=== PATIENT | female | born 1965 | race Caucasian/White ===

== ENCOUNTER 2017-04-08 18:55 | Inpatient (IN) ==
[2017-04-08] MEDS ORDERED: *HR* Ticagrelor 90 MG TABLET PO ONE (19:12)
[2017-04-08] MEDS ORDERED: Aspirin 81 MG TAB.CHEW PO ONE (19:12)
[2017-04-08] MEDS ORDERED: *HR* Heparin 5,000 UNIT/ML VIAL IVP ONE (19:12)
[2017-04-08] MEDS ORDERED: *HR* Heparin 5,000 UNIT/ML VIAL IVP PRN ×2 (19:12)
[2017-04-08] MEDS ORDERED: Heparin 25,000 UNIT/500 ML D5W 25,000 UNIT/500 ML MLS IVC SCH (19:15)
[2017-04-08] MEDS: Nitroglycerin 0.4 MG TAB.SUBL SL PRN ×3 (19:22→23:26)
[2017-04-08 19:24] LABS: Basophils % 0.4 %; Eosinophils # 0.1 K/mcL (0.0-0.6); Eosinophils % 1.1 %; Hematocrit 46.1 % (35.3-44.9); Hemoglobin 15.1 g/dL (11.5-15.4); Immature Granulocytes % 0.4 % (0-4); Lymphocytes # 1.9 K/mcL (0.6-4.6); Lymphocytes % 16.6 %; Mean Corpuscular HGB Conc 32.8 g/dL (31.6-35.5); Mean Corpuscular Hemoglobin 28.8 pg (28.0-33.3); Mean Corpuscular Volume 87.8 fL (83.0-100.0); Mean Platelet Volume 9.8 fL (9.4-12.4); Monocytes # 0.8 K/mcL (0.0-1.3); Monocytes % 7.4 %; Neutrophils # 8.3 K/mcL (1.6-8.9); Platelet Count 249 K/mcL (140-400); Red Blood Count 5.25 M/mcL (3.82-4.97); Red Cell Distribution Width 12.6 % (11.5-14.5); Segmented Neutrophils % 74.1 %
--- NOTE | 2017-04-08 19:26 | Emergency Department Note ---
Disposition Clinical Impression: ST elevation myocardial infarction (STEMI) Qualifiers: Involved coronary artery: unspecified coronary artery Qualified Code(s): I21.3 - ST elevation (STEMI) myocardial infarction of unspecified site Disposition: Admitted As Inpatient Condition: Critical Time of Disposition: 19:09 Chest Pain HPI - General Chief Complaint: ED Chest Pain Stated Complaint: chest pain Time Seen by Provider: 04/08/17 18:59 Source: patient Vital Signs Reviewed: Yes Nursing Notes Reviewed: Yes - History of Present Illness HPI Narrative: 51-year-old female with past medical history of type 2 diabetes, hypertension, smoking, history of myocardial infarction in her brother, sister, mother, and father presents to the emergency department after a 2 day history of chest pain. Patient states that she was having crushing chest pain last night, but it started to resolve and she went to sleep. Patient states that just felt achy all day and while at bingo today, she started having the same crushing symptoms of chest pain today. Patient states that she also has pleuritic chest pain as well. Patient denies any history of blood clots, recent travel, hemoptysis, unilateral leg swelling, recent surgery or trauma. Patient states that she has associated symptoms of nausea, was accompanied with her chest pain. Severity scale (1-10): 7 - Related Data Allergies Allergy/AdvReac Type Severity Reaction Status Date / Time No Known Allergies Allergy Verified 04/08/17 19:06 All systems ED: reviewed and negative except as stated. Review of Systems: As Per HPI Constitutional: Denies: fever, chills Cardiovascular: Reports: chest pain. Denies: dyspnea on exertion Respiratory: Reports: dyspnea. Denies: cough Gastrointestinal: Reports: nausea. Denies: abdominal pain, vomiting Genitourinary: Denies: urgency, dysuria Musculoskeletal: Denies: back pain, neck pain Neurological: Denies: headache, weakness, numbness Chest Pain PMH - Past Medical History Medical history: Reports: diabetes, hypertension Psychiatric history: Reports: depression - Social History Smoking Status: Current every day smoker Physical Exam General: 51-year-old female who appears to be in distress, clutching her chest, very uncomfortable. Head: autraumatic, EOMI, no conjuncitval pallor, no scleral icterus, Mouth: oral mucous membranes moist Neck: neck soft, trachea midline Chest:: Equal chest wall rise Lungs: Normal lungs sounds bilaterally, no wheezes, no respiratory distress Heart: normal heart sounds, tachycardic and normal rhythm, Abdomen: soft, non-tender, no rigidity, no guarding, no rebdound tenderness Lower Extremities: no pedal edema, calves non-tender Integumentary: Skin warm, dry, and intact Neuro: Alert Psych: Anxious - General General appearance: alert, in no apparent distress Course Course Narrative: 51-year-old female comes in with 2 day history of chest pain. Patient states that the chest pain started last night she described it as crushing pressure and tightness. Last night she went to bed the pain resolved and woke up this morning and she was only having achiness in her chest. She comes to the emergency department now because her chest pain is gotten worse over the last hour. Her brought her into the emergency department. At 1904, an electrocardiogram was performed which revealed a STEMI with lateral ST elevation. Electrocardiogram also revealed inferior reciprocal electrocardiogram changes. A STEMI alert was called at 19:05. I spoke to Dr. Capellan the freight forwarder at 19:09 and informed him of the STEMI. He agreed with providing the patient with 325 mg of aspirin as well as 180 mg of Brilinta, starting low-dose heparin. Patient was also provided nitroglycerin and nitroglycerin drip. Patient is hemodynamically stable at this time. With a blood pressure of 148/94, pulse 100 rate of 93. Respirations were 20, oxygen saturation was 99% on room air. I discussed this with both the patient and her . They were in agreement with the plan. We are currently awaiting the cath team to be assembled to take this patient to the [facility]. Vital Signs Temperature 98.0 F 04/08/17 18:59 Pulse Rate 93 04/08/17 18:59 Respiratory Rate 20 04/08/17 18:59 Blood Pressure 148/94 04/08/17 18:59 O2 Sat by Pulse Oximetry 99 04/08/17 18:59 Temperature 98.0 F 04/08/17 18:59 Pulse Rate 93 04/08/17 18:59 Respiratory Rate 20 04/08/17 18:59 Blood Pressure 148/94 04/08/17 18:59 O2 Sat by Pulse Oximetry 98 04/08/17 19:12 Oxygen Delivery Oxygen Delivery Room Air - Reevaluation(s) Reevaluation #1: Cath team came and took patient out of the emergency department at 19:45 to take her to the Food Service Cashier. Vital Signs Temperature 98.0 F 04/08/17 18:59 Pulse Rate 93 04/08/17 18:59 Respiratory Rate 20 04/08/17 18:59 Blood Pressure 148/94 04/08/17 18:59 O2 Sat by Pulse Oximetry 99 04/08/17 18:59 Temperature 98.0 F 04/08/17 18:59 Pulse Rate 96 04/08/17 19:37 Respiratory Rate 16 04/08/17 19:37 Blood Pressure 122/76 04/08/17 19:37 O2 Sat by Pulse Oximetry 99 04/08/17 19:37 Oxygen Delivery Oxygen Delivery Nasal Cannula Time: 19:49 Vital Signs Temperature 98.0 F 04/08/17 18:59 Pulse Rate 93 04/08/17 18:59 Respiratory Rate 20 04/08/17 18:59 Blood Pressure 148/94 04/08/17 18:59 O2 Sat by Pulse Oximetry 99 04/08/17 18:59 Temperature 98.2 F 04/08/17 20:50 Pulse Rate 90 04/08/17 20:50 Respiratory Rate 18 04/08/17 20:50 Blood Pressure 123/78 04/08/17 20:50 O2 Sat by Pulse Oximetry 98 04/08/17 20:50 Oxygen Delivery Oxygen Delivery Nasal Cannula Chest Pain - Medical Records Medical records reviewed: Yes I reviewed the patient's medical records. - Lab Data Result diagrams: 04/08/17 19:10 04/08/17 19:10 Lab Results 04/08/17 04/08/17 04/08/17 Range/Units 19:10 19:10 19:10 WBC 11.2 H (4.3-11.1) K/mcL RBC 5.25 H (3.82-4.97) M/mcL Hgb 15.1 (11.5-15.4) g/dL Hct 46.1 H (35.3-44.9) % MCV 87.8 (83.0-100.0) fL MCH 28.8 (28.0-33.3) pg MCHC 32.8 (31.6-35.5) g/dL RDW 12.6 (11.5-14.5) % Plt Count 249 (140-400) K/mcL MPV 9.8 (9.4-12.4) fL Immature Gran % 0.4 (0-4) % Seg Neutrophils % 74.1 % Lymphocytes % 16.6 % Monocytes % 7.4 % Eosinophils % 1.1 % Basophils % 0.4 % Neutrophils # 8.3 (1.6-8.9) K/mcL Lymphocytes # 1.9 (0.6-4.6) K/mcL Monocytes # 0.8 (0.0-1.3) K/mcL Eosinophils # 0.1 (0.0-0.6) K/mcL Basophils # 0.0 (0.0-0.2) K/mcL PT 10.8 (9.4-12.1) Seconds INR 1.0 APTT 28.1 (26.0-36.0) Seconds Sodium 136 (136-145) mEq/L Potassium 3.7 (3.5-4.5) mEq/L Chloride 100 (98-109) mEq/L Carbon Dioxide 26 (19-29) mEq/L BUN 15 (7-20) mg/dL Creatinine 1.16 H (0.57-1.11) mg/dL Est GFR ( Amer) 60 (> 60) Est GFR (Non-Af Amer) 49 L (> 60) BUN/Creatinine Ratio 13 (6-26) Glucose 335 H (70-99) mg/dL POC Glucose (58-89) Calculated Osmolality 296 (280-300) Calcium 9.7 (8.6-10.8) mg/dL Magnesium 1.6 (1.6-2.6) mg/dL Troponin I (0-0.03) ng/mL 04/08/17 04/08/17 Range/Units 19:10 19:38 WBC (4.3-11.1) K/mcL RBC (3.82-4.97) M/mcL Hgb (11.5-15.4) g/dL Hct (35.3-44.9) % MCV (83.0-100.0) fL MCH (28.0-33.3) pg MCHC (31.6-35.5) g/dL RDW (11.5-14.5) % Plt Count (140-400) K/mcL MPV (9.4-12.4) fL Immature Gran % (0-4) % Seg Neutrophils % % Lymphocytes % % Monocytes % % Eosinophils % % Basophils % % Neutrophils # (1.6-8.9) K/mcL Lymphocytes # (0.6-4.6) K/mcL Monocytes # (0.0-1.3) K/mcL Eosinophils # (0.0-0.6) K/mcL Basophils # (0.0-0.2) K/mcL PT (9.4-12.1) Seconds INR APTT (26.0-36.0) Seconds Sodium (136-145) mEq/L Potassium (3.5-4.5) mEq/L Chloride (98-109) mEq/L Carbon Dioxide (19-29) mEq/L BUN (7-20) mg/dL Creatinine (0.57-1.11) mg/dL Est GFR ( Amer) (> 60) Est GFR (Non-Af Amer) (> 60) BUN/Creatinine Ratio (6-26) Glucose (70-99) mg/dL POC Glucose 341 H (58-89) Calculated Osmolality (280-300) Calcium (8.6-10.8) mg/dL Magnesium (1.6-2.6) mg/dL Troponin I 21.33 H* (0-0.03) ng/mL - EKG Data EKG attestation: Yes I reviewed and interpreted this EKG. EKG results narrative: 19:04 Ventricular rate 99 bpm, WV interval 147 ms, QRS duration 82 ms, QT 345 ms, QTC 401 ms, normal axis. Sinus rhythm with a ventricular rate of [address] segment elevations in the lateral leads 1, aVL, V5 and V6. There are reciprocal changes noted in the inferior leads of II, III, and aVF. STEMI alert was called at 19:05. I spoke with Dr. Capellan on the phone at 19:09 to inform him of this electrocardiogram. Electrocardiogram was also sent via text message per request. Attestation Statement - Attestation Attestation: I examined this patient and my medical decision-making was reviewed with the Resident Physician. I agree with the documented findings, disposition and treatment plan as described except to the extent set forth below. This is a 51- year-old female presents with concern for chest pain. Onset was today. She does have evidence of STEMI on EKG. Catheter lab was alerted immediately upon her arrival. Discussed case with attending interventional is. The patient will be given Ventolin, aspirin, heparin and be transported directly to the catheter lab after nitroglycerin administration. The patient was not in the emergency department more than 35 minutes.
[2017-04-08 19:29] LABS: Prothrombin Time 10.8 Seconds (9.4-12.1)
[2017-04-08] MEDS ORDERED: Heparin 1,000 UNITS/500 mL NS 500 ML ONE (19:29)
[2017-04-08] MEDS ORDERED: 0.9 % Sodium Chloride 1,000 ML ONE ×3 (19:29→19:33)
[2017-04-08] MEDS ORDERED: *HR* Heparin 10,000 UNIT/10 ML VIAL ONE (19:29)
[2017-04-08] MEDS ORDERED: Nitroglycerin 1,000 MCG/10 ML VIAL IV ONE (19:29)
[2017-04-08] MEDS: Nitroglycerin 25 MG/250 ML INFUS..BTL IVC SCH ×2 (19:29→23:41)
[2017-04-08 19:32] LABS: Activated Partial Thrombo Time 28.1 Seconds (26.0-36.0)
[2017-04-08] MEDS ORDERED: Verapamil 5 MG/2 ML VIAL ONE (19:35)
[2017-04-08 19:37] LABS: Calcium 9.7 mg/dL (8.6-10.8); Magnesium 1.6 mg/dL (1.6-2.6); Potassium 3.7 mEq/L (3.5-4.5)
[2017-04-08] MEDS ORDERED: Ondansetron 4 MG/2 ML VIAL IVP PRN (19:48)
--- NOTE | 2017-04-08 19:48 | Pre-Sedation Evaluation ---
Pre-sedation evaluation - Pre-sedation checklist Date of procedure: 04/08/17 Procedure: [facility] Recent Vitals: Last Vital Signs Temp 98.0 F 04/08/17 18:59 Pulse 96 04/08/17 19:37 Resp 16 04/08/17 19:37 BP 122/76 04/08/17 19:37 Pulse Ox 99 04/08/17 19:37 H&P (including ROS) documented in medical record: Yes Previous reaction to sedatives/anesthetics: No Dietary Status: unknown Airway Assessment: Patient can open mouth completely, TMJ function normal If Yes;: Morbid obesity ASA Classification *see protocol: CLASS II-Mild systemic disease, E-EMERGENCY- Add to any of the above to indicate emergent Plan of Care: Pt appropriate candidate for procedure/moderate/conscious sedation , Risks/benefits of procedure/sedation discussed w/ patient/family, If not NPO; Risk of intake outweiged by necessity to perform procedure (STEMI)
[2017-04-08] MEDS ORDERED: *HR* FentaNYL (PF) 250 MCG/5 ML VIAL ONE (19:49)
[2017-04-08] MEDS ORDERED: *HR* Midazolam HCl 5 MG/5 ML VIAL IVP ONE (19:49)
[2017-04-08] MEDS ORDERED: Dextrose Gel 15 GM PO PRN ×2 (19:52)
[2017-04-08] MEDS ORDERED: D5% in Water 1,000 ML IVC PRN (19:52)
[2017-04-08] MEDS ORDERED: *HR* Dextrose 50 % in Water (Syg) 50 ML SYRINGE IVP PRN (19:52)
[2017-04-08] MEDS ORDERED: *HR* Atropine Sulfate 1 MG/10 ML SYRINGE ONE (19:57)
[2017-04-08] MEDS ORDERED: Tirofiban 12.5 MG/250ML 12.5 MG/250 ML BAG IVC SCH (20:00)
--- NOTE | 2017-04-08 20:50 | Invasive Diagnostic Lab Proc ---
Name: Pao Bob Date of Study: 04/08/2017 Date: 1965 Ht: 66.9in Medical Record#: [id number] Age: 51 Wt: 205.03lb Gender: Female BSA: 2.04 Order #: [id number] BMI: 32.18 Physicians Procedure Physician: Toney Alcantara MD, [facility] Referring MD: Referring MD: Staff Name Position Time In Fred Easley RN Tooling Inspector 07:45 PM Keren Fischer RN Monitor 07:45 PM Marycarmen Eli RN Tooling Inspector 07:45 PM Bradley Galindo RT (R) Scrub 07:45 PM Indications Indication Acute Coronary Syndrome AMI Procedures Performed Procedure PRQ CARD MELBA STENT W/ANGIO 1 VSL L HRT ARTERY/VENTRICLE ANGIO Pre-Procedure Checklist Informed consent is complete signed and on chart. H&P is on chart. ID band is on and ID verified with patient. Patient NPO for procedure The procedure was described for the patient and questions were answered. Blood Pressure: 149/92 ECG is on chart. Rhythm: NSR Plan of Care Patient will tolerate the procedure without complications. Adequate level of comfort will be maintained. Hemodynamics will remain stable Patient will recover from procedure without complications. Respiratory function will be maintained. Cardiac rhythm will remain stable. Patient temperature will be maintained. Patient and/or family have verbalized understanding of the procedure. Patient Education Chief Complaint/Reason for Test: Cardiac Cath Developmental Category: Adult (18-64 years) Developmentally Appropriate for Age: Yes Learning Barriers: None Education Needs: Procedure Education Method: Verbal Information Taught: Cardiac Cath Educational Evaluation: Able to repeat information Intravenous Access Time IV Size Location DC'd Fluid/Drip Rate Units RN 07:45 PM 18g 1 1/4" Patent On Arrival Rt Antecubital 07:45 PM 18g 1 14" Patent On Arrival Lt Antecubital 0.9NaCl 100 ml/hr Marycarmen Eli RN Allergies No Known Allergies Vital Signs Time BP (mmHg) HR (bpm) O2 Sat. RR (bpm) LOC 07:49 PM 149 / 92 94 100 % 19 07:54 PM 143 / 89 93 100 % 17 07:59 PM 131 / 81 90 100 % 19 08:04 PM 125 / 72 92 99 % 19 08:09 PM 129 / 77 89 99 % 20 08:14 PM 126 / 74 88 100 % 20 08:19 PM 137 / 82 88 99 % 21 08:24 PM 132 / 77 88 100 % 17 08:29 PM 129 / 84 90 100 % 18 Procedural Medications Time Medication Dose Units Method Given By 07:50 PM Oxygen 2 L/min nasal cannula Marycarmen Eli RN 07:54 PM Versed 2 mg Intravenous Marycarmen Eli RN 07:54 PM Fentanyl 50 mcg Intravenous Marycarmen Eli RN 07:55 PM Lidocaine 2% 1 ml Subcutaneous Toney alcantara 07:56 PM Nitroglycerin 200 mcg Toney Alcantara MD 07:56 PM Verapamil 2.5 mg Intraarterial Toney Alcantara MD 08:10 PM Aggrastat Bolus: 46 ml Intravenous Marycarmen Eli RN 08:11 PM Aggrastat 12.5mg/250ml 16.5 ml Intravenous Marycarmen Eli RN ASA Classification: Emergent Procedure: ASA score is assumed Wellington Score Preprocedure Postprocedure Activity 2- Moves 4 extremities sustained head lift Activity 2- Moves 4 extremities sustained head lift Circulation 2- SBP +/= 20 points of pre-anesthetic level Circulation 2- SBP +/= 20 points of pre-anesthetic level Consciousness 2- Awake and alert oriented x 3 Consciousness 2- Awake and alert oriented x 3 O2 Saturation 2- Able to maintain O2 satruation of 92% on room air O2 Saturation 2- Able to maintain O2 satruation of 92% on room air Respiratory 2- Able to deep breathe and cough well Respiratory 2- Able to deep breathe and cough well Total Score 10 Total Score 10 Contrast Agent: Isovue Diagnostic Contrast: 146 ml Total Contrast: 146 ml Fluoro Dose: 644 mGy Activated Clotting Time Time Seconds to Clot 08:26 PM 400 Procedure Log Time Note Enter By 07:45 PM Pt arrived to laboratory analyst 2 at 19:45 ejohnson 07:47 PM Hair removed from procedure site in procedure lab using clippers. Right wrist prepped with Chloraprep by Bradley Galindo (R), safety strap applied then patient was draped. Skin intact. ejohnson 07:49 PM Vitals capture started with the following parameters, Patient=Adult, Interval=5 min, Initial Bjxzifif=619 mmHg, Deflation Rate=5 mmHg, Cuff placed on Left Arm 07:49 PM CathStat 07:49 PM Physician arrived 19:49 ejohnson 07:49 PM HR=94 bpm, EADD=935/92 mmhg, VbK0=365.0 %, Resp=19 B/min, Comment=SR 07:49 PM Meet and greet completed ejohnson 07:49 PM Sign in performed according to hospital policy. ejohnson 07:49 PM Procedure start 19:49 ejohnson 07:49 PM Chemistry still pending ejohnson 07:50 PM Time: 19:50 Oxygen on at 2 L/min per nasal cannula by Marycarmen Eli RN ejohnson 07:50 PM Recorded ECG: HR=97 Condition=Condition 1 07:54 PM Time: 19:54 Versed 2 mg Intravenous Given by Marycarmen Eli RN ejohnson 07:54 PM Time: 19:54 Fentanyl 50 mcg Intravenous Given by Marycarmen Eli RN ejohnson 07:54 PM HR=93 bpm, VXVA=471/89 mmhg, FwS5=197.0 %, Resp=17 B/min, Comment=SR 07:55 PM Time: 19:55 1 ml Lidocaine 2% to right radial Subcutaneous Given by Toney alcantara ejohnson 07:56 PM Access obtained by percutaneous puncture. 6Fr 10cm Terumo Glidesheath sheath placed in right Radial artery. [id number] ejohnson 07:57 PM Time: 19:56 Patient given 200 mcg Nitroglycerin, and 2.5 mg Verapamil Intraarterial by ejohnson 07:57 PM Inflation device was opened. ejohnson 07:57 PM 6Fr EBU 3.0 Medtronic guide catheter was used to cannulate the PCI vessel successfully. reused? No ejohnson 07:58 PM Recorded Pressure: Ao, HR=92, Condition=Condition 1 (Aorta) Ao 116/59/86 07:58 PM LCA angiography performed in multiple views. ejohnson 07:59 PM HR=90 bpm, SNTA=174/81 mmhg, TkM7=507.0 %, Resp=19 B/min, Comment=SR 08:01 PM Catheter removed over the wire. ejohnson 08:02 PM 5Fr TIG catheter inserted over the wire [facility] ejohnson 08:03 PM RCA angiography performed in multiple views. ejohnson 08:03 PM Recorded Pressure: Ao, HR=93, Condition=Condition 1 (Aorta) Ao 100/77/88 08:03 PM Recorded ECG: HR=93 Condition=Condition 1 08:04 PM HR=92 bpm, KTPA=601/72 mmhg, SpO2=99.0 %, Resp=19 B/min, Comment=SR 08:04 PM Catheter removed ejohnson 08:05 PM 5Fr Pigtail catheter inserted over the wire [facility] ejohnson 08:05 PM Catheter selectively placed in left ventricle ejohnson 08:05 PM Pressure channel 3 zeroed. 08:05 PM Recorded Pressure: LV, HR=90, Condition=Condition 1 (Left Ventricle) LV 114/15/26 08:06 PM Bolus angiogram of left Ventricle complete: 12 ml/sec for a total of 30 mls ejohnson 08:06 PM Recorded Pressure: LV, Ao, HR=91, Condition=Condition 1 (Left Ventricle) LV 126/13/27, (Aorta) Ao 122/76/95 08:09 PM HR=89 bpm, MPXH=789/77 mmhg, SpO2=99.0 %, Resp=20 B/min, Comment=SR 08:10 PM Catheter removed ejohnson 08:11 PM Time: 20:10 Aggrastat Bolus: 46 ml Intravenous Given by Marycarmen Eli RN Em pump ejohnson 08:11 PM Time: 20:11 Aggrastat 12.5mg/250ml 16.5 ml Intravenous Given by Marycarmen Eli RN Em pump ejohnson 08:13 PM 6Fr EBU 3.0 Medtronic guide catheter was used to cannulate the PCI vessel successfully. reused? Yes ejohnson 08:14 PM .014 [place] 150cm guide wire across target lesion- successful. reused? No ejohnson 08:14 PM Coronary Dominance: right ejohnson 08:14 PM Recorded Pressure: Ao, HR=90, Condition=Condition 1 (Aorta) Ao 116/76/94 08:14 PM HR=88 bpm, CXVG=115/74 mmhg, JwY7=900.0 %, Resp=20 B/min, Comment=SR 08:14 PM Lesion found in Mid LAD. Pre Stenosis: 80 Pre LI Flow: 3: Complete and Brisk Flow/Perfusion ejohnson 08:15 PM Lesion found in Mid RCA. Pre Stenosis: 70 Pre LI Flow: 3: Complete and Brisk Flow/Perfusion ejohnson 08:15 PM Mid/Distal Left Anterior Descending Coronary Artery and diagonal branches with 80% stenosis. ejohnson 08:15 PM Right Coronary, Right Posterior Descending Arteries with Right Posterolateral and Acute Marginal branches with 70 % stenosis. ejohnson 08:16 PM 2.25mm x 12mm Synergy drug-eluting stent across target lesion- successful Lot #[id number] ejohnson 08:18 PM Recorded Pressure: Ao, HR=86, Condition=Condition 1 (Aorta) Ao 111/84/97 08:18 PM Stent deployed @ 11 natasha for 30 seconds ejohnson 08:19 PM Stent delivery system removed intact. ejohnson 08:19 PM HR=88 bpm, OXQH=751/82 mmhg, SpO2=99.0 %, Resp=21 B/min, Comment=SR 08:22 PM 2.25 mm x 8mm NC Emerge balloon across target lesion- successful. reused? No ejohnson 08:22 PM Balloon inflated @ 20 natasha for 28 seconds ejohnson 08:23 PM Balloon inflated @ 20 natasha for 24 seconds ejohnson 08:24 PM Balloon catheter removed intact. ejohnson 08:24 PM Guide wire removed intact. ejohnson 08:24 PM Guide catheter removed intact. ejohnson 08:24 PM HR=88 bpm, SBRE=457/77 mmhg, RkB6=139.0 %, Resp=17 B/min, Comment=SR 08:25 PM Procedure completed at 20:25 ejohnson 08:26 PM At 20:26 the ACT was 400 seconds. ejohnson 08:26 PM Sign out completed: Radiation Dose 643.93 mGy Fluoro Time: 6.6 Isovue 370 - 200ml contrast 146 ml given by Toney Alcantara MD, [facility]. Complications: NoneCardiac Rehab Consult needed: YesConfirmed administered medications: Yes ejohnson 08:26 PM Isovue 370 - 200ml,1 Bottle(s) used. ejohnson 08:27 PM Arterial sheath pulled, Vasc Band closure device used and was Successful S/N. ejohnson 08:27 PM 15 ml air in Vasc Band. ejohnson 08:27 PM Post ECG NSR with ST elevation ejohnson 08:27 PM Post Blood Pressure 132/77 ejohnson 08:27 PM 20:27 Post Pulses Rt Radial 1+ ejohnson 08:29 PM Information taught Cardiac Cath, PCI, and Vasc Band ejohnson 08:29 PM Education needs Plan of Care and Responsibilities of Patient in Care ejohnson 08:29 PM Learning barriers :None ejohnson 08:29 PM Education Methods Verbal ejohnson 08:29 PM Education evaluation Able to repeat information ejohnson 08:29 PM Site status No bleeding/hematoma - Rt Wrist as reported by Toney Alcantara MD at 20:29 ejohnson 08:29 PM Plavix, Effient or Brilinta given Yes in the ER ejohnson 08:29 PM Family placed in consult room. ejohnson 08:29 PM HR=90 bpm, KTKY=483/84 mmhg, SfE2=227.0 %, Resp=18 B/min, Comment=SR 08:41 PM Report given to Damaso BURT Pt taken to 2N Room #5. 20:41 ejohnson 08:42 PM Patient out of room: 20:42 ejohnson 08:42 PM Delay to floor No ejohnson Complications Complication None Hemodynamics Pressures Site Systolic/A Wave Diastolic/V Wave Mean AO 116 59 86 AO 100 77 88 LV 114 15 26 LV 126 13 27 AO 122 76 95 AO 116 76 94 AO 111 84 97 Post Procedure Information Blood Pressure: 132/77 mmHg Rhythm: NSR Post procedural instructions were given Closure Device Time Device Success/Fail 04/08/2017 8:27:00 PM Mechanical Compression Successful Site Checks Time Location Status Staff Sheath In? Note 08:29 PM Rt Wrist No bleeding/hematoma Toney Alcantara MD Pulses Time Site Pre-Procedure Post-Procedure Note 04/08/2017 7:45:00 PM Rt Radial 2+ 8:27:00 PM Rt Radial 1+ Updated by Keren Fischer RN on 04/08/2017 8:43:53 PM Keren Fischer RN electronically signed on 04/08/2017 8:44:23 PM with status of Final
[2017-04-08] MEDS ORDERED: Acetaminophen 325 MG TABLET PO PRN (20:55)
[2017-04-08] MEDS ORDERED: *HR* HYDROcodone/Acet 5/325 mg TABLET PO PRN (20:55)
--- NOTE | 2017-04-08 21:03 | Cardiology History & Physical ---
Date of Encounter: 04/08/17 Time of Encounter: 09:00 Assessment and Plan (1) Acute SD Current Visit: Yes Status: Acute EKG concerning for lateral STEMI. A/R/B of LHC described to patient. EKG independently interpreted, labs reviewed. Proceed with emergent LHC. EF assessment will be completed. Aspirin, brilinta and heparin given. Total critical care time including discussing with patient and family: 45 minutes. The assessment and plan as outlined above was discussed with the patient and/or family members who expressed understanding and agreement. All questions were answered. Qualifiers: Myocardial infarction ST status: non-ST elevation myocardial infarction Qualified Code(s): I21.4 - Non-ST elevation (NSTEMI) myocardial infarction (2) Diabetes Current Visit: Yes Status: Acute SSI QID FS. The assessment and plan as outlined above was discussed with the patient and/or family members who expressed understanding and agreement. All questions were answered. Qualifiers: Diabetes mellitus type: type 2 Diabetes mellitus complication status: without complication Diabetes mellitus chcf insulin use: without chcf use Qualified Code(s): E11.9 - Type 2 diabetes mellitus without complications (3) Obesity Current Visit: Yes Status: Acute Cardiac healthy diet and cardiac rehab transitioning to routine physical activity to lose weight. The assessment and plan as outlined above was discussed with the patient and/or family members who expressed understanding and agreement. All questions were answered. Qualifiers: Obesity type: due to excess calories Obesity classification: adult class 1 (BMI 30 ? 34.9) Serious obesity comorbidity presence: with serious comorbidity Body mass index: BMI 33.0-33.9 Qualified Code(s): E66.09 - Other obesity due to excess calories; Z68.33 - Body mass index (BMI) 33.0-33.9, adult; Z68.33 - Body mass index (BMI) 33.0-33.9, adult History of Present Illness Chief complaint: chest pain HPI: Ms. Bob is a 51 year old female with diabetes states approximately 11pm last night she had onset of severe right sided chest pressure with radiation into right jaw and arm worse with exertion that self resolved sometime during the night then recurred tonight associated with dyspnea and nausea. She also notes exertional chest discomfort over last few months that was severe at times. Past Med Surg Social Fam HX - Past Medical History Medical history: diabetes, hypertension Psychiatric history: depression - Social History Smoking Status: Current every day smoker Medications and Allergies 3 Allergy/AdvReac Type Severity Reaction Status Date / Time No Known Allergies Allergy Verified 04/08/17 19:06 All Systems Review: A 10-system review of systems was performed and is negative for pertinent findings except as documented above in the HPI. - Constitutional Constitutional: no chills, no fever(s) - EENT Eyes: no blurred vision, no loss of vision Nose, mouth and throat: no bleeding gums, no epistaxis - Cardiovascular Cardiovascular: chest pain at rest, chest pain with exertion - Respiratory Respiratory: dyspnea, no hemoptysis, no wheezing - Gastrointestinal Gastrointestinal: no hematemesis, no hematochezia - Genitourinary Genitourinary: no dysuria, no hematuria - Musculoskeletal Musculoskeletal: no abnormal gait, no myalgias - Integumentary Integumentary: no rash, no unusual bruising - Neurological Neurological: dizziness, no focal weakness, no loss of vision - Psychiatric Psychiatric: no hallucinations, no panic attacks - Hematological/Lymphatic Hematologic/Lymphatic: no easy bleeding, no easy bruising Physical Examination General: Conversant, Other (distressed) HEENT: Atraumatic, Normocephaly Neck: No JVD Cardiac: Reg Rate and Rhythm Neuro: Alert and responsive Abdomen: Soft Skin: No rashes noted on visualized skin Musculoskeletal: No Chest Wall Tenderness Extremities: No Edema Results 04/08/17 19:10 04/08/17 19:10 - EKG Interpretation EKG results cardiology: personally reviewed (sinus rhythm with lateral current of injury also involving V4 with reciprocal changes)
[2017-04-08] MEDS ORDERED: *HR* Metoprolol 5 MG/5 ML VIAL IVP ONE (23:30)
[2017-04-08] MEDS: *HR* Morphine 2 MG/ML SYRINGE IVP PRN (23:52)
[2017-04-09] MEDS ORDERED: Insulin LISPRO 300 UNITS/3 ML VIAL SQ SCH
[2017-04-09] MEDS: Insulin LISPRO 300 UNITS/3 ML VIAL SQ SCH ×5 (01:04→22:21)
[2017-04-09] MEDS: *HR* Morphine 2 MG/ML SYRINGE IVP PRN ×3 (02:22→13:53)
[2017-04-09] MEDS: *HR* OxyCODONE/APAP 5/325 TABLET PO PRN ×3 (02:26→20:20)
[2017-04-09 07:10] LABS: BUN/Creatinine Ratio 20 (6-26); Blood Urea Nitrogen 14 mg/dL (7-20); Calcium 8.5 mg/dL (8.6-10.8); Carbon Dioxide 25 mEq/L (19-29); Chloride 106 mEq/L (98-109); Chol/HDL Ratio 3.4 (0-4.9); Cholesterol 133 mg/dL (< 200); Glucose 173 mg/dL (70-99); HDL Cholesterol 39 mg/dL (40-59); LDL Cholesterol,Calculated 68 mg/dL (0-99); Osmolality,Calculated 289 (280-300); Potassium 3.4 mEq/L (3.5-4.5); Sodium 137 mEq/L (136-145); Triglycerides 129 mg/dL (< 150); eGFR For African Americans > 60 (> 60); eGFR For Non-African Americans > 60 (> 60)
[2017-04-09 07:16] LABS: Basophils % 0.3 %; Eosinophils # 0.1 K/mcL (0.0-0.6); Eosinophils % 0.9 %; Immature Granulocytes % 0.5 % (0-4); Lymphocytes # 1.6 K/mcL (0.6-4.6); Lymphocytes % 14.8 %; Mean Corpuscular HGB Conc 33.3 g/dL (31.6-35.5); Mean Corpuscular Hemoglobin 29.6 pg (28.0-33.3); Mean Corpuscular Volume 89.1 fL (83.0-100.0); Mean Platelet Volume 10.2 fL (9.4-12.4); Monocytes # 0.8 K/mcL (0.0-1.3); Monocytes % 7.5 %; Neutrophils # 8.4 K/mcL (1.6-8.9); Platelet Count 213 K/mcL (140-400); Red Blood Count 4.49 M/mcL (3.82-4.97); Red Cell Distribution Width 12.7 % (11.5-14.5)
[2017-04-09 07:17] LABS: Hemoglobin 13.3 g/dL (11.5-15.4)
[2017-04-09] MEDS: Metoprolol XL (24 HR) Succ 25 MG TAB.ER.24H PO SCH (08:02)
[2017-04-09] MEDS: *HR* Ticagrelor 90 MG TABLET PO SCH ×2 (08:02→20:20)
[2017-04-09] MEDS: Aspirin 81 MG TAB.CHEW PO SCH (08:02)
--- NOTE | 2017-04-09 08:07 | Cardiology Progress Note ---
Date of Encounter: 04/09/17 Time of Encounter: 08:05 Assessment and Plan (1) Acute IA Current Visit: Yes Status: Acute Per Cardiology: Presented with EKG concerning for lateral STEMI. S/p emergent LHC. On asa, statin, BB, Brilinta. Echo pending. Has Cardiac Rehab order. On NTG gtt, continues with CP. Will apply NC O2. Seen with Dr. Capellan at bedside, plan for repeat LHC this am. Will resume Hep gtt. Qualifiers: Myocardial infarction ST status: non-ST elevation myocardial infarction Qualified Code(s): I21.4 - Non-ST elevation (NSTEMI) myocardial infarction Discussion w patient/family: The assessment and plan as outlined above was discussed with the patient and/or family members who expressed understanding and agreement. All questions were answered. Thank you for involving us in the care of your patient. Please call with any questions. Subjective Principal diagnosis: Acute IA Interval history: Patient contionue to experience CP and neck pain. NTG just titrated. Denies any palps or SOB. Denies any R wrist concerns. Objective Vital Signs, Last 4 Hours Pulse Resp BP Pulse Ox 04/09/17 07:23 81 18 114/78 97 04/09/17 05:55 80 118/78 General: Conversant Cardiac: Reg Rate and Rhythm, Normal S1 and S2, No Murmur Lungs: Normal Breath Sounds, No Wheeze, Rales, Rhonchi Neuro: Alert and responsive, No focal deficits noted Skin: Other (R wrist site D&I, Radial pulse 2+ palp) Extremities: No Edema Results 04/09/17 06:04 04/09/17 06:04 Lab Results Laboratory Tests 04/08/17 04/09/17 19:10 06:04 Potassium 3.4 L Troponin I 21.33 H* LDL Cholesterol, Calc 68 Active Medications Acetaminophen (Tylenol) 500 mg PO Q6HR PRN PRN Reason: Mild Pain Stop: 10/08/17 19:49 Acetaminophen (Tylenol) 650 mg PO Q6HR PRN PRN Reason: Mild Pain Stop: 10/08/17 20:56 Hydrocodone Bitart/Acetaminophen ([place] 5-325 Mg) 1 tab PO Q4HR PRN PRN Reason: Moderate Pain Stop: 10/08/17 20:56 Last Admin: 04/08/17 21:11 Dose: 1 tab Aspirin (Aspirin) 81 mg PO DAILY [facility] Stop: 10/09/17 09:01 Dextrose/Water (Dextrose 50% (Syg)) 25 ml IVP AD PRN PRN Reason: Hypoglycemia Stop: 10/08/17 19:53 Diphenhydramine HCl (Benadryl) 25 mg PO HS PRN PRN Reason: Insomnia Stop: 10/08/17 20:59 Glucagon (Glucagen) 1 mg IM ONCE PRN PRN Reason: Hypoglycemia Stop: 10/08/17 19:53 Glucose (Gluctose) 15 gm PO ONCE PRN PRN Reason: Hypoglycemia Stop: 10/08/17 19:53 Glucose (Gluctose) 30 gm PO ONCE PRN PRN Reason: Hypoglycemia Stop: 10/08/17 19:53 Nitroglycerin (Nitroglycerin Premix 25 Mg/250 Ml) 25 mg in 250 mls @ 3 mls/hr IVC .Q24H KAYLA PRN Reason: 5 MCG/MIN Stop: 10/08/17 19:16 Last Infusion: 04/09/17 02:22 Dose: 10 mcg/min, 6 mls/hr Dextrose (Dextrose 5%) 1,000 mls @ 100 mls/hr IVC .Q10H PRN PRN Reason: HYPOGLYCEMIA Stop: 10/08/17 19:53 Insulin Human Lispro (Humalog) 0 units SQ HS KAYLA PRN Reason: Protocol Stop: 10/08/17 21:01 Last Admin: 04/09/17 01:04 Dose: 3 units Insulin Human Lispro (Humalog) 0 units SQ TIDAC KAYLA PRN Reason: Protocol Stop: 10/09/17 07:31 Metoprolol Succinate (Toprol Xl) 25 mg PO DAILY [facility] Stop: 10/09/17 09:01 Morphine Sulfate (Morphine Sulfate) 2 mg IVP Q2H PRN PRN Reason: Pain Stop: 10/08/17 23:34 Last Admin: 04/09/17 02:22 Dose: 2 mg Nitroglycerin (Nitroglycerin) 0.4 mg SL Q5MIN PRN PRN Reason: Chest Pain Stop: 10/08/17 19:13 Last Admin: 04/08/17 23:26 Dose: 0.4 mg Ondansetron HCl (Zofran) 4 mg IVP Q8HR PRN PRN Reason: Nausea And Vomiting Stop: 10/08/17 19:49 Oxycodone/Acetaminophen (Percocet 5/325) 1 each PO Q4HR PRN PRN Reason: Severe Pain Stop: 10/08/17 20:56 Last Admin: 04/09/17 02:26 Dose: 1 each Rosuvastatin Calcium (Crestor) 40 mg PO HS KAYLA Stop: 10/08/17 21:01 Last Admin: 04/08/17 21:11 Dose: 40 mg Ticagrelor (Brilinta) 90 mg PO BID KAYLA Stop: 10/09/17 09:01 - Imaging and Cardiology Echo: pending Cardiac cath: report reviewed - EKG Interpretation EKG results cardiology: other Consult Discharge Plan - Plan Referrals: Coby Elena MD [Primary Care Provider] -
[2017-04-09] MEDS ORDERED: *HR* Heparin 5,000 UNIT/ML VIAL IVP PRN ×2 (08:33)
[2017-04-09] MEDS ORDERED: Verapamil 5 MG/2 ML VIAL ONE (08:33)
[2017-04-09] MEDS ORDERED: 0.9 % Sodium Chloride 1,000 ML ONE (08:33)
[2017-04-09] MEDS ORDERED: *HR* Heparin 5,000 UNIT/ML VIAL IVP ONE (08:33)
[2017-04-09] MEDS ORDERED: *HR* Heparin 10,000 UNIT/10 ML VIAL ONE (08:34)
[2017-04-09] MEDS ORDERED: Nitroglycerin 1,000 MCG/10 ML VIAL IV ONE (08:34)
[2017-04-09] MEDS ORDERED: Heparin 1,000 UNITS/500 mL NS 500 ML ONE (08:34)
--- NOTE | 2017-04-09 08:36 | Pre-Sedation Evaluation ---
Pre-sedation evaluation - Pre-sedation checklist Date of procedure: 04/08/17 Procedure: [facility] [place] Recent Vitals: Last Vital Signs Temp 98 F 04/09/17 03:42 Pulse 78 04/09/17 08:16 Resp 18 04/09/17 07:23 BP 114/78 04/09/17 07:23 Pulse Ox 98 04/09/17 08:16 H&P (including ROS) documented in medical record: Yes Previous reaction to sedatives/anesthetics: No Dietary Status: NPO after Midnight Airway Assessment: Patient can open mouth completely, TMJ function normal ASA Classification *see protocol: CLASS II-Mild systemic disease Plan of Care: Pt appropriate candidate for procedure/moderate/conscious sedation , Risks/benefits of procedure/sedation discussed w/ patient/family
[2017-04-09] MEDS ORDERED: Heparin 25,000 UNIT/500 ML D5W 25,000 UNIT/500 ML MLS IVC SCH (08:45)
[2017-04-09 09:43] LABS: Hematocrit 39.6 % (35.3-44.9); Hemoglobin 13.1 g/dL (11.5-15.4); Mean Corpuscular HGB Conc 33.1 g/dL (31.6-35.5); Mean Corpuscular Hemoglobin 29.6 pg (28.0-33.3); Mean Corpuscular Volume 89.4 fL (83.0-100.0); Platelet Count 202 K/mcL (140-400); Red Blood Count 4.43 M/mcL (3.82-4.97); Red Cell Distribution Width 12.7 % (11.5-14.5)
[2017-04-09 09:49] LABS: INR 1.1; Prothrombin Time 11.3 Seconds (9.4-12.1)
[2017-04-09 09:51] LABS: Activated Partial Thrombo Time 29.5 Seconds (26.0-36.0)
[2017-04-09] MEDS ORDERED: *HR* FentaNYL (PF) 100 MCG/2 ML VIAL ONE (10:22)
[2017-04-09] MEDS ORDERED: *HR* Midazolam HCl 2 MG/2 ML VIAL ONE (10:22)
--- NOTE | 2017-04-09 11:47 | Invasive Diagnostic Lab Proc ---
Name: Pao Bob Date of Study: 04/09/2017 Date: 1965 Ht: 66.9in Medical Record#: [id number] Age: 51 Wt: 213.85lb Gender: Female BSA: 2.08 Order #: [id number] BMI: 33.56 Physicians Procedure Physician: Toney Capellan MD, [facility] Referring MD: Coby Elena MD Referring MD: Staff Name Position Time In Kaushal Fred RN Retail Salesperson 10:23 AM Marycarmen Eli RN Retail Salesperson 10:23 AM Keren Fischer RN Monitor 10:23 AM Julia Good RT (R) Scrub 10:24 AM Indications Indication Non-Stemi Procedures Performed Procedure CORONARY ARTERY ANGIO S&I PRQ CARD MELBA STENT W/ANGIO 1 VSL Pre-Procedure Checklist Informed consent is complete signed and on chart. H&P is on chart. ID band is on and ID verified with patient. Patient NPO for procedure The procedure was described for the patient and questions were answered. Blood Pressure: 115/75 ECG is on chart. Rhythm: NSR Plan of Care Patient will tolerate the procedure without complications. Adequate level of comfort will be maintained. Hemodynamics will remain stable Patient will recover from procedure without complications. Respiratory function will be maintained. Cardiac rhythm will remain stable. Patient temperature will be maintained. Patient and/or family have verbalized understanding of the procedure. Patient Education Chief Complaint/Reason for Test: Cardiac Cath Developmental Category: Adult (18-64 years) Developmentally Appropriate for Age: Yes Learning Barriers: None Education Needs: Procedure Education Method: Verbal Information Taught: Cardiac Cath Educational Evaluation: Able to repeat information Intravenous Access Time IV Size Location DC'd Fluid/Drip Rate Units RN 10:20 AM 20g 1 1/4" Patent On Arrival Lt Antecubital 25 ml/hr 10:20 AM 20g 1 1/4" Patent On Arrival Rt Antecubital 0.9NaCl Allergies No Known Allergies Vital Signs Time BP (mmHg) HR (bpm) O2 Sat. RR (bpm) LOC 10:32 AM / % 5 = Fully awake and oriented or at pre-proc level 10:32 AM / % 5 = Fully awake and oriented or at pre-proc level 10:43 AM / % 5 = Fully awake and oriented or at pre-proc level 10:46 AM / % 5 = Fully awake and oriented or at pre-proc level 10:51 AM / % 5 = Fully awake and oriented or at pre-proc level 10:54 AM / % 5 = Fully awake and oriented or at pre-proc level 11:09 AM / % 5 = Fully awake and oriented or at pre-proc level 10:21 AM 115 / 71 85 96 % 32 10:26 AM 115 / 75 81 100 % 21 10:31 AM 109 / 66 82 99 % 18 10:36 AM 95 / 58 81 96 % 13 10:41 AM 98 / 65 80 98 % 23 10:46 AM 103 / 71 83 98 % 16 10:51 AM 102 / 66 80 98 % 16 10:56 AM 101 / 66 80 98 % 18 11:01 AM 96 / 65 79 97 % 15 11:06 AM 96 / 70 82 97 % 17 11:11 AM / 81 98 % 16 11:16 AM 93 / 67 80 97 % 17 11:21 AM 103 / 59 82 95 % 20 Procedural Medications Time Medication Dose Units Method Given By 10:24 AM Oxygen 2 L/min nasal cannula Marycarmen Eli RN 10:26 AM Versed 2 mg Intravenous Marycarmen Eli RN 10:27 AM Fentanyl 50 mcg Intravenous Marycarmen Eli RN 10:31 AM Lidocaine 2% 0.5 ml Subcutaneous Toney Capellan MD, FAC 10:33 AM Nitroglycerin 200 mcg Intraarterial Toney Capellan MD 10:33 AM Verapamil 2.5 mg Intraarterial Toney Capellan MD, FACC 10:52 AM Nitroglycerin 100 mcg Intracoronary Toney Capellan MD 10:57 AM Nitroglycerin 100 mcg Intracoronary Toney Capellan MD 10:58 AM Fentanyl 25 mcg Intravenous Marycarmen Eli RN 11:17 AM Nitroglycerin 200 mcg Intracoronary Toney Capellan MD ASA Classification: CLASS II- Mild systemic disease (i.e. well-controlled diabetes, hypertension, asthma, cigarette smoking) Wellington Score Preprocedure Postprocedure Activity 2- Moves 4 extremities sustained head lift Activity 2- Moves 4 extremities sustained head lift Circulation 2- SBP +/= 20 points of pre-anesthetic level Circulation 2- SBP +/= 20 points of pre-anesthetic level Consciousness 2- Awake and alert oriented x 3 Consciousness 2- Awake and alert oriented x 3 O2 Saturation 2- Able to maintain O2 satruation of 92% on room air O2 Saturation 2- Able to maintain O2 satruation of 92% on room air Respiratory 2- Able to deep breathe and cough well Respiratory 2- Able to deep breathe and cough well Total Score 10 Total Score 10 Contrast Agent: Isovue Diagnostic Contrast: 115 ml Total Contrast: 115 ml Fluoro Dose: 1118 mGy Activated Clotting Time Time Seconds to Clot 10:47 AM 322 Procedure Log Time Note Enter By 10:20 AM Vitals capture started with the following parameters, Patient=Adult, Interval=5 min, Initial Tbddunjg=700 mmHg, Deflation Rate=5 mmHg, Cuff placed on Left Arm 10:21 AM CathStat 10:21 AM Recorded ECG: HR=87 Condition=Condition 1 10:21 AM HR=85 bpm, ENYT=404/71 mmhg, SpO2=96 %, Resp=32 B/min 10:22 AM Recorded ECG: HR=85 Condition=Condition 1 10:23 AM Pt arrived to labour market economist 2 at 10:23 ejohnson 10:23 AM Fred Easley RN Position: Retail Salesperson Time in: :23 ejohnson 10:23 AM Marycarmen Eli RN Position: Retail Salesperson Time in: :23 ejohnson 10:24 AM Keren Fischer RN Position: Monitor Time in: 10:23 ejohnson 10:24 AM Julia Good RT (R) Position: Scrub Time in: 10:24 ejohnson 10:24 AM Patient charges- Angio tray pack, Navilyst 3mm J, Pulse Oximetry and ACIST tubing and transducer ejohnson 10:24 AM Case Delayed No ejohnson 10:24 AM Hair removed from procedure site in procedure lab using clippers. Right wrist and bilateral groin prepped with Chloraprep by Julia Good RT (R), safety strap applied then patient was draped. Skin intact. ejohnson 10:24 AM Physician arrived 10:24 ejohnson 10:24 AM Radha completed ejohnson 10:24 AM Sign in performed according to hospital policy. ejohnson 10:24 AM Procedure start 10:24 ejohnson 10:24 AM Time: 10:24 Oxygen on at 2 L/min per nasal cannula by Marycarmen Eli RN ejohnson 10:26 AM HR=81 bpm, LWKH=719/75 mmhg, QeD4=680.0 %, Resp=21 B/min, Comment=SR 10: AM Time: : Versed 2 mg Intravenous Given by Marycarmen Eli RN ejohnson 10: AM Time: : Fentanyl 50 mcg Intravenous Given by Marycarmen Eli RN ejohnson 10: AM HR=82 bpm, WZBV=701/66 mmhg, SpO2=99.0 %, Resp=18 B/min, Comment=SR 10: AM Time out performed according to hospital policy ejohnson 10: AM Time: : 0.5 ml Lidocaine 2% to right radial Subcutaneous Given by Toney Capellan MD, [facility] ejohnson 10:32 AM Access obtained by percutaneous puncture. 6Fr 10cm Terumo Glidesheath sheath placed in right Radial artery. [id number] ejohnson 10:32 AM Time: 10:32 Patient comfortable and pain free: Yes ejohnson 10:32 AM Time: 10:32LOC: 5 = Fully awake and oriented or at pre-proc level ejohnson 10:33 AM Time: 10:33 Patient given 200 mcg Nitroglycerin, and 2.5 mg Verapamil Intraarterial by Toney Capellan MD, [facility] ejohnson 10:33 AM Inflation device was opened. ejohnson 10:33 AM 6Fr CLS 3.0 Runway guide catheter was used to cannulate the PCI vessel successfully. reused? No ejohnson 10:34 AM Guide catheter removed intact. ejohnson 10:35 AM Pressure channel 3 zeroed. 10:36 AM 5Fr FR 4 catheter inserted over the wire [facility] ejohnson 10:36 AM HR=81 bpm, NIBP=95/58 mmhg, SpO2=96.0 %, Resp=13 B/min, Comment=SR 10:37 AM Catheter removed ejohnson 10:37 AM 6Fr CLS 3.0 Runway guide catheter was used to cannulate the PCI vessel successfully. reused? Yes ejohnson 10:38 AM Recorded Pressure: Ao, HR=82, Condition=Condition 1 (Aorta) Ao 96/67/79 10:39 AM LCA angiography performed in multiple views. ejohnson 10:39 AM .014 [place] 150cm guide wire across target lesion- successful. reused? No ejohnson 10:40 AM Recorded Pressure: Ao, HR=80, Condition=Condition 1 (Aorta) Ao 94/68/80 10:41 AM 2.0 mm x 8 mm Emerge Monorail balloon across target lesion- successful. reused? No ejohnson 10:41 AM HR=80 bpm, NIBP=98/65 mmhg, SpO2=98.0 %, Resp=23 B/min, Comment=SR 10:43 AM Time: 10:32 Patient comfortable and pain free: Yes ejohnson 10:43 AM Time: 10:32LOC: 5 = Fully awake and oriented or at pre-proc level ejohnson 10:46 AM Balloon inflated @ 8 natasha for 18 seconds ejohnson 10:46 AM HR=83 bpm, YOXB=542/71 mmhg, SpO2=98.0 %, Resp=16 B/min, Comment=SR 10:46 AM Balloon inflated @ 8 natasha for 14 seconds ejohnson 10:46 AM Time: 10:43 Patient comfortable and pain free: Yes ejohnson 10:46 AM Time: 10:43LOC: 5 = Fully awake and oriented or at pre-proc level ejohnson 10:47 AM At 10:47 the ACT was 322 seconds. ejohnson 10:47 AM Balloon catheter removed intact. ejohnson 10:48 AM Recorded Pressure: Ao, HR=82, Condition=Condition 1 (Aorta) Ao 99/68/81 10:49 AM 2.25mm x 16mm Synergy drug-eluting stent across target lesion- successful Lot #[id number] ejohnson 10:50 AM Stent deployed @ 12 natasha for 28 seconds ejohnson 10:51 AM Stent delivery system removed intact. ejohnson 10:51 AM Time: 10:46 Patient comfortable and pain free: Yes ejohnson 10:51 AM Time: 10:46LOC: 5 = Fully awake and oriented or at pre-proc level ejohnson 10:51 AM Recorded ECG: HR=80 Condition=Condition 1 10:51 AM HR=80 bpm, EWDJ=270/66 mmhg, SpO2=98 %, Resp=16 B/min 10:52 AM Time: 10:52 Nitroglycerin 100 mcg Intracoronary Given by Toney Capellan MD ejohnson 10:52 AM 2.25 mm x 12mm NC Emerge balloon across target lesion- successful. reused? No ejohnson 10:53 AM Balloon catheter removed intact. ejohnson 10:53 AM Time: 10:51 Patient comfortable and pain free: Yes ejohnson 10:54 AM Time: 10:51LOC: 5 = Fully awake and oriented or at pre-proc level ejohnson 10:54 AM 2.25 mm x 8mm NC Trek Rx balloon across target lesion- successful. reused? No ejohnson 10:56 AM Balloon inflated @ 16 natasha for 17 seconds ejohnson 10:56 AM HR=80 bpm, JWLU=379/66 mmhg, SpO2=98.0 %, Resp=18 B/min, Comment=SR 10:56 AM Balloon inflated @ 16 natasha for 20 seconds ejohnson 10:57 AM Balloon catheter removed intact. ejohnson 10:57 AM Time: 10:57 Nitroglycerin 100 mcg Intracoronary Given by Toney Capellan MD ejohnson 10:58 AM Time: 10:58 Fentanyl 25 mcg Intravenous Given by Marycarmen Eli RN ejohnson 11:01 AM HR=79 bpm, NIBP=96/65 mmhg, SpO2=97.0 %, Resp=15 B/min, Comment=SR 11:02 AM Mid/Distal Left Anterior Descending Coronary Artery and diagonal branches with 100% stenosis. ejohnson 11:03 AM guidewire repostioned ejohnson 11:06 AM HR=82 bpm, NIBP=96/70 mmhg, SpO2=97.0 %, Resp=17 B/min, Comment=SR 11:09 AM Time: 10:54LOC: 5 = Fully awake and oriented or at pre-proc level ejohnson 11:09 AM Time: 10:53 Patient comfortable and pain free: Yes ejohnson 11:09 AM 2.25 mm x 8mm NC Trek Rx balloon across target lesion- successful. reused? Yes ejohnson 11:11 AM HR=81 bpm, ZKXB=260/67 mmhg, SpO2=98.0 %, Resp=16 B/min, Comment=SR 11:11 AM Balloon catheter removed intact. ejohnson 11:12 AM Guide wire removed intact to reshape ejohnson 11:13 AM Recorded Pressure: Ao, HR=80, Condition=Condition 1 (Aorta) Ao 91/61/74 11:16 AM HR=80 bpm, NIBP=93/67 mmhg, SpO2=97.0 %, Resp=17 B/min, Comment=SR 11:17 AM Time: 11:17 Nitroglycerin 200 mcg Intracoronary Given by Toney Capellan MD ejohnson 11:19 AM Guide wire removed intact. ejohnson 11:19 AM Guide catheter removed intact. ejohnson 11:19 AM 5Fr FR 4 catheter inserted over the wire DNC ejohnson 11:21 AM HR=82 bpm, IJOF=958/59 mmhg, SpO2=95.0 %, Resp=20 B/min, Comment=SR 11:21 AM Catheter removed ejohnson 11:21 AM 6Fr FR 4 catheter inserted over the wire DN ejohnson 11:23 AM RCA angiography performed in multiple views. ejohnson 11:23 AM Recorded Pressure: Ao, HR=83, Condition=Condition 1 (Aorta) Ao 95/71/82 11:23 AM Recorded ECG: HR=83 Condition=Condition 1 11:24 AM Catheter removed ejohnson 11:24 AM Time: 11:09 Patient comfortable and pain free: Yes ejohnson 11:24 AM Time: 11:09LOC: 5 = Fully awake and oriented or at pre-proc level ejohnson 11:24 AM Time: 11:24 Patient comfortable and pain free: Yes ejohnson 11:25 AM Arterial sheath pulled, Vasc Band closure device used and was Successful ejohnson 11:25 AM Procedure completed at 11:25 ejohnson 11:25 AM Sign out completed: Radiation Dose 1117.56 mGy Fluoro Time: 14.9 Isovue 370 - 200ml contrast 115 ml given by Toney Capellan MD, FACC. Complications: NoneCardiac Rehab Consult needed: YesConfirmed administered medications: Yes ejohnson 11:26 AM Vitals capture stopped. 11:27 AM Isovue 370 - 200ml,1 Bottle(s) used. ejohnson 11:28 AM 10 ml air in Vasc Band. ejohnson 11:28 AM Post ECG NSR ejohnson 11:28 AM Post Blood Pressure 103/59 ejohnson 11:28 AM Information taught PCI and Vasc Band ejohnson 11:31 AM Education needs Plan of Care, Disease Process, and Responsibilities of Patient in Care ejohnson 11:31 AM Learning barriers :None ejohnson 11:31 AM Education Methods Verbal ejohnson 11:31 AM Education evaluation Able to repeat information ejohnson 11:31 AM Report given to Fanny BURT Pt taken to 2N Room #5. 11:31 ejohnson 11:32 AM Plavix, Effient or Brilinta given Yes already on one from yesterday ejohnson 11:32 AM Delay to floor No ejohnson 11:32 AM Patient out of room: 11:32 ejohnson 11:32 AM Family placed in consult room. ejohnson 11:32 AM Coronary Dominance: right ejohnson 11:32 AM Lesion found in 1st Diagonal. Pre Stenosis: 100 Pre LI Flow: 0: No Flow/No perfusion ejohnson 11:33 AM Lesion found in Mid RCA. Pre Stenosis: 70 Pre LI Flow: 3: Complete and Brisk Flow/Perfusion ejohnson Complications Complication None Hemodynamics Pressures Site Systolic/A Wave Diastolic/V Wave Mean AO 96 67 79 AO 94 68 80 AO 99 68 81 AO 91 61 74 AO 95 71 82 Post Procedure Information Blood Pressure: 103/59 mmHg Rhythm: NSR Post procedural instructions were given Closure Device Time Device Success/Fail 04/09/2017 11:25:00 AM Mechanical Compression Successful Site Checks Time Location Status Staff Sheath In? Note 11:25 AM Rt Wrist No bleeding/ No Hematoma Julia Good RT (R) Pulses Time Site Pre-Procedure Post-Procedure Note Bilateral DP & PT 2+ Bilateral radial 2+ 04/09/2017 11:25:00 AM Rt Radial 1+ Updated by Keren Fischer RN on 04/09/2017 11:40:58 AM Keren Fischer RN electronically signed on 04/09/2017 11:41:24 AM with status of Final
--- NOTE | 2017-04-09 12:44 | Event Note ---
Date of Encounter: 04/09/17 Time of Encounter: 12:15 - Cardiology Event Note Patient s/p repeat LHC with stent to diag lesion per Dr. Capellan. CP symptoms improved and NTG now off. Echo pending.
[2017-04-09] MEDS ORDERED: Insulin DETEMIR 100 UNIT/ML X5UNITS SQ SCH (13:00)
[2017-04-09] MEDS ORDERED: *HR* Promethazine 25 MG/ML VIAL IVP ONE (13:38)
[2017-04-09] MEDS: FLUoxetine 20 MG CAPSULE PO SCH (13:53)
[2017-04-09] MEDS: BuPROPion XL (24 HR) 150 MG TABLET PO SCH (13:53)
[2017-04-09] MEDS ORDERED: 0.9 % Sodium Chloride 1,000 ML IVC SCH (20:15)
[2017-04-10] MEDS: *HR* OxyCODONE/APAP 5/325 TABLET PO PRN ×3 (01:03→20:50)
[2017-04-10] MEDS ORDERED: Perflutren Lipid Microsphere 1.3 ML in 0.9 % Sodium Chloride 8.7 ML IVP ONE (07:42)
--- NOTE | 2017-04-10 07:49 | Cardiology Progress Note ---
Date of Encounter: 04/10/17 Time of Encounter: 07:30 Assessment and Plan (1) Acute DC Current Visit: Yes Status: Acute Per Cardiology: Atypical presentation of right sided chest discomfort radiating into right arm/ jaw with EKG concerning for anterolateral STEMI. Initial troponin ~20. S/p emergent C w PCI mid LAD with resolution of presenting symptoms but developed left sided chest pain after PCI and residual ST elevation and was taken back to the lab and PCI diagonal successful. She feels better today and slept well. On asa, statin, BB, Brilinta, starting ARB. Echo pending. Qualifiers: Myocardial infarction ST status: ST elevation myocardial infarction Involved coronary artery: LAD coronary artery Qualified Code(s): I21.02 - ST elevation (STEMI) myocardial infarction involving left anterior descending coronary artery (2) Diabetes Current Visit: Yes Status: Acute SSI QID FS. The assessment and plan as outlined above was discussed with the patient and/or family members who expressed understanding and agreement. All questions were answered. 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 The assessment and plan as outlined above was discussed with the patient and/or family members who expressed understanding and agreement. All questions were answered. Qualifiers: Obesity type: due to excess calories Obesity classification: adult class 1 (BMI 30 ? 34.9) Serious obesity comorbidity presence: with serious comorbidity Body mass index: BMI 33.0-33.9 Qualified Code(s): E66.09 - Other obesity due to excess calories; Z68.33 - Body mass index (BMI) 33.0-33.9, adult; Z68.33 - Body mass index (BMI) 33.0-33.9, adult (4) Systolic CHF Current Visit: Yes Status: Acute toprol xl, ARB. euvolemic Qualifiers: Congestive heart failure chronicity: acute Qualified Code(s): I50.21 - Acute systolic (congestive) heart failure Discussion w patient/family: The assessment and plan as outlined above was discussed with the patient and/or family members who expressed understanding and agreement. All questions were answered. Thank you for involving us in the care of your patient. Please call with any questions. Subjective Principal diagnosis: Late presenting acute DC - atypical presentation Interval history: 51yoF with late presenting DC (initial troponin >20) with atypical presentation - right sided chest pain into right arm/jaw had no acute issues overnight. Her chest discomfort has improved and no dyspnea or swelling. She slept well. No s /sxs of bleeding. Objective Vital Signs, Last 4 Hours Pulse 04/10/17 04:53 86 General: Conversant, No Apparent Distress HEENT: Atraumatic Neck: No JVD Cardiac: Reg Rate and Rhythm Lungs: Normal Breath Sounds Neuro: Alert and responsive Abdomen: Soft Skin: No rashes noted on visualized skin Musculoskeletal: No Chest Wall Tenderness Extremities: No Edema Results 04/09/17 09:17 04/09/17 06:04 Lab Results 04/09/17 04/09/17 09:17 09:17 WBC 12.2 H Hgb 13.1 Hct 39.6 Plt Count 202 INR 1.1 APTT 29.5 Consult Discharge Plan - Plan Referrals: Coby Elena MD [Primary Care Provider] -
[2017-04-10] MEDS: *HR* Ticagrelor 90 MG TABLET PO SCH ×2 (08:25→20:50)
[2017-04-10] MEDS: FLUoxetine 20 MG CAPSULE PO SCH (08:25)
[2017-04-10] MEDS: Insulin LISPRO 300 UNITS/3 ML VIAL SQ SCH ×4 (08:25→20:50)
[2017-04-10] MEDS: Aspirin 81 MG TAB.CHEW PO SCH (08:25)
[2017-04-10] MEDS: Valsartan 80 MG TABLET PO SCH (08:25)
[2017-04-10] MEDS: Metoprolol XL (24 HR) Succ 25 MG TAB.ER.24H PO SCH (08:26)
[2017-04-10] MEDS: BuPROPion XL (24 HR) 150 MG TABLET PO SCH (08:26)
[2017-04-10] MEDS: Insulin DETEMIR 100 UNIT/ML X5UNITS SQ SCH (09:21)
--- NOTE | 2017-04-10 13:15 | Event Note ---
Date of Encounter: 04/10/17 Time of Encounter: 13:00 - Cardiology Event Note ECHO: Impressions: LVEF 35%. Normal LV chamber size. Mild concentric left ventricular hypertrophy. Segmental left ventricular systolic dysfunction. Mild left ventricular diastolic dysfunction. There is no LV thrombus. Normal right ventricular structure and function. No evidence of pulmonary hypertension. No significant valvular dysfunction. Left Ventricular Wall Motion: Rest Echo Findings The apex, apical inferior, apical anterior, mid anterior, apical septal, apical lateral and mid anterior septal real were hypokinetic. All other wall segments showed normal motion.
[2017-04-10 13:40] LABS: Basophils % 0.3 %; Eosinophils % 0.4 %; Hematocrit 41.6 % (35.3-44.9); Hemoglobin 13.5 g/dL (11.5-15.4); Immature Granulocytes % 0.6 % (0-4); Lymphocytes # 1.6 K/mcL (0.6-4.6); Lymphocytes % 17.6 %; Mean Corpuscular HGB Conc 32.5 g/dL (31.6-35.5); Mean Corpuscular Hemoglobin 29.5 pg (28.0-33.3); Mean Platelet Volume 10.3 fL (9.4-12.4); Monocytes # 0.6 K/mcL (0.0-1.3); Monocytes % 6.1 %; Neutrophils # 6.8 K/mcL (1.6-8.9); Platelet Count 187 K/mcL (140-400); Red Blood Count 4.57 M/mcL (3.82-4.97); Red Cell Distribution Width 12.9 % (11.5-14.5)
[2017-04-10 13:48] LABS: BUN/Creatinine Ratio 18 (6-26); Blood Urea Nitrogen 15 mg/dL (7-20); Calcium 8.9 mg/dL (8.6-10.8); Carbon Dioxide 22 mEq/L (19-29); Chloride 105 mEq/L (98-109); Glucose 431 mg/dL (70-99); Osmolality,Calculated 299 (280-300); Potassium 3.8 mEq/L (3.5-4.5); Sodium 135 mEq/L (136-145); eGFR For African Americans > 60 (> 60); eGFR For Non-African Americans > 60 (> 60)
[2017-04-10] MEDS: Magnesium Oxide 400 MG TABLET PO SCH (17:23)
--- NOTE | 2017-04-10 20:02 | Electrocardiograph Report ---
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
--- NOTE | 2017-04-10 20:02 | Electrocardiograph Report ---
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
--- NOTE | 2017-04-10 20:03 | Electrocardiograph Report ---
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
--- NOTE | 2017-04-10 20:06 | Electrocardiograph Report ---
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
[2017-04-11 07:21] VITALS: BP 111/71
[2017-04-11] MEDS: Insulin LISPRO 300 UNITS/3 ML VIAL SQ SCH (07:27)
[2017-04-11] MEDS: Nitroglycerin 25 MG/250 ML INFUS..BTL IVC SCH (07:27)
[2017-04-11] MEDS: Aspirin 81 MG TAB.CHEW PO SCH (07:31)
[2017-04-11] MEDS: *HR* Ticagrelor 90 MG TABLET PO SCH (07:31)
[2017-04-11] MEDS: BuPROPion XL (24 HR) 150 MG TABLET PO SCH (07:31)
[2017-04-11] MEDS: Metoprolol XL (24 HR) Succ 25 MG TAB.ER.24H PO SCH (07:31)
[2017-04-11] MEDS: Valsartan 80 MG TABLET PO SCH (07:31)
[2017-04-11] MEDS: Magnesium Oxide 400 MG TABLET PO SCH (07:31)
[2017-04-11] MEDS: FLUoxetine 20 MG CAPSULE PO SCH (07:31)
--- NOTE | 2017-04-11 08:17 | Discharge Summary ---
Date of Encounter: 04/11/17 Time of Encounter: 08:20 - Discharge Diagnosis (1) Acute MT Priority: Primary Status: Acute Comments: EKG concerning for anterolateral STEMI; S/p emergent LHC w PCI mid LAD with resolution of presenting symptoms but developed left sided chest pain after PCI and residual ST elevation and was taken back to the lab and PCI diagonal successful. Qualifiers: Myocardial infarction ST status: ST elevation myocardial infarction Involved coronary artery: LAD coronary artery Qualified Code(s): I21.02 - ST elevation (STEMI) myocardial infarction involving left anterior descending coronary artery (2) Nicotine abuse Priority: Secondary Status: Chronic Comments: I spent at least 5 minutes providing smoking cessation counseling to patient and . - Discharge Medications Prescriptions: Nitroglycerin 0.4 mg SL Q5MIN PRN #30 tab.subl PRN Reason: Chest Pain Metoprolol XL (24 HR) Succ [Toprol Xl] 25 mg PO DAILY #30 tab.er.24h Rosuvastatin [Crestor] 40 mg PO HS #30 tablet Ticagrelor [Brilinta] 90 mg PO BID #60 tablet Valsartan [Diovan] 80 mg PO DAILY #30 tablet Home Medications: FLUoxetine HCl [Prozac] 40 mg PO DAILY 04/09/17 [History] Insulin DETEMIR 50 units SQ QAM 04/09/17 [History] Wellbutrin Xl 150 mg PO DAILY 04/09/17 [History] metFORMIN 500 mg PO BID 04/09/17 [History] Aspirin 81 mg PO DAILY tab.chew 04/11/17 [Rx] Metoprolol XL (24 HR) Succ [Toprol Xl] 25 mg PO DAILY #30 tab.er.24h 04/11/17 [ Rx] Nitroglycerin 0.4 mg SL Q5MIN PRN #30 tab.subl 04/11/17 [Rx] Rosuvastatin [Crestor] 40 mg PO HS #30 tablet 04/11/17 [Rx] Ticagrelor [Brilinta] 90 mg PO BID #60 tablet 04/11/17 [Rx] Valsartan [Diovan] 80 mg PO DAILY #30 tablet 04/11/17 [Rx] Allergies/Adverse Reactions: 3 Allergy/AdvReac Type Severity Reaction Status Date / Time No Known Allergies Allergy Verified 04/08/17 19:06 Procedures/tests Complete & Pending: Procedures Performed prior 72 hours Category Date Time Status CL Cardiac Catheterization [CL] Routine Asp Net Mvc Developer 04/09/17 08:29 Completed Date of admission: 04/08/17 21:00 Primary care physician: Coby Elena, Consults: Cardiac rehab Discharging clinician: Stone Ruvalcaba Anticipated date of discharge: 04/11/17 - Patient Status Disposition: Home, Self-Care Condition: Fair Overall status at discharge: patient is progressing back to baseline - Discharge Instructions Follow Up With: Toney Capellan MD [Partnered Physician] - (CARDIOLOGY OFFICE WILL CALL YOU WITH AN APPOINTMENT ) Coby Elena MD [Primary Care Provider] - 04/17/17 1:00 pm Additional Instructions: RISK FACTORS: STOP SMOKING: If you smoke, STOP. Smoking or tobacco use significantly increases your risk of heart disease because nicotine causes the arteries to narrow or constrict. It also causes fats to stick to the artery. Your chances of having a heart attack are greatly increased if you continue to smoke. For more information, call the education line for smoking cessation 9-817-WEMBTQC EAT A LOW FAT/CHOLESTEROL/SODIUM DIET: This diet may help reduce your chances of having a heart attack. LIFTING: With affected extremity: Avoid bending, pushing off and lifting more than 2 pounds for 24 hours The following 48 hours, avoid lifting anything more than 5 pounds Avoid strenuous activity or repetitive motions ACTIVITY: You may walk or climb stairs as tolerated You can resume sexual activity as tolerated In general, you are encouraged to engage in a minimum of 30 minutes or more of moderate intensity physical activity, such as brisk walking, daily or at least 3 -4 times weekly BATHING Do not submerge the site into water (bath tub, hot tub, swimming pool, dishes) for 1 week. This can be a source for infection into the blood stream. You may shower after 24 hours SITE CARE: After 24 hours, you may remove the dressing and leave the site open to air. Keep the site clean and dry. Clean gently and pat dry. You can expect bruising and tenderness that gradually resolve within a week or two. Return to work as instructed per your physician Resume driving as instructed per physician Keep all scheduled follow up appointments Resume medications as instructed IMPORTANT: If prescribed a Platelet Aggregation Inhibitor such as, Plavix, Brilinta or Effient: Duration of therapy is minimum one year These medications are often used in combination with Aspirin in prevention of future heart attacks Never discontinue unless consult with your Electrical Equipment Technician STROKE (CVA) Risk factors for a stroke are: Age, cigarette smoking, diabetes, excessive alcohol consumption, family history, high blood pressure, overweight, physical inactivity, prior stroke, heart attack, diagnosis of carotid artery stenosis or other artery disease. Warning signs: Sudden numbness or weakness of the face, arm or leg; especially on one side of the body, sudden confusion, trouble speaking or understanding, sudden trouble seeing in one or both eyes, sudden trouble walking, dizziness, loss of balance or coordination, sudden severe headache with no cause. Call 911 or go to the Emergency Room. CONGESTIVE HEART FAILURE: If you have been diagnosed with Congestive Heart Failure (CHF) and your symptoms return, make an appointment with your physician Weigh yourself daily. Notify your physician if you have a weight gain of two or more pounds in one day or five or more pounds in one week. If you experience any difficulty breathing, please call 911 BLEEDING: Although the risk of bleeding is minimal, it can happen. If you have any bleeding from the site, apply firm pressure above the puncture site for 10-15 minutes. If the bleeding does not stop, continue manual pressure and call 911 Contact [facility] ( ) if: You develop a fever greater than 101 degrees Fahrenheit Your site becomes reddened or has any drainage You have an increase in pain or burning at the site or if a large knot forms at the site. If you experience chest pain, shortness of breath, dizziness, or extreme tiredness, stop the activity and rest. Please notify [facility] office if you experience any of these symptoms and they are not relieved by rest please call 911! - Diet and Activity Diet: diabetic diet, low fat, low cholesterol, low salt diet, other (low sodium diet and 2 L fluid restriction education provided) - Hospital Course Hospital course: Ms. Bob is a 51 year old female presented with typical presentation of right sided chest discomfort radiating into right arm/jaw with EKG concerning for anterolateral STEMI. Initial troponin ~20. S/p emergent [facility] w PCI mid LAD with resolution of presenting symptoms but developed left sided chest pain after PCI and residual ST elevation and was taken back to the lab and PCI diagonal successful. Echo showed EF 35%, euvolemic on exam. Tele with avg HR 83 past 12 hrs, no events, rare PVCs. Prepping for DC to home in stable condition. Education provided post MT and cath care. CP free. Educated to not stop Asa/ Brilinta for at least 1 year-- assistance card provided. Time spent discussing smoking cessation with patient: 3 to 10 minutes - Time Spent with Patient Total time spent providing and/or coordinating discharge services: Less than 30 minutes Physical Examination Vital Signs, Last 4 Hours Temp Pulse Resp BP Pulse Ox 04/11/17 07:19 98.7 F 86 18 111/71 98 04/11/17 05:35 81 04/11/17 04:23 98.5 F 83 20 104/75 97 General: Conversant, No Apparent Distress HEENT: Atraumatic, Normocephaly, Mucus Membranes Moist Neck: No JVD, Normal carotid pulses Cardiac: Reg Rate and Rhythm, Normal S1 and S2, No Murmur Lungs: Normal Breath Sounds, No Wheeze, Rales, Rhonchi Neuro: Alert and responsive, No focal deficits noted Abdomen: Soft, Non-Tender Skin: No rashes noted on visualized skin, Other (R wrist site D&I, R radial pulse 2+ palp) Musculoskeletal: No Chest Wall Tenderness Extremities: No Clubbing, No Cyanosis, No Edema, Normal Pulses
[2017-04-11] MEDS: Insulin DETEMIR 100 UNIT/ML X5UNITS SQ SCH (08:28)
== END 2017-04-11 10:40 | disposition home or self-care (01) | DRG 246 ==
LOC: 2NNU 18:55 → EMEROO 18:55 → 2NNU 19:53
PROVIDERS: ADMIT Emergency Medicine; ATTEND Emergency Medicine

== ENCOUNTER 2017-04-20 09:32 | Inpatient (IN) ==
[2017-04-20] MEDS ORDERED: Aspirin 81 MG TAB.CHEW ONE (09:51)
[2017-04-20] MEDS ORDERED: *HR* Heparin 5,000 UNIT/ML VIAL ONE (09:51)
[2017-04-20] MEDS ORDERED: *HR* Ticagrelor 90 MG TABLET ONE (09:51)
[2017-04-20] MEDS ORDERED: 0.9 % Sodium Chloride 1,000 ML ONE ×3 (09:51→11:04)
[2017-04-20] MEDS ORDERED: Aspirin 81 MG TAB.CHEW PO STA (09:56)
--- NOTE | 2017-04-20 09:59 | Emergency Department Note ---
START Narrative - START START: I examined this patient and my medical decision-making was reviewed with the Resident Physician. I agree with the documented findings, disposition and treatment plan as described except to the extent set forth below. The patient 2 weeks status post STEMI with stent placement. Presents with shortness of breath, no chest pain. Was sent from Dr. Capellan's office to an EKG concerning for STEMI. On my review, she has sinus rhythm with ST elevation across the precordium as well as in the lateral leads that are more pronounced than on prior EKG. Blood pressure is borderline in the 100 systolic. Bedside ultrasound was done by Dr. Zamora and myself, showing no pericardial effusion and LV function appears normal. STEMI alert was called. The patient has no symptoms of GI bleeding or other abnormal bleeding other than streaks of blood when she blows her nose in the morning. Anticoagulants or antiplatelet medications are warranted, assuming CXR does not show widened mediastinum. Will go to laborer laboratory with Dr. Ponce.
[2017-04-20 10:00] LABS: Basophils # 0.1 K/mcL (0.0-0.2); Basophils % 0.5 %; Eosinophils # 0.2 K/mcL (0.0-0.6); Eosinophils % 1.5 %; Hematocrit 47.5 % (35.3-44.9); Hemoglobin 16.3 g/dL (11.5-15.4); Immature Granulocytes % 0.8 % (0-4); Immature Platelets 1.9 % (1.1-6.1); Lymphocytes # 2.7 K/mcL (0.6-4.6); Lymphocytes % 17.8 %; Mean Corpuscular HGB Conc 34.3 g/dL (31.6-35.5); Mean Corpuscular Hemoglobin 29.3 pg (28.0-33.3); Mean Corpuscular Volume 85.3 fL (83.0-100.0); Monocytes % 6.6 %; Neutrophils # 11.2 K/mcL (1.6-8.9); Platelet Count 495 K/mcL (140-400); Red Blood Count 5.57 M/mcL (3.82-4.97); Red Cell Distribution Width 12.7 % (11.5-14.5); Segmented Neutrophils % 72.8 %
[2017-04-20] MEDS ORDERED: *HR* Heparin 5,000 UNIT/ML VIAL IVP ONE (10:07)
[2017-04-20 10:08] LABS: INR 1.1; Prothrombin Time 12.2 Seconds (9.4-12.1)
[2017-04-20] MEDS ORDERED: *HR* Ticagrelor 90 MG TABLET PO ONE (10:08)
--- NOTE | 2017-04-20 10:08 | Emergency Department Note ---
Disposition Clinical Impression: STEMI (ST elevation myocardial infarction) Qualifiers: Involved coronary artery: unspecified coronary artery Qualified Code(s): I21.3 - ST elevation (STEMI) myocardial infarction of unspecified site Dyspnea Qualifiers: Dyspnea type: unspecified Qualified Code(s): R06.00 - Dyspnea, unspecified Disposition: Admitted As Inpatient Condition: Fair Time of Disposition: 10:27 SOB HPI - General Chief Complaint: ED Weakness Stated Complaint: Low B/P Time Seen by Provider: 04/20/17 09:43 Source: patient Mode of arrival: ambulatory Limitations: no limitations Nursing Notes Reviewed: Yes Vital Signs Reviewed: Yes - History of Present Illness Patient is a 51-year-old female with past medical history of CAD, CHF. She presents today due to shortness of breath. She states that she had 2 heart catheter performed, one on 04/08/17 and 1 on 04/09/17. She had stent placement 2. At that time, she had chest pain and shortness of breath. She was eventually sent home. However, today, she presents with shortness of breath, low blood pressure reading. She was seeing her dial equipment engineer, Dr. Capellan, and she states that while there, her blood pressure was systolic 80s. Denies any chest pain currently but does admit to shortness of breath is worse on exertion. Denies any fevers, nausea, vomiting, abdominal pain. She does admit to swelling as well. She currently takes aspirin daily along with Brilinta, has not missed any of these doses. - Related Data Home Medications Medication Instructions Recorded Confirmed BuPROPion XL (24 HR) [Wellbutrin 150 mg PO DAILY 04/20/17 04/20/17 XL] FLUoxetine HCl [Fluoxetine HCl] 40 mg PO DAILY 04/20/17 04/20/17 Insulin DETEMIR [Levemir] 40 unit SQ DAILY 04/20/17 04/20/17 Metformin HCl [Metformin HCl ER] 500 mg PO BID 04/20/17 04/20/17 Metoprolol Succinate 25 mg PO DAILY 04/20/17 04/20/17 Nitroglycerin [Nitrostat] 0.4 mg SL Q5M PRN 04/20/17 04/20/17 Rosuvastatin [Crestor] 40 mg PO HS 04/20/17 04/20/17 Ticagrelor [Brilinta] 90 mg PO BID 04/20/17 04/20/17 Valsartan [Diovan] 80 mg PO DAILY 04/20/17 04/20/17 Allergies Allergy/AdvReac Type Severity Reaction Status Date / Time No Known Allergies Allergy Verified 04/20/17 09:34 All systems ED: reviewed and negative except as stated. Constitutional: Denies: fever Cardiovascular: Denies: chest pain Respiratory: Reports: cough, dyspnea Gastrointestinal: Denies: abdominal pain, nausea, vomiting, diarrhea, constipation Past Medical History - Past Medical History Attestation: Yes The following information was validated with the patient. Source: patient Medical history: Reports: coronary artery disease, diabetes Surgical history: Reports: , other Psychiatric history: Reports: anxiety, depression - Social History Smoking Status: Current every day smoker Smokeless Tobacco Status: No Alcohol use: Reports: none Drug use: Reports: none Physical Exam - General Limitations: no limitations General appearance: alert, anxious - Head Head exam: atraumatic, normocephalic, normal inspection - Eye Eye exam: Present: normal appearance, PERRL, EOMI - ENT ENT exam: normal exam, normal oropharynx, mucous membranes moist - Neck Neck exam: Present: normal inspection, full ROM, trachea midline - Chest Chest inspection: Present: normal inspection, symmetric chest wall rise - Respiratory Respiratory exam: Present: other (Very mild wheeze in bilateral lower lobes. Using accessory muscles, mild respiratory distress.) - Cardiovascular Cardiovascular exam: Present: regular rate, normal rhythm, normal heart sounds - Abdominal Exam Abdominal exam: Present: soft, Non-Tender. Absent: tenderness, distention, guarding, rebound, rigidity - Extremities Exam Extremities exam: Present: normal inspection, full ROM. Absent: tenderness - Neurological Exam Neurological exam: Present: alert, oriented X3 - Psychiatric Psychiatric exam: Present: normal affect, anxious - Skin Skin exam: Present: warm, dry, intact, normal color Course Course Narrative: On presentation, patient's blood pressure was systolic 80s. However, on repeat systolic blood pressure was 108. 1 L bolus has been started. Otherwise, the rest of the rest of the vitals were within normal limits on my exam. Patient is nauseous, appears short of breath with mild increase in upper. She denies any chest pain at this time. EKG shows ST elevation in lead V2 through the 6 that is worsened from previous EKG on 04/09/2017. She also has ST elevation in 1 , 2, aVL. STEMI alert was called at 09:49. Chest x-ray was obtained and showed no acute cardiopulmonary process. Patient was given heparin 4000 units, aspirin 325, blood 180. I spoke with a nurse who was relaying information to Dr. Ponce and the concrete building assembler. He is currently in PCI in the [facility]. He stated that they would send Dr. Azar and INDUSTRIAL COOK Feliciano Diane to bedside for further eval 10:08 Patient was seen and evaluated by Nissa and Feliciano. Dr. Azar stated that he agreed ST elevations or worse and with shortness of breath present, they are keeping STEMI alert. They will take the patient to mechanical shop laborer as soon as Dr. Ponce is finished with PCI. He is aware and they are making arrangements for patient to be transported over [place]. Patient remains stable. Chest X-Ray 04/20/17 09:54 IMPRESSION: No acute cardiopulmonary abnormality. D/ / Bradley Zamarripa MD / Bradley Zamarripa MD Interpreting Provider: Bradley Zamarripa MD Vital Signs Temperature 97.7 F 04/20/17 09:34 Pulse Rate 90 04/20/17 09:34 Respiratory Rate 15 04/20/17 09:34 Blood Pressure 87/63 04/20/17 09:34 O2 Sat by Pulse Oximetry 99 04/20/17 09:34 Temperature 97.7 F 04/20/17 12:00 Pulse Rate 85 04/20/17 14:40 Respiratory Rate 18 04/20/17 14:00 Blood Pressure 110/74 04/20/17 14:00 O2 Sat by Pulse Oximetry 100 04/20/17 14:00 Oxygen Delivery Oxygen Delivery Room Air Shortness of Breath/Dyspnea - MDM Narrative Medical decision making narrative: On presentation, patient's blood pressure was systolic 80s. However, on repeat systolic blood pressure was 108. 1 L bolus has been started. Otherwise, the rest of the rest of the vitals were within normal limits on my exam. Patient is nauseous, appears short of breath with mild increase in upper. She denies any chest pain at this time. EKG shows ST elevation in lead V2 through the 6 that is worsened from previous EKG on 04/09/2017. She also has ST elevation in 1 , 2, aVL. STEMI alert was called at 09:49. Chest x-ray was obtained and showed no acute cardiopulmonary process. Patient was given heparin 4000 units, aspirin 325, blood 180. I spoke with a nurse who was relaying information to Dr. Ponce and the concrete building assembler. He is currently in PCI in the [facility]. He stated that they would send Dr. Azar and INDUSTRIAL COOK Feliciano Diane to bedside for further eval 10:08 Patient was seen and evaluated by Nissa and Feliciano. Dr. Azar stated that he agreed ST elevations or worse and with shortness of breath present, they are keeping STEMI alert. They will take the patient to mechanical shop laborer as soon as Dr. Ponce is finished with PCI. He is aware and they are making arrangements for patient to be transported over [place]. Patient remains stable. - Medical Records Medical records reviewed: Yes I reviewed the patient's medical records. - Lab Data Lab results reviewed: Yes I reviewed the patient's lab results. Result diagrams: 04/20/17 09:50 04/20/17 09:50 Lab Results 04/20/17 04/20/17 04/20/17 Range/Units 09:50 09:50 09:50 WBC 15.4 H (4.3-11.1) K/mcL RBC 5.57 H (3.82-4.97) M/mcL Hgb 16.3 H (11.5-15.4) g/dL Hct 47.5 H (35.3-44.9) % MCV 85.3 (83.0-100.0) fL MCH 29.3 (28.0-33.3) pg MCHC 34.3 (31.6-35.5) g/dL RDW 12.7 (11.5-14.5) % Plt Count 495 H (140-400) K/mcL MPV 9.0 L (9.4-12.4) fL Immature Gran % 0.8 (0-4) % Seg Neutrophils % 72.8 % Lymphocytes % 17.8 % Monocytes % 6.6 % Eosinophils % 1.5 % Basophils % 0.5 % Neutrophils # 11.2 H (1.6-8.9) K/mcL Lymphocytes # 2.7 (0.6-4.6) K/mcL Monocytes # 1.0 (0.0-1.3) K/mcL Eosinophils # 0.2 (0.0-0.6) K/mcL Basophils # 0.1 (0.0-0.2) K/mcL Immature Plt Fraction 1.9 (1.1-6.1) % PT 12.2 H (9.4-12.1) Seconds INR 1.1 APTT 40.7 H (26.0-36.0) Seconds Sodium 137 (136-145) mEq/L Potassium 4.3 (3.5-4.5) mEq/L Chloride 104 (98-109) mEq/L Carbon Dioxide 22 (19-29) mEq/L BUN 17 (7-20) mg/dL Creatinine 1.30 H (0.57-1.11) mg/dL Est GFR ( Amer) 52 L (> 60) Est GFR (Non-Af Amer) 43 L (> 60) BUN/Creatinine Ratio 13 (6-26) Glucose 235 H (70-99) mg/dL Calculated Osmolality 293 (280-300) Calcium 10.1 (8.6-10.8) mg/dL Magnesium 1.6 (1.6-2.6) mg/dL Troponin I (0-0.03) ng/mL 04/20/17 Range/Units 09:50 WBC (4.3-11.1) K/mcL RBC (3.82-4.97) M/mcL Hgb (11.5-15.4) g/dL Hct (35.3-44.9) % MCV (83.0-100.0) fL MCH (28.0-33.3) pg MCHC (31.6-35.5) g/dL RDW (11.5-14.5) % Plt Count (140-400) K/mcL MPV (9.4-12.4) fL Immature Gran % (0-4) % Seg Neutrophils % % Lymphocytes % % Monocytes % % Eosinophils % % Basophils % % Neutrophils # (1.6-8.9) K/mcL Lymphocytes # (0.6-4.6) K/mcL Monocytes # (0.0-1.3) K/mcL Eosinophils # (0.0-0.6) K/mcL Basophils # (0.0-0.2) K/mcL Immature Plt Fraction (1.1-6.1) % PT (9.4-12.1) Seconds INR APTT (26.0-36.0) Seconds Sodium (136-145) mEq/L Potassium (3.5-4.5) mEq/L Chloride (98-109) mEq/L Carbon Dioxide (19-29) mEq/L BUN (7-20) mg/dL Creatinine (0.57-1.11) mg/dL Est GFR ( Amer) (> 60) Est GFR (Non-Af Amer) (> 60) BUN/Creatinine Ratio (6-26) Glucose (70-99) mg/dL Calculated Osmolality (280-300) Calcium (8.6-10.8) mg/dL Magnesium (1.6-2.6) mg/dL Troponin I 0.70 H* (0-0.03) ng/mL - Radiology Data Radiology results reviewed: Yes I reviewed the patient's radiology results. Chest X-Ray 04/20/17 09:54 IMPRESSION: No acute cardiopulmonary abnormality. D/ / Bradley Zamarripa MD / Bradley Zamarripa MD Interpreting Provider: Bradley Zamarripa MD - EKG Data EKG attestation: Yes I reviewed and interpreted this EKG. EKG results narrative: EKG shows ST elevation in lead V2 through the 6 that is worsened from previous EKG on 04/09/2017. She also has ST elevation in 1, 2, aVL. STEMI alert was called at 09:49. Rate 89. [place] 129. QRS 83. QTc 420. Normal axis. S.B.A.R. - S.B.A.R. Situation: Demographics, MOA Background: Presenting Complaint, Relevant PMH, Meds, & Allergies Assessment: Vital Signs, Course and respsone to treatment, Exam Concerns, Patient/Family Expectation, Pertinant Lab Results Recommendation: Barrier(s) to disposition, Recommendation based on pending studies, treatments, or consults S.B.A.R. Repor Time: 10:28
[2017-04-20 10:11] LABS: Activated Partial Thrombo Time 40.7 Seconds (26.0-36.0); Calcium 10.1 mg/dL (8.6-10.8); Magnesium 1.6 mg/dL (1.6-2.6); Potassium 4.3 mEq/L (3.5-4.5)
[2017-04-20] MEDS ORDERED: *HR* Heparin 10,000 UNIT/10 ML VIAL ONE (10:22)
[2017-04-20] MEDS ORDERED: Heparin 1,000 UNITS/500 mL NS 500 ML ONE ×2 (10:22→10:32)
[2017-04-20] MEDS ORDERED: Nitroglycerin 1,000 MCG/10 ML VIAL IV ONE (10:28)
[2017-04-20] MEDS ORDERED: *HR* Midazolam HCl 5 MG/5 ML VIAL IVP ONE (10:35)
[2017-04-20] MEDS ORDERED: Ondansetron 4 MG/2 ML VIAL ONE (11:18)
[2017-04-20] MEDS ORDERED: Ondansetron 4 MG/2 ML VIAL IVP PRN (11:28)
[2017-04-20] MEDS ORDERED: Nitroglycerin 0.4 MG TAB.SUBL SL PRN (11:31)
--- NOTE | 2017-04-20 11:45 | Invasive Diagnostic Lab Proc ---
Name: Pao Bob Date of Study: 04/20/2017 Date: 1965 Ht: 66.1in Medical Record#: [id number] Age: 51 Wt: 198.42lb Gender: Female BSA: 2. Order #: [id number] BMI: 31.89 Physicians Procedure Physician: Avelino Ponce DO Referring MD: Referring MD: Indications Indication STEMI Procedures Performed Procedure PRQ CARD REVASC MN 1 VSL Pre-Procedure Checklist Informed consent is complete signed and on chart. H&P is on chart. ID band is on and ID verified with patient. Patient NPO for procedure The procedure was described for the patient and questions were answered. Blood Pressure: 120/83 ECG is on chart. Plan of Care Patient will tolerate the procedure without complications. Adequate level of comfort will be maintained. Hemodynamics will remain stable Patient will recover from procedure without complications. Respiratory function will be maintained. Cardiac rhythm will remain stable. Patient temperature will be maintained. Patient and/or family have verbalized understanding of the procedure. Patient Education Intravenous Access Time IV Size Location DC'd Fluid/Drip Rate Units RN 10:38 AM 18g 1 1/4" Patent On Arrival Lt Arm 0.9NaCl 50 ml/hr Fred Easley RN 10:38 AM 20g 1 1/4" Patent On Arrival Rt Antecubital Allergies No Known Allergies Vital Signs Time BP (mmHg) HR (bpm) O2 Sat. RR (bpm) LOC 10:43 AM / % 5 = Fully awake and oriented or at pre-proc level 10:43 AM / % 4 = Oriented but drowsy 10:58 AM / % 5 = Fully awake and oriented or at pre-proc level 10:34 AM 120 / 83 82 100 % 14 10:39 AM 119 / 81 81 100 % 13 10:44 AM 116 / 77 82 100 % 18 10:49 AM 108 / 69 81 100 % 19 10:55 AM 126 / 78 83 100 % 22 10:59 AM 128 / 65 84 100 % 11:04 AM 136 / 70 86 100 % 19 11:09 AM 107 / 67 86 100 % 17 11:14 AM 88 / 57 87 72 % 15 Procedural Medications Time Medication Dose Units Method Given By 10:35 AM Oxygen 2 L/min nasal cannula Fred Easley RN 10:42 AM Versed 2 mg Intravenous Fred Easley RN 10:43 AM Lidocaine 2% 10 ml Subcutaneous Avelino Ponce DO 10:49 AM Dopamine 5 mcg Intravenous Fred Easley RN 10:55 AM Nitroglycerin 100 mcg Intracoronary Avelino Ponce DO 11:20 AM Zofran 4 mg Intravenous Shannon Amor RN ASA Classification: CLASS II- Mild systemic disease (i.e. well-controlled diabetes, hypertension, asthma, cigarette smoking) Wellington Score Preprocedure Postprocedure Activity 2- Moves 4 extremities sustained head lift Activity 2- Moves 4 extremities sustained head lift Circulation 2- SBP +/= 20 points of pre-anesthetic level Circulation 2- SBP +/= 20 points of pre-anesthetic level Consciousness 2- Awake and alert oriented x 3 Consciousness 2- Awake and alert oriented x 3 O2 Saturation 2- Able to maintain O2 satruation of 92% on room air O2 Saturation 2- Able to maintain O2 satruation of 92% on room air Respiratory 2- Able to deep breathe and cough well Respiratory 2- Able to deep breathe and cough well Total Score 10 Total Score 10 Contrast Agent: Isovue Diagnostic Contrast: 150 ml Total Contrast: 150 ml Fluoro Dose: 642 mGy Activated Clotting Time Time Seconds to Clot 11:24 AM 187 Procedure Log Time Note Enter By 10:32 AM Pt arrived to dairy laboratory technician 2 at 10:32 [email or web address] 10:32 AM Patient charges- Angio tray pack, Navilyst 3mm J, Pulse Oximetry and ACIST tubing and transducer [email or web address] 10:32 AM Case Delayed No [email or web address] 10:32 AM Hair removed from procedure site in procedure lab using clippers. Bilateral groin prepped with Chloraprep by Susy Truong RT, safety strap applied then patient was draped. Skin intact. [email or web address] 10:32 AM pt received 180mg PO Brilinta, 324mg ASA and 4000 unit heparin bolus [email or web address] 10:33 AM Case Start 10:33 AM CathStat 10:34 AM Vitals capture started with the following parameters, Patient=Adult, Interval=5 min, Initial Npnvzwig=532 mmHg, Deflation Rate=5 mmHg, Cuff placed on Right Arm 10:34 AM HR=82 bpm, IHAN=570/83 mmhg, SaX8=762.0 %, Resp=14 B/min, Comment=SR with ST elevation 10:35 AM excoriation noted to lower abdomen [email or web address] 10:35 AM Time: 10:35 Oxygen on at 2 L/min per nasal cannula by Fred Easley RN [email or web address] 10:39 AM HR=81 bpm, PAHD=927/81 mmhg, RaB6=103 %, Resp=13 B/min 10:39 AM Pressure channel 3 zeroed. 10:42 AM Physician arrived 10:42 [email or web address] 10:42 AM ASA Class CLASS II- Mild systemic disease (i.e. well-controlled diabetes, hypertension, asthma, cigarette smoking) [email or web address] 10:42 AM Meet and greet completed [email or web address] 10:42 AM Sign in performed according to hospital policy. [email or web address] 10:42 AM Procedure start 10:42 [email or web address] 10:42 AM Time: 10:42 Versed 2 mg Intravenous Given by Fred Easley RN [email or web address] 10:42 AM Time: 10:42 Patient comfortable and pain free: Yes [email or web address] 10:43 AM Time: 10:43LOC: 5 = Fully awake and oriented or at pre-proc level [email or web address] 10:43 AM Clinical Presentation: STEMI or equivalent [email or web address] 10:43 AM Time out performed according to hospital policy [email or web address] 10:43 AM Pressure channel 3 zeroed. 10:44 AM Pressure channel 2 zeroed. 10:44 AM HR=82 bpm, GZQB=867/77 mmhg, NuB0=257.0 %, Resp=18 B/min, Comment=SR with ST elevation 10:45 AM Time: 10:43 10 ml Lidocaine 2% to right groin Subcutaneous Given by Avelino Ponce DO [email or web address] 10:45 AM Micro-Introducer Kit utilized for sheath placement [email or web address] 10:46 AM Access obtained by percutaneous puncture. 6Fr 10cm Cordis Corazon sheath placed in right Femoral artery. [id number] [email or web address] 10:46 AM 6Fr FR 4 catheter inserted over the wire DNC [email or web address] 10:46 AM 0.035 145cm Navilyst 3mmJ wire [id number] [email or web address] 10:47 AM fluid open for 500 cc bolus [email or web address] 10:47 AM Recorded Pressure: LV, HR=80, Condition=Condition 1 (Left Ventricle) LV 85/-3/-2 10:48 AM RCA angiography performed in multiple views. [email or web address] 10:48 AM Recorded Pressure: Ao, HR=82, Condition=Condition 1 (Aorta) Ao 82/49/63 10:49 AM HR=81 bpm, ZLUG=461/69 mmhg, MeY9=969.0 %, Resp=19 B/min, Comment=SR with ST elevation 10:49 AM Time: 10:49 Dopamine 5 mcg Intravenous Given by Fred Easley RN Em pump [email or web address] 10:50 AM 6Fr JL 4 Runway guide catheter was used to cannulate the PCI vessel successfully. reused? No [email or web address] 10:50 AM .014 Choice Extra Support 300cm guide wire across target lesion- successful. reused? No [email or web address] 10:50 AM Inflation device was opened. [email or web address] 10:51 AM LCA angiography performed in multiple views. [email or web address] 10:51 AM Recorded Pressure: Ao, HR=80, Condition=Condition 1 (Aorta) Ao 86/45/61 10:53 AM Guide catheter removed intact. [email or web address] 10:53 AM 6Fr JR 4 Runway guide catheter was used to cannulate the PCI vessel successfully. reused? No [email or web address] 10:54 AM Coronary Dominance: right [email or web address] 10:54 AM act out of range high [email or web address] 10:55 AM HR=83 bpm, SAGN=679/78 mmhg, AoQ0=830.0 %, Resp=22 B/min, Comment=SR with ST elevation 10:55 AM Time: 10:55 Nitroglycerin 100 mcg Intracoronary Given by Avelino Ponce DO [email or web address] 10:57 AM Recorded Pressure: Ao, HR=85, Condition=Condition 1 (Aorta) Ao 100/56/74 10:58 AM Time: 10:43LOC: 4 = Oriented but drowsy [email or web address] 10:58 AM [ Start FFR sample ] 10:58 AM Pressure channel 1 zeroed. 10:59 AM HR=84 bpm, MMTZ=612/65 mmhg, NvI2=229 % 11:00 AM [place] Prime Wire Prestige advanced to target lesion. [email or web address] 11:00 AM Pressure channel 1 equalization failed. 11:00 AM Pressure channel 1 equalization failed. 11:01 AM Pressure channel 1 equalization failed. 11:01 AM Pressure channel 1 equalization failed. 11:01 AM Pressure channel 1 equalization failed. 11:02 AM Pressure channel 1 equalization failed. 11:02 AM Pressure channel 2 equalization failed. 11:03 AM Pressure channel 2 equalization failed. 11:03 AM Pressure channel 2 equalization failed. 11:04 AM Pressure channel 2 equalization failed. 11:04 AM HR=86 bpm, RZLJ=296/70 mmhg, ZiP0=191 %, Resp=19 B/min 11:05 AM Pressure channel 2 equalization failed. 11:05 AM Pressure channel 2 zeroed. 11:05 AM Pressure channel 2 equalization failed. 11:06 AM Flow Wire removed intact [email or web address] 11:07 AM Choice PT reinserted [email or web address] 11:09 AM HR=86 bpm, LWWU=787/67 mmhg, CeF0=051 %, Resp=17 B/min 11:10 AM 2.5mm x 20mm Synergy drug-eluting stent across target lesion- successful Lot #[id number] [email or web address] 11:10 AM Stent deployed @ 16 natasha for 20 seconds [email or web address] 11:10 AM Stent delivery system removed intact. [email or web address] 11:12 AM 3.0mm x 16mm Synergy drug-eluting stent across target lesion- successful Lot #[id number] [email or web address] 11:12 AM Stent deployed @ 16 natasha for 18 seconds [email or web address] 11:13 AM Time: 10:58 Patient comfortable and pain free: Yes [email or web address] 11:13 AM Time: 10:58LOC: 5 = Fully awake and oriented or at pre-proc level [email or web address] 11:13 AM Stent balloon reinflated @ 18 natasha for 10 seconds [email or web address] 11:14 AM HR=87 bpm, NIBP=88/57 mmhg, SpO2=72.0 %, Resp=15 B/min 11:15 AM Stent delivery system removed intact. [email or web address] 11:15 AM Bolus angiogram of left Femoral complete: 4 ml/sec for a total of 7 mls [email or web address] 11:19 AM pt vomited x 1 [email or web address] 11:20 AM Time: 11:20 Zofran 4 mg Intravenous Given by Shannon Amor RN [email or web address] 11:20 AM Dopamine gtt increased to 10mcg [email or web address] 11:22 AM Lesion found in Mid RCA. Pre Stenosis: 70 Pre LI Flow: 3: Complete and Brisk Flow/Perfusion [email or web address] 11:23 AM Procedure completed at 11:23 [email or web address] 11:23 AM Sign out completed: Radiation Dose 642.29 mGy Fluoro Time: 5.4 Isovue 370 - 200ml contrast 150 ml given by Avelino Ponce DO. Complications: NoneCardiac Rehab Consult needed: YesConfirmed administered medications: Yes [email or web address] 11:23 AM Isovue 370 - 200ml,1 Bottle(s) used. [email or web address] 11:23 AM Sheath left in place to be pulled on floor/holding areaV+Pad [email or web address] 11:23 AM Post Blood Pressure 96/76 [email or web address] 11:23 AM Information taught Cardiac Cath and PCI [email or web address] 11:23 AM Education needs Procedure, Plan of Care, and Responsibilities of Patient in Care [email or web address] 11:23 AM Learning barriers :None [email or web address] 11:23 AM Education Methods Verbal [email or web address] 11:23 AM Education evaluation Able to repeat information [email or web address] 11:23 AM Site status No bleeding/hematoma - Rt Groin as reported by Ruth Landrum RT (R) at 11:23 [email or web address] 11:24 AM Opsite applied [email or web address] 11:24 AM At 11:24 the ACT was 187 seconds. [email or web address] 11:24 AM Patient out of room: 11:24 [email or web address] 11:24 AM Family placed in consult room. [email or web address] 11:34 AM Report given to Kristin BURT Pt taken to ICU Room #8. 11:34 [email or web address] Complications Complication None Hemodynamics Pressures Site Systolic/A Wave Diastolic/V Wave Mean LV 85 -3 -2 AO 82 49 63 AO 86 45 61 AO 100 56 74 Post Procedure Information Blood Pressure: 96/76 mmHg Post procedural instructions were given Site Checks Time Location Status Staff Sheath In? Note 11:23 AM Rt Groin No bleeding/hematoma Ruth Landrum RT (R) Pulses Updated by Shannon Amor RN on 04/20/2017 11:37:46 AM electronically signed on 04/20/2017 11:39:19 AM with status of Final
[2017-04-20] MEDS: 0.9 % Sodium Chloride 1,000 ML IVC SCH ×2 (12:31→21:16)
--- NOTE | 2017-04-20 12:43 | Cardiology History & Physical ---
Date of Encounter: 04/20/17 Time of Encounter: 10:06 Assessment and Plan (1) ST elevation myocardial infarction (STEMI) Current Visit: Yes Status: Acute Compared to last EKG on 04/09/[address] elevation in the anterolateral leads. Patient with increasing dyspnea and hypotension. Symptoms concerning for recurrent acute [place]. R/B/A LHC reviewed and she agrees to proceed. Heparin, asa, and brilinta given in ER. process laboratory specialist notified of STEMI and are going to take patient now. WIll check TTE. As of note patient noted to have mild JACINTO prior to LHC. Qualifiers: Involved coronary artery: unspecified coronary artery Qualified Code(s): I21.3 - ST elevation (STEMI) myocardial infarction of unspecified site (2) CAD (coronary artery disease) Current Visit: Yes Status: Acute S/p acute [place] 04/08/17 with PCI to her LAD. She had recurrent chest pain and underwent LHC the next day for evaluation. She was found to have new 99% stenosis in the 1st diagonal artery and received PTCA/ MELBA. There was 60% mid RCA stenosis remaining. Denies missed medication. Continue asa, brilinta, statin, and bb. Aggressive risk factor modification. Phase I cardiac rehab started at previous visit. Will discuss starting phase II at cardiology f/u. Qualifiers: Coronary Disease-Associated Artery/Lesion type: [place] artery [place] vs. transplanted heart: [place] heart Associated angina: without angina Qualified Code(s): I25.10 - Atherosclerotic heart disease of [place] coronary artery without angina pectoris (3) Diabetes Current Visit: No Status: Acute H/o diabetes and diabetic neuropathy. Will continue home meds. Qualifiers: Diabetes mellitus type: type 2 Diabetes mellitus complication status: without complication Diabetes mellitus terminal makeup operator insulin use: without terminal makeup operator use Qualified Code(s): E11.9 - Type 2 diabetes mellitus without complications (4) Systolic CHF Current Visit: No Status: Acute TTE completed last visit showed EF 35% with moderate systolic dysfunction, no LV thrombus, no significant valvular disease. Continue beta-mariam as tolerated. No eusebia-inhibitor due to hypotension. Consider adding prior to discharge. CXR shows no acute abnormality Low sodium diets and daily weights. Qualifiers: Congestive heart failure chronicity: chronic Qualified Code(s): I50.22 - Chronic systolic (congestive) heart failure (5) Nicotine abuse Current Visit: No Status: Chronic Patient reported quiting after last KY. History of Present Illness Chief complaint: Dyspnea HPI: Ms. Bob is a 51 year old female who presents with increasing difficulty in breathing. She has a history of acute KY on 04/08/17 and received PCI to her LAD with MELBA. One day later she had new left sided chest pain and SOB and was taken back to the collaborating supervising physician and found to have 99% stenosis with thrombus in the 1st diagonal and received MELBA. EF found to be 35% with moderate diastolic dysfunction at that time. She reports feeling better initially. Two days later she became SOB. She also c/o dizziness and nausea. Reports poor oral intake due to nausea. She was seen and evaluated by her sheep sorter today with the c/o SOB. B/P found to be low at 80/40. She was recommended to go to the ER for worsening SOB. In the ER her intial EKG showed increasing ST elevation in the yvonne-lateral leads. STEMI alert was activated. B/p improved to 108/60. She denies chest pain or jaw pain. She also has a history of diabetes and diabetic neuropathy, HTN, and HLD. Past Med Surg Social Fam HX - Past Medical History Medical history: arthritis, coronary artery disease, diabetes, hyperlipidemia, hypertension, myocardial infarction Psychiatric history: anxiety, depression - Past Surgical History Surgical History: , cholecystectomy, other - Social History Smoking Status: Current every day smoker Smokeless Tobacco Status: No Alcohol use: none Drug use: none - Family History Mother Living Status: Age at : 67 Cause of : heart disease Hx Family Cardiac Disorders: Yes Father Age: 70 Living Status: Still Living Medications and Allergies BuPROPion XL (24 HR) [Wellbutrin XL] 150 mg PO DAILY 04/20/17 [History] FLUoxetine HCl [Fluoxetine HCl] 40 mg PO DAILY 04/20/17 [History] Insulin DETEMIR [Levemir] 40 unit SQ DAILY 04/20/17 [History] Metformin HCl [Metformin HCl ER] 500 mg PO BID 04/20/17 [History] Metoprolol Succinate 25 mg PO DAILY 04/20/17 [History] Nitroglycerin [Nitrostat] 0.4 mg SL Q5M PRN 04/20/17 [History] Rosuvastatin [Crestor] 40 mg PO HS 04/20/17 [History] Ticagrelor [Brilinta] 90 mg PO BID 04/20/17 [History] Valsartan [Diovan] 80 mg PO DAILY 04/20/17 [History] 3 Allergy/AdvReac Type Severity Reaction Status Date / Time No Known Allergies Allergy Verified 04/20/17 09:34 All Systems Review: A 10-system review of systems was performed and is negative for pertinent findings except as documented above in the HPI. Physical Examination Vital Signs, Last 4 Hours Temp Pulse Pulse Resp BP Pulse Ox 04/20/17 12:18 100 04/20/17 12:15 90 04/20/17 12:08 102 04/20/17 12:00 97.7 F 102 102 18 137/69 100 04/20/17 10:19 83 16 103/74 100 General: Conversant, Other (appears anxious. ) HEENT: Atraumatic, Normocephaly, Mucus Membranes Moist Neck: No JVD, Normal carotid pulses Cardiac: Reg Rate and Rhythm, Normal S1 and S2, No Murmur Lungs: Normal Breath Sounds, No Wheeze, Rales, Rhonchi Neuro: Alert and responsive, No focal deficits noted Abdomen: Soft, Non-Tender Skin: No rashes noted on visualized skin Musculoskeletal: No Chest Wall Tenderness Extremities: No Clubbing, No Cyanosis, No Edema, Normal Pulses Results 04/20/17 09:50 04/20/17 09:50 - Imaging and Cardiology Echo: report reviewed Cardiac cath: report reviewed - EKG Interpretation EKG results cardiology: personally reviewed
--- NOTE | 2017-04-20 13:28 | Pulmonology Consult Note ---
<Lucas John - Last Filed: 04/20/17 15:29> Date of Encounter: 04/20/17 Time of Encounter: 13:20 Assessment and Plan (1) ST elevation myocardial infarction (STEMI) Current Visit: Yes Status: Acute RCA drug eluting stent placed Repeat echo ordered, last was 35% with moderate diastolic dysfunction EKG since catheterization shows improvement in the lateral leads Will continue to monitor Qualifiers: Involved coronary artery: unspecified coronary artery Qualified Code(s): I21.3 - ST elevation (STEMI) myocardial infarction of unspecified site (2) Hypotension Current Visit: Yes Status: Acute Occasionally dips into the 80s/50s Mostly in the 100s-110s/70s Will continue to monitor Awaiting echo Qualifiers: Hypotension type: unspecified hypotension type Qualified Code(s): I95.9 - Hypotension, unspecified (3) Systolic CHF Current Visit: No Status: Acute Last echo showed EF of 35% with moderate diastolic dysfunction Continue beta mariam and valsartan Qualifiers: Congestive heart failure chronicity: chronic Qualified Code(s): I50.22 - Chronic systolic (congestive) heart failure (4) Diabetes Current Visit: No Status: Chronic Uncontrolled HgbA1C 12.1 at last check, per patient Continue basal insulin Added low dose sliding scale insulin Will monitor blood sugar Qualifiers: Diabetes mellitus type: type 2 Diabetes mellitus complication status: with neurologic complications Diabetes mellitus complication detail: with polyneuropathy Diabetes mellitus terminal gauger insulin use: with terminal gauger use Qualified Code(s): E11.42 - Type 2 diabetes mellitus with diabetic polyneuropathy; Z79.4 - terminal gauger (current) use of insulin; Z79.4 - correction ( current) use of insulin; Z79.4 - terminal gauger (current) use of insulin; Z79.4 - terminal gauger (current) use of insulin (5) CAD (coronary artery disease) Current Visit: Yes Status: Chronic s/p acute [place] 04/09/17 and 04/09/17 Continue asa, brilinta, statin, and beta mariam Continued risk factor modification Qualifiers: Coronary Disease-Associated Artery/Lesion type: [place] artery [place] vs. transplanted heart: [place] heart Associated angina: without angina Qualified Code(s): I25.10 - Atherosclerotic heart disease of [place] coronary artery without angina pectoris (6) HLD (hyperlipidemia) Current Visit: Yes Status: Chronic Continue rosuvastatin Qualifiers: Hyperlipidemia type: unspecified Qualified Code(s): E78.5 - Hyperlipidemia , unspecified (7) Nicotine abuse Current Visit: No Status: Chronic Patient reports cessation since first MT Support continued cessation History of Present Illness Consult date: 04/20/17 Reason for consult: other (hypotension) Chief complaint: STEMI History of present illness: Pao Bob is a 51 yo female who presented from Dr. Capellan's office with complaints of mainly shortness of breath but also hypotension, dizziness, and nausea. She recently underwent two percutaneous coronary interventions with drug eluting stent placements for STEMI. The first was placed on 04/08/17 in the LAD, and the second was placed on following day in the 1st diagonal. EF at that time was 35% with moderate diastolic dysfunction. The shortness of breath began to develop 2 days later. In the reduction furnace operator helper's office, her pressure was 80 /40. When sent to the ER, her EKG showed yvonne-lateral ST elevation. MELBA was placed in the RCA. She denies chest or jaw pain, fever, chills, flu-like symptoms, and dysuria. PMH is most significant for hypertension, hyperlipidemia, and uncontrolled diabetes with Hgb A1C at 12.1 at last check. Past Med Surg Social Fam HX - Past Medical History Medical history: arthritis, coronary artery disease, diabetes, hyperlipidemia, hypertension, myocardial infarction Psychiatric history: anxiety, depression - Past Surgical History Surgical History: , cholecystectomy, other - Social History Smoking Status: Current every day smoker Smokeless Tobacco Status: No Alcohol use: none Drug use: none - Family History Mother Living Status: Age at : 67 Cause of : heart disease Hx Family Cardiac Disorders: Yes Father Age: 70 Living Status: Still Living Medications and Allergies BuPROPion XL (24 HR) [Wellbutrin XL] 150 mg PO DAILY 04/20/17 [History] FLUoxetine HCl [Fluoxetine HCl] 40 mg PO DAILY 04/20/17 [History] Insulin DETEMIR [Levemir] 40 unit SQ DAILY 04/20/17 [History] Metformin HCl [Metformin HCl ER] 500 mg PO BID 04/20/17 [History] Metoprolol Succinate 25 mg PO DAILY 04/20/17 [History] Nitroglycerin [Nitrostat] 0.4 mg SL Q5M PRN 04/20/17 [History] Rosuvastatin [Crestor] 40 mg PO HS 04/20/17 [History] Ticagrelor [Brilinta] 90 mg PO BID 04/20/17 [History] Valsartan [Diovan] 80 mg PO DAILY 04/20/17 [History] 3 Allergy/AdvReac Type Severity Reaction Status Date / Time No Known Allergies Allergy Verified 04/20/17 09:34 All Systems: A 10-system review of systems was performed and is negative for pertinent findings except as documented above in the HPI. - Constitutional Constitutional: fatigue, no chills - Cardiovascular Cardiovascular: dyspnea, lightheadedness, no chest pain, no edema - Respiratory Respiratory: dyspnea, no cough (was present at last admission, but now absent) - Gastrointestinal Gastrointestinal: nausea, vomiting - Genitourinary Genitourinary: no dysuria Physical Examination Vital Signs: Vital Signs, Last 4 Hours Temp Pulse Pulse Resp BP Pulse Ox 04/20/17 13:00 90 04/20/17 12:45 89 04/20/17 12:30 89 04/20/17 12:18 100 04/20/17 12:15 90 04/20/17 12:08 102 04/20/17 12:00 97.7 F 102 102 18 137/69 100 04/20/17 10:19 83 16 103/74 100 General appearance: no acute distress, alert Eyes: nonicteric Effort: normal Auscultation: bilateral: clear Cardiovascular: regular rate and rhythm Gastrointestinal: soft, non-tender, non-distended Extremities: no cyanosis, no edema normal mental status mood appropriate, affect normal Results - Laboratory Findings CBC and BMP: 04/20/17 09:50 04/20/17 09:50 PT/INR, D-dimer PT 12.2 Seconds (9.4-12.1) H 04/20/17 09:50 Abnormal lab findings: Abnormal lab results WBC 15.4 K/mcL (4.3-11.1) H 04/20/17 09:50 RBC 5.57 M/mcL (3.82-4.97) H 04/20/17 09:50 Hgb 16.3 g/dL (11.5-15.4) H 04/20/17 09:50 Hct 47.5 % (35.3-44.9) H 04/20/17 09:50 Plt Count 495 K/mcL (140-400) H 04/20/17 09:50 MPV 9.0 fL (9.4-12.4) L 04/20/17 09:50 Neutrophils # 11.2 K/mcL (1.6-8.9) H 04/20/17 09:50 PT 12.2 Seconds (9.4-12.1) H 04/20/17 09:50 APTT 40.7 Seconds (26.0-36.0) H 04/20/17 09:50 Creatinine 1.30 mg/dL (0.57-1.11) H 04/20/17 09:50 Est GFR ( Amer) 52 (> 60) L 04/20/17 09:50 Est GFR (Non-Af Amer) 43 (> 60) L 04/20/17 09:50 Glucose 235 mg/dL (70-99) H 04/20/17 09:50 POC Glucose 318 (58-89) H 04/20/17 12:41 Troponin I 0.70 ng/mL (0-0.03) H* 04/20/17 09:50 - Diagnostic Findings Chest x-ray: report reviewed, image reviewed - Clinical Findings Intake & Output: Intake & Output 04/19/17 04/20/17 04/20/17 23:59 07:59 15:59 Intake Total 0 / 0 Balance 0 / 0 Consult Discharge Plan - Plan Referrals: Coby Elena MD [Primary Care Provider] - <Javier Singer - Last Filed: 04/20/17 19:52> Date of Encounter: 04/20/17 All Systems: A 10-system review of systems was performed and is negative for pertinent findings except as documented above in the HPI. Physical Examination Vital Signs: Vital Signs, Last 4 Hours Temp Pulse Pulse Resp BP Pulse Ox 04/20/17 16:00 98.3 F 87 12 120/80 100 04/20/17 15:15 86 04/20/17 15:03 84 04/20/17 15:00 84 84 18 99/73 100 04/20/17 14:40 85 04/20/17 14:00 87 87 18 110/74 100 04/20/17 13:45 89 04/20/17 13:30 92 04/20/17 13:15 93 04/20/17 13:00 90 04/20/17 12:45 89 04/20/17 12:30 89 Results - Laboratory Findings CBC and BMP: 04/20/17 09:50 04/20/17 09:50 PT/INR, D-dimer PT 12.2 Seconds (9.4-12.1) H 04/20/17 09:50 Abnormal lab findings: Abnormal lab results WBC 15.4 K/mcL (4.3-11.1) H 04/20/17 09:50 RBC 5.57 M/mcL (3.82-4.97) H 04/20/17 09:50 Hgb 16.3 g/dL (11.5-15.4) H 04/20/17 09:50 Hct 47.5 % (35.3-44.9) H 04/20/17 09:50 Plt Count 495 K/mcL (140-400) H 04/20/17 09:50 MPV 9.0 fL (9.4-12.4) L 04/20/17 09:50 Neutrophils # 11.2 K/mcL (1.6-8.9) H 04/20/17 09:50 PT 12.2 Seconds (9.4-12.1) H 04/20/17 09:50 APTT 40.7 Seconds (26.0-36.0) H 04/20/17 09:50 Creatinine 1.30 mg/dL (0.57-1.11) H 04/20/17 09:50 Est GFR ( Amer) 52 (> 60) L 04/20/17 09:50 Est GFR (Non-Af Amer) 43 (> 60) L 04/20/17 09:50 Glucose 235 mg/dL (70-99) H 04/20/17 09:50 POC Glucose 325 (58-89) H 04/20/17 15:58 Troponin I 0.70 ng/mL (0-0.03) H* 04/20/17 09:50 - Clinical Findings Intake & Output: Intake & Output 04/20/17 04/20/17 04/20/17 07:59 15:59 23:59 Intake Total 0 / 0 Balance 0 / 0 - Attending Attestation I saw the patient with the resident agree with History and Physical exam findings. 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 Renal : will follow labs after the contrast load Heme onc : No acute issues Endo: Diabetes on insulin will need to increase the dose of sliding scale Musculo skeletal / skin issues : No acute issues Disposition : When stable will transfer to the floor Code status: Full code Family/POA: .
[2017-04-20] MEDS ORDERED: *HR* Dextrose 50 % in Water (Syg) 50 ML SYRINGE IVP PRN (13:33)
[2017-04-20] MEDS ORDERED: Dextrose Gel 15 GM PO PRN ×2 (13:33)
[2017-04-20] MEDS ORDERED: D5% in Water 1,000 ML IVC PRN (13:33)
[2017-04-20] MEDS ORDERED: *HR* Atropine Sulfate 1 MG/10 ML SYRINGE ONE (13:59)
[2017-04-20] MEDS ORDERED: Perflutren Lipid Microsphere 1.3 ML in 0.9 % Sodium Chloride 8.7 ML IVP ONE (15:36)
[2017-04-20] MEDS ORDERED: Perflutren Lipid Microsphere 2 ML VIAL ONE (15:39)
--- NOTE | 2017-04-20 15:46 | Electrocardiograph Report ---
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
[2017-04-20] MEDS: Insulin LISPRO 300 UNITS/3 ML VIAL SQ SCH ×2 (16:11→23:45)
[2017-04-20] MEDS: *HR* Ticagrelor 90 MG TABLET PO SCH (19:38)
[2017-04-21 03:03] LABS: Basophils # 0.1 K/mcL (0.0-0.2); Basophils % 0.5 %; Eosinophils # 0.1 K/mcL (0.0-0.6); Eosinophils % 1.2 %; Hemoglobin 12.8 g/dL (11.5-15.4); Immature Granulocytes % 0.4 % (0-4); Lymphocytes # 2.4 K/mcL (0.6-4.6); Lymphocytes % 25.7 %; Mean Corpuscular HGB Conc 33.7 g/dL (31.6-35.5); Mean Corpuscular Hemoglobin 29.2 pg (28.0-33.3); Mean Corpuscular Volume 86.6 fL (83.0-100.0); Monocytes # 0.8 K/mcL (0.0-1.3); Monocytes % 8.2 %; Neutrophils # 6.1 K/mcL (1.6-8.9); Platelet Count 274 K/mcL (140-400); Red Blood Count 4.39 M/mcL (3.82-4.97); Red Cell Distribution Width 12.8 % (11.5-14.5)
[2017-04-21 03:17] LABS: BUN/Creatinine Ratio 14 (6-26); Blood Urea Nitrogen 15 mg/dL (7-20); Calcium 8.9 mg/dL (8.6-10.8); Carbon Dioxide 23 mEq/L (19-29); Chloride 109 mEq/L (98-109); Glucose 178 mg/dL (70-99); Osmolality,Calculated 291 (280-300); Potassium 3.7 mEq/L (3.5-4.5); Sodium 138 mEq/L (136-145); eGFR For African Americans > 60 (> 60); eGFR For Non-African Americans 52 (> 60)
[2017-04-21] MEDS: Insulin LISPRO 300 UNITS/3 ML VIAL SQ SCH ×3 (04:37→18:20)
[2017-04-21] MEDS: 0.9 % Sodium Chloride 1,000 ML IVC SCH ×3 (07:41→18:13)
[2017-04-21] MEDS: *HR* Ticagrelor 90 MG TABLET PO SCH ×2 (07:43→20:42)
--- NOTE | 2017-04-21 07:45 | Pulmonology Progress Note ---
<Lucas John - Last Filed: 04/21/17 11:09> Date of Encounter: 04/21/17 Time of Encounter: 07:36 Assessment and Plan (1) ST elevation myocardial infarction (STEMI) Current Visit: Yes Status: Acute RCA drug eluting stent placed 04/21/17 EKG since catheterization shows improvement in the lateral leads Plan to step down from ICU today (2) Hypotension Current Visit: Yes Status: Acute Occasionally dips into the 80s/50s, once into the 60s/40s Mostly in the 100s-110s/70s Will continue to monitor (3) Systolic CHF Current Visit: No Status: Acute Last echo showed EF of 35% with moderate diastolic dysfunction Repeat echo yesterday showed slightly improved function, EF 40% with segmental dysfunction Continue beta mariam and valsartan as blood pressure tolerates (4) Diabetes Current Visit: No Status: Chronic Glucose 178 this morning Continue basal insulin and low dose sliding scale Will monitor blood sugar (5) CAD (coronary artery disease) Current Visit: Yes Status: Chronic s/p acute [place] 04/08/17 and 04/09/17, 04/20/17 Continue asa, brilinta, statin, and beta mariam Continued risk factor modification (6) HLD (hyperlipidemia) Current Visit: Yes Status: Chronic Continue rosuvastatin (7) Nicotine abuse Current Visit: No Status: Chronic Support continued cessation Subjective Principal diagnosis: STEMI Interval history: Patient had no acute overnight events. Pressures have been stable. She denies CP, SOB, and any other new complaints. Objective PUL Vital signs: Last Vital Signs Temp 98.4 F 04/21/17 04:30 Pulse 80 04/21/17 06:00 Resp 12 04/21/17 06:00 BP 127/86 04/21/17 06:00 Pulse Ox 97 04/21/17 06:00 General appearance: no acute distress Eyes: nonicteric Effort: normal Auscultation: bilateral: clear Cardiovascular: regular rate and rhythm Gastrointestinal: normoactive bowel sounds, soft, non-tender, non-distended Extremities: no cyanosis, no edema normal mental status mood appropriate, affect normal Results - Laboratory Findings CBC and BMP: 04/21/17 02:57 04/21/17 02:57 PT/INR, D-dimer PT 12.2 Seconds (9.4-12.1) H 04/20/17 09:50 Abnormal lab findings: Abnormal lab results MPV 9.0 fL (9.4-12.4) L 04/21/17 02:57 PT 12.2 Seconds (9.4-12.1) H 04/20/17 09:50 APTT 40.7 Seconds (26.0-36.0) H 04/20/17 09:50 Est GFR (Non-Af Amer) 52 (> 60) L 04/21/17 02:57 Glucose 178 mg/dL (70-99) H 04/21/17 02:57 POC Glucose 325 (58-89) H 04/20/17 15:58 Troponin I 0.70 ng/mL (0-0.03) H* 04/20/17 22:56 - Clinical Findings Intake & Output: Intake & Output 04/20/17 04/20/17 04/21/17 15:59 23:59 07:59 Intake Total 0 / 0 1240 / 1240 730 / 730 Output Total 450 / 450 Balance 0 / 0 790 / 790 730 / 730 Consult Discharge Plan - Plan Referrals: Toney Capellan MD [Partnered Physician] - 05/08/17 11:00 am Coby Elena MD [Primary Care Provider] - 04/28/17 9:20 am <Javier Singer S - Last Filed: 04/21/17 15:26> Date of Encounter: 04/21/17 Objective PUL Vital signs: Last Vital Signs Temp 97.6 F 04/21/17 12:06 Pulse 80 04/21/17 14:00 Resp 18 04/21/17 14:00 BP 94/58 04/21/17 14:00 Pulse Ox 100 04/21/17 14:00 Results - Laboratory Findings CBC and BMP: 04/21/17 02:57 04/21/17 02:57 PT/INR, D-dimer PT 12.2 Seconds (9.4-12.1) H 04/20/17 09:50 Abnormal lab findings: Abnormal lab results MPV 9.0 fL (9.4-12.4) L 04/21/17 02:57 PT 12.2 Seconds (9.4-12.1) H 04/20/17 09:50 APTT 40.7 Seconds (26.0-36.0) H 04/20/17 09:50 Est GFR (Non-Af Amer) 52 (> 60) L 04/21/17 02:57 Glucose 178 mg/dL (70-99) H 04/21/17 02:57 POC Glucose 325 (58-89) H 04/20/17 15:58 Troponin I 0.70 ng/mL (0-0.03) H* 04/20/17 22:56 - Clinical Findings Intake & Output: Intake & Output 04/20/17 04/21/17 04/21/17 23:59 07:59 15:59 Intake Total 1240 / 1240 1000 / 1000 360 / 360 Output Total 450 / 450 Balance 790 / 790 1000 / 1000 360 / 360 - Attending Attestation I saw the patient with the resident agree with History and Physical exam findings. 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 Anti platelets , Beta blockers and LORA inhibitors according to Cardiology Nutrition/GI: Patient is on Cardiac Diabetic diet . Renal : Labs reviewed Heme onc : No acute issues Endo: Diabetes Patient is on Insulin Levemir 40 units she is on insulin sliding scale , will send home on Insulin long acting and her home metformin counseled the importance of following endocrinology as an outpatient as her HBA1C was 12, during the hospital will use insulin sliding scale while she in inpatient Musculo skeletal / skin issues : No acute issues Disposition : To be transferred to the floor today. Code status: Full code Family/POA: .
[2017-04-21] MEDS ORDERED: FLUoxetine 20 MG CAPSULE PO SCH (09:00)
[2017-04-21] MEDS ORDERED: Insulin DETEMIR 100 UNIT/ML X5UNITS SQ SCH (09:00)
[2017-04-21] MEDS ORDERED: Metoprolol XL (24 HR) Succ 25 MG TAB.ER.24H PO SCH ×3 (09:00→12:00)
[2017-04-21] MEDS ORDERED: Aspirin 81 MG TAB.CHEW PO SCH (09:00)
[2017-04-21] MEDS ORDERED: Valsartan 80 MG TABLET PO SCH (09:00)
[2017-04-21] MEDS ORDERED: BuPROPion XL (24 HR) 150 MG TABLET PO SCH (09:00)
[2017-04-21] MEDS ORDERED: Isosorbide MONOnitrate (24 HR) 30 MG TAB.ER.24H PO SCH (10:45)
--- NOTE | 2017-04-21 10:47 | Cardiology Progress Note ---
Date of Encounter: 04/21/17 Time of Encounter: 08:30 Assessment and Plan (1) CAD (coronary artery disease) Current Visit: Yes Status: Chronic S/p acute RI 04/08/17 with PCI to her LAD. She had recurrent chest pain and underwent LHC the next day for evaluation. She was found to have new 99% stenosis in the 1st diagonal artery and received PTCA/ MELBA. There was 60% mid RCA stenosis remaining. Denies missed medication. Continue asa, brilinta, statin, and bb. Aggressive risk factor modification. Phase I cardiac rehab started at previous visit. Will discuss starting phase II at cardiology f/u. Qualifiers: Coronary Disease-Associated Artery/Lesion type: [place] artery [place] vs. transplanted heart: [place] heart Associated angina: without angina Qualified Code(s): I25.10 - Atherosclerotic heart disease of [place] coronary artery without angina pectoris (2) Diabetes Current Visit: No Status: Chronic H/o diabetes and diabetic neuropathy. Will continue home meds. Qualifiers: Diabetes mellitus type: type 2 Diabetes mellitus complication status: with neurologic complications Diabetes mellitus complication detail: with polyneuropathy Diabetes mellitus long-term insulin use: with long term care social worker use Qualified Code(s): E11.42 - Type 2 diabetes mellitus with diabetic polyneuropathy; Z79.4 - oil heaterman (current) use of insulin; Z79.4 - oil heaterman ( current) use of insulin; Z79.4 - oil heaterman (current) use of insulin; Z79.4 - skilled nursing (current) use of insulin (3) Systolic CHF Current Visit: No Status: Acute TTE completed last visit showed EF 35% with moderate systolic dysfunction, no LV thrombus, no significant valvular disease. Repeat TTE shows EF 40%. There is moderate systolic dysfunction. Small pericardial effusion seen. Hold beta-mariam and eusebia inhibitor secondary to hypotension. CXR shows no acute abnormality Low sodium diets and daily weights. She actually appeared dehydrated on presentation. We will continue IV fluid with close monitoring. Qualifiers: Congestive heart failure chronicity: chronic Qualified Code(s): I50.22 - Chronic systolic (congestive) heart failure (4) Nicotine abuse Current Visit: No Status: Chronic Patient reported quitting after last RI. Continued smoking cessation encouragement given. (5) NSTEMI (non-ST elevated myocardial infarction) Current Visit: Yes Status: Acute EKG on presentation showed continued ST elevation that was more prominent than previous EKG. She was taken emergently to the [facility]. LHC showed patent LAD and 1st diagonal stents. There was a 70% stenosis in the mRCA and she received MELBA with good results. Reports symptoms immediately resolved once stent placed. Importance of DAPT with asa and brilinta for minimum of one year uninterrupted reviewed with patient. She voiced understanding. Healthy heart diet and exercise reviewed. Cardiac rehab discussed. Continue statin. Will hold beta- mariam for now due to hypotension. Will repeat EKG this morning. Step down to floor. Will continue to monitor patient for persistent hypotension. Required dopamine gtt last night. Now off dopamine and blood pressure is better. (6) Hypotension Current Visit: Yes Status: Acute Noted to be hypotensive in the cardiology office with B/p 80/40. She required dopamine gtt last night for hypotension. B/p improved overnight. Will try to restart beta-mariam once tolerated. Continue IV fluid. Reported poor oral intake and nausea for one week. Creatinine elevated at 1.3 yesterday and now normal after IV fluid. Likely dehydrated. Continue IV fluid. Qualifiers: Hypotension type: unspecified hypotension type Qualified Code(s): I95.9 - Hypotension, unspecified (7) Pericardial effusion Current Visit: Yes Status: Acute Small pericardial effusion noted on TTE. There is no evidence of tamponade. Re- check echocardiogram in one week to re-evaluate. Discussion w patient/family: The assessment and plan as outlined above was discussed with the patient and/or family members who expressed understanding and agreement. All questions were answered. Thank you for involving us in the care of your patient. Please call with any questions. Subjective Principal diagnosis: NSTEMI, hypotension, dehydration Interval history: Ms. Bob denies recurrent chest pain. Reports SOB resolved. She was able to eat breakfast with no nausea. Objective Vital Signs, Last 4 Hours Temp Pulse Resp BP Pulse Ox 04/21/17 09:43 28 89 04/21/17 09:00 80 04/21/17 08:11 97.8 F 04/21/17 08:00 84 12 90/65 100 04/21/17 07:00 90 12 86/62 99 General: Conversant, No Apparent Distress HEENT: Atraumatic, Normocephaly, Mucus Membranes Moist Neck: No JVD, Normal carotid pulses Cardiac: Reg Rate and Rhythm, Normal S1 and S2, No Murmur Lungs: Normal Breath Sounds, No Wheeze, Rales, Rhonchi Neuro: Alert and responsive, No focal deficits noted Abdomen: Soft, Non-Tender Skin: No rashes noted on visualized skin Musculoskeletal: No Chest Wall Tenderness Extremities: No Clubbing, No Cyanosis, No Edema, Normal Pulses, Other (right groin dressing removed. Small abrasion noted near insertion site. No other redness or swelling. No hematoma. No pain with palpation.) Results 04/21/17 02:57 04/21/17 02:57 Lab Results 04/20/17 04/20/17 04/21/17 17:13 22:56 02:57 WBC 9.5 Hgb 12.8 D Hct 38.0 Plt Count 274 Sodium Potassium Chloride Carbon Dioxide BUN Creatinine Glucose Calcium Troponin I 0.57 H* 0.70 H* 04/21/17 02:57 WBC Hgb Hct Plt Count Sodium 138 Potassium 3.7 Chloride 109 Carbon Dioxide 23 BUN 15 Creatinine 1.10 Glucose 178 H Calcium 8.9 Troponin I Chest X-Ray 04/20/17 09:54 IMPRESSION: No acute cardiopulmonary abnormality. D/ / Bradley Zamarripa MD / Bradley Zamarripa MD Interpreting Provider: Bradley Zamarripa MD Echocardiogram Limited Views 04/20/17 13:10 Impressions: LVEF 40%. Moderate segmental left ventricular systolic dysfunction. There is a small inferolateral pericardial effusion present. There is no echocardiographic evidence of tamponade. LVEF appears mildly improved comapred to prior report. Left Ventricular Wall Motion: Rest Echo Findings The apex, apical inferior, apical anterior, apical septal, mid inferior septal, apical lateral and mid anterior septal real were hypokinetic. All other wall segments showed normal motion. Findings: Study Quality * Technically adequate exam. ECG Findings * Normal sinus rhythm. Left Ventricle * LVEF 40%. * Moderate segmental left ventricular systolic dysfunction. Right Ventricle * Normal right ventricular structure and function. Left Atrium * Normal left atrial size. Right Atrium * Normal right atrial size. IVC * Normal IVC dimensions and inspiratory collapse. Pericardium * There is a small inferolateral pericardial effusion present. * There is no echocardiographic evidence of tamponade. Aorta * Normally sized aortic root. - Imaging and Cardiology Echo: report reviewed - EKG Interpretation EKG results cardiology: personally reviewed Consult Discharge Plan - Plan Referrals: Coby Elena MD [Primary Care Provider] - 04/28/17 9:20 am
[2017-04-21] MEDS ORDERED: D5% in Water 1,000 ML IVC PRN (12:36)
[2017-04-21] MEDS ORDERED: Nitroglycerin 0.4 MG TAB.SUBL SL PRN (12:36)
[2017-04-21] MEDS ORDERED: *HR* Dextrose 50 % in Water (Syg) 50 ML SYRINGE IVP PRN (12:36)
[2017-04-21] MEDS ORDERED: Ondansetron 4 MG/2 ML VIAL IVP PRN (12:36)
[2017-04-21] MEDS ORDERED: Dextrose Gel 15 GM PO PRN ×2 (12:36)
--- NOTE | 2017-04-21 18:24 | Electrocardiograph Report ---
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
--- NOTE | 2017-04-21 18:41 | Electrocardiograph Report ---
[address] [place] [address] Test Date: 2017-04-21 Pat Name: Pao Bob Department: 109 Room: [facility] Gender: F [place]er: CCCDF : 1965 Requested By: Miguel Azar Order Number: [id number] Reading MD: Jake Talavera DO Measurements Intervals [place] Rate: 78 P: 8 OK: 150 QRS: -2 QRSD: 87 T: -24 QT: 433 QTc: 466 Interpretive Statements SINUS RHYTHM MODERATE T-WAVE ABNORMALITY, CONSIDER ANTEROLATERAL ISCHEMIA Electronically Signed On 04-21-2017 18:39:28 EDT by Jake Talavera DO
[2017-04-22] MEDS: Insulin LISPRO 300 UNITS/3 ML VIAL SQ SCH ×2 (00:39→08:15)
[2017-04-22] MEDS: 0.9 % Sodium Chloride 1,000 ML IVC SCH (03:41)
[2017-04-22] MEDS: *HR* Ticagrelor 90 MG TABLET PO SCH (08:11)
[2017-04-22 08:54] VITALS: BP 110/79
[2017-04-22] MEDS ORDERED: Metoprolol XL (24 HR) Succ 25 MG TAB.ER.24H PO SCH (09:00)
[2017-04-22] MEDS ORDERED: Insulin DETEMIR 100 UNIT/ML X5UNITS SQ SCH (09:00)
[2017-04-22] MEDS ORDERED: Aspirin 81 MG TAB.CHEW PO SCH (09:00)
[2017-04-22] MEDS ORDERED: Isosorbide MONOnitrate (24 HR) 30 MG TAB.ER.24H PO SCH (09:00)
[2017-04-22] MEDS ORDERED: BuPROPion XL (24 HR) 150 MG TABLET PO SCH (09:00)
[2017-04-22] MEDS ORDERED: FLUoxetine 20 MG CAPSULE PO SCH (09:00)
--- NOTE | 2017-04-22 09:57 | Discharge Summary ---
Date of Encounter: 04/22/17 Time of Encounter: 09:57 - Discharge Diagnosis (1) NSTEMI (non-ST elevated myocardial infarction) Priority: Primary Status: Acute (2) Pericardial effusion Priority: Secondary Status: Acute (3) CAD (coronary artery disease) Priority: Primary Status: Chronic Qualifiers: Coronary Disease-Associated Artery/Lesion type: [place] artery [place] vs. transplanted heart: [place] heart Associated angina: without angina Qualified Code(s): I25.10 - Atherosclerotic heart disease of [place] coronary artery without angina pectoris (4) Systolic CHF Priority: Secondary Status: Acute Qualifiers: Congestive heart failure chronicity: chronic Qualified Code(s): I50.22 - Chronic systolic (congestive) heart failure - Discharge Medications Prescriptions: Isosorbide MONOnitrate (24 HR) [Imdur] 30 mg PO DAILY #30 tab.er.24h Home Medications: BuPROPion XL (24 HR) [Wellbutrin Xl] 150 mg PO DAILY 04/20/17 [History] FLUoxetine HCl [Fluoxetine HCl] 40 mg PO DAILY 04/20/17 [History] Insulin DETEMIR [Levemir] 40 unit SQ DAILY 04/20/17 [History] Metformin HCl [Metformin HCl ER] 500 mg PO BID 04/20/17 [History] Metoprolol Succinate 25 mg PO DAILY 04/20/17 [History] Nitroglycerin [Nitrostat] 0.4 mg SL Q5M PRN 04/20/17 [History] Rosuvastatin [Crestor] 40 mg PO HS 04/20/17 [History] Ticagrelor [Brilinta] 90 mg PO BID 04/20/17 [History] Aspirin 81 mg PO DAILY tab.chew 04/22/17 [Rx] Isosorbide MONOnitrate (24 HR) [Imdur] 30 mg PO DAILY #30 tab.er.24h 04/22/17 [ Rx] Allergies/Adverse Reactions: 3 Allergy/AdvReac Type Severity Reaction Status Date / Time No Known Allergies Allergy Verified 04/20/17 09:34 Procedures/tests Complete & Pending: Procedures Performed prior 72 hours Category Date Time Status ECG 12 lead ECG [ECG] Routine Y 04/20/17 13:07 Completed ECG 12 lead ECG [ECG] Routine Y 04/21/17 09:07 Completed EKG [ECG 12 lead ECG] [ECG] AM 0600 Y 04/22/17 06:00 Ordered EV limited echo w enhance Routine Y 04/20/17 13:10 Completed Date of admission: 04/20/17 10:06 Primary care physician: Coby Elena, Consults: 04/20/17 12:59 Consult to Pulmonology [CONS] Routine Consulting Provider: [facility] Reason for Consult: critical care management Time Notified: 13:00 Call Completed: Yes Discharging clinician: Jorje Herrera Anticipated date of discharge: 04/22/17 - Patient Status Disposition: Home, Self-Care Condition: Fair Functional capacity at discharge: independent ambulation Overall status at discharge: patient is progressing back to baseline - Discharge Instructions Follow Up With: Toney Capellan MD [Partnered Physician] - 05/08/17 11:00 am Coby Elena MD [Primary Care Provider] - 04/28/17 9:20 am Forms: ED Satisfaction Letter Additional Instructions: RISK FACTORS: STOP SMOKING: If you smoke, STOP. Smoking or tobacco use significantly increases your risk of heart disease because nicotine causes the arteries to narrow or constrict. It also causes fats to stick to the artery. Your chances of having a heart attack are greatly increased if you continue to smoke. For more information, call the education line for smoking cessation 0-270-DAEYOCD EAT A LOW FAT/CHOLESTEROL/SODIUM DIET: This diet may help reduce your chances of having a heart attack. LIFTING: Avoid lifting anything more than 10 pounds for 5-7 days Prior to straining, laughing, sneezing and/or coughing, apply manual pressure directly over insertion site. ACTIVITY: You may walk or climb stairs as tolerated You can resume sexual activity as tolerated In general, you are encouraged to engage in a minimum of 30 minutes or more of moderate intensity physical activity, such as brisk walking, daily or at least 3 -4 times weekly BATHING Do not submerge the site into water (bath tub, hot tub, swimming pool) for 1 week. This can be a source for infection into the blood stream. You may shower after 24 hours SITE CARE: After 24 hours, you may remove the dressing and leave the site open to air. Keep the site clean and dry. Clean gently and pat dry. You can expect bruising and tenderness that gradually resolve within a week or two. Return to work as instructed per your physician Resume driving as instructed per physician Keep all scheduled follow up appointments Resume medications as instructed IMPORTANT: If prescribed a Platelet Aggregation Inhibitor such as, Plavix, Brilinta or Effient: Duration of therapy is minimum one year These medications are often used in combination with Aspirin in prevention of future heart attacks Never discontinue unless consult with your General Surgeon STROKE (CVA) Risk factors for a stroke are: Age, cigarette smoking, diabetes, excessive alcohol consumption, family history, high blood pressure, overweight, physical inactivity, prior stroke, heart attack, diagnosis of carotid artery stenosis or other artery disease. Warning signs: Sudden numbness or weakness of the face, arm or leg; especially on one side of the body, sudden confusion, trouble speaking or understanding, sudden trouble seeing in one or both eyes, sudden trouble walking, dizziness, loss of balance or coordination, sudden severe headache with no cause. Call 911 or go to the Emergency Room. CONGESTIVE HEART FAILURE: If you have been diagnosed with Congestive Heart Failure (CHF) and your symptoms return, make an appointment with your physician Weigh yourself daily. Notify your physician if you have a weight gain of two or more pounds in one day or five or more pounds in one week. If you experience any difficulty breathing, please call 911 BLEEDING: Although the risk of bleeding is minimal, it can happen. If you have any bleeding from the site, apply firm pressure above the puncture site for 10-15 minutes. If the bleeding does not stop, continue manual pressure and call 911 Contact your physician if: You develop a fever greater than 101 degrees Fahrenheit Your site becomes reddened or has any drainage You have an increase in pain or burning at the site or if a large knot forms at the site. If you experience chest pain, shortness of breath, dizziness, or extreme tiredness, stop the activity and rest. Please notify your physicians office if you experience any of these symptoms and they are not relieved by rest please call 911! - Diet and Activity Activity: increase activity as tolerated Diet: low fat, low cholesterol, low salt diet - Hospital Course Hospital course: Ms. Bob is a 51 year old female recent acute [place] 04/08/17 with PCI to her LAD. EKG on presentation showed continued ST elevation that was more prominent than previous EKG. She was taken emergently to the laboratory associate. LHC showed patent LAD and 1st diagonal stents. There was a 70% stenosis in the mRCA and she received MELBA with good results. Reports symptoms immediately resolved once stent placed. Importance of DAPT with asa and brilinta for minimum of one year uninterrupted reviewed with patient. She voiced understanding. Healthy heart diet and exercise reviewed. Cardiac rehab discussed. Continue statin and BB. ARB discontinued due to hypotension. Can restart as outpt if BP will tolerate, as she does have ICMP. TTE completed last visit showed EF 35% with moderate systolic dysfunction, no LV thrombus, no significant valvular disease. Repeat TTE shows EF 40%. There is moderate systolic dysfunction. Small pericardial effusion seen. Recommend rechecking echo in 1 week to re-evaluate. Pt had episode of chest pain yesterday, resolved after receiving Imdur without recurrence. Rx for Imdur given. Vitals and labs stable. Pt denies cardiac complaints. D/C home in stable condition with outpt follow-up--will coordinate. Hold Metformin 48 hours after LHC. - Time Spent with Patient Total time spent providing and/or coordinating discharge services: Less than 30 minutes Physical Examination Vital Signs, Last 4 Hours Temp Pulse Resp BP Pulse Ox 04/22/17 08:27 97.8 F 80 16 110/79 99 04/22/17 06:00 75 12 127/79 98 Vital Signs Temp Pulse Resp BP Pulse Ox 04/22/17 08:27 97.8 F 80 16 110/79 99 04/22/17 06:00 75 12 127/79 98 04/22/17 03:21 78 16 127/79 97 04/22/17 00:22 97.7 F 04/22/17 00:00 79 16 105/56 97 04/21/17 22:00 77 16 112/64 99 04/21/17 20:47 97.5 F L 76 14 115/68 98 04/21/17 16:00 97.7 F 74 16 109/69 95 04/21/17 14:00 80 18 94/58 100 04/21/17 12:06 97.6 F 82 26 121/84 100 04/21/17 12:00 97.6 F 79 20 121/84 100 04/21/17 11:00 79 20 118/93 100 Intake and Output 04/21/17 04/22/17 04/22/17 23:59 07:59 15:59 Intake Total 120 / 120 1000 / 1000 Balance 120 / 120 1000 / 1000 Intake: IV Fluids 1000 / 1000 0.9 % Sodium Chloride 1,000 ML 1000 / 1000 @ 100 mls/hr IVC .Q10H KAYLA Rx#: [id number] Oral 120 / 120 Other: Meal Dinner Breakfast Percent of Meal Consumed 100% 95% # Voids 1 1 Weight 93.5 kg Blood Glucose* 343 272 179 Patient Weight 04/22/17 23:59 Weight 93.5 kg General: Conversant, No Apparent Distress HEENT: Atraumatic, Normocephaly, Mucus Membranes Moist Neck: No JVD, Normal carotid pulses Cardiac: Reg Rate and Rhythm, Normal S1 and S2, No Murmur Lungs: Normal Breath Sounds, No Wheeze, Rales, Rhonchi Neuro: Alert and responsive, No focal deficits noted Abdomen: Soft, Non-Tender Skin: No rashes noted on visualized skin Musculoskeletal: No Chest Wall Tenderness Extremities: No Clubbing, No Cyanosis, No Edema, Normal Pulses
[2017-04-22] MEDS ORDERED: FLUARIX QUAD 2017-18 36MOS UP/PF 0.5 ML SYRINGE IM ONE (10:36)
== END 2017-04-22 11:05 | disposition home or self-care (01) | DRG 247 ==
LOC: EMEROO 09:32 → ICNU 10:06
PROVIDERS: ADMIT Internal Medicine Cardiovascular Disease; ATTEND Internal Medicine Cardiovascular Disease

== ENCOUNTER 2017-04-27 14:53 | Observation (INO) ==
[2017-04-27] MEDS ORDERED: *HR* Ticagrelor 90 MG TABLET ONE (14:57)
[2017-04-27] MEDS ORDERED: *HR* Heparin 5,000 UNIT/ML VIAL ONE (14:57)
[2017-04-27] MEDS ORDERED: Aspirin 81 MG TAB.CHEW ONE (14:57)
[2017-04-27] MEDS ORDERED: *HR* Heparin 10,000 UNIT/10 ML VIAL ONE (14:58)
[2017-04-27] MEDS ORDERED: 0.9 % Sodium Chloride 1,000 ML ONE ×3 (14:58→15:05)
[2017-04-27] MEDS ORDERED: Heparin 1,000 UNITS/500 mL NS 500 ML ONE (14:58)
[2017-04-27] MEDS ORDERED: Nitroglycerin 1,000 MCG/10 ML VIAL IV ONE (14:58)
[2017-04-27] MEDS ORDERED: *HR* Heparin 5,000 UNIT/ML VIAL IVP PRN ×2 (14:59)
[2017-04-27] MEDS ORDERED: Aspirin 81 MG TAB.CHEW PO ONE (14:59)
[2017-04-27] MEDS ORDERED: *HR* Ticagrelor 90 MG TABLET PO ONE (14:59)
[2017-04-27] MEDS ORDERED: Heparin 25,000 UNIT/500 ML D5W 25,000 UNIT/500 ML MLS IVC SCH (15:00)
[2017-04-27] MEDS ORDERED: *HR* Bivalirudin 250 MG VIAL IVC ONE (15:05)
--- NOTE | 2017-04-27 15:08 | Emergency Department Note ---
Disposition Clinical Impression: ST elevation myocardial infarction (STEMI) Qualifiers: Involved coronary artery: LAD coronary artery Qualified Code(s): I21.02 - ST elevation (STEMI) myocardial infarction involving left anterior descending coronary artery Disposition: Admitted As Inpatient Condition: Critical Referrals: Coby Elena MD [Primary Care Provider] - Time of Disposition: 15:10 Chest Pain HPI - General Chief Complaint: ED Chest Pain Stated Complaint: CP / STEMI Time Seen by Provider: 04/27/17 14:58 Source: patient, EMS Limitations: no limitations Vital Signs Reviewed: Yes Nursing Notes Reviewed: Yes - History of Present Illness HPI Narrative: I did see the patient immediately upon arrival and this patient does have history significant cardiac disease with recent stent placement one week ago and has had 3 cardiac catheterizations the last 3 weeks and presents today with shortness of breath again at home yesterday and it is exertional and she also has intermittent diaphoresis which is severe. No medication specifically used for these symptoms. No chest pain or tightness or discomfort or pressure. No pain in the chest, neck, arm, jaw or back. She does not have any pleuritic chest pain. No pain or swelling of the lower extremities, intermittent alert vision. No fevers or blood in the urine or stool. I did review the previous record. Social history: Stopped smoking on April 08, no alcohol. Family history: Positive for heart disease Severity scale (1-10): 0 - Related Data Home Medications Medication Instructions Recorded Confirmed BuPROPion XL (24 HR) [Wellbutrin 150 mg PO DAILY 04/20/17 04/27/17 Xl] FLUoxetine HCl [Fluoxetine HCl] 40 mg PO DAILY 04/20/17 04/27/17 Insulin DETEMIR [Levemir] 40 unit SQ DAILY 04/20/17 04/27/17 Metformin HCl [Metformin HCl ER] 500 mg PO BID 04/20/17 04/27/17 Metoprolol Succinate 25 mg PO DAILY 04/20/17 04/27/17 Nitroglycerin [Nitrostat] 0.4 mg SL Q5M PRN 04/20/17 04/27/17 Rosuvastatin [Crestor] 40 mg PO HS 04/20/17 04/27/17 Ticagrelor [Brilinta] 90 mg PO BID 04/20/17 04/27/17 Previous Rx's Medication Instructions Recorded Aspirin 81 mg PO DAILY tab.chew 10/21/17 Isosorbide MONOnitrate (24 HR) 30 mg PO DAILY #30 tab.er.24h 04/22/17 [Imdur] Allergies Allergy/AdvReac Type Severity Reaction Status Date / Time No Known Allergies Allergy Verified 04/20/17 09:34 Review of Systems: Constitutional: No fever Vision: + blurred vision ENT: No rhinorrhea Respiratory: No cough Allergic: No allergies : No blood in urine GI: No blood in stool Hematologic: No bruising Dermatologic: No skin rash Musculoskeletal: No pain in the extremities Neuro: No numbness of the extremities Chest Pain PMH - Past Medical History Medical history: Reports: arthritis, coronary artery disease, diabetes, hyperlipidemia, hypertension, myocardial infarction Surgical history: Reports: , cholecystectomy, other Psychiatric history: Reports: anxiety, depression RN CARDIOVASCULAR history: Reports: no RN CARDIOVASCULAR history - Social History Smoking Status: Former smoker Alcohol use: Reports: none Drug use: Reports: none Physical Exam CONSTITUTIONAL: Well-appearing; well-nourished; A&O X 3, in no apparent distress HEAD: Normocephalic; atraumatic EYES: PERRL, no scleral icterus NOSE: The nose is normal in appearance without rhinorrhea NECK: No JVD or distended neck veins RESP: Normal chest excursion with respiration; breath sounds clear and equal bilaterally; no wheezes, rhonchi, or rales CARD: Regular rhythm, without murmurs, rub or gallop ABD: Non-distended; non-tender, soft, without rigidity, rebound or guarding,no pulsatile mass CHEST: No pain with palpation SKIN: Normal for age and race; warm and dry without diaphoresis ; no apparent lesions EXTREMITIES: Pulses are 2 plus and equal times 4 extremities, no peripheral edema or calf muscle pain - General Limitations: no limitations General appearance: alert Course Vital Signs Temperature 97.7 F 04/27/17 14:54 Pulse Rate 89 04/27/17 14:54 Respiratory Rate 18 04/27/17 14:54 Blood Pressure 107/87 04/27/17 14:54 O2 Sat by Pulse Oximetry 100 04/27/17 14:54 Temperature 97.7 F 04/27/17 14:54 Pulse Rate 89 04/27/17 14:54 Respiratory Rate 18 10/26/17 14:54 Blood Pressure 107/87 10/26/17 14:54 O2 Sat by Pulse Oximetry 100 04/27/17 14:54 Oxygen Delivery Oxygen Delivery Room Air Chest Pain - MDM Narrative Medical decision making narrative: I did review the pre-arrival EKG showing inferior STEMI and that I did not review the 2 EKGs we did hear the first one showing a anterior lateral STEMI with a rate of 89 which is a normal sinus rhythm done at 3:00 and the second one done shortly thereafter with a normal sinus rhythm with a rate of 90 with some improvement of the ST segments. Cardiac catheter lab has been notified. I did see the patient immediately upon arrival and also spoke with the paramedics. The patient is on her way to the catheterization lab at this time. Critical condition. [id number] - Medical Records Medical records reviewed: Yes I reviewed the patient's medical records.
[2017-04-27 15:12] LABS: Basophils # 0.1 K/mcL (0.0-0.2); Basophils % 0.8 %; Eosinophils # 0.1 K/mcL (0.0-0.6); Eosinophils % 1.2 %; Hematocrit 43.1 % (35.3-44.9); Immature Granulocytes % 0.7 % (0-4); Lymphocytes # 2.8 K/mcL (0.6-4.6); Mean Corpuscular HGB Conc 34.3 g/dL (31.6-35.5); Mean Corpuscular Hemoglobin 29.2 pg (28.0-33.3); Mean Platelet Volume 9.6 fL (9.4-12.4); Monocytes # 0.9 K/mcL (0.0-1.3); Monocytes % 7.8 %; Platelet Count 344 K/mcL (140-400); Red Blood Count 5.07 M/mcL (3.82-4.97); Red Cell Distribution Width 13.6 % (11.5-14.5); Segmented Neutrophils % 66.5 %
[2017-04-27 15:16] LABS: Hemoglobin 14.8 g/dL (11.5-15.4)
[2017-04-27] MEDS ORDERED: *HR* Midazolam HCl 2 MG/2 ML VIAL ONE ×2 (15:23→15:30)
[2017-04-27 15:25] LABS: Calcium 9.6 mg/dL (8.6-10.8); Magnesium 1.8 mg/dL (1.6-2.6); Potassium 4.1 mEq/L (3.5-4.5)
[2017-04-27] MEDS ORDERED: Nitroglycerin 0.4 MG TAB.SUBL SL PRN (15:52)
[2017-04-27] MEDS ORDERED: Naloxone 0.4 MG/ML INJ IVP PRN (15:55)
--- NOTE | 2017-04-27 16:16 | Cardiology History & Physical ---
<Ac Hernández - Last Filed: 04/27/17 16:13> Date of Encounter: 04/27/17 Time of Encounter: 15:45 Assessment and Plan (1) Acute LA Current Visit: No Status: Acute EKG taken for nausea and diaphoresis. Symptoms similar to recent LA. EKG shows new ST elevation in lead II, III, and AVF, Emergent LHC recommended. S/p recent STEMI 04/08/16 with PCI to the LAD and PCI to the diagonal artery.Reported chest pain at that time. Recurrent NSTEMI last week and received PCI with MELBA to her RCA. No chest pain only nausea at that time. Now with recurrent nausea. Denies missed doses of medication. Continue asa, brilinta, statin, and bb. Given brilinta load in ER. Qualifiers: Myocardial infarction ST status: ST elevation myocardial infarction Involved coronary artery: LAD coronary artery Qualified Code(s): I21.02 - ST elevation (STEMI) myocardial infarction involving left anterior descending coronary artery (2) Nausea Current Visit: Yes Status: Acute Anginal equivalent? Pending LHC. (3) Diabetes Current Visit: No Status: Chronic Blood sugar 333. Family voiced concern of patient not taking medications for diabetes. Check HgbA1c. 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 Bob is a 51 year old female who presents from the cardiology office for abnormal EKG. She was being seen for LA follow-up. She c/o recurrent severe nausea and sweating for the last 24 hours. Symptoms similar to her recent LA. She denied missing medications. She denies chest pain. EKG completed in the office showed new ST elevation the inferior leads. She was sent to the ER by EMS. STEMI alert was activated. She was recommended to undergo emergent LHC. Previous cardiac testing: LHC 04/20/17: Impressions: There is severe one vessel coronary artery disease. Patient had successful PTCA/Drug-Eluting Stent placement in the mid RCA. Limited Echo 04/20/17: Impressions: LVEF 40%. Moderate segmental left ventricular systolic dysfunction. There is a small inferolateral pericardial effusion present. There is no echocardiographic evidence of tamponade. LVEF appears mildly improved comapred to prior report. LHC 04/09/17: Impressions: Moderate residual atherosclerotic coronary artery disease. Patient had successful PTCA/Drug-Eluting Stent placement in the 1st Diagonal. . Past Med Surg Social Fam HX - Past Medical History Attestation: Yes The following information was validated with the patient. Medical history: arthritis, coronary artery disease, diabetes, hyperlipidemia, hypertension, myocardial infarction Psychiatric history: anxiety, depression - Past Surgical History Surgical History: , cholecystectomy, other - Social History Smoking Status: Former smoker Smokeless Tobacco Status: No Alcohol use: none Drug use: none - Family History Mother Living Status: Hx Family Cardiac Disorders: Yes Father Living Status: Still Living Medications and Allergies BuPROPion XL (24 HR) [Wellbutrin Xl] 150 mg PO DAILY 04/20/17 [History] FLUoxetine HCl [Fluoxetine HCl] 40 mg PO DAILY 04/20/17 [History] Insulin DETEMIR [Levemir] 40 unit SQ DAILY 04/20/17 [History] Metformin HCl [Metformin HCl ER] 500 mg PO BID 04/20/17 [History] Metoprolol Succinate 25 mg PO DAILY 04/20/17 [History] Nitroglycerin [Nitrostat] 0.4 mg SL Q5M PRN 04/20/17 [History] Rosuvastatin [Crestor] 40 mg PO HS 04/20/17 [History] Ticagrelor [Brilinta] 90 mg PO BID 04/20/17 [History] Aspirin 81 mg PO DAILY tab.chew 04/22/17 [Rx] Isosorbide MONOnitrate (24 HR) [Imdur] 30 mg PO DAILY #30 tab.er.24h 04/22/17 [ Rx] 3 Allergy/AdvReac Type Severity Reaction Status Date / Time No Known Allergies Allergy Verified 04/20/17 09:34 All Systems Review: A 10-system review of systems was performed and is negative for pertinent findings except as documented above in the HPI. Physical Examination Vital Signs Temp Pulse Resp BP Pulse Ox 04/27/17 15:05 100 04/27/17 14:54 97.7 F 89 18 107/87 100 Intake and Output 04/27/17 04/27/17 04/27/17 07:59 15:59 23:59 Other: Weight 90.718 kg Patient Weight 04/27/17 23:59 Weight 90.718 kg General: Conversant, No Apparent Distress HEENT: Atraumatic, Normocephaly, Mucus Membranes Moist Neck: No JVD, Normal carotid pulses Cardiac: Reg Rate and Rhythm, Normal S1 and S2, No Murmur Lungs: Normal Breath Sounds, No Wheeze, Rales, Rhonchi Neuro: Alert and responsive, No focal deficits noted Abdomen: Soft, Non-Tender Skin: No rashes noted on visualized skin Musculoskeletal: No Chest Wall Tenderness Extremities: No Clubbing, No Cyanosis, No Edema, Normal Pulses Results 04/27/17 15:06 04/27/17 15:06 - Imaging and Cardiology Echo: report reviewed Cardiac cath: report reviewed - EKG Interpretation EKG results cardiology: personally reviewed (SR with new ST elevation in the inferior leads.) <Avelino Ponce - Last Filed: 04/27/17 16:51> Date of Encounter: 04/27/17 - Attending Attestation 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 Chest pain, consistent with previous anginal symptoms, now resolved, discussed options, recommendations, agrees to proceed. 2. Severe double vessel CAD with previoius stents in LAD, D1 and RCA 3. Diabetes, not well controlled. Assessment and Plan (1) Acute LA Current Visit: Yes Status: Acute EKG taken for nausea and diaphoresis. Symptoms similar to recent LA. EKG shows new ST elevation in lead II, III, and AVF, Emergent LHC recommended. S/p recent STEMI 04/08/16 with PCI to the LAD and PCI to the diagonal artery.Reported chest pain at that time. Recurrent NSTEMI last week and received PCI with MELBA to her RCA. No chest pain only nausea at that time. Now with recurrent nausea. Denies missed doses of medication. Continue asa, brilinta, statin, and bb. Given brilinta load in ER. Qualifiers: Myocardial infarction ST status: ST elevation myocardial infarction Involved coronary artery: LAD coronary artery Qualified Code(s): I21.02 - ST elevation (STEMI) myocardial infarction involving left anterior descending coronary artery History of Present Illness HPI: Ms. Bob is a 51 year old female All Systems Review: A 10-system review of systems was performed and is negative for pertinent findings except as documented above in the HPI. Results 04/27/17 15:06 04/27/17 15:06
--- NOTE | 2017-04-27 16:31 | Event Note ---
Date of Encounter: 04/27/17 Time of Encounter: 16:27 - Cardiology Event Note LHC showed patent LAD, 1st diagonal, and RCA. EF 45%. Improved from previous. EKG changes and symptoms concerning for vasospasms. Discussed with Dr. Ponce. Will try to add CCB as blood pressure allows. Add ranexa. Will monitor overnight for recurrent symptoms. Family noted patient is very anxious at home about diagnoses. Recommend f/u with PCP to discuss anxiety.
--- NOTE | 2017-04-27 17:58 | Invasive Diagnostic Lab Proc ---
Name: Pao Bob Date of Study: 04/27/2017 Date: 1965 Ht: 66.9in Medical Record#: [id number] Age: 51 Wt: 199.96lb Gender: Female BSA: 2.02 Order #: [id number] BMI: 31.38 Physicians Procedure Physician: Avelino Ponce DO Referring MD: Referring MD: Staff Name Position Time In Mellissa Wakefield RN Monitor 03:19 PM Dameon Teran RN Resident Buyer 03:20 PM Marycarmen Eli RN Resident Buyer 03:20 PM Keren Fischer RN Resident Buyer 03:20 PM Kate Galindo RT (R) Scrub 03:20 PM Indications Indication STEMI Procedures Performed Procedure L HRT ARTERY/VENTRICLE ANGIO Pre-Procedure Checklist Informed consent is complete signed and on chart. H&P is on chart. ID band is on and ID verified with patient. Patient NPO for procedure The procedure was described for the patient and questions were answered. Blood Pressure: 141/74 ECG is on chart. Rhythm: Sinus rhythm Plan of Care Patient will tolerate the procedure without complications. Adequate level of comfort will be maintained. Hemodynamics will remain stable Patient will recover from procedure without complications. Respiratory function will be maintained. Cardiac rhythm will remain stable. Patient temperature will be maintained. Patient and/or family have verbalized understanding of the procedure. Patient Education Chief Complaint/Reason for Test: Cardiac Cath Developmental Category: Adult (18-64 years) Developmentally Appropriate for Age: Yes Learning Barriers: None Education Needs: Procedure Education Method: Verbal Information Taught: Cardiac Cath Educational Evaluation: Able to repeat information Intravenous Access Time IV Size Location DC'd Fluid/Drip Rate Units RN 03:15 PM 18g 1 1/4" Patent On Arrival Rt Hand 0.9NaCl 25 ml/hr Dameon Teran RN 03:15 PM 20g 1 1/4" Patent On Arrival Rt Arm Allergies No Known Allergies Vital Signs Time BP (mmHg) HR (bpm) O2 Sat. RR (bpm) LOC 03:28 PM / % 5 = Fully awake and oriented or at pre-proc level 03:17 PM 141 / 74 88 100 % 03:23 PM 124 / 75 88 100 % 11 03:27 PM 128 / 80 85 100 % 12 03:33 PM 114 / 67 84 100 % 26 03:33 PM 109 / 67 84 100 % 18 03:37 PM 112 / 69 81 100 % 22 03:28 PM / 83 98 % 13 4 = Oriented but drowsy 04:00 PM 94 / 60 83 98 % 13 5 = Fully awake and oriented or at pre-proc level 04:21 PM 89 / 65 80 98 % 13 5 = Fully awake and oriented or at pre-proc level 04:00 PM 99 / 64 81 97 % 16 5 = Fully awake and oriented or at pre-proc level 05:06 PM 97 / 64 87 96 % 17 5 = Fully awake and oriented or at pre-proc level 05:15 PM 89 / 62 74 97 % 17 5 = Fully awake and oriented or at pre-proc level 05:20 PM 97 / 64 74 96 % 16 5 = Fully awake and oriented or at pre-proc level 05:25 PM 83 / 59 73 95 % 16 5 = Fully awake and oriented or at pre-proc level 05:49 PM 95 / 65 74 96 % 16 05:50 PM 102 / 60 75 97 % 16 Procedural Medications Time Medication Dose Units Method Given By 03:21 PM Oxygen 2 L/min nasal cannula Marycarmen Eli RN 03:28 PM Lidocaine 2% 10 ml Subcutaneous Avelino Ponce DO 03:30 PM Versed 1 mg Intravenous Marycarmen Eli RN 03:24 PM Versed 2 mg Intravenous Marycarmen Eli RN ASA Classification: CLASS III- Severe systemic disease (i.e. prior AMI, diabetes with vascular complications, morbid obesity) Emergent Procedure: ASA score is assumed Wellington Score Preprocedure Postprocedure Activity 2- Moves 4 extremities sustained head lift Activity 2- Moves 4 extremities sustained head lift Circulation 2- SBP +/= 20 points of pre-anesthetic level Circulation 2- SBP +/= 20 points of pre-anesthetic level Consciousness 2- Awake and alert oriented x 3 Consciousness 2- Awake and alert oriented x 3 O2 Saturation 2- Able to maintain O2 satruation of 92% on room air O2 Saturation 2- Able to maintain O2 satruation of 92% on room air Respiratory 2- Able to deep breathe and cough well Respiratory 2- Able to deep breathe and cough well Total Score 10 Total Score 10 Contrast Agent: Isovue Diagnostic Contrast: 50 ml Total Contrast: 50 ml Fluoro Dose: 266 mGy Activated Clotting Time Time Seconds to Clot 03:42 PM 222 Procedure Log Time Note Enter By 03:10 PM Pt arrived to label maker 2 at 15:10 [email or web address] 03:17 PM Vitals capture started with the following parameters, Patient=Adult, Interval=5 min, Initial Cdojipux=091 mmHg, Deflation Rate=5 mmHg, Cuff placed on Right Arm 03:17 PM HR=88 bpm, HTWI=365/74 mmhg, OfO5=796.0 % 03:20 PM Mellissa Wakefield RN Position: Monitor Time in: 15:19 [email or web address] 03:20 PM Dameon Teran RN Position: Resident Buyer Time in: 15:20 [email or web address] 03:20 PM Marycarmen Eli RN Position: Resident Buyer Time in: 15:20 [email or web address] 03:20 PM Keren Fischer RN Position: Resident Buyer Time in: 15:20 [email or web address] 03:20 PM Kate Galindo RT (R) Position: Scrub Time in: 15:20 [email or web address] 03:21 PM Case Delayed No [email or web address] 03:21 PM Patient charges- Angio tray pack, Navilyst 3mm J, Pulse Oximetry and ACIST tubing and transducer kk 03: PM Hair removed from procedure site in procedure lab using clippers. Bilateral groin prepped with Chloraprep by Mellissa Wakefield RN, safety strap applied then patient was draped. Skin intact. : PM Time: 15:21 Oxygen on at 2 L/min per nasal cannula by Marycarmen Eli RN 03:23 PM HR=88 bpm, EIFB=858/75 mmhg, UhS0=880 %, Resp=11 B/min 03:23 PM Pressure channel 2 zeroed. 03:23 PM Pressure channel 2 zeroed. 03:24 PM Time: 15:24 Versed 2 mg Intravenous Given by Marycarmen Eli RN 03: PM Physician arrived 15:27 03: PM Procedure start 15:: PM Time out performed according to hospital policy : PM Clinical Presentation: STEMI or equivalent all 03: PM HR=85 bpm, RDIU=391/80 mmhg, GgR9=716 %, Resp=12 B/min 03: PM Time: 15:28 Patient comfortable and pain free: Yes PM Time: 15:28LOC: 5 = Fully awake and oriented or at pre-proc level [email or web address] 03:28 PM Time: 15:28 10 ml Lidocaine 2% to left groin Subcutaneous Given by Avelino Ponce DO [email or web address] 03:29 PM Micro-Introducer Kit utilized for sheath placement [email or web address] 03:29 PM Access obtained by percutaneous puncture. 6Fr 10cm Terumo [place] sheath placed in left Femoral artery. [id number] [email or web address] 03:30 PM Time: 15:30 Versed 1 mg Intravenous Given by Marycarmen Eli RN kkall 03:30 PM Pressure channel 2 zeroed. 03:32 PM 5Fr FL 4 catheter inserted over the wire DNC [email or web address] 03:33 PM HR=84 bpm, VYWB=846/67 mmhg, JkJ4=188 %, Resp=26 B/min 03:33 PM NIBP STAT measurement started. 03:33 PM Recorded Pressure: Ao, HR=83, Condition=Condition 1 (Aorta) Ao 76/51/62 03:33 PM HR=84 bpm, UHHQ=731/67 mmhg, VaF6=926.0 %, Resp=18 B/min 03:34 PM Recorded Pressure: Ao, HR=84, Condition=Condition 1 (Aorta) Ao 76/50/60 03:34 PM LCA angiography performed in multiple views. [email or web address] 03:34 PM Catheter removed [email or web address] 03:35 PM 6Fr JR 4 [place] Bright-Tip guide catheter was used to cannulate the PCI vessel successfully. reused? No [email or web address] 03:36 PM Recorded Pressure: LV, HR=82, Condition=Condition 1 (Left Ventricle) LV 78/-3/8 03:36 PM Recorded Pressure: LV, Ao, HR=82, Condition=Condition 1 (Left Ventricle) LV 77/-7/-2, (Aorta) Ao 79/46/60 03:36 PM Catheter selectively placed in left ventricle kkallner 03:36 PM Bolus angiogram of left Ventricle complete: 10 ml/sec for a total of 10 mls [email or web address] 03:36 PM RCA angiography performed in multiple views. [email or web address] 03:37 PM Coronary Dominance: right [email or web address] 03:37 PM HR=81 bpm, IKNA=650/69 mmhg, GqY9=716.0 %, Resp=22 B/min 03:38 PM Guide catheter removed intact. [email or web address] 03:41 PM Procedure completed at 15:41 [email or web address] 03:42 PM Sign out completed: Radiation Dose 265.9 mGy Fluoro Time: 1.8 Isovue 370 - 200ml contrast 50 ml given by Avelino Ponce DO. Complications: NoneCardiac Rehab Consult needed: YesConfirmed administered medications: No [email or web address] 03:42 PM Sheath left in place to be pulled on floor/holding areaV+Pad [email or web address] 03:42 PM Post ECG Sinus rhythm [email or web address] 03:42 PM Post Blood Pressure 112/69 [email or web address] 03:42 PM At 15:42 the ACT was 222 seconds. [email or web address] 03:43 PM 15:43 Post Pulses Bilateral DP 1+ [email or web address] 03:43 PM Time: 15:28 Patient comfortable and pain free: Yes [email or web address] 03:43 PM Time: 15:28LOC: 4 = Oriented but drowsy kkallner 03:46 PM Information taught Cardiac Cath kkallner 03:46 PM Education needs Procedure, Plan of Care, and Responsibilities of Patient in Care [email or web address] 03:47 PM Learning barriers :None kkallner 03:47 PM Education Methods Verbal [email or web address] 03:47 PM Education evaluation Able to repeat information [email or web address] 03:48 PM Site status No bleeding/hematoma - Lt Groin as reported by Kate Galindo RT (R) at 15:48 [email or web address] 03:48 PM Opsite applied kkallner 03:48 PM Plavix, Effient or Brilinta given No, medication given in ER [email or web address] 03:49 PM Family placed in consult room. [email or web address] 03:49 PM Fluoro Time: 1.8 [email or web address] 03:49 PM Isovue 370 - 200ml contrast 50 ml given by Avelino Ponce DO. [email or web address] 03:51 PM Report given to Yuliana BURT Pt taken to 3B Room #36. 15:51 [email or web address] 03:52 PM Report given to Bradley BURT Pt taken to Holding room Room #1. 15:51 [email or web address] 03:52 PM Patient out of room: 15:52 [email or web address] 05:17 PM shealth pulled using a Vpad and then will replace with a sterile 4x4 and opsite ejohnson 05:37 PM pressure completed, site without hematoma ejohnson 05:40 PM PT complains of nausea, put O2 via nasal cannula, opened fluids, [email or web address] 05:41 PM Pt responding appropriately vasu 05:50 PM Patient out of room: 17:50 ejohnson Complications Complication None Hemodynamics Pressures Site Systolic/A Wave Diastolic/V Wave Mean AO 76 51 62 AO 76 50 60 LV 78 -3 8 LV 77 -7 -2 AO 79 46 60 Post Procedure Information Blood Pressure: 112/69 mmHg Rhythm: Sinus rhythm Post procedural instructions were given Site Checks Time Location Status Staff Sheath In? Note 03:48 PM Lt Groin No bleeding/hematoma Kate Galindo RT (R) 04:00 PM Lt Groin No bleeding/ No Hematoma Bradley Galindo RT (R) sheath intact 04:20 PM Lt Groin No bleeding/ No Hematoma Bradley Galindo RT (R) sheath intact 04:30 PM Lt Groin No bleeding/ No Hematoma Keren Fischer RN Yes 04:45 PM Lt Groin No bleeding/ No Hematoma Keren Fischer RN Yes 05:47 PM Lt Groin No bleeding/ No Hematoma Keren Fischer RN Pulses Time Site Pre-Procedure Post-Procedure Note 3:43:00 PM Bilateral DP 1+ 04/27/2017 3:16:00 PM Bilateral DP 1+ 04/27/2017 4:00:00 PM Bilateral DP & PT 1+ 04/27/2017 4:21:00 PM Bilateral DP & PT 1+ 04/27/2017 4:30:00 PM Bilateral DP & PT 1+ Updated by Keren Fischer RN on 04/27/2017 5:50:53 PM Keren Fischer RN electronically signed on 04/27/2017 5:51:51 PM with status of Final
[2017-04-27] MEDS: amLODIPine 5 MG TABLET PO SCH (20:14)
[2017-04-27] MEDS: *HR* Ticagrelor 90 MG TABLET PO SCH (20:38)
[2017-04-27] MEDS: *HR* Metformin 500 MG TABLET PO SCH (20:38)
[2017-04-27] MEDS: Ranolazine 500 MG TAB.ER.12H PO SCH (20:38)
[2017-04-27 20:53] LABS: Activated Partial Thrombo Time 38.3 Seconds (26.0-36.0)
[2017-04-27 21:00] LABS: INR 1.2; Prothrombin Time 12.5 Seconds (9.4-12.1)
[2017-04-27 21:02] LABS: Hemoglobin A1C 10.5 %
[2017-04-28] MEDS: amLODIPine 5 MG TABLET PO SCH (08:50)
[2017-04-28] MEDS: *HR* Metformin 500 MG TABLET PO SCH (08:50)
[2017-04-28] MEDS: *HR* Ticagrelor 90 MG TABLET PO SCH (08:50)
[2017-04-28] MEDS: Ranolazine 500 MG TAB.ER.12H PO SCH (08:50)
[2017-04-28] MEDS ORDERED: Aspirin 81 MG TAB.CHEW PO SCH (09:00)
[2017-04-28] MEDS ORDERED: Insulin DETEMIR 100 UNIT/ML X5UNITS SQ SCH (09:00)
[2017-04-28] MEDS ORDERED: BuPROPion XL (24 HR) 150 MG TABLET PO SCH (09:00)
[2017-04-28] MEDS ORDERED: Isosorbide MONOnitrate (24 HR) 30 MG TAB.ER.24H PO SCH (09:00)
[2017-04-28] MEDS ORDERED: NON-FORMULARY MEDICATION 1 EACH EACH (Insulin Detemir 40 UNIT) SQ SCH (09:00)
[2017-04-28] MEDS ORDERED: FLUoxetine 20 MG CAPSULE PO SCH (09:00)
[2017-04-28] MEDS ORDERED: Ondansetron 4 MG/2 ML VIAL IVP PRN (09:06)
--- NOTE | 2017-04-28 09:06 | Electrocardiograph Report ---
[place] [id number] Test Date: 2017-04-27 Pat Name: Pao Bob Department: 102 Room: 3B Gender: F [place]: Tmmoses : 1965 Requested By: Miguel Babcock Order Number: [id number] Reading MD: Rajwinder Carcamo Measurements Intervals [place] Rate: 89 P: 28 [place]: 151 QRS: 1 QRSD: 83 T: 153 QT: 401 QTc: 448 Interpretive Statements SINUS RHYTHM SEPTAL MYOCARDIAL INFARCTION [40+ ms Q WAVE IN V1/V2], PROBABLY RECENT ACUTE ID Electronically Signed On 04-28-2017 9:04:46 EDT by Rajwinder Carcamo
[2017-04-28] MEDS ORDERED: Ondansetron 4 MG/2 ML VIAL ONE (09:09)
[2017-04-28] MEDS ORDERED: Ranolazine 500 MG TAB.ER.12H PO SCH (09:57)
[2017-04-28 10:29] LABS: Basophils # 0.1 K/mcL (0.0-0.2); Basophils % 0.6 %; Eosinophils # 0.1 K/mcL (0.0-0.6); Hematocrit 40.6 % (35.3-44.9); Hemoglobin 13.6 g/dL (11.5-15.4); Immature Granulocytes % 0.6 % (0-4); Lymphocytes # 2.4 K/mcL (0.6-4.6); Mean Corpuscular HGB Conc 33.5 g/dL (31.6-35.5); Mean Corpuscular Hemoglobin 28.9 pg (28.0-33.3); Mean Corpuscular Volume 86.2 fL (83.0-100.0); Mean Platelet Volume 9.5 fL (9.4-12.4); Monocytes # 0.8 K/mcL (0.0-1.3); Monocytes % 7.3 %; Neutrophils # 7.4 K/mcL (1.6-8.9); Platelet Count 285 K/mcL (140-400); Red Blood Count 4.71 M/mcL (3.82-4.97); Red Cell Distribution Width 13.7 % (11.5-14.5); Segmented Neutrophils % 68.5 %
[2017-04-28 10:36] LABS: BUN/Creatinine Ratio 12 (6-26); Blood Urea Nitrogen 13 mg/dL (7-20); Calcium 9.4 mg/dL (8.6-10.8); Carbon Dioxide 24 mEq/L (19-29); Chloride 103 mEq/L (98-109); Glucose 232 mg/dL (70-99); Osmolality,Calculated 290 (280-300); Potassium 4.2 mEq/L (3.5-4.5); Sodium 136 mEq/L (136-145); eGFR For African Americans > 60 (> 60); eGFR For Non-African Americans 53 (> 60)
[2017-04-28 10:38] LABS: Amylase 23 Units/L (25-125); Lipase 25 Units/L (8-78)
[2017-04-28 10:57] VITALS: BP 115/79
--- NOTE | 2017-04-28 11:30 | Discharge Summary ---
Date of Encounter: 04/28/17 Time of Encounter: 11:27 - Discharge Diagnosis (1) Coronary artery vasospasm Priority: Primary Status: Acute (2) Nausea Priority: Primary Status: Acute Comments: Instructed to follow with PCP. May be related to DM gastroparesis. 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 - Discharge Medications Prescriptions: amLODIPine [Norvasc] 5 mg PO DAILY #30 tablet Ranolazine [Ranexa] 1,000 mg PO BID 30 Days #60 tab.er.12h Home Medications: BuPROPion XL (24 HR) [Wellbutrin Xl] 150 mg PO DAILY 04/20/17 [History] FLUoxetine HCl [Fluoxetine HCl] 40 mg PO DAILY 04/20/17 [History] Insulin DETEMIR [Levemir] 40 unit SQ DAILY 04/20/17 [History] Metformin HCl [Metformin HCl ER] 500 mg PO BID 04/20/17 [History] Nitroglycerin [Nitrostat] 0.4 mg SL Q5M PRN 04/20/17 [History] Rosuvastatin [Crestor] 40 mg PO HS 04/20/17 [History] Ticagrelor [Brilinta] 90 mg PO BID 04/20/17 [History] Aspirin 81 mg PO DAILY tab.chew 04/22/17 [Rx] Ranolazine [Ranexa] 1,000 mg PO BID 30 Days #60 tab.er.12h 04/28/17 [Rx] amLODIPine [Norvasc] 5 mg PO DAILY #30 tablet 04/28/17 [Rx] Allergies/Adverse Reactions: 3 Allergy/AdvReac Type Severity Reaction Status Date / Time No Known Allergies Allergy Verified 04/20/17 09:34 Procedures/tests Complete & Pending: Procedures Performed prior 72 hours Category Date Time Status EKG [ECG 12 lead ECG] [ECG] AM 0600 Y 04/28/17 06:00 Ordered Date of admission: 04/27/17 15:14 Primary care physician: Coby Elena, - Patient Status Disposition: Home, Self-Care Condition: Fair Overall status at discharge: patient is progressing back to baseline - Discharge Instructions Instructions: Amlodipine (By mouth), Ranolazine (By mouth) Follow Up With: Toney Capellan MD [Partnered Physician] - 05/08/17 11:00 am () Coby Elena MD [Primary Care Provider] - 05/01/17 10:40 am Additional Instructions: RISK FACTORS: STOP SMOKING: If you smoke, STOP. Smoking or tobacco use significantly increases your risk of heart disease because nicotine causes the arteries to narrow or constrict. It also causes fats to stick to the artery. Your chances of having a heart attack are greatly increased if you continue to smoke. For more information, call the education line for smoking cessation 2-317-QBDDYUH EAT A LOW FAT/CHOLESTEROL/SODIUM DIET: This diet may help reduce your chances of having a heart attack. LIFTING: Avoid lifting anything more than 10 pounds for 5-7 days Prior to straining, laughing, sneezing and/or coughing, apply manual pressure directly over insertion site. ACTIVITY: You may walk or climb stairs as tolerated You can resume sexual activity as tolerated In general, you are encouraged to engage in a minimum of 30 minutes or more of moderate intensity physical activity, such as brisk walking, daily or at least 3 -4 times weekly BATHING Do not submerge the site into water (bath tub, hot tub, swimming pool) for 1 week. This can be a source for infection into the blood stream. You may shower after 24 hours SITE CARE: After 24 hours, you may remove the dressing and leave the site open to air. Keep the site clean and dry. Clean gently and pat dry. You can expect bruising and tenderness that gradually resolve within a week or two. Return to work as instructed per your physician Resume driving as instructed per physician Keep all scheduled follow up appointments Resume medications as instructed IMPORTANT: If prescribed a Platelet Aggregation Inhibitor such as, Plavix, Brilinta or Effient: Duration of therapy is minimum one year These medications are often used in combination with Aspirin in prevention of future heart attacks Never discontinue unless consult with your Director Design STROKE (CVA) Risk factors for a stroke are: Age, cigarette smoking, diabetes, excessive alcohol consumption, family history, high blood pressure, overweight, physical inactivity, prior stroke, heart attack, diagnosis of carotid artery stenosis or other artery disease. Warning signs: Sudden numbness or weakness of the face, arm or leg; especially on one side of the body, sudden confusion, trouble speaking or understanding, sudden trouble seeing in one or both eyes, sudden trouble walking, dizziness, loss of balance or coordination, sudden severe headache with no cause. Call 911 or go to the Emergency Room. CONGESTIVE HEART FAILURE: If you have been diagnosed with Congestive Heart Failure (CHF) and your symptoms return, make an appointment with your physician Weigh yourself daily. Notify your physician if you have a weight gain of two or more pounds in one day or five or more pounds in one week. If you experience any difficulty breathing, please call 911 BLEEDING: Although the risk of bleeding is minimal, it can happen. If you have any bleeding from the site, apply firm pressure above the puncture site for 10-15 minutes. If the bleeding does not stop, continue manual pressure and call 911 Contact your physician if: You develop a fever greater than 101 degrees Fahrenheit Your site becomes reddened or has any drainage You have an increase in pain or burning at the site or if a large knot forms at the site. If you experience chest pain, shortness of breath, dizziness, or extreme tiredness, stop the activity and rest. Please notify your physicians office if you experience any of these symptoms and they are not relieved by rest please call 911! - Diet and Activity Diet: low fat, low cholesterol - Hospital Course Hospital course: Ms. Bob is a 51 year old female with a history of CAD s/p STEMI 04/10/17 with PCI to the LAD and 1st diagonal artery with PTCA and MELBA and NSTEMI 04/20 with PCI to her RCA with MELBA. She was sent to the ED from the cardiology office for abnormal EKG concerning for new ST elevation in the inferior leads. She was being seen for VT follow-up. She c/o recurrent severe nausea and sweating for 24 hours. Symptoms similar to her recent VT. She underwent emergent LHC with Dr. Ponce that showed patent stent in the LAD, diagonal, and RCA. She is thought to have coronary vasospasms due to recurrent symptoms with EKG changes. Troponin elevated at 0.07, 0.05. Likely trending down after recent VT. There was no complication from her procedure. Left groin access site is soft without hematoma. Medication changes made for coronary vasospasms. Metoprolol changed to norvasc. Ranexa added. Patient had some nausea and SOB this morning that is now resolved. Ranexa was increased. EKG changes did resolve. Amylase and lipase checked due to nausea and found to be normal. Mild JACINTO on admission may be related to patient not drinking fluids at home due to nausea. Kidney function now back to baseline. Encouraged to increase water intake. TSH found to be mildly elevated at 5/. T3 and T4 pending. Instructed to follow with PCP for better control of DM and to monitor thyroid function. Patient reports compliance with medications. Reviewed importance of DAPT with asa and brilinta for minimum of one year. She is already enrolled in phase one cardiac rehab. Patient agrees to out-pt cardiac rehab. Previous cardiac testing: [facility] 04/20/17: Impressions: There is severe one vessel coronary artery disease. Patient had successful PTCA/Drug-Eluting Stent placement in the mid RCA. Limited Echo 04/20/17: Impressions: LVEF 40%. Moderate segmental left ventricular systolic dysfunction. There is a small inferolateral pericardial effusion present. There is no echocardiographic evidence of tamponade. LVEF appears mildly improved comapred to prior report. [facility] 04/09/17: Impressions: Moderate residual atherosclerotic coronary artery disease. Patient had successful PTCA/Drug-Eluting Stent placement in the 1st Diagonal. . Time spent discussing smoking cessation with patient: 3 to 10 minutes - Time Spent with Patient Total time spent providing and/or coordinating discharge services: Greater than 30 minutes (med rec, labs, d/c summary, education) Physical Examination Vital Signs, Last 4 Hours Temp Pulse Resp BP Pulse Ox 04/28/17 10:56 97.6 F 81 14 115/79 99 04/28/17 07:52 97.8 F 77 20 99 General: Conversant, No Apparent Distress HEENT: Atraumatic, Normocephaly, Mucus Membranes Moist Neck: No JVD, Normal carotid pulses Cardiac: Reg Rate and Rhythm, Normal S1 and S2, No Murmur Lungs: Normal Breath Sounds, No Wheeze, Rales, Rhonchi Neuro: Alert and responsive, No focal deficits noted Abdomen: Soft, Non-Tender Skin: No rashes noted on visualized skin Musculoskeletal: No Chest Wall Tenderness, Other (left groin dressing removed. Incision K 12 PRINCIPAL. ) Extremities: No Clubbing, No Cyanosis, No Edema, Normal Pulses
[2017-04-28 13:14] LABS: Thyroid Stimulating Hormone 5.737 mcIU/mL (0.350-4.840)
[2017-04-28 14:12] LABS: Triiodothyronine (T3) Free 2.06 pg/mL (1.71-3.71)
--- NOTE | 2017-05-01 17:16 | Electrocardiograph Report ---
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
== END 2017-04-28 13:00 | disposition home or self-care (01) ==
LOC: EMEROO 14:53 → INTOOBSV 15:14 → ICNU 15:14 → 3BNU 15:44
PROVIDERS: ADMIT Internal Medicine Cardiovascular Disease; ATTEND Internal Medicine Cardiovascular Disease

== ENCOUNTER 2017-07-09 21:17 | Observation (INO) ==
--- NOTE | 2017-07-09 21:42 | Emergency Department Note ---
Disposition Clinical Impression: Chest pain Qualifiers: Chest pain type: unspecified Qualified Code(s): R07.9 - Chest pain, unspecified CAD (coronary artery disease) Qualifiers: Coronary Disease-Associated Artery/Lesion type: unspecified vessel or lesion type [place] vs. transplanted heart: [place] heart Associated angina: with unspecified angina Qualified Code(s): I25.119 - Atherosclerotic heart disease of [place] coronary artery with unspecified angina pectoris Uncontrolled diabetes mellitus with hyperglycemia Qualifiers: Diabetes mellitus type: other specified (including TWYLA) Diabetes mellitus long-term insulin use: unspecified long-term insulin use status Qualified Code(s ): E13.65 - Other specified diabetes mellitus with hyperglycemia Disposition: Admitted As Inpatient Condition: Good Time of Disposition: 23:07 Chest Pain HPI - General Chief Complaint: ED Chest Pain Stated Complaint: Chest Pain Time Seen by Provider: 07/09/17 21:26 Source: patient, family Limitations: no limitations Vital Signs Reviewed: Yes Nursing Notes Reviewed: Yes - History of Present Illness HPI Narrative: 51-year-old female history of CAD S/P 4 stents presents to the ED for chest pain. 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 Reports some associated shortness of breath and nausea denies any diaphoresis. It feels quite similar to her prior myocardial infarction 4 months ago that the heaviness is not the same. At that time she took a total of 2 nitro with minimal relief went from a 01/01/2006. She did not take a 3rd. When she got home from work she continue to have constant pain. She took 2 81 mg aspirins. She also takes Plavix, Brilinta for her stents. Denies any other complaints such as recent illness, congestion, cough, trauma, abdominal pain. Dr. Capellan's her cardiologists. She reports in April when she had her heart attack she "had a total 3 in the span of 20 days required 4 stents and multiple heart catheterizations." Pt complaint: chest pain Severity scale (1-10): 6 - Related Data Home Medications Medication Instructions Recorded Confirmed BuPROPion XL (24 HR) [Wellbutrin 150 mg PO DAILY 04/20/17 04/27/17 Xl] FLUoxetine HCl [Fluoxetine HCl] 40 mg PO DAILY 04/20/17 04/27/17 Insulin DETEMIR [Levemir] 40 unit SQ DAILY 04/20/17 04/27/17 Metformin HCl [Metformin HCl ER] 500 mg PO BID 04/20/17 04/27/17 Nitroglycerin [Nitrostat] 0.4 mg SL Q5M PRN 04/20/17 04/27/17 Rosuvastatin [Crestor] 40 mg PO HS 04/20/17 04/27/17 Ticagrelor [Brilinta] 90 mg PO BID 04/20/17 04/27/17 Previous Rx's Medication Instructions Recorded Aspirin 81 mg PO DAILY tab.chew 04/22/17 Ranolazine [Ranexa] 1,000 mg PO BID 30 Days #60 04/28/17 tab.er.12h amLODIPine [Norvasc] 5 mg PO DAILY #30 tablet 04/28/17 Allergies Allergy/AdvReac Type Severity Reaction Status Date / Time No Known Allergies Allergy Verified 04/20/17 09:34 All systems ED: reviewed and negative except as stated. Review of Systems: As Per HPI Constitutional: Denies: fever, chills ENT ED: Denies: throat pain, congestion Cardiovascular: Reports: chest pain. Denies: dyspnea on exertion Respiratory: Reports: dyspnea. 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 Absent : tenderness, rash - Respiratory Respiratory exam: Present: normal lung sounds bilaterally. Absent: respiratory distress, wheezes, stridor - Cardiovascular Cardiovascular exam: Present: regular rate, normal rhythm, normal heart sounds - Abdominal Exam Abdominal exam: Present: soft, Non-Tender, normal bowel sounds. Absent: tenderness, distention, guarding, rebound, rigidity - Extremities Exam Extremities exam: Present: normal inspection, full ROM, normal capillary refill. Absent: tenderness, pedal edema, calf tenderness - Back Exam Back exam: Present: normal inspection, full ROM. Absent: tenderness, CVA tenderness (R), CVA tenderness (L) - Neurological Exam Neurological exam: Present: alert, oriented X3, normal gait - Psychiatric Psychiatric exam: Present: normal affect, normal mood - Skin Skin exam: Present: warm, dry, intact, normal color. Absent: rash, cyanosis, diaphoresis Course - Reevaluation(s) Reevaluation #1: EKG does not reveal acute ischemic changes such as STEMI. Troponin is less than 0.03. Given her significant cardiac history she will likely require admission. After one nitro and morphine her pain has come down from 6 to a 3. Patient has been started on nitro paste. She require cardiac monitoring and further evaluation. Patient is in agreement with this plan. Impression is chest pain and unstable angina and uncontrolled DM hyperglycemia. - Consultations Consultation #1: Spoke with on-call hospitalist eveline Aly to admit for chest pain, unstable angina, uncontrolled DM. No further orders at this time Time: 23:11 Vital Signs Temperature 97.9 F 07/09/17 21:20 Pulse Rate 90 07/09/17 21:20 Respiratory Rate 16 07/09/17 21:20 Blood Pressure 163/89 07/09/17 21:20 O2 Sat by Pulse Oximetry 100 07/09/17 21:20 Temperature 97.9 F 07/09/17 21:20 Pulse Rate 81 07/09/17 23:15 Respiratory Rate 18 07/09/17 23:15 Blood Pressure 122/73 07/09/17 23:15 O2 Sat by Pulse Oximetry 97 07/09/17 23:15 Oxygen Delivery Oxygen Delivery Room Air Chest Pain - MDM Narrative Medical decision making narrative: Patient was discussed with my attending physician who agrees with ED management and final disposition. They independently evaluated the patient. Please refer to their attestation to this encounter for additional information. This note was generated by [employer] voice recognition software and as a result grammatical or spelling errors may occur using this program. - Medical Records Medical records reviewed: Yes I reviewed the patient's medical records. Patient's had a total of 4 heart catheterization 04/08 mid-LAD stent placed 80 to 90% stenosis 04/09 1st diagonal stent placed 99% stenosis 04/20 2 stents placed to the RCA 04/27 patent stents - Lab Data Lab results reviewed: Yes I reviewed the patient's lab results. Result diagrams: 07/09/17 21:35 07/09/17 21:35 Lab Results 07/09/17 07/09/17 07/09/17 Range/Units 21:35 21:35 21:35 WBC 9.3 (4.3-11.1) K/mcL RBC 4.53 (3.82-4.97) M/mcL Hgb 13.6 (11.5-15.4) g/dL Hct 40.4 (35.3-44.9) % MCV 89.2 (83.0-100.0) fL MCH 30.0 (28.0-33.3) pg MCHC 33.7 (31.6-35.5) g/dL RDW 13.4 (11.5-14.5) % Plt Count 272 (140-400) K/mcL MPV 10.0 (9.4-12.4) fL Immature Gran % 0.4 (0-4) % Seg Neutrophils % 68.3 % Lymphocytes % 24.4 % Monocytes % 4.9 % Eosinophils % 1.7 % Basophils % 0.3 % Neutrophils # 6.4 (1.6-8.9) K/mcL Lymphocytes # 2.3 (0.6-4.6) K/mcL Monocytes # 0.5 (0.0-1.3) K/mcL Eosinophils # 0.2 (0.0-0.6) K/mcL Basophils # 0.0 (0.0-0.2) K/mcL PT 11.3 (9.4-12.1) Seconds INR 1.1 APTT 33.7 (26.0-36.0) Seconds Sodium 130 L (136-145) mEq/L Potassium 3.8 (3.5-5.1) mEq/L Chloride 98 (98-107) mEq/L Carbon Dioxide 27 (23-29) mEq/L BUN 19 (6-20) mg/dL Creatinine 0.89 (0.60-1.20) mg/dL Est GFR ( Amer) > 60 (> 60) Est GFR (Non-Af Amer) > 60 (> 60) BUN/Creatinine Ratio 21 (6-26) Glucose 332 H (70-105) mg/dL Calculated Osmolality 285 (280-300) Calcium 9.8 (8.6-10.3) mg/dL Troponin I (< 0.04) ng/mL 07/09/17 Range/Units 21:35 WBC (4.3-11.1) K/mcL RBC (3.82-4.97) M/mcL Hgb (11.5-15.4) g/dL Hct (35.3-44.9) % MCV (83.0-100.0) fL MCH (28.0-33.3) pg MCHC (31.6-35.5) g/dL RDW (11.5-14.5) % Plt Count (140-400) K/mcL MPV (9.4-12.4) fL Immature Gran % (0-4) % Seg Neutrophils % % Lymphocytes % % Monocytes % % Eosinophils % % Basophils % % Neutrophils # (1.6-8.9) K/mcL Lymphocytes # (0.6-4.6) K/mcL Monocytes # (0.0-1.3) K/mcL Eosinophils # (0.0-0.6) K/mcL Basophils # (0.0-0.2) K/mcL PT (9.4-12.1) Seconds INR APTT (26.0-36.0) Seconds Sodium (136-145) mEq/L Potassium (3.5-5.1) mEq/L Chloride (98-107) mEq/L Carbon Dioxide (23-29) mEq/L BUN (6-20) mg/dL Creatinine (0.60-1.20) mg/dL Est GFR ( Amer) (> 60) Est GFR (Non-Af Amer) (> 60) BUN/Creatinine Ratio (6-26) Glucose (70-105) mg/dL Calculated Osmolality (280-300) Calcium (8.6-10.3) mg/dL Troponin I < 0.03 (< 0.04) ng/mL - Radiology Data Radiology results reviewed: Yes I reviewed the patient's radiology results. Chest X-Ray 07/09/17 21:33 IMPRESSION: No acute cardiopulmonary disease. D/ / Poncho Goddard MD / Poncho Goddard MD Interpreting Provider: Poncho Goddard MD - EKG Data EKG attestation: Yes I reviewed and interpreted this EKG. EKG results narrative: EKG performed 2121 normal sinus rhythm 91 bpm, Q waves in the lateral leads I and aVL, no ST elevations or depression, T wave inversion in a VL, intervals within normal limits. Compared to prior EKG performed 04/28/2017 which showed diffuse T wave inversion in the septal in lateral leads in the Q waves appears old given her history of myocardial infarction. Heart Score - Score History: Moderately Suspicious EKG: Non Specific repolarisation Disturbance Age: 45-65 Risk Factors: Equal/Greater than 3 risk factor or history of atherosclerotic disease Troponin: Less than normal limit HEART Score Total: 5 Attestation Statement - Attestation Attestation: I, Law Andrade MD, personally evaluated this patient and discussed their management with the resident physician. I reviewed the resident's note and agree with the documented findings, medical decision making, and plan of care. 51-year-old female with known coronary artery disease and coronary artery stents presents to the emergency department with complaint of chest pain in the right upper lateral chest and axilla region. Pain started about 3 PM and has been present since onset. She describes the pain as a pressure but also with some sharp pains. The pain radiates to the right scapula and the right side of the neck. Some mild shortness of breath pain. No diaphoresis. No nausea or vomiting. Patient reports that with her first heart attack the pain was in the right side of the chest and was similar. On examination patient is a well-developed well-nourished female in no acute distress. She is alert and oriented 3. There is no cyanosis or diaphoresis. Chest is nontender to palpation. Breath sounds are clear and equal bilaterally. Heart regular rate and rhythm. Abdomen soft and nontender with normal bowel sounds. No pedal edema. Labs reviewed. Troponin negative. Chest x-ray negative. No acute ischemic changes on EKG. The hospitalist, Dr. Hudson, was consulted and accepted the admission of the patient.
[2017-07-09 21:43] LABS: Basophils % 0.3 %; Eosinophils # 0.2 K/mcL (0.0-0.6); Eosinophils % 1.7 %; Hematocrit 40.4 % (35.3-44.9); Hemoglobin 13.6 g/dL (11.5-15.4); Immature Granulocytes % 0.4 % (0-4); Lymphocytes # 2.3 K/mcL (0.6-4.6); Lymphocytes % 24.4 %; Mean Corpuscular HGB Conc 33.7 g/dL (31.6-35.5); Mean Corpuscular Volume 89.2 fL (83.0-100.0); Monocytes # 0.5 K/mcL (0.0-1.3); Monocytes % 4.9 %; Neutrophils # 6.4 K/mcL (1.6-8.9); Platelet Count 272 K/mcL (140-400); Red Blood Count 4.53 M/mcL (3.82-4.97); Red Cell Distribution Width 13.4 % (11.5-14.5); Segmented Neutrophils % 68.3 %
[2017-07-09] MEDS ORDERED: 0.9 % Sodium Chloride 500 ML IVC SCH (21:45)
[2017-07-09 21:49] LABS: INR 1.1; Prothrombin Time 11.3 Seconds (9.4-12.1)
[2017-07-09 21:51] LABS: Activated Partial Thrombo Time 33.7 Seconds (26.0-36.0)
[2017-07-09] MEDS ORDERED: Nitroglycerin 0.4 MG TAB.SUBL SL PRN (21:51)
[2017-07-09] MEDS ORDERED: *HR* Morphine 2 MG/ML SYRINGE IVP ONE ×2 (21:51→22:39)
[2017-07-09 22:00] LABS: BUN/Creatinine Ratio 21 (6-26); Blood Urea Nitrogen 19 mg/dL (6-20); Calcium 9.8 mg/dL (8.6-10.3); Carbon Dioxide 27 mEq/L (23-29); Chloride 98 mEq/L (98-107); Glucose 332 mg/dL (70-105); Osmolality,Calculated 285 (280-300); Potassium 3.8 mEq/L (3.5-5.1); Sodium 130 mEq/L (136-145); eGFR For African Americans > 60 (> 60); eGFR For Non-African Americans > 60 (> 60)
[2017-07-09] MEDS ORDERED: Ondansetron 4 MG/2 ML VIAL IVP ONE (22:08)
[2017-07-09] MEDS ORDERED: Ondansetron 4 MG/2 ML VIAL ONE (22:09)
[2017-07-09] MEDS ORDERED: Nitroglycerin 1 INCH/GM PACKET TP ONE (22:38)
[2017-07-10] MEDS ORDERED: Acetaminophen 325 MG TABLET PO PRN (00:02)
[2017-07-10] MEDS ORDERED: Naloxone 0.4 MG/ML INJ IVP PRN (00:02)
[2017-07-10] MEDS ORDERED: Ondansetron ODT 4 MG TAB.RAPDIS SL PRN (00:02)
[2017-07-10] MEDS ORDERED: *HR* Dextrose 50 % in Water (Syg) 50 ML SYRINGE IVP PRN (00:07)
[2017-07-10] MEDS ORDERED: Dextrose Gel 15 GM/37.5 ML TUBE PO PRN ×2 (00:07)
[2017-07-10] MEDS ORDERED: D5% in Water 1,000 ML IVC PRN (00:07)
[2017-07-10] MEDS ORDERED: Nitroglycerin 0.4 MG TAB.SUBL SL PRN (00:08)
[2017-07-10] MEDS ORDERED: Famotidine 20 MG TABLET PO PRN (00:08)
[2017-07-10] MEDS ORDERED: Insulin DETEMIR 100 UNIT/ML X5UNITS SQ SCH ×2 (00:15→09:00)
[2017-07-10] MEDS ORDERED: INSULIN DETEMIR 90 UNIT SQ SCH (00:15)
[2017-07-10 00:43] LABS: Basophils # 0.1 K/mcL (0.0-0.2); Basophils % 0.5 %; Eosinophils # 0.2 K/mcL (0.0-0.6); Hematocrit 38.4 % (35.3-44.9); Hemoglobin 12.8 g/dL (11.5-15.4); Immature Granulocytes % 0.4 % (0-4); Lymphocytes # 2.8 K/mcL (0.6-4.6); Lymphocytes % 28.4 %; Mean Corpuscular HGB Conc 33.3 g/dL (31.6-35.5); Mean Corpuscular Hemoglobin 29.6 pg (28.0-33.3); Mean Corpuscular Volume 88.7 fL (83.0-100.0); Mean Platelet Volume 10.2 fL (9.4-12.4); Monocytes # 0.6 K/mcL (0.0-1.3); Monocytes % 5.8 %; Neutrophils # 6.1 K/mcL (1.6-8.9); Platelet Count 273 K/mcL (140-400); Red Blood Count 4.33 M/mcL (3.82-4.97); Red Cell Distribution Width 13.3 % (11.5-14.5); Segmented Neutrophils % 62.9 %
[2017-07-10 01:00] LABS: BUN/Creatinine Ratio 25 (6-26); Blood Urea Nitrogen 19 mg/dL (6-20); Calcium 9.3 mg/dL (8.6-10.3); Carbon Dioxide 27 mEq/L (23-29); Chloride 102 mEq/L (98-107); Chol/HDL Ratio 1.7 (0-4.9); Cholesterol 104 mg/dL (< 200); Glucose 246 mg/dL (70-105); HDL Cholesterol 62 mg/dL (40-59); LDL Cholesterol,Calculated 30 mg/dL (0-99); Magnesium 1.6 mg/dL (1.6-2.6); Osmolality,Calculated 286 (280-300); Potassium 4.1 mEq/L (3.5-5.1); Sodium 133 mEq/L (136-145); Triglycerides 58 mg/dL (< 150); eGFR For African Americans > 60 (> 60); eGFR For Non-African Americans > 60 (> 60)
--- NOTE | 2017-07-10 01:21 | Internal Med History&Physical ---
<Toño Wheatley - Last Filed: 07/10/17 01:13> Date of Encounter: 07/10/17 Time of Encounter: 01:13 Assessment and Plan (1) Chest pain Current visit: Yes Status: Acute The patient appears comfortable and in no acute distress. Patient is afebrile and is not complaining of any chest pain at this time. EKG does not reveal acute ischemic changes such as STEMI. Troponin is less than 0.03. Chest xray showed no acute cardiac processes. Given her significant cardiac history she will be admitted to rule out ACS. 1. Will continue to monitor the patient on tele to rule out ACS 2. Will give nitroglycerin as needed. 3. Will continue patient's statin of 40 mg and asprin. 4. Will not give Metroprolol at this time because patient's blood pressure is intolerant to it. 5. Will trend series of troponins. 6. Order labs in the AM. 7. Consult cardio in the AM. 8. DVT prophylaxis Qualifiers: Chest pain type: unspecified Qualified Code(s): R07.9 - Chest pain, unspecified (2) HLD (hyperlipidemia) Current visit: No Status: Chronic Will continue home medications. Qualifiers: Hyperlipidemia type: unspecified Qualified Code(s): E78.5 - Hyperlipidemia , unspecified (3) Uncontrolled diabetes mellitus with hyperglycemia Current visit: Yes Status: Acute Will place patient on insulin sliding scale. Will continue to closely monitor the patient. Qualifiers: Diabetes mellitus type: other specified (including TWYLA) Diabetes mellitus jail insulin use: unspecified jail insulin use status Qualified Code (s): E13.65 - Other specified diabetes mellitus with hyperglycemia Internal Medicine - H&P: HPI Chief complaint: chest pain Admitted From: Emergency Dept History of present illness: Ms. Bob is a 51 year old female with a past medical history of CAD s/p 4 stents in April 2017, noncompliant insulin dependent Diabetes type 2, hypertension, and hyperlipidemia who presented to the ED complaining of right sided chest pain. The patient stated that the right sided chest pain started around 3pm on 07/09/16 while at work. She describes the pain as a constant, sharp and stabbing pain that radiates to her right should and up her right neck. She admits it feels like her previous LA in April but not as "heavy feeling" today. She has taken 2 nitroglycerin and 2 81mg asprin prior to ED without any relief. She admits nausea and associated shortness of breath when the chest pain comes on. She denies any recent illness, fevers, headaches, vision changes, diaphoresis, abdominal pain, diarrhea, constipation, blood in her stool, dysuria, hematuria, numbness or tingling, or any weaknesses. Past Med Surg Social Fam HX - Past Medical History Medical history: arthritis, coronary artery disease, diabetes, hyperlipidemia, hypertension, myocardial infarction Psychiatric history: anxiety, depression - Past Surgical History Surgical History: , cholecystectomy, other - Social History Smoking Status: Former smoker Smokeless Tobacco Status: No Alcohol use: rarely Drug use: none - Family History Mother Living Status: Hx Family Cardiac Disorders: Yes (bypass, CAD, LA) Hx Family Respiratory Disorders: Yes (COPD) Hx Family Cancer: Yes (Breast) Hx Family GI Disorders: No Hx Family Genitourinary Disorders: No Hx Family Endocrine Disorder: No Hx Family Musculoskeletal Disorders: No Hx Family Neuromuscular Disorders: No Hx Family Neurologic Disorders: No Hx Family HEENT Disorders: No Hx Family Autoimmune Disorders: No Hx Family Reproductive Disorders: No Hx Family Psychosocial Disorders: No Hx Family Medical Disorders: No Father Living Status: Still Living Internal Medicine - H&P: Meds BuPROPion XL (24 HR) [Wellbutrin Xl] 150 mg PO DAILY 04/20/17 [History] Insulin DETEMIR [Levemir] 90 unit SQ DAILY 04/20/17 [History] Metformin HCl [Metformin HCl ER] 500 mg PO BID 04/20/17 [History] Nitroglycerin [Nitrostat] 0.4 mg SL Q5M PRN 04/20/17 [History] Rosuvastatin [Crestor] 40 mg PO HS 04/20/17 [History] Aspirin 81 mg PO DAILY tab.chew 04/22/17 [Rx] Ranolazine [Ranexa] 1,000 mg PO BID 30 Days #60 tab.er.12h 04/28/17 [Rx] Clopidogrel [Plavix] 75 mg PO DAILY 07/09/17 [History] Fludrocortisone Acetate [Florinef] 0.1 mg PO DAILY 07/09/17 [History] Ondansetron HCl [Zofran] 4 mg PO PRN 07/10/17 [History] Ranitidine HCl [Zantac 75] 75 mg PO DAILY PRN 07/10/17 [History] 3 Allergy/AdvReac Type Severity Reaction Status Date / Time No Known Allergies Allergy Verified 04/20/17 09:34 All Systems PM: A 10-system review of systems was performed and is negative for pertinent findings except as documented above in the HPI. - Constitutional Vitals: Temp Pulse Resp BP Pulse Ox 97.7 F 83 16 102/66 96 07/10/17 00:11 07/10/17 00:11 07/10/17 00:11 07/10/17 00:11 07/10/17 00:11 General appearance: Present: A&O X 3, pleasant - Head Head exam: Present: atraumatic, normocephalic - Eye Eye exam: Present: PERRL, conjuntiva pink, sclera anicteric Pupils: Present: PERRL - Neck Neck exam general surgery: Present: supple, trachea midline. Absent: lymphadenopathy - Respiratory Respiratory exam: Present: CTAB. Absent: accessory muscle use, rales, rhonchi, wheezes - Cardiovascular Cardiovascular exam: Present: RRR, +S1, +S2. Absent: diastolic murmur, gallop, rubs, systolic murmur - GI/Abdominal GI/Abdominal exam: Present: normal bowel sounds, soft, no peritoneal signs. Absent: distended, tenderness - Extremities Exam Extremities exam: Present: warm, radial pulses palpable and symmetrical. Absent : calf tenderness, cyanotic, pedal edema - Neurological Exam Neurological exam: Present: CN II-XII intact, oriented X3, no focal deficits. Absent: pronater drift, facial droop, speech deficit - Skin Skin exam: Present: dry, intact Internal Med - H&P Results - Labs CBC & Chem 7: 07/10/17 00:22 07/10/17 00:22 Labs: Short CBC 07/10/17 Range/Units 00:22 WBC 9.7 (4.3-11.1) K/mcL Hgb 12.8 (11.5-15.4) g/dL Hct 38.4 (35.3-44.9) % Plt Count 273 (140-400) K/mcL Neutrophils # 6.1 (1.6-8.9) K/mcL BMP 07/10/17 00:22 Sodium 133 L Potassium 4.1 Chloride 102 Carbon Dioxide 27 BUN 19 Creatinine 0.77 Glucose 246 H Calcium 9.3 Cardiac Enzymes 07/10/17 Range/Units 00:22 Troponin I < 0.03 (< 0.04) ng/mL <MiguelangelNanikody - Last Filed: 07/10/17 03:36> Date of Encounter: 07/10/17 Internal Medicine - H&P: HPI History of present illness: Ms. Bob is a 51 year old female All Systems PM: A 10-system review of systems was performed and is negative for pertinent findings except as documented above in the HPI. - Constitutional Vitals: Temp Pulse Resp BP Pulse Ox 97.7 F 83 16 102/66 96 07/10/17 00:11 07/10/17 00:11 07/10/17 00:11 07/10/17 00:11 07/10/17 00:11 Internal Med - H&P Results - Labs CBC & Chem 7: 07/10/17 00:22 07/10/17 00:22 Labs: Short CBC 07/10/17 Range/Units 00:22 WBC 9.7 (4.3-11.1) K/mcL Hgb 12.8 (11.5-15.4) g/dL Hct 38.4 (35.3-44.9) % Plt Count 273 (140-400) K/mcL Neutrophils # 6.1 (1.6-8.9) K/mcL BMP 07/10/17 00:22 Sodium 133 L Potassium 4.1 Chloride 102 Carbon Dioxide 27 BUN 19 Creatinine 0.77 Glucose 246 H Calcium 9.3 Cardiac Enzymes 07/10/17 Range/Units 00:22 Troponin I < 0.03 (< 0.04) ng/mL - Attending Attestation I have seen and examined pt independently. I have discussed with resident physician Dr Wheatley regarding the management plan, agree with the documentation. Pt has chest pain, recent stent in Apr 2017. EKG shows new Q wave on I and AVL. Will cont home med for DAPT and consult Cardio.
[2017-07-10] MEDS ORDERED: *HR* Heparin 5,000 UNIT/ML VIAL SQ SCH (06:00)
[2017-07-10] MEDS ORDERED: 0.9 % Sodium Chloride 1,000 ML IVC SCH (07:45)
[2017-07-10 08:09] LABS: Hemoglobin A1C 10.5 %
[2017-07-10] MEDS: Insulin LISPRO 300 UNITS/3 ML VIAL SQ SCH ×2 (08:51→13:29)
[2017-07-10] MEDS ORDERED: BuPROPion XL (24 HR) 150 MG TABLET PO SCH (09:00)
[2017-07-10] MEDS ORDERED: Aspirin 81 MG TAB.CHEW PO SCH (09:00)
[2017-07-10] MEDS ORDERED: Ranolazine 500 MG TAB.ER.12H PO SCH (09:00)
--- NOTE | 2017-07-10 10:29 | Electrocardiograph Report ---
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
--- NOTE | 2017-07-10 10:29 | Cardiology Consult Note ---
<Ac Hernández - Last Filed: 07/10/17 10:30> Date of Encounter: 07/10/17 Time of Encounter: 10:20 Assessment and Plan (1) Chest pain Status: Acute Atypical chest pain. C/o right axillary pain that was not relived with NTG. Reports pain similar to previous WA. Troponin negative x3. EKG shows no acute ST changes. S/p four [facility] in April 2017 as described in HPI. S/p PCI to the LAD , 1st diagonal, and RCA. Last C 04/27/2017 showed patent stents. Recommend continuing medical therapy. Continue asa, plavix, statin, and Ranexa. Not on beta-mariam due to hypotension. B/p okay, reorts that she stopped taking florinef. D/c florinef and monitor b/p. Healthy heart diet and exercise. Qualifiers: Chest pain type: unspecified Qualified Code(s): R07.9 - Chest pain, unspecified (2) CAD (coronary artery disease) Status: Chronic H/o WA and PCI. Continue medical therapy. Qualifiers: Coronary Disease-Associated Artery/Lesion type: unspecified vessel or lesion type [place] vs. transplanted heart: [place] heart Associated angina: with unspecified angina Qualified Code(s): I25.119 - Atherosclerotic heart disease of [place] coronary artery with unspecified angina pectoris (3) Systolic CHF Status: Chronic Chronic systolic CHF. TTE 04/20/17 showed EF 40%. Currently euvolemic. Continue low sodium diet. No BB or aceI due to hypotension. Qualifiers: Congestive heart failure chronicity: chronic Qualified Code(s): I50.22 - Chronic systolic (congestive) heart failure Discussion w patient/family: The assessment and plan as outlined above was discussed with the patient and/or family members who expressed understanding and agreement. All questions were answered. Thank you for involving us in the care of your patient. Please call with any questions. History of Present Illness Consult date: 07/10/17 Requesting physician: Neisha Means Consult reason: Chest pain Chief complaint: right sided chest pain History of present illness: Ms. Bob is a 51 year old female with a history of CAD, S/p STEMI 04/08/17 s/p multiple PCI, coronary vasospasms, ischemic cardiomyoapthy, HTN and DM type II who presents with right axillary pain. The pain was non-radiating. She took two NTG with no relief. 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 She reports going home and taking two bay asa with some relief. Her pain was similar to her previous WA so she presented to the hospital. Cardiac work-up includes troponin that was negative times 3. EKG showed SR with no acute ST changes. She is now pain free. SHe was started on florinef for low blood pressure one month ago. She weaned her self off of florinef four days ago. She is not on beta-mariam due to low blood pressure. She underwent multiple LHC in April last year. LHC 04/27/17: Impression: Coronary arteries are angiographically normal. There is two vessel coronary artery disease. Stent placed from a prior procedure in the LAD, Diag 1 and RCA is is patent. LHC 04/20/17: Impressions: There is severe one vessel coronary artery disease. Patient had successful PTCA/Drug-Eluting Stent placement in the mid RCA. Limited Echo 04/20/17: Impressions: LVEF 40%. Moderate segmental left ventricular systolic dysfunction. There is a small inferolateral pericardial effusion present. There is no echocardiographic evidence of tamponade. LVEF appears mildly improved comapared to prior report. TTE 04/10/17: LVEF 35%. Normal LV chamber size. Mild concentric left ventricular hypertrophy. Segmental left ventricular systolic dysfunction. Mild left ventricular diastolic dysfunction. There is no LV thrombus. Normal right ventricular structure and function. No evidence of pulmonary hypertension. No significant valvular dysfunction. LHC 04/09/17: Impressions: Moderate residual atherosclerotic coronary artery disease. Patient had successful PTCA/Drug-Eluting Stent placement in the 1st Diagonal. There was patent stent in the mLAD. 60% stenosis mRCA. LHC 04/07/17:Impression: Severe atherosclerotic coronary artery disease sp patient had successful PTCA/Drug-Eluting Stent placement in the mid LAD The left ventricle EF 40% Past Med Surg Social Fam HX - Past Medical History Medical history: arthritis, coronary artery disease, diabetes, hyperlipidemia, hypertension, myocardial infarction Psychiatric history: anxiety, depression - Past Surgical History Surgical History: , cholecystectomy, other - Social History Smoking Status: Former smoker Smokeless Tobacco Status: No Alcohol use: none Drug use: none - Family History Mother Living Status: Hx Family Cardiac Disorders: Yes (bypass, CAD, WA) Hx Family Respiratory Disorders: Yes (COPD) Hx Family Cancer: Yes (Breast) Hx Family GI Disorders: No Hx Family Genitourinary Disorders: No Hx Family Endocrine Disorder: No Hx Family Musculoskeletal Disorders: No Hx Family Neuromuscular Disorders: No Hx Family Neurologic Disorders: No Hx Family HEENT Disorders: No Hx Family Autoimmune Disorders: No Hx Family Reproductive Disorders: No Hx Family Psychosocial Disorders: No Hx Family Medical Disorders: No Father Living Status: Still Living Medications and Allergies BuPROPion XL (24 HR) [Wellbutrin Xl] 150 mg PO DAILY 04/20/17 [History] Insulin DETEMIR [Levemir] 90 unit SQ DAILY 04/20/17 [History] Metformin HCl [Metformin HCl ER] 500 mg PO BID 04/20/17 [History] Nitroglycerin [Nitrostat] 0.4 mg SL Q5M PRN 04/20/17 [History] Rosuvastatin [Crestor] 40 mg PO HS 04/20/17 [History] Aspirin 81 mg PO DAILY tab.chew 04/22/17 [Rx] Ranolazine [Ranexa] 1,000 mg PO BID 30 Days #60 tab.er.12h 04/28/17 [Rx] Clopidogrel [Plavix] 75 mg PO DAILY 07/09/17 [History] Fludrocortisone Acetate [Florinef] 0.1 mg PO DAILY 07/09/17 [History] Ondansetron HCl [Zofran] 4 mg PO BID PRN 07/10/17 [History] Ranitidine HCl [Zantac 75] 75 mg PO DAILY PRN 07/10/17 [History] 3 Allergy/AdvReac Type Severity Reaction Status Date / Time No Known Allergies Allergy Verified 04/20/17 09:34 All Systems Review: A 10-system review of systems was performed and is negative for pertinent findings except as documented above in the HPI. Physical Examination Vital Signs, Last 4 Hours Temp Pulse Resp BP Pulse Ox 07/10/17 07:25 97.5 F L 78 17 119/70 96 General: Conversant, No Apparent Distress HEENT: Atraumatic, Normocephaly, Mucus Membranes Moist Neck: No JVD, Normal carotid pulses Cardiac: Reg Rate and Rhythm, Normal S1 and S2, No Murmur Lungs: Normal Breath Sounds, No Wheeze, Rales, Rhonchi Neuro: Alert and responsive, No focal deficits noted Abdomen: Soft, Non-Tender Skin: No rashes noted on visualized skin Musculoskeletal: No Chest Wall Tenderness Extremities: No Clubbing, No Cyanosis, No Edema, Normal Pulses Results 07/10/17 00:22 07/10/17 00:22 Lab Results 07/10/17 07/10/17 07/10/17 00:22 00:22 00:22 WBC 9.7 Hgb 12.8 Hct 38.4 Plt Count 273 Sodium 133 L Potassium 4.1 Chloride 102 Carbon Dioxide 27 BUN 19 Creatinine 0.77 Glucose 246 H Calcium 9.3 Magnesium 1.6 Troponin I < 0.03 07/10/17 05:55 WBC Hgb Hct Plt Count Sodium Potassium Chloride Carbon Dioxide BUN Creatinine Glucose Calcium Magnesium Troponin I < 0.03 - Imaging and Cardiology Echo: report reviewed Cardiac cath: report reviewed (x4) - EKG Interpretation EKG results cardiology: personally reviewed Consult Discharge Plan - Plan Instructions: Chest Pain (DC) Additional Instructions: Please take your medications as directed. Follow-up with primary care in the next 7-10 days to discuss or visit. Return to the emergency department as needed for any other problems or concerns , or if your symptoms return or worsen. Follow up with diabetes education, gain control of your A1c and maintain a healthy heart diet. Exercise for at least 30 minutes a day 5 times per week. Return to your normal activities as tolerated Referrals: Coby Elena MD [Primary Care Provider] - <Dinh Kelley - Last Filed: 07/10/17 18:06> Date of Encounter: 07/10/17 - Attending Attestation I have personally performed a face to face evaluation on this patient. I have reviewed and agree with the care plan. History and Exam by me shows: 51 YOF with h/o extensive CAD s/p PCI Apr 20 with second LHC Apr 28 revealed patent stents in the RCA and LAD/Diag presetns with atypical chest pain. Negative troponins x2 , LVEF 40%. No further cardiac procedures planned for this admission. Continue above meds (recently strated BB) and follow with cardiology as an OP. Assessment and Plan Discussion w patient/family: The assessment and plan as outlined above was discussed with the patient and/or family members who expressed understanding and agreement. All questions were answered. Thank you for involving us in the care of your patient. Please call with any questions. History of Present Illness History of present illness: Ms. Bob is a 51 year old female All Systems Review: A 10-system review of systems was performed and is negative for pertinent findings except as documented above in the HPI. Results 07/10/17 00:22 07/10/17 00:22 Lab Results 07/10/17 07/10/17 07/10/17 00:22 00:22 00:22 WBC 9.7 Hgb 12.8 Hct 38.4 Plt Count 273 Sodium 133 L Potassium 4.1 Chloride 102 Carbon Dioxide 27 BUN 19 Creatinine 0.77 Glucose 246 H Calcium 9.3 Magnesium 1.6 Troponin I < 0.03 07/10/17 07/10/17 05:55 12:12 WBC Hgb Hct Plt Count Sodium Potassium Chloride Carbon Dioxide BUN Creatinine Glucose Calcium Magnesium Troponin I < 0.03 < 0.03
[2017-07-10 11:38] VITALS: BP 110/67
--- NOTE | 2017-07-10 14:19 | Discharge Summary ---
Date of Encounter: 07/10/17 Time of Encounter: 10:10 - Discharge Diagnosis (1) Chest pain Priority: Primary Status: Acute Comments: The patient reports having chest pain while at work. Onset at 3 PM lasting until about 11 PM when she arrived on nursing unit. It was sharp and stabbing in the right mid axillary area radiating to right scapula. 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 She has a recent history of [place] stents 4 placed here in April. She is currently taking Plavix and aspirin at home. Patient has multiple risk factors including obesity, hyperlipidemia, and uncontrolled diabetes. Current EKG is negative for any acute ST changes. Chest x-ray is negative for any acute disease. Troponins were negative 3. The patient is status post PCI to the LAD, first diagonal, RCA. She had a second LHC in April, that showed patent stents. Patient with limited echo in April, showed an LVEF of 40% with moderate LV systolic dysfunction. Patient denies chest pain since 11 PM last night. The pain is not reproducible. Etiology has evaluated the patient's, I appreciate the recommendations of consultation. They recommended continuing medical therapy including aspirin, Plavix, statin, and Ranexa. Patient is not able to tolerate beta blockers due to hypotension. Patient also has independently stopped taking her Florinef. Continue to monitor blood pressure at home. Encourage healthy heart diet and exercise. Qualifiers: Chest pain type: unspecified Qualified Code(s): R07.9 - Chest pain, unspecified (2) Diabetes Priority: Secondary Status: Chronic Comments: A1c remains 10.5. Patient reports that she has an appointment with diabetes education soon. Continue home medications, continue Accu-Cheks as per home schedule. Diabetic diet with low-sodium, low-fat, low-cholesterol. Incorporate exercise into her regimen. Qualifiers: Diabetes mellitus type: type 2 Diabetes mellitus complication status: with neurologic complications Diabetes mellitus complication detail: with polyneuropathy Diabetes mellitus intermediate insulin use: with intermediate use Qualified Code(s): E11.42 - Type 2 diabetes mellitus with diabetic polyneuropathy; Z79.4 - exterminator helper (current) use of insulin; Z79.4 - exterminator helper ( current) use of insulin; Z79.4 - exterminator helper (current) use of insulin; Z79.4 - [facility] (current) use of insulin (3) Obesity Priority: Secondary Status: Chronic Comments: Chronic. [place] lifestyle changes. Qualifiers: Obesity type: due to excess calories Obesity classification: adult class 1 (BMI 30 ? 34.9) Serious obesity comorbidity presence: with serious comorbidity Body mass index: BMI 33.0-33.9 Qualified Code(s): E66.09 - Other obesity due to excess calories; Z68.33 - Body mass index (BMI) 33.0-33.9, adult; Z68.33 - Body mass index (BMI) 33.0-33.9, adult (4) HLD (hyperlipidemia) Priority: Secondary Status: Chronic Qualifiers: Hyperlipidemia type: unspecified Qualified Code(s): E78.5 - Hyperlipidemia , unspecified (5) Uncontrolled diabetes mellitus with hyperglycemia Priority: Secondary Status: Chronic Comments: Plan as above. Qualifiers: Diabetes mellitus type: other specified (including TWYLA) Diabetes mellitus termite helper insulin use: unspecified intermediate insulin use status Qualified Code (s): E13.65 - Other specified diabetes mellitus with hyperglycemia (6) DVT prophylaxis Priority: Secondary Status: Acute Comments: Heparin subcutaneous. - Discharge Medications Home Medications: BuPROPion XL (24 HR) [Wellbutrin Xl] 150 mg PO DAILY 04/20/17 [History] Insulin DETEMIR [Levemir] 90 unit SQ DAILY 04/20/17 [History] Metformin HCl [Metformin HCl ER] 500 mg PO BID 04/20/17 [History] Nitroglycerin [Nitrostat] 0.4 mg SL Q5M PRN 04/20/17 [History] Rosuvastatin [Crestor] 40 mg PO HS 04/20/17 [History] Aspirin 81 mg PO DAILY tab.chew 04/22/17 [Rx] Ranolazine [Ranexa] 1,000 mg PO BID 30 Days #60 tab.er.12h 04/28/17 [Rx] Clopidogrel [Plavix] 75 mg PO DAILY 07/09/17 [History] Fludrocortisone Acetate [Florinef] 0.1 mg PO DAILY 07/09/17 [History] Ondansetron HCl [Zofran] 4 mg PO PRN 07/10/17 [History] Ranitidine HCl [Zantac 75] 75 mg PO DAILY PRN 07/10/17 [History] Allergies/Adverse Reactions: 3 Allergy/AdvReac Type Severity Reaction Status Date / Time No Known Allergies Allergy Verified 04/20/17 09:34 Date of admission: 07/09/17 23:16 Primary care physician: Coby Elena, Consults: 07/10/17 00:12 Consult to Cardiology [CONS] Routine Comment: Consulting Provider: Cardiology Sujata Reason for Consult: chest pain Call Completed: No Discharging clinician: Nishi Craven Anticipated date of discharge: 07/10/17 - Patient Status Disposition: Home, Self-Care Condition: Good Functional capacity at discharge: independent ambulation Overall status at discharge: patient is back to baseline - Discharge Instructions Follow Up With: Coby Elena MD [Primary Care Provider] - Additional Instructions: Please take your medications as directed. Follow-up with primary care in the next 7-10 days to discuss or visit. Return to the emergency department as needed for any other problems or concerns , or if your symptoms return or worsen. Follow up with diabetes education, gain control of your A1c and maintain a healthy heart diet. Exercise for at least 30 minutes a day 5 times per week. Return to your normal activities as tolerated - Diet and Activity Activity: increase activity as tolerated Diet: diabetic diet, low fat, low cholesterol, low salt diet Hospital course: Ms. Bob is a 51 year old female past medical history of coronary artery disease, CHF, chest pain, hyperlipidemia, hypertension, diabetes. Patient presented for right-sided chest pain located in the mid axillary area with radiation to the right scapula. It lasted approximately 8 hours. She reports resolution of the pain with nitroglycerin patch and morphine. Patient is pain- free at this time. She has been evaluated by cardiology who recommended continued medical therapy including getting her blood sugar under control, watching her blood pressure taking her medications, including exercise and healthy heart diet. Patient remains pain-free, labs and vitals are stable. Patient is appropriate for discharge. - Time Spent with Patient Total time spent providing and/or coordinating discharge services: Less than 30 minutes - Constitutional Vitals: Temp Pulse Resp BP Pulse Ox 97.7 F 81 16 110/67 97 07/10/17 11:37 07/10/17 11:37 07/10/17 11:37 07/10/17 11:37 07/10/17 11:37 General appearance: Present: A&O X 3, pleasant, no acute distress, answers questions appropriately - Head Head exam: Present: atraumatic, normal inspection, normocephalic - Eye Eye exam: Present: conjuntiva pink, sclera anicteric - Neck Neck exam general surgery: Present: supple, trachea midline. Absent: lymphadenopathy - Respiratory Respiratory exam: Present: CTAB. Absent: accessory muscle use, rales, rhonchi, wheezes - Cardiovascular Cardiovascular exam: Present: RRR, +S1, +S2. Absent: diastolic murmur, gallop, rubs, systolic murmur - GI/Abdominal GI/Abdominal exam: Present: normal bowel sounds, soft, no peritoneal signs. Absent: distended, hepatomegaly, tenderness - Extremities Exam Extremities exam: Present: warm, radial pulses palpable and symmetrical. Absent : calf tenderness, cyanotic, pedal edema - Neurological Exam Neurological exam: Present: alert, oriented X3, no focal deficits. Absent: facial droop, speech deficit - Skin Skin exam: Present: dry, intact, normal color, warm. Absent: rash
[2017-07-10] MEDS ORDERED: Insulin LISPRO 300 UNITS/3 ML VIAL SQ SCH (21:00)
== END 2017-07-10 15:58 | disposition home or self-care (01) ==
LOC: EMEROO 21:17 → 3BNU 21:17
PROVIDERS: ADMIT Internal Medicine; ATTEND Registered Nurse

== ENCOUNTER 2017-08-11 12:30 | Observation (INO) ==
[2017-08-11] MEDS ORDERED: Aspirin 81 MG TAB.CHEW PO ONE (12:41)
--- NOTE | 2017-08-11 13:11 | Emergency Department Note ---
Disposition Clinical Impression: Orthostatic hypotension Chest pain Qualifiers: Chest pain type: unspecified Qualified Code(s): R07.9 - Chest pain, unspecified Disposition: Admitted As Inpatient Condition: Good Referrals: Coby Elena MD [Primary Care Provider] - Forms: ED Satisfaction Letter Time of Disposition: 14:41 Chest Pain HPI - General Chief Complaint: ED Chest Pain Stated Complaint: chest pressure Time Seen by Provider: 08/11/17 12:41 Source: patient Mode of arrival: ambulatory Limitations: no limitations Vital Signs Reviewed: Yes Nursing Notes Reviewed: Yes - History of Present Illness HPI Narrative: 51-year-old with a history of myocardial infarction in April with stent placement in April who also has a history of orthostatic hypotension was on Florinef. Attempted to wean however was restarted on the Florinef a week ago because of orthostatic changes. Had chest discomfort over the last couple of days when she stands up she gets dizzy feels like she is on pass out. Pt complaint: chest pain Onset (ago): Just PLY BANDER Duration: constant Onset: during rest Pain Location: substernal, left chest Severity: moderate Severity scale (1-10): 6 Quality: tightness, aching, heaviness Pain Radiation: none Improves with: nothing Worsens with: nothing Context: recent illness Associated symptoms: Reports: nausea, vomiting Treatments prior to arrival chest pain: none - Related Data Home Medications Medication Instructions Recorded Confirmed BuPROPion XL (24 HR) [Wellbutrin 150 mg PO QAM 04/20/17 08/11/17 Xl] Metformin HCl [Metformin HCl ER] 500 mg PO BID 04/20/17 08/11/17 Nitroglycerin [Nitrostat] 0.4 mg SL Q5M PRN 04/20/17 08/11/17 Rosuvastatin [Crestor] 40 mg PO HS 04/20/17 08/11/17 Clopidogrel [Plavix] 75 mg PO DAILY 07/09/17 08/11/17 Fludrocortisone Acetate [Florinef] 0.1 mg PO DAILY 07/09/17 08/11/17 Ondansetron HCl [Zofran] 4 mg PO BID PRN 07/10/17 08/11/17 Ranitidine HCl [Zantac 75] 75 mg PO DAILY PRN 07/10/17 08/11/17 Cholecalciferol (D-3) [Vitamin D] 2,000 unit PO DAILY 08/11/17 08/11/17 Insulin Glargine [Lantus] 40 unit SQ BID 08/11/17 08/11/17 Liraglutide [Victoza 2-Casa] 1.8 mg SQ DAILY 08/11/17 08/11/17 Previous Rx's Medication Instructions Recorded Aspirin 81 mg PO DAILY tab.chew 04/22/17 Ranolazine [Ranexa] 1,000 mg PO BID 30 Days #60 04/28/17 tab.er.12h Allergies Allergy/AdvReac Type Severity Reaction Status Date / Time No Known Allergies Allergy Verified 04/20/17 09:34 All systems ED: reviewed and negative except as stated. Constitutional: Denies: fever, chills, weakness, weight change Eyes: Denies: eye pain, eye discharge, vision change ENT ED: Denies: ear pain, throat pain, dental pain, hearing loss, epistaxis, congestion, dysphagia Cardiovascular: Reports: chest pain. Denies: palpitations, dyspnea on exertion , edema, syncope Respiratory: Denies: cough, dyspnea, wheezes, hemoptysis, stridor Gastrointestinal: Reports: nausea, vomiting. Denies: abdominal pain, diarrhea, constipation, hematemesis, melena, hematochezia Genitourinary: Denies: dysuria, frequency, hematuria, discharge Musculoskeletal: Denies: back pain, neck pain, arthralgia, myalgia Integumentary: Denies: rash, abrasion, lesions Neurological: Denies: headache, weakness, numbness, paresthesias, confusion, abnormal gait, vertigo Psychiatric: Denies: anxiety, depression, suicidal thoughts, homicidal thoughts , auditory hallucinations, visual hallucinations Endocrine: Denies: fatigue Hematological/Lymphatic: Denies: easy bleeding, easy bruising Allergic/Immunologic: Denies: facial swelling, urticaria Chest Pain PMH - Past Medical History Medical history: Reports: arthritis, coronary artery disease, diabetes, hyperlipidemia, hypertension, myocardial infarction Surgical history: Reports: , cholecystectomy, other Psychiatric history: Reports: anxiety, depression COPPER MINER history: Reports: no COPPER MINER history - Social History Smoking Status: Former smoker Alcohol use: Reports: none Drug use: Reports: none Physical Exam - General Limitations: no limitations General appearance: alert - Head Head exam: atraumatic, normocephalic, normal inspection - Eye Eye exam: Present: normal appearance, PERRL, EOMI - ENT ENT exam: normal exam, normal oropharynx, mucous membranes moist - Neck Neck exam: Present: normal inspection, full ROM, trachea midline - Chest Chest inspection: Present: normal inspection - Respiratory Respiratory exam: Present: normal lung sounds bilaterally - Cardiovascular Cardiovascular exam: Present: regular rate, normal rhythm, normal heart sounds - Abdominal Exam Abdominal exam: Present: soft, Non-Tender. Absent: tenderness, distention, guarding, rebound, rigidity - Extremities Exam Extremities exam: Present: normal inspection, full ROM. Absent: tenderness, pedal edema - Expanded Lower Extremity Exam Neurovascular/Tendon exam: Absent: motor deficit, sensory deficit, tendon deficit Gait: observed and normal - Back Exam Back exam: Present: normal inspection, full ROM. Absent: tenderness - Neurological Exam Neurological exam: Present: alert, oriented X3 - Psychiatric Psychiatric exam: Present: normal affect, normal mood - Skin Skin exam: Present: warm, dry, intact, normal color Course - Reevaluation(s) Reevaluation #1: 51-year-old with a history of heart disease comes in complaining of chest pain and orthostatic changes. Patient's initial workup is negative consultation obtained with cardiology who requested we admit to the hospitalist and apply compression stockings. Time: 14:40 - Consultations Consultation #1: Discussed with , the to the hospitalist he will see in consult. Request the patient has compression stockings. Time: 14:39 Consultation #2: Discussed with , admit. Time: 15:37 Vital Signs Temperature 98.0 F 08/11/17 12:49 Pulse Rate 98 08/11/17 12:49 Respiratory Rate 16 08/11/17 12:49 Blood Pressure 122/80 08/11/17 12:49 O2 Sat by Pulse Oximetry 99 08/11/17 12:49 Temperature 98.0 F 08/11/17 12:49 Pulse Rate 94 08/11/17 13:53 Respiratory Rate 16 08/11/17 13:53 Blood Pressure 115/81 08/11/17 13:53 O2 Sat by Pulse Oximetry 98 08/11/17 13:53 Oxygen Delivery Oxygen Delivery Room Air Chest Pain - Lab Data Result diagrams: 08/11/17 13:39 08/11/17 13:39 Lab Results 08/11/17 08/11/17 08/11/17 Range/Units 13:39 13:39 13:39 WBC 8.8 (4.3-11.1) K/mcL RBC 5.07 H (3.82-4.97) M/mcL Hgb 14.4 (11.5-15.4) g/dL Hct 44.4 (35.3-44.9) % MCV 87.6 (83.0-100.0) fL MCH 28.4 (28.0-33.3) pg MCHC 32.4 (31.6-35.5) g/dL RDW 12.5 (11.5-14.5) % Plt Count 250 (140-400) K/mcL MPV 9.7 (9.4-12.4) fL Immature Gran % 0.3 (0-4) % Seg Neutrophils % 67.4 % Lymphocytes % 24.1 % Monocytes % 6.7 % Eosinophils % 1.0 % Basophils % 0.5 % Neutrophils # 6.0 (1.6-8.9) K/mcL Lymphocytes # 2.1 (0.6-4.6) K/mcL Monocytes # 0.6 (0.0-1.3) K/mcL Eosinophils # 0.1 (0.0-0.6) K/mcL Basophils # 0.0 (0.0-0.2) K/mcL PT 12.5 H (9.4-12.1) Seconds INR 1.2 APTT 37.1 H (26.0-36.0) Seconds Sodium (136-145) mEq/L Potassium (3.5-5.1) mEq/L Chloride (98-107) mEq/L Carbon Dioxide (23-29) mEq/L BUN (6-20) mg/dL Creatinine (0.60-1.20) mg/dL Est GFR ( Amer) (> 60) Est GFR (Non-Af Amer) (> 60) BUN/Creatinine Ratio (6-26) Glucose (70-105) mg/dL Calculated Osmolality (280-300) Calcium (8.6-10.3) mg/dL Troponin I (< 0.04) ng/mL B-Natriuretic Peptide 51 (Less than 100) pg/mL 08/11/17 08/11/17 Range/Units 13:39 13:39 WBC (4.3-11.1) K/mcL RBC (3.82-4.97) M/mcL Hgb (11.5-15.4) g/dL Hct (35.3-44.9) % MCV (83.0-100.0) fL MCH (28.0-33.3) pg MCHC (31.6-35.5) g/dL RDW (11.5-14.5) % Plt Count (140-400) K/mcL MPV (9.4-12.4) fL Immature Gran % (0-4) % Seg Neutrophils % % Lymphocytes % % Monocytes % % Eosinophils % % Basophils % % Neutrophils # (1.6-8.9) K/mcL Lymphocytes # (0.6-4.6) K/mcL Monocytes # (0.0-1.3) K/mcL Eosinophils # (0.0-0.6) K/mcL Basophils # (0.0-0.2) K/mcL PT (9.4-12.1) Seconds INR APTT (26.0-36.0) Seconds Sodium 138 (136-145) mEq/L Potassium 4.0 (3.5-5.1) mEq/L Chloride 102 (98-107) mEq/L Carbon Dioxide 26 (23-29) mEq/L BUN 18 (6-20) mg/dL Creatinine 1.02 (0.60-1.20) mg/dL Est GFR ( Amer) > 60 (> 60) Est GFR (Non-Af Amer) 57 L (> 60) BUN/Creatinine Ratio 18 (6-26) Glucose 103 (70-105) mg/dL Calculated Osmolality 288 (280-300) Calcium 9.4 (8.6-10.3) mg/dL Troponin I < 0.03 (< 0.04) ng/mL B-Natriuretic Peptide (Less than 100) pg/mL Heart Score - Score History: Moderately Suspicious EKG: Non Specific repolarisation Disturbance Age: 45-65 Risk Factors: Equal/Greater than 3 risk factor or history of atherosclerotic disease Troponin: Less than normal limit HEART Score Total: 5
[2017-08-11 13:48] LABS: Basophils % 0.5 %; Eosinophils # 0.1 K/mcL (0.0-0.6); Hematocrit 44.4 % (35.3-44.9); Hemoglobin 14.4 g/dL (11.5-15.4); Immature Granulocytes % 0.3 % (0-4); Lymphocytes # 2.1 K/mcL (0.6-4.6); Lymphocytes % 24.1 %; Mean Corpuscular HGB Conc 32.4 g/dL (31.6-35.5); Mean Corpuscular Hemoglobin 28.4 pg (28.0-33.3); Mean Corpuscular Volume 87.6 fL (83.0-100.0); Mean Platelet Volume 9.7 fL (9.4-12.4); Monocytes # 0.6 K/mcL (0.0-1.3); Monocytes % 6.7 %; Platelet Count 250 K/mcL (140-400); Red Blood Count 5.07 M/mcL (3.82-4.97); Red Cell Distribution Width 12.5 % (11.5-14.5); Segmented Neutrophils % 67.4 %
[2017-08-11 13:58] LABS: INR 1.2; Prothrombin Time 12.5 Seconds (9.4-12.1)
[2017-08-11 14:01] LABS: Activated Partial Thrombo Time 37.1 Seconds (26.0-36.0)
[2017-08-11 14:05] LABS: BUN/Creatinine Ratio 18 (6-26); Blood Urea Nitrogen 18 mg/dL (6-20); Calcium 9.4 mg/dL (8.6-10.3); Carbon Dioxide 26 mEq/L (23-29); Chloride 102 mEq/L (98-107); Glucose 103 mg/dL (70-105); Osmolality,Calculated 288 (280-300); Sodium 138 mEq/L (136-145); eGFR For African Americans > 60 (> 60); eGFR For Non-African Americans 57 (> 60)
[2017-08-11] MEDS ORDERED: 0.9 % Sodium Chloride 1,000 ML IVC ONE (14:42)
--- NOTE | 2017-08-11 15:36 | Internal Med History&Physical ---
Date of Encounter: 08/11/17 Time of Encounter: 15:28 Assessment and Plan (1) Chest pain Current visit: Yes Status: Acute Chest pain patient has cardiac CAD April 27 shows stents were patent chest pain may be noncardiac with drink troponin and reconsult cardiology Qualifiers: Chest pain type: unspecified Qualified Code(s): R07.9 - Chest pain, unspecified (2) Orthostatic hypotension Current visit: Yes Status: Acute Orthostatic hypotension despite Florinef and compression stocking up to 90 high or add ProAmatine 5 mg 3 times a day increase as needed (3) Diabetes Current visit: No Status: Chronic Chronic resume home medication Qualifiers: Diabetes mellitus type: type 2 Diabetes mellitus complication status: with neurologic complications Diabetes mellitus complication detail: with polyneuropathy Diabetes mellitus ad terminal makeup operator insulin use: with penitentiary use Qualified Code(s): E11.42 - Type 2 diabetes mellitus with diabetic polyneuropathy; Z79.4 - retirement (current) use of insulin; Z79.4 - intermodal truck driver ( current) use of insulin; Z79.4 - intermodal truck driver (current) use of insulin; Z79.4 - intermodal truck driver (current) use of insulin (4) HLD (hyperlipidemia) Current visit: No Status: Chronic Chronic Qualifiers: Hyperlipidemia type: pure hypercholesterolemia Qualified Code(s): E78.00 - Pure hypercholesterolemia, unspecified; E78.0 - Pure hypercholesterolemia (5) Nicotine abuse Current visit: No Status: Chronic (6) Obesity Current visit: No Status: Chronic Chronic Qualifiers: Obesity type: due to excess calories Obesity classification: adult class 1 (BMI 30 - 34.9) Serious obesity comorbidity presence: with serious comorbidity Body mass index: BMI 33.0-33.9 Qualified Code(s): E66.09 - Other obesity due to excess calories; Z68.33 - Body mass index (BMI) 33.0-33.9, adult; Z68.33 - Body mass index (BMI) 33.0-33.9, adult Internal Medicine - H&P: HPI Chief complaint: orthostatic hypotension, chest apin Admitted From: Emergency Dept Plans for Post Hospital Care: Home History of present illness: Ms. Bob is a 51 year old female Patient with history of CAD had stemi April had a angioplasty to diagonal 1 and RCA. 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 Patient says she has compression stockings at home which is knee-high but still has symptoms. We will admit patient for observation and consult cardiology I will try ProAmatine as well and see what happens Past Med Surg Social Fam HX - Past Medical History Medical history: arthritis, coronary artery disease, diabetes, hyperlipidemia, hypertension, myocardial infarction Psychiatric history: anxiety, depression - Past Surgical History Surgical History: , cholecystectomy, other - Social History Smoking Status: Former smoker Smokeless Tobacco Status: No Alcohol use: none Drug use: none - Family History Mother Living Status: Hx Family Cardiac Disorders: Yes (bypass, CAD, CA) Hx Family Respiratory Disorders: Yes (COPD) Hx Family Cancer: Yes (Breast) Hx Family GI Disorders: No Hx Family Endocrine Disorder: No Hx Family Neuromuscular Disorders: No Hx Family Neurologic Disorders: No Hx Family HEENT Disorders: No Hx Family Autoimmune Disorders: No Father Living Status: Still Living Internal Medicine - H&P: Meds BuPROPion XL (24 HR) [Wellbutrin Xl] 150 mg PO QAM 04/20/17 [History] Metformin HCl [Metformin HCl ER] 500 mg PO BID 04/20/17 [History] Nitroglycerin [Nitrostat] 0.4 mg SL Q5M PRN 04/20/17 [History] Rosuvastatin [Crestor] 40 mg PO HS 04/20/17 [History] Aspirin 81 mg PO DAILY tab.chew 04/22/17 [Rx] Ranolazine [Ranexa] 1,000 mg PO BID 30 Days #60 tab.er.12h 04/28/17 [Rx] Clopidogrel [Plavix] 75 mg PO DAILY 07/09/17 [History] Fludrocortisone Acetate [Florinef] 0.1 mg PO DAILY 07/09/17 [History] Ondansetron HCl [Zofran] 4 mg PO BID PRN 07/10/17 [History] Ranitidine HCl [Zantac 75] 75 mg PO DAILY PRN 07/10/17 [History] Cholecalciferol (D-3) [Vitamin D] 2,000 unit PO DAILY 08/11/17 [History] Insulin Glargine [Lantus] 40 unit SQ BID 08/11/17 [History] Liraglutide [Victoza 2-Casa] 1.8 mg SQ DAILY 08/11/17 [History] 3 Allergy/AdvReac Type Severity Reaction Status Date / Time No Known Allergies Allergy Verified 04/20/17 09:34 All Systems PM: A 10-system review of systems was performed and is negative for pertinent findings except as documented above in the HPI. - Constitutional Constitutional: fatigue - EENT Eyes: no change in vision, no discharge, no pain, no photophobia Ears: no ear discharge, no ear pain, no tinnitus Nose, mouth and throat: no dysphagia, no nasal discharge, no neck pain, no sore throat - Cardiovascular Cardiovascular ROS IM: chest pain, lightheadedness - Respiratory Respiratory: no cough, no dyspnea, no wheezing, no excessive phlegm production - Gastrointestinal Gastrointestinal: no abdominal pain, no diarrhea, no hematemesis, no hematochezia, no melena, no nausea, no vomiting - Genitourinary Genitourinary: no change in urinary stream, no dysuria, no flank pain, no hematuria - Musculoskeletal Musculoskeletal ROS IM: no numbness, no tingling - Constitutional Vitals: Temp Pulse Resp BP Pulse Ox 98.0 F 94 16 115/81 98 08/11/17 12:49 08/11/17 13:53 08/11/17 13:53 08/11/17 13:53 08/11/17 13:53 Internal Med - H&P Results - Labs CBC & Chem 7: 08/11/17 13:39 08/11/17 13:39 Labs: Short CBC 08/11/17 Range/Units 13:39 WBC 8.8 (4.3-11.1) K/mcL Hgb 14.4 (11.5-15.4) g/dL Hct 44.4 (35.3-44.9) % Plt Count 250 (140-400) K/mcL Neutrophils # 6.0 (1.6-8.9) K/mcL BMP 08/11/17 13:39 Sodium 138 Potassium 4.0 Chloride 102 Carbon Dioxide 26 BUN 18 Creatinine 1.02 Glucose 103 Calcium 9.4 Cardiac Enzymes 08/11/17 Range/Units 13:39 Troponin I < 0.03 (< 0.04) ng/mL - Impressions ITS Impressions Chest X-Ray 08/11/17 12:41 IMPRESSION: No acute cardiopulmonary findings. Stable exam. D/ / Roxana Rain MD / Roxana Rain MD Interpreting Provider: Roxana Rain MD
[2017-08-11] MEDS ORDERED: Ondansetron 4 MG/2 ML VIAL IVP PRN (15:42)
[2017-08-11] MEDS ORDERED: Naloxone 0.4 MG/ML INJ IVP PRN (15:42)
[2017-08-11] MEDS ORDERED: Famotidine 20 MG TABLET PO PRN (15:47)
[2017-08-11] MEDS ORDERED: Nitroglycerin 0.4 MG TAB.SUBL SL PRN (15:47)
[2017-08-11] MEDS ORDERED: *HR* Dextrose 50 % in Water (Syg) 50 ML SYRINGE IVP PRN (15:49)
[2017-08-11] MEDS ORDERED: Dextrose Gel 15 GM/37.5 ML TUBE PO PRN ×2 (15:49)
[2017-08-11] MEDS ORDERED: D5% in Water 1,000 ML IVC PRN (15:49)
--- NOTE | 2017-08-11 16:13 | Cardiology Consult Note ---
Date of Encounter: 08/11/17 Time of Encounter: 16:10 Assessment and Plan (1) CAD (coronary artery disease) Current Visit: No Status: Chronic Continue DAPT and statin. Qualifiers: Coronary Disease-Associated Artery/Lesion type: unspecified vessel or lesion type [place] vs. transplanted heart: [place] heart Associated angina: with unspecified angina Qualified Code(s): I25.119 - Atherosclerotic heart disease of [place] coronary artery with unspecified angina pectoris (2) HLD (hyperlipidemia) Current Visit: No Status: Chronic statin Qualifiers: Hyperlipidemia type: pure hypercholesterolemia Qualified Code(s): E78.00 - Pure hypercholesterolemia, unspecified; E78.0 - Pure hypercholesterolemia (3) Chest pain Current Visit: Yes Status: Acute Atypical, ruleout MD. Likely related to orthostatic hypotension Qualifiers: Chest pain type: unspecified Qualified Code(s): R07.9 - Chest pain, unspecified (4) Orthostatic hypotension Current Visit: Yes Status: Acute Change florinef to midodrine, encourage IV hydration Discussion w patient/family: The assessment and plan as outlined above was discussed with the patient and/or family members who expressed understanding and agreement. All questions were answered. Thank you for involving us in the care of your patient. Please call with any questions. History of Present Illness Consult date: 08/11/17 Chief complaint: Chest pain History of present illness: Ms. Bob is a 51 year old female with history of CAD sp STEMI PCI LAD/ diagonal followed later by PCI RCA MELBA. Past Med Surg Social Fam HX - Past Medical History Medical history: arthritis, coronary artery disease, diabetes, hyperlipidemia, hypertension, myocardial infarction Psychiatric history: anxiety, depression - Past Surgical History Surgical History: , cholecystectomy, other - Social History Smoking Status: Former smoker Smokeless Tobacco Status: No Alcohol use: none Drug use: none - Family History Mother Living Status: Hx Family Cardiac Disorders: Yes (bypass, CAD, MD) Hx Family Respiratory Disorders: Yes (COPD) Hx Family Cancer: Yes (Breast) Hx Family GI Disorders: No Hx Family Endocrine Disorder: No Hx Family Neuromuscular Disorders: No Hx Family Neurologic Disorders: No Hx Family HEENT Disorders: No Hx Family Autoimmune Disorders: No Father Living Status: Still Living Medications and Allergies BuPROPion XL (24 HR) [Wellbutrin Xl] 150 mg PO QAM 04/20/17 [History] Metformin HCl [Metformin HCl ER] 500 mg PO BID 04/20/17 [History] Nitroglycerin [Nitrostat] 0.4 mg SL Q5M PRN 04/20/17 [History] Rosuvastatin [Crestor] 40 mg PO HS 04/20/17 [History] Aspirin 81 mg PO DAILY tab.chew 04/22/17 [Rx] Ranolazine [Ranexa] 1,000 mg PO BID 30 Days #60 tab.er.12h 04/28/17 [Rx] Clopidogrel [Plavix] 75 mg PO DAILY 07/09/17 [History] Fludrocortisone Acetate [Florinef] 0.1 mg PO DAILY 07/09/17 [History] Ondansetron HCl [Zofran] 4 mg PO BID PRN 07/10/17 [History] Ranitidine HCl [Zantac 75] 75 mg PO DAILY PRN 07/10/17 [History] Cholecalciferol (D-3) [Vitamin D] 2,000 unit PO DAILY 08/11/17 [History] Insulin Glargine [Lantus] 40 unit SQ BID 08/11/17 [History] Liraglutide [Victoza 2-Casa] 1.8 mg SQ DAILY 08/11/17 [History] 3 Allergy/AdvReac Type Severity Reaction Status Date / Time No Known Allergies Allergy Verified 04/20/17 09:34 All Systems Review: A 10-system review of systems was performed and is negative for pertinent findings except as documented above in the HPI. - Constitutional Constitutional: no chills, no fever(s) - EENT Eyes: no blurred vision, no loss of vision Nose, mouth and throat: no bleeding gums, no epistaxis - Cardiovascular Cardiovascular: chest pain at rest, chest pain with exertion, no claudication, no syncope - Respiratory Respiratory: no hemoptysis, no wheezing - Gastrointestinal Gastrointestinal: no hematemesis, no hematochezia - Genitourinary Genitourinary: no hematuria, no nocturia - Musculoskeletal Musculoskeletal: no abnormal gait, no myalgias - Integumentary Integumentary: no erythema, no unusual bruising - Neurological Neurological: no syncope, no tingling - Psychiatric Psychiatric: no anxiety, no depression - Hematological/Lymphatic Hematologic/Lymphatic: no easy bleeding, no easy bruising Physical Examination Vital Signs, Last 4 Hours Temp Pulse Resp BP Pulse Ox 08/11/17 13:53 94 16 115/81 98 08/11/17 12:49 98.0 F 98 16 122/80 99 General: Conversant HEENT: Atraumatic Neck: No JVD Cardiac: Reg Rate and Rhythm Lungs: Normal Breath Sounds Neuro: Alert and responsive Abdomen: Soft Skin: No rashes noted on visualized skin Musculoskeletal: No Chest Wall Tenderness Extremities: No Edema Results 08/11/17 13:39 08/11/17 13:39 Lab Results 08/11/17 08/11/17 08/11/17 13:39 13:39 13:39 WBC 8.8 Hgb 14.4 Hct 44.4 Plt Count 250 INR 1.2 APTT 37.1 H Sodium Potassium Chloride Carbon Dioxide BUN Creatinine Glucose Calcium Troponin I B-Natriuretic Peptide 51 08/11/17 08/11/17 13:39 13:39 WBC Hgb Hct Plt Count INR APTT Sodium 138 Potassium 4.0 Chloride 102 Carbon Dioxide 26 BUN 18 Creatinine 1.02 Glucose 103 Calcium 9.4 Troponin I < 0.03 B-Natriuretic Peptide Consult Discharge Plan - Plan
[2017-08-11] MEDS ORDERED: *HR* Promethazine 25 MG/ML VIAL IVP ONE (16:15)
[2017-08-11] MEDS ORDERED: *HR* Promethazine 25 MG/ML VIAL ONE (16:18)
[2017-08-11] MEDS ORDERED: 0.9 % Sodium Chloride 1,000 ML IVC SCH (17:15)
[2017-08-11] MEDS: Insulin LISPRO 300 UNITS/3 ML VIAL SQ SCH ×2 (18:07→22:01)
[2017-08-11] MEDS: *HR* Metformin 500 MG TABLET PO SCH (18:35)
[2017-08-11] MEDS ORDERED: NON-FORMULARY MEDICATION 1 EACH EACH (Insulin Glargine [Lantus] 40 UNIT) SQ SCH (21:00)
[2017-08-11] MEDS: Ranolazine 500 MG TAB.ER.12H PO SCH (22:01)
[2017-08-11] MEDS: Insulin DETEMIR 100 UNIT/ML X5UNITS SQ SCH (22:01)
[2017-08-11] MEDS ORDERED: *HR* LORazepam 0.5 MG TABLET PO ONE (22:11)
[2017-08-12 02:29] LABS: BUN/Creatinine Ratio 21 (6-26); Blood Urea Nitrogen 18 mg/dL (6-20); Calcium 8.4 mg/dL (8.6-10.3); Carbon Dioxide 24 mEq/L (23-29); Chloride 111 mEq/L (98-107); Glucose 164 mg/dL (70-105); Magnesium 1.5 mg/dL (1.6-2.6); Osmolality,Calculated 298 (280-300); Potassium 3.4 mEq/L (3.5-5.1); Sodium 141 mEq/L (136-145); eGFR For African Americans > 60 (> 60); eGFR For Non-African Americans > 60 (> 60)
[2017-08-12] MEDS: Insulin LISPRO 300 UNITS/3 ML VIAL SQ SCH ×4 (08:09→20:31)
[2017-08-12] MEDS: Aspirin 81 MG TAB.CHEW PO SCH (08:13)
[2017-08-12] MEDS: Cholecalciferol (D-3) 1,000 UNIT TABLET PO SCH (08:14)
[2017-08-12] MEDS: BuPROPion XL (24 HR) 150 MG TABLET PO SCH (08:14)
[2017-08-12] MEDS: Ranolazine 500 MG TAB.ER.12H PO SCH ×2 (08:14→20:31)
[2017-08-12] MEDS: *HR* Metformin 500 MG TABLET PO SCH (08:15)
[2017-08-12] MEDS: Insulin DETEMIR 100 UNIT/ML X5UNITS SQ SCH ×2 (10:36→20:32)
--- NOTE | 2017-08-12 12:06 | Cardiology Progress Note ---
Date of Encounter: 08/12/17 Time of Encounter: 12:05 Assessment and Plan (1) Orthostatic hypotension Current Visit: Yes Status: Acute Continue midodrine. Recommend compression stocking. K/Mag being repleted. If symptoms improved later this afternoon, ok to discharge from cardio perspective. If still hypotensive, start 0.05mg of florinef daily. FU as outpatient. Will sign off, please call with any questions. (2) CAD (coronary artery disease) Current Visit: No Status: Chronic Continue DAPT and statin. Qualifiers: Coronary Disease-Associated Artery/Lesion type: unspecified vessel or lesion type [place] vs. transplanted heart: [place] heart Associated angina: with unspecified angina Qualified Code(s): I25.119 - Atherosclerotic heart disease of [place] coronary artery with unspecified angina pectoris (3) HLD (hyperlipidemia) Current Visit: No Status: Chronic statin Qualifiers: Hyperlipidemia type: pure hypercholesterolemia Qualified Code(s): E78.00 - Pure hypercholesterolemia, unspecified; E78.0 - Pure hypercholesterolemia (4) Chest pain Current Visit: Yes Status: Acute Atypical, ruled out [place]. Likely related to orthostatic hypotension Qualifiers: Chest pain type: unspecified Qualified Code(s): R07.9 - Chest pain, unspecified Discussion w patient/family: The assessment and plan as outlined above was discussed with the patient and/or family members who expressed understanding and agreement. All questions were answered. Thank you for involving us in the care of your patient. Please call with any questions. Subjective Interval history: Dizziness has improved, no further chest pain. Her PO intake has increased as well. Objective Vital Signs, Last 4 Hours Temp Pulse Resp BP Pulse Ox 08/12/17 11:44 98.7 F 84 16 119/78 99 08/12/17 08:06 100/68 General: Conversant HEENT: Atraumatic Neck: No JVD Cardiac: Reg Rate and Rhythm Lungs: Normal Breath Sounds Neuro: Alert and responsive Abdomen: Soft Skin: No rashes noted on visualized skin Musculoskeletal: No Chest Wall Tenderness Extremities: No Edema Results 08/11/17 13:39 08/12/17 01:34 Lab Results 08/11/17 08/12/17 08/12/17 19:49 01:34 01:34 Sodium 141 Potassium 3.4 L Chloride 111 H Carbon Dioxide 24 BUN 18 Creatinine 0.85 Glucose 164 H Calcium 8.4 L Magnesium 1.5 L Troponin I < 0.03 < 0.03 B-Natriuretic Peptide 08/12/17 08/12/17 01:34 03:42 Sodium Potassium Chloride Carbon Dioxide BUN Creatinine Glucose Calcium Magnesium Troponin I < 0.03 B-Natriuretic Peptide 38 Consult Discharge Plan - Plan Referrals: Coby Elena MD [Primary Care Provider] -
[2017-08-12] MEDS ORDERED: 0.9 % Sodium Chloride 1,000 ML ONE (12:35)
[2017-08-12] MEDS: 0.9 % Sodium Chloride 1,000 ML IVC SCH (12:42)
--- NOTE | 2017-08-12 14:35 | Internal Med Progress Note ---
Date of Encounter: 08/12/17 Time of Encounter: 14:33 - Assessment and plan (1) CAD (coronary artery disease) Current Visit: No Status: Chronic Assessment and plan: Cardiology consult and saw the patient Continue aspirin and Plavix Continue her statin Follow-up as previously directed Chest x-ray is negative, troponins are negative No further chest pain Qualifiers: Coronary Disease-Associated Artery/Lesion type: unspecified vessel or lesion type [place] vs. transplanted heart: [place] heart Associated angina: with unspecified angina Qualified Code(s): I25.119 - Atherosclerotic heart disease of [place] coronary artery with unspecified angina pectoris (2) Chest pain Current Visit: Yes Status: Acute Assessment and plan: Atypical, ruled out [place]. Likely related to orthostatic hypotension per cardiology note Qualifiers: Chest pain type: unspecified Qualified Code(s): R07.9 - Chest pain, unspecified (3) Diabetes Current Visit: No Status: Chronic Assessment and plan: Hold metformin and continue Accu-Cheks with sliding scale coverage Qualifiers: Diabetes mellitus type: type 2 Diabetes mellitus complication status: with neurologic complications Diabetes mellitus complication detail: with polyneuropathy Diabetes mellitus rat exterminator insulin use: with rat exterminator use Qualified Code(s): E11.42 - Type 2 diabetes mellitus with diabetic polyneuropathy; Z79.4 - buttermaker continuous churn (current) use of insulin; Z79.4 - buttermaker continuous churn ( current) use of insulin; Z79.4 - buttermaker continuous churn (current) use of insulin; Z79.4 - nursing home (current) use of insulin (4) HLD (hyperlipidemia) Current Visit: No Status: Chronic Assessment and plan: Continue statin as per cardiology Qualifiers: Hyperlipidemia type: pure hypercholesterolemia Qualified Code(s): E78.00 - Pure hypercholesterolemia, unspecified; E78.0 - Pure hypercholesterolemia (5) Nausea Current Visit: No Status: Chronic Assessment and plan: Patient states Zofran ineffective and this has been a chronic problem for some time. She is to follow up with gastroenterology as an outpatient for evaluation for gastroparesis as per her PCP (6) Orthostatic hypotension Current Visit: Yes Status: Acute Assessment and plan: Continue IV fluids Continue compression stockings Continue Florinef Continue ProAmatine 5 mg 3 times a day she may be increased as needed (7) Tobacco abuse Current Visit: Yes Status: Acute Assessment and plan: Cessation advised and NicoDerm patch (8) DVT prophylaxis Current Visit: No Status: Acute Assessment and plan: scds (9) Hypomagnesemia Current Visit: Yes Status: Acute Assessment and plan: Replace and recheck (10) Hypokalemia Current Visit: Yes Status: Acute Assessment and plan: Replace and recheck - Subjective Interval history: Patient is resting in bed. She has no further chest pain . She states dizziness has improved but she is still a little dizzy. She states she is not able to eat much at home secondary to chronic nausea. She states that her physician told her she may have gastroparesis and she is to see a operational review sergeant as an outpatient to have that evaluated. She states the dizziness is so bad at times that she just lays in bed. Denies fever, chills, abdominal pain, cough, shortness of breath. - Constitutional Vitals: Temp Pulse Resp BP Pulse Ox 98.7 F 84 16 125/83 99 08/12/17 11:44 08/12/17 11:44 08/12/17 11:44 08/12/17 12:25 08/12/17 11:44 General appearance: Present: cooperative, A&O X 3, pleasant, no acute distress - Head Head exam: Present: atraumatic, normocephalic - Eye Eye exam: Present: PERRL, conjuntiva pink, sclera anicteric Pupils: Present: PERRL - Neck Neck exam general surgery: Present: supple, trachea midline. Absent: lymphadenopathy - Respiratory Respiratory exam: Present: CTAB. Absent: accessory muscle use, rales, rhonchi, wheezes - Cardiovascular Cardiovascular exam: Present: RRR, +S1, +S2. Absent: diastolic murmur, gallop, rubs, systolic murmur - GI/Abdominal GI/Abdominal exam: Present: normal bowel sounds, soft, no peritoneal signs. Absent: distended, tenderness - Extremities Exam Extremities exam: Present: warm, radial pulses palpable and symmetrical. Absent : calf tenderness, cyanotic, pedal edema - Neurological Exam Neurological exam: Present: CN II-XII intact, oriented X3, no focal deficits. Absent: pronater drift, facial droop, speech deficit - Skin Skin exam: Present: dry, intact, warm Internal Medicine: Result - Labs CBC & Chem 7: 08/11/17 13:39 08/12/17 01:34 Labs: BMP 02/10/18 01:34 Sodium 141 Potassium 3.4 L Chloride 111 H Carbon Dioxide 24 BUN 18 Creatinine 0.85 Glucose 164 H Calcium 8.4 L Cardiac Enzymes 08/11/17 08/12/17 08/12/17 Range/Units 19:49 01:34 03:42 Troponin I < 0.03 < 0.03 < 0.03 (< 0.04) ng/mL - ABG Interpretation ABG results: PT/INR, D-dimer PT 12.5 Seconds (9.4-12.1) H 08/11/17 13:39 Consult Discharge Plan - Plan Referrals: Coby Elena MD [Primary Care Provider] -
[2017-08-13] MEDS ORDERED: *HR* LORazepam 0.5 MG TABLET PO ONE (01:10)
[2017-08-13] MEDS: 0.9 % Sodium Chloride 1,000 ML IVC SCH (01:29)
[2017-08-13 07:00] LABS: BUN/Creatinine Ratio 13 (6-26); Blood Urea Nitrogen 9 mg/dL (6-20); Calcium 8.3 mg/dL (8.6-10.3); Carbon Dioxide 25 mEq/L (23-29); Chloride 114 mEq/L (98-107); Glucose 88 mg/dL (70-105); Magnesium 1.5 mg/dL (1.6-2.6); Osmolality,Calculated 292 (280-300); Sodium 142 mEq/L (136-145); eGFR For African Americans > 60 (> 60); eGFR For Non-African Americans > 60 (> 60)
[2017-08-13 07:52] VITALS: BP 115/79
[2017-08-13] MEDS: Insulin LISPRO 300 UNITS/3 ML VIAL SQ SCH ×2 (07:56→11:22)
[2017-08-13] MEDS: BuPROPion XL (24 HR) 150 MG TABLET PO SCH (08:17)
[2017-08-13] MEDS: Ranolazine 500 MG TAB.ER.12H PO SCH (08:17)
[2017-08-13] MEDS: Cholecalciferol (D-3) 1,000 UNIT TABLET PO SCH (08:17)
[2017-08-13] MEDS: Aspirin 81 MG TAB.CHEW PO SCH (08:18)
[2017-08-13] MEDS: Insulin DETEMIR 100 UNIT/ML X5UNITS SQ SCH (09:38)
--- NOTE | 2017-08-13 09:51 | Discharge Summary ---
Date of Encounter: 08/13/17 Time of Encounter: 09:49 - Discharge Diagnosis (1) CAD (coronary artery disease) Priority: Primary Status: Chronic Comments: Cardiology was consulted and saw the patient. He would like to continue aspirin and Plavix and her statin. Follow-up with cardiology as previously directed Chest x-ray was negative troponins were negative there is been no further chest pain she does have significant orthostatic hypotension and medications have been adjusted Qualifiers: Coronary Disease-Associated Artery/Lesion type: unspecified vessel or lesion type [place] vs. transplanted heart: [place] heart Associated angina: with unspecified angina Qualified Code(s): I25.119 - Atherosclerotic heart disease of [place] coronary artery with unspecified angina pectoris (2) Chest pain Priority: Primary Status: Acute Comments: Atypical chest pain and [place] has been ruled out. Cardiology saw and notes likely related to orthostatic hypotension Qualifiers: Chest pain type: unspecified Qualified Code(s): R07.9 - Chest pain, unspecified (3) Diabetes Priority: Secondary Status: Chronic Comments: Resume her home meds on discharge and diabetic diet Qualifiers: Diabetes mellitus type: type 2 Diabetes mellitus complication status: with neurologic complications Diabetes mellitus complication detail: with polyneuropathy Diabetes mellitus assistant terminal manager insulin use: with assistant terminal manager use Qualified Code(s): E11.42 - Type 2 diabetes mellitus with diabetic polyneuropathy; Z79.4 - termination clerk (current) use of insulin; Z79.4 - termination clerk ( current) use of insulin; Z79.4 - custodial (current) use of insulin; Z79.4 - custodial (current) use of insulin (4) HLD (hyperlipidemia) Priority: Secondary Status: Chronic Comments: Continue statin Qualifiers: Hyperlipidemia type: pure hypercholesterolemia Qualified Code(s): E78.00 - Pure hypercholesterolemia, unspecified; E78.0 - Pure hypercholesterolemia (5) Nausea Priority: Secondary Status: Chronic Comments: Patient relates persistent nausea at home. She states Zofran is not effective and this has been a chronic problem for some time. The patient states that she is scheduled to follow-up with gastroenterology as an outpatient for evaluation for gastric paresis as per her PCP (6) Orthostatic hypotension Priority: Primary Status: Acute Comments: Orthostatic blood pressures are now stabilized She is tolerating her diet Continue Florinef Continue ProAmatine 5 mg 3 times a day. Per cardiology this may be increased as needed control her symptoms Encouraged increased fluid intake on discharge and to avoid caffeine products as they are natural diuretic (7) Tobacco abuse Priority: Primary Status: Acute Comments: Cessation education and will provide a prescription for NicoDerm patch (8) DVT prophylaxis Priority: Secondary Status: Acute Comments: SCDs were used (9) Hypomagnesemia Priority: Primary Status: Acute Comments: Review of her chart she runs a low magnesium consistently. Replaced again this morning before discharge. We will discharge on some oral magnesium (10) Hypokalemia Priority: Primary Status: Acute Comments: Replaced and now normal limits - Discharge Medications Prescriptions: Magnesium Oxide [Mag-Ox] 400 mg PO DAILY #30 tablet Midodrine [ProAmatine] 5 mg PO 0800,1200,1700 30 Days #90 tablet Home Medications: BuPROPion XL (24 HR) [Wellbutrin Xl] 150 mg PO QAM 04/20/17 [History] Metformin HCl [Metformin HCl ER] 500 mg PO BID 04/20/17 [History] Nitroglycerin [Nitrostat] 0.4 mg SL Q5M PRN 04/20/17 [History] Rosuvastatin [Crestor] 40 mg PO HS 04/20/17 [History] Aspirin 81 mg PO DAILY tab.chew 04/22/17 [Rx] Ranolazine [Ranexa] 1,000 mg PO BID 30 Days #60 tab.er.12h 04/28/17 [Rx] Clopidogrel [Plavix] 75 mg PO DAILY 07/09/17 [History] Fludrocortisone Acetate [Florinef] 0.1 mg PO DAILY 07/09/17 [History] Ondansetron HCl [Zofran] 4 mg PO BID PRN 07/10/17 [History] Ranitidine HCl [Zantac 75] 75 mg PO DAILY PRN 07/10/17 [History] Cholecalciferol (D-3) [Vitamin D] 2,000 unit PO DAILY 08/11/17 [History] Insulin Glargine [Lantus] 40 unit SQ BID 08/11/17 [History] Liraglutide [Victoza 2-Casa] 1.8 mg SQ DAILY 08/11/17 [History] Magnesium Oxide [Mag-Ox] 400 mg PO DAILY #30 tablet 08/13/17 [Rx] Midodrine [ProAmatine] 5 mg PO 0800,1200,1700 30 Days #90 tablet 08/13/17 [Rx] Allergies/Adverse Reactions: 3 Allergy/AdvReac Type Severity Reaction Status Date / Time No Known Allergies Allergy Verified 04/20/17 09:34 Date of admission: 08/11/17 16:11 Primary care physician: Coby Elena, Discharging clinician: Monalisa Pierre Anticipated date of discharge: 08/13/17 - Patient Status Disposition: Home, Self-Care Condition: Good Functional capacity at discharge: independent ambulation Overall status at discharge: patient is back to baseline - Discharge Instructions Follow Up With: Coby Elena MD [Primary Care Provider] - Additional Instructions: Pacer to fill prescriptions and take them as directed. Do not stop without a doctor's order. Follow up with her primary care physician and gastroenterology as previously discussed with her PCP. Follow-up with cardiology as scheduled. - Diet and Activity Activity: resume usual activities as tolerated Diet: advance to your usual diet Interval History: Patient states this is about she has felt in many weeks. She is not dizzy when she stood up she felt good. She looks much more alert and appropriate this morning he is sitting up at the side of bed eating her breakfast. She denies any nausea, chest pain shortness of breath, dizziness, headache or feelings of syncope. Discussed her new medication regime and she is anxious for discharge Hospital course: Ms. Bob is a 51 year old female who presented to the emergency room with a complaint of chest pain. She has a history of CAD with a STEMI. In April she had angioplasty to diagonal 1 and RCA. She returned April 27 of chest pain and had a cardiac catheter which showed that the stents were patent and she was treated medically. Patient also has a history of high cholesterol, diabetes, EF of 40%, orthostatic hypotension with dizziness. She was placed on Florinef for orthostatic type potential which she took herself off. Last admission it was restarted again. On day of admission she felt like she was going to pass out. Dr. Capellan saw the patient and adjusted her Florinef and added milodrine 3 times a day. She is currently feeling very well without dizziness. I indurated need to take her medicines as directed. Her magnesium was low was replaced and was still low. I reviewed her chart and she runs chronically low magnesium levels so I did give her a prescription for some magnesium oxide. Will follow-up as directed as an outpatient with her PCP, pigs feet finisher and civil engineer. I explained the need to keep tank top with fluids and avoid caffeine products. Also to change positions slowly so as not to risk for falling. She verbalized understanding and is discharged in stable condition to home Time spent discussing smoking cessation with patient: 3 to 10 minutes - Time Spent with Patient Total time spent providing and/or coordinating discharge services: Less than 30 minutes - Constitutional Vitals: Temp Pulse Resp BP Pulse Ox 97.3 F L 86 16 115/79 98 08/13/17 07:49 08/13/17 07:49 08/13/17 07:49 08/13/17 07:52 08/13/17 07:49 General appearance: Present: cooperative, A&O X 3, pleasant, no acute distress, answers questions appropriately - Head Head exam: Present: atraumatic, normocephalic - Eye Eye exam: Present: PERRL, conjuntiva pink, sclera anicteric Pupils: Present: PERRL - Neck Neck exam general surgery: Present: supple, trachea midline. Absent: lymphadenopathy - Respiratory Respiratory exam: Present: CTAB. Absent: accessory muscle use, rales, rhonchi, wheezes - Cardiovascular Cardiovascular exam: Present: RRR, +S1, +S2. Absent: diastolic murmur, gallop, rubs, systolic murmur - GI/Abdominal GI/Abdominal exam: Present: normal bowel sounds, soft, no peritoneal signs. Absent: distended, tenderness - Extremities Exam Extremities exam: Present: warm, radial pulses palpable and symmetrical. Absent : calf tenderness, cyanotic, pedal edema - Neurological Exam Neurological exam: Present: CN II-XII intact, oriented X3, no focal deficits. Absent: pronater drift, facial droop, speech deficit - Skin Skin exam: Present: dry, intact, warm - VTE Documentation of Mechanical Device: Intermittent pneumatic compression device
--- NOTE | 2017-08-14 16:08 | Electrocardiograph Report ---
[address] [place] [address] Test Date: 2017-08-11 Pat Name: Pao Bob Department: 103 Room: 3B Gender: F Strap Sewer: MARIANELA : 1965 Requested By: Greg Heller Order Number: [id number] Reading MD: Jake Talavera DO Measurements Intervals Arabi Rate: 98 P: 25 DE: 159 QRS: 17 QRSD: 88 T: 87 QT: 311 QTc: 366 Interpretive Statements SINUS RHYTHM POSSIBLE ANTEROLATERAL MYOCARDIAL INFARCTION, OF INDETERMINATE AGE Electronically Signed On 08-14-2017 16:06:31 EST by Jake Talavera DO
== END 2017-08-13 11:27 | disposition home or self-care (01) ==
LOC: 3BNU 12:30 → EMEROO 12:30 → 3BNU 16:24
PROVIDERS: ADMIT Internal Medicine Cardiovascular Disease; ATTEND Registered Nurse

== ENCOUNTER 2018-02-21 20:23 | Observation (INO) ==
--- NOTE | 2018-02-21 21:11 | Emergency Department Note ---
Disposition Clinical Impression: Orthostatic hypotension Disposition: Admitted As Inpatient Condition: Good Referrals: Toney Capellan MD [Partnered Physician] - Forms: ED Satisfaction Letter Time of Disposition: 23:59 General Adult HPI - General Chief complaint: ED Dizziness Stated complaint: "I'm having positive orthostatic BP" Time Seen by Provider: 02/21/18 20:27 Source: patient, family Limitations: no limitations Nursing Notes Reviewed: Yes Vital Signs Reviewed: Yes - History of Present Illness HPI Narrative: 52 year old obese white female presents for "positive orthostatic blood pressure ". Started 3 days at work. Patient states that when she stands, she gets dizzy, veers to right with walking, chest pain, neck pain, shortness of breath, blurred vision, and hiccups. Reports feeling better with sitting. Got EKG and checked blood pressure that day. Patient states there was no heart attack and blood pressure was 68. Chest pain is achy and across the chest. States this does not feel like a heart attack. Patient has history of heart attack. Neck pain is posterior and achy. Also reports legs are "sore to touch" and that left leg is bigger than right. states she has not eaten or drank for 3 days. Patient is on rocephin for UTI and states it makes her vomit. Patient states she can't live like this. Patient called Dr. Capellan's office and was told to keep taking midodrine and go to ED if symptoms don't improve. Denies any symptoms at this time other than sweating. Medical history includes diabetes, diabetic neuropathy, [place], melanoma, and psoriatic arthritis. Psych history includes anxiety and depression. Denies abdominal pain, swelling, numbness, tingling, auditory changes. Pain Scale: 3 - Related Data Home Medications Medication Instructions Recorded Confirmed BuPROPion XL (24 HR) [Wellbutrin 150 mg PO QAM 04/20/17 08/11/17 Xl] Metformin HCl [Metformin HCl ER] 500 mg PO BID 04/20/17 08/11/17 Nitroglycerin [Nitrostat] 0.4 mg SL Q5M PRN 04/20/17 08/11/17 Rosuvastatin [Crestor] 40 mg PO HS 04/20/17 08/11/17 Clopidogrel [Plavix] 75 mg PO DAILY 07/09/17 08/11/17 Fludrocortisone Acetate [Florinef] 0.1 mg PO DAILY 07/09/17 08/11/17 Ondansetron HCl [Zofran] 4 mg PO BID PRN 07/10/17 08/11/17 Ranitidine HCl [Zantac 75] 75 mg PO DAILY PRN 07/10/17 08/11/17 Cholecalciferol (D-3) [Vitamin D] 2,000 unit PO DAILY 08/11/17 08/11/17 Insulin Glargine [Lantus] 40 unit SQ BID 08/11/17 08/11/17 Liraglutide [Victoza 2-Casa] 1.8 mg SQ DAILY 08/11/17 08/11/17 Previous Rx's Medication Instructions Recorded Aspirin 81 mg PO DAILY tab.chew 04/22/17 Ranolazine [Ranexa] 1,000 mg PO BID 30 Days #60 04/28/17 tab.er.12h Magnesium Oxide [Mag-Ox] 400 mg PO DAILY #30 tablet 08/13/17 Midodrine [ProAmatine] 5 mg PO 0800,1200,1700 30 Days #90 08/13/17 tablet Allergies Allergy/AdvReac Type Severity Reaction Status Date / Time No Known Allergies Allergy Verified 04/20/17 09:34 All systems ED: reviewed and negative except as stated. 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 - Social History Smoking Status: Former smoker Smokeless Tobacco Status: No Alcohol use: Reports: none Drug use: Reports: none Physical Exam - General Limitations: no limitations General appearance: alert, in no apparent distress - Head Head exam: atraumatic, normocephalic, normal inspection - Eye Eye exam: Present: normal appearance, PERRL, EOMI - ENT ENT exam: normal exam, normal oropharynx, mucous membranes moist - Neck Neck exam: Present: normal inspection, full ROM, trachea midline - Chest Chest inspection: Present: normal inspection, symmetric chest wall rise - Respiratory Respiratory exam: Present: normal lung sounds bilaterally - Cardiovascular Cardiovascular exam: Present: regular rate, normal rhythm, normal heart sounds - Abdominal Exam Abdominal exam: Present: soft, Non-Tender, normal bowel sounds. Absent: tenderness, distention, guarding, rebound, rigidity, bruit - Extremities Exam Extremities exam: Present: normal inspection, full ROM, tenderness (Tender to palpation). Absent: pedal edema - Neurological Exam Neurological exam: Present: alert, oriented X3 - Skin Skin exam: Present: warm, dry, intact, normal color Course Course Narrative: 52 year old female with history of orthostatic hypotension presents for dizziness with standing for 3 days. Also reports veering to right with walking, chest pain, neck pain, shortness of breath, and hiccups. Symptoms improve with sitting. Tried 4 tablets of midodrine today without relief. Patient states she can't live like this. Taking rocephin for UTI at this time. Patient is alert and oriented, hemodynamically stable, and of non-toxic appearance. On exam, heart and lungs are unremarkable. Oral mucosa moist, normal skin turgor. Lower extremities tender to palpation, no swelling. Will check orthostatic vitals and UA. - Reevaluation(s) Reevaluation #1: Orthostatics positive. Supine blood pressure 108/72, heart rate 88. Sitting blood pressure 77/56, heart rate 104. Will order IVF, troponin, CBC, BMP. Time: 21:29 Reevaluation #2: UA reveals high protein, high glucose, and high WBC. No evidence of infection. Troponin negative. CBC unremarkable. BMP reveals low sodium 133, low chloride 96 , and high glucose 493. Anion gap is calculated at 14. Will order VBG and beta- hydroxybutyrate, and provide another 1 liter IVF. Patient states blood sugar is usually 300. Did not check blood sugar today. Yesterday was 374. Patient takes metformin and insulin. States "I'm noncompliant." Patient states she does not believe high blood sugar is related to her reported symptoms of orthostatic hypotension. Time: 22:47 Reevaluation #3: VBG pH 7.43. Beta-hydroxybutyrate <0.10. DKA ruled out. Discussed results with patient. Patient voiced understanding and is agreeable to admission. Spoke with hospitalist who agrees to admit. Recommends to place on maintenance fluids, recheck glucose, and cardiology consult. Time: 23:57 Vital Signs Temperature 98.1 F 02/21/18 20:28 Pulse Rate 97 02/21/18 20:28 Respiratory Rate 16 02/21/18 20:28 Blood Pressure 108/72 02/21/18 20:28 O2 Sat by Pulse Oximetry 99 02/21/18 20:28 Temperature 98.1 F 02/21/18 20:28 Pulse Rate 104 02/21/18 21:13 Respiratory Rate 22 02/21/18 21:13 Blood Pressure 77/56 02/21/18 21:13 O2 Sat by Pulse Oximetry 100 02/21/18 21:13 Oxygen Delivery Oxygen Delivery Room Air Medical Decision Making - Medical Records Medical records reviewed: Yes I reviewed the patient's medical records. - Lab Data Lab results reviewed: Yes I reviewed the patient's lab results. Result diagrams: 02/21/18 21:49 Lab Results 02/21/18 02/21/18 Range/Units 21:37 21:49 WBC 5.4 (4.3-11.1) K/mcL RBC 5.03 H (3.82-4.97) M/mcL Hgb 14.7 (11.5-15.4) g/dL Hct 43.3 (35.3-44.9) % MCV 86.1 (83.0-100.0) fL MCH 29.2 (28.0-33.3) pg MCHC 33.9 (31.6-35.5) g/dL RDW 13.0 (11.5-14.5) % Plt Count 241 (140-400) K/mcL MPV 9.6 (9.4-12.4) fL Immature Gran % 0.6 (0-4) % Seg Neutrophils % 55.2 % Lymphocytes % 31.5 % Monocytes % 11.4 % Eosinophils % 0.7 % Basophils % 0.6 % Neutrophils # 3.0 (1.6-8.9) K/mcL Lymphocytes # 1.7 (0.6-4.6) K/mcL Monocytes # 0.6 (0.0-1.3) K/mcL Eosinophils # 0.0 (0.0-0.6) K/mcL Basophils # 0.0 (0.0-0.2) K/mcL Urine Color Yellow (Yellow) Urine Clarity Clear (Clear) Urine pH 6.5 (5.0-8.0) pH Units Ur Specific [place] > 1.030 H (1.010-1.025) Urine Protein 30 H (Neg-Trace) mg/dL Urine Glucose (UA) >=1000 H (Normal) mg/dL Urine Ketones Negative (Negative) mg/dL Urine Blood Negative (Negative) Urine Nitrite Negative (Negative) Urine Bilirubin Negative (Negative) Urine Urobilinogen 4.0 H (Normal) mg/dL Ur Leukocyte Esterase Negative (Negative) Urine Microscopic RBC 0-3 (0-3) per hpf Urine Microscopic WBC 15-30 H (0-3) per hpf Ur Squamous Epith Cells Many H (None-Few) per lpf Urine Bacteria None Seen (None-Few) per hpf Hyaline Casts None Seen (None-Few) per lpf Ur Culture Indicated? NO (NO) - EKG Data EKG #1 EKG attestation: Yes I reviewed and interpreted this EKG. EKG results narrative: EKG 02/21/2018 21:35. Sinus rhythm. Heart rate 85. No ST segment elevation or depression. QTc prolonged 482. No comparison EKG.
[2018-02-21] MEDS ORDERED: 0.9 % Sodium Chloride 1,000 ML IVC ONE ×2 (21:26→22:33)
[2018-02-21 21:55] LABS: Bilirubin,Urine Negative (Negative); Blood,Urine Negative (Negative); Clarity,Urine Clear (Clear); Color,Urine Yellow (Yellow); Glucose,Urine (UA) >=1000 mg/dL (Normal); Ketones,Urine Negative (Negative); Leukocyte Esterase,Urine Negative (Negative); Nitrite,Urine Negative (Negative); PH,Urine 6.5 pH Units (5.0-8.0); Protein,Urine 30 mg/dL (Neg-Trace); Specific Gravity,Urine > 1.030 (1.010-1.025)
[2018-02-21 21:57] LABS: Bacteria,Urine None Seen per hpf (None-Few); Hyaline Casts,Urine None Seen per lpf (None-Few); RBC,Urine 0-3 per hpf (0-3); Squamous Epithelial Cell,Urine Many per lpf (None-Few); WBC,Urine 15-30 per hpf (0-3)
[2018-02-21 22:04] LABS: Basophils % 0.6 %; Eosinophils % 0.7 %; Hematocrit 43.3 % (35.3-44.9); Hemoglobin 14.7 g/dL (11.5-15.4); Immature Granulocytes % 0.6 % (0-4); Lymphocytes # 1.7 K/mcL (0.6-4.6); Lymphocytes % 31.5 %; Mean Corpuscular HGB Conc 33.9 g/dL (31.6-35.5); Mean Corpuscular Hemoglobin 29.2 pg (28.0-33.3); Mean Corpuscular Volume 86.1 fL (83.0-100.0); Mean Platelet Volume 9.6 fL (9.4-12.4); Monocytes # 0.6 K/mcL (0.0-1.3); Monocytes % 11.4 %; Platelet Count 241 K/mcL (140-400); Red Blood Count 5.03 M/mcL (3.82-4.97); Segmented Neutrophils % 55.2 %
[2018-02-21 22:22] LABS: BUN/Creatinine Ratio 21 (6-26); Blood Urea Nitrogen 20 mg/dL (6-20); Calcium 9.4 mg/dL (8.6-10.3); Carbon Dioxide 23 mEq/L (23-29); Chloride 96 mEq/L (98-107); Glucose 493 mg/dL (70-105); Osmolality,Calculated 301 (280-300); Sodium 133 mEq/L (136-145); Troponin I < 0.03 ng/mL (< 0.04); eGFR For Non-African Americans > 60 (> 60)
[2018-02-21] MEDS ORDERED: 0.9 % Sodium Chloride 1,000 ML IVC SCH (22:45)
--- NOTE | 2018-02-21 22:53 | Emergency Department Note ---
Disposition Clinical Impression: Orthostatic hypotension Disposition: Admitted As Inpatient Condition: Good General Adult HPI - General Chief complaint: ED Dizziness Stated complaint: DIZZINESS Time Seen by Provider: 02/21/18 20:27 Source: patient, family Limitations: no limitations - History of Present Illness Pain Scale: 3 - Related Data Home Medications Medication Instructions Recorded Confirmed BuPROPion XL (24 HR) [Wellbutrin 150 mg PO QAM 04/20/17 08/11/17 Xl] Metformin HCl [Metformin HCl ER] 500 mg PO BID 04/20/17 08/11/17 Nitroglycerin [Nitrostat] 0.4 mg SL Q5M PRN 04/20/17 08/11/17 Rosuvastatin [Crestor] 40 mg PO HS 04/20/17 08/11/17 Clopidogrel [Plavix] 75 mg PO DAILY 07/09/17 08/11/17 Fludrocortisone Acetate [Florinef] 0.1 mg PO DAILY 07/09/17 08/11/17 Ondansetron HCl [Zofran] 4 mg PO BID PRN 07/10/17 08/11/17 Ranitidine HCl [Zantac 75] 75 mg PO DAILY PRN 07/10/17 08/11/17 Cholecalciferol (D-3) [Vitamin D] 2,000 unit PO DAILY 08/11/17 08/11/17 Insulin Glargine [Lantus] 40 unit SQ BID 08/11/17 08/11/17 Liraglutide [Victoza 2-Casa] 1.8 mg SQ DAILY 08/11/17 08/11/17 Previous Rx's Medication Instructions Recorded Aspirin 81 mg PO DAILY tab.chew 04/22/17 Ranolazine [Ranexa] 1,000 mg PO BID 30 Days #60 04/28/17 tab.er.12h Magnesium Oxide [Mag-Ox] 400 mg PO DAILY #30 tablet 08/13/17 Midodrine [ProAmatine] 5 mg PO 0800,1200,1700 30 Days #90 08/13/17 tablet Allergies Allergy/AdvReac Type Severity Reaction Status Date / Time No Known Allergies Allergy Verified 04/20/17 09:34 Past Medical History - Past Medical History Medical history: Reports: arthritis, cancer, coronary artery disease, diabetes, hyperlipidemia, hypertension, myocardial infarction, other Surgical history: Reports: , cholecystectomy, other Psychiatric history: Reports: anxiety, depression 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 - Social History Smoking Status: Former smoker Smokeless Tobacco Status: No Alcohol use: Reports: none Drug use: Reports: none Physical Exam - General Limitations: no limitations General appearance: alert, in no apparent distress Course Vital Signs Temperature 98.1 F 02/21/18 20:28 Pulse Rate 97 02/21/18 20:28 Respiratory Rate 16 02/21/18 20:28 Blood Pressure 108/72 02/21/18 20:28 O2 Sat by Pulse Oximetry 99 02/21/18 20:28 Temperature 98.1 F 02/21/18 20:28 Pulse Rate 79 02/21/18 23:18 Respiratory Rate 20 02/21/18 23:18 Blood Pressure 112/71 02/21/18 23:18 O2 Sat by Pulse Oximetry 100 02/21/18 23:18 Oxygen Delivery Oxygen Delivery Room Air Medical Decision Making - Lab Data Result diagrams: 02/21/18 21:49 02/21/18 21:49 Lab Results 02/21/18 02/21/18 02/21/18 Range/Units 21:37 21:49 21:49 WBC 5.4 (4.3-11.1) K/mcL RBC 5.03 H (3.82-4.97) M/mcL Hgb 14.7 (11.5-15.4) g/dL Hct 43.3 (35.3-44.9) % MCV 86.1 (83.0-100.0) fL MCH 29.2 (28.0-33.3) pg MCHC 33.9 (31.6-35.5) g/dL RDW 13.0 (11.5-14.5) % Plt Count 241 (140-400) K/mcL MPV 9.6 (9.4-12.4) fL Immature Gran % 0.6 (0-4) % Seg Neutrophils % 55.2 % Lymphocytes % 31.5 % Monocytes % 11.4 % Eosinophils % 0.7 % Basophils % 0.6 % Neutrophils # 3.0 (1.6-8.9) K/mcL Lymphocytes # 1.7 (0.6-4.6) K/mcL Monocytes # 0.6 (0.0-1.3) K/mcL Eosinophils # 0.0 (0.0-0.6) K/mcL Basophils # 0.0 (0.0-0.2) K/mcL VBG pH (7.32-7.42) pH Units VBG pCO2 (41-51) mmHg VBG pO2 (25-50) mmHg VBG HCO3 (21-27) mEq/L Sodium 133 L (136-145) mEq/L Potassium 4.0 (3.5-5.1) mEq/L Chloride 96 L (98-107) mEq/L Carbon Dioxide 23 (23-29) mEq/L BUN 20 (6-20) mg/dL Creatinine 0.97 (0.60-1.20) mg/dL Est GFR ( Amer) > 60 (> 60) Est GFR (Non-Af Amer) > 60 (> 60) BUN/Creatinine Ratio 21 (6-26) Glucose 493 H (70-105) mg/dL Calculated Osmolality 301 H (280-300) Calcium 9.4 (8.6-10.3) mg/dL Troponin I < 0.03 (< 0.04) ng/mL Beta-Hydroxybutyric Acd (0.02-0.27) mmol/L Urine Color Yellow (Yellow) Urine Clarity Clear (Clear) Urine pH 6.5 (5.0-8.0) pH Units Ur Specific [place] > 1.030 H (1.010-1.025) Urine Protein 30 H (Neg-Trace) mg/dL Urine Glucose (UA) >=1000 H (Normal) mg/dL Urine Ketones Negative (Negative) mg/dL Urine Blood Negative (Negative) Urine Nitrite Negative (Negative) Urine Bilirubin Negative (Negative) Urine Urobilinogen 4.0 H (Normal) mg/dL Ur Leukocyte Esterase Negative (Negative) Urine Microscopic RBC 0-3 (0-3) per hpf Urine Microscopic WBC 15-30 H (0-3) per hpf Ur Squamous Epith Cells Many H (None-Few) per lpf Urine Bacteria None Seen (None-Few) per hpf Hyaline Casts None Seen (None-Few) per lpf Ur Culture Indicated? NO (NO) 02/21/18 02/21/18 Range/Units 22:52 23:09 WBC (4.3-11.1) K/mcL RBC (3.82-4.97) M/mcL Hgb (11.5-15.4) g/dL Hct (35.3-44.9) % MCV (83.0-100.0) fL MCH (28.0-33.3) pg MCHC (31.6-35.5) g/dL RDW (11.5-14.5) % Plt Count (140-400) K/mcL MPV (9.4-12.4) fL Immature Gran % (0-4) % Seg Neutrophils % % Lymphocytes % % Monocytes % % Eosinophils % % Basophils % % Neutrophils # (1.6-8.9) K/mcL Lymphocytes # (0.6-4.6) K/mcL Monocytes # (0.0-1.3) K/mcL Eosinophils # (0.0-0.6) K/mcL Basophils # (0.0-0.2) K/mcL VBG pH 7.43 H (7.32-7.42) pH Units VBG pCO2 38 L (41-51) mmHg VBG pO2 61 H (25-50) mmHg VBG HCO3 25 (21-27) mEq/L Sodium (136-145) mEq/L Potassium (3.5-5.1) mEq/L Chloride (98-107) mEq/L Carbon Dioxide (23-29) mEq/L BUN (6-20) mg/dL Creatinine (0.60-1.20) mg/dL Est GFR ( Amer) (> 60) Est GFR (Non-Af Amer) (> 60) BUN/Creatinine Ratio (6-26) Glucose (70-105) mg/dL Calculated Osmolality (280-300) Calcium (8.6-10.3) mg/dL Troponin I (< 0.04) ng/mL Beta-Hydroxybutyric Acd < 0.10 (0.02-0.27) mmol/L Urine Color (Yellow) Urine Clarity (Clear) Urine pH (5.0-8.0) pH Units Ur Specific [place] (1.010-1.025) Urine Protein (Neg-Trace) mg/dL Urine Glucose (UA) (Normal) mg/dL Urine Ketones (Negative) mg/dL Urine Blood (Negative) Urine Nitrite (Negative) Urine Bilirubin (Negative) Urine Urobilinogen (Normal) mg/dL Ur Leukocyte Esterase (Negative) Urine Microscopic RBC (0-3) per hpf Urine Microscopic WBC (0-3) per hpf Ur Squamous Epith Cells (None-Few) per lpf Urine Bacteria (None-Few) per hpf Hyaline Casts (None-Few) per lpf Ur Culture Indicated? (NO) Attestation Statement - Attestation Attestation: I examined this patient and my medical decision-making was reviewed with the Resident Physician. I agree with the documented findings, disposition and treatment plan as described except to the extent set forth below. Findings consistent with dizziness, orthostatic hypotension, on Midrin. Concurrent symptomatic hyperglycemia. Start IV fluids, rule out DKA, admitted for management of orthostasis in the setting of known disease and current maximize treatment.
[2018-02-21 23:12] LABS: VBG HCO3 25 mEq/L (21-27); VBG PCO2 38 mmHg (41-51); VBG PH 7.43 pH Units (7.32-7.42); VBG PO2 61 mmHg (25-50)
[2018-02-21] MEDS ORDERED: Insulin Human Regular 10 UNIT in 0.9 % Sodium Chloride 10 ML IV ONE (23:15)
[2018-02-22] MEDS ORDERED: *HR* Enoxaparin 100 MG/ML SYRINGE SQ STA (01:21)
[2018-02-22] MEDS ORDERED: D5% in Water 1,000 ML IVC PRN (01:21)
[2018-02-22] MEDS ORDERED: Dextrose Gel 15 GM/37.5 ML TUBE PO PRN ×2 (01:21)
[2018-02-22] MEDS ORDERED: Naloxone 0.4 MG/ML INJ IVP PRN (01:21)
[2018-02-22] MEDS ORDERED: *HR* Dextrose 50 % in Water (Syg) 50 ML SYRINGE IVP PRN (01:21)
--- NOTE | 2018-02-22 01:41 | Internal Med History&Physical ---
Date of Encounter: 02/22/18 Time of Encounter: 00:40 Internal Medicine - H&P: HPI Chief complaint: low BP; near syncope Admitted From: Emergency Dept Plans for Post Hospital Care: Home History of present illness: Ms. Bob is a 52 year old female [facility] with complaints of feeling lightheaded, dizzy, and near syncopal episodes associated with standing from a seated position. Patient has a history of orthostatic hypotension and has been taking Florinef and midodrine in the past to help combat symptoms. Today, she had similar symptoms, and she contacted her port steward, Dr. Capellan, who advised her to take midodrine as directed and to come to ER if symptoms persisted. Symptoms persisted and so she came to ER where she was found to have evidence of orthostatic hypotension, hyperglycemia, and dehydration. She was given some IV fluids and some subcutaneous insulin. Despite this, her blood pressure remained low upon standing. She was therefore admitted to hospitalist service for further workup and care. Upon my assessment of the patient in ER, patient confirms above history. She states she had a heart attack last April and, since then, has had recurrent bouts of orthostatic hypotension and has been unable to tolerate symptoms at times, even with Midodrine or Florinef. She denies any frequent nausea, vomiting, or diarrhea. She has been nauseated somewhat today, however. She denies any chest pain or shortness breath. She did have some chest tightness earlier this weekend, however. She denies any history or knowledge of any adrenal insufficiency. She has never been tested for that to her knowledge either. She denies any fevers, congestion, sore throat, abdominal pain, or dysuria. She is presently lying in bed and comfortable without symptoms. However, if she sits up, she comes lightheaded and dizzy. She did have evidence of orthostatic hypotension as documented in the ER vital records. Patient also complains of calf tenderness, L > R. Past Med Surg Social Fam HX - Past Medical History Attestation: Yes The following information was validated with the patient. Source: patient, old records reviewed Medical history: arthritis, cancer (melanoma), coronary artery disease, diabetes , hyperlipidemia, hypertension, myocardial infarction, other Additional medical history: orthostatic hypotension, melanoma Psychiatric history: anxiety, depression - Past Surgical History Surgical History: , cholecystectomy, other Additional surgical history: heart cath on 04-08-2017 with 1-stent to LAD - Social History Smoking Status: Former smoker Smokeless Tobacco Status: No Alcohol use: none Drug use: none Current living situation: Home, With Family Activity Level: Independent ambulation Recent Out of Country Travel Within the Last 8 Weeks: No - Family History Mother Living Status: Hx Family Cardiac Disorders: Yes (bypass, CAD, [place]) Hx Family Respiratory Disorders: Yes (COPD) Hx Family Cancer: Yes (Breast) Hx Family GI Disorders: No Hx Family Endocrine Disorder: No Hx Family Neuromuscular Disorders: No Hx Family Neurologic Disorders: No Hx Family HEENT Disorders: No Hx Family Autoimmune Disorders: No Father Living Status: Still Living Internal Medicine - H&P: Meds BuPROPion XL (24 HR) [Wellbutrin Xl] 150 mg PO QAM 04/20/17 [History] Metformin HCl [Metformin HCl ER] 500 mg PO BID 04/20/17 [History] Nitroglycerin [Nitrostat] 0.4 mg SL Q5M PRN 04/20/17 [History] Rosuvastatin [Crestor] 40 mg PO HS 04/20/17 [History] Aspirin 81 mg PO DAILY tab.chew 04/22/17 [Rx] Ranolazine [Ranexa] 1,000 mg PO BID 30 Days #60 tab.er.12h 04/28/17 [Rx] Clopidogrel [Plavix] 75 mg PO DAILY 07/09/17 [History] Fludrocortisone Acetate [Florinef] 0.1 mg PO DAILY 07/09/17 [History] Ondansetron HCl [Zofran] 4 mg PO BID PRN 07/10/17 [History] Ranitidine HCl [Zantac 75] 75 mg PO DAILY PRN 07/10/17 [History] Cholecalciferol (D-3) [Vitamin D] 2,000 unit PO DAILY 08/11/17 [History] Insulin Glargine [Lantus] 40 unit SQ BID 08/11/17 [History] Liraglutide [Victoza 2-Casa] 1.8 mg SQ DAILY 08/11/17 [History] Magnesium Oxide [Mag-Ox] 400 mg PO DAILY #30 tablet 08/13/17 [Rx] Midodrine [ProAmatine] 5 mg PO 0800,1200,1700 30 Days #90 tablet 08/13/17 [Rx] 3 Allergy/AdvReac Type Severity Reaction Status Date / Time No Known Allergies Allergy Verified 04/20/17 09:34 - Constitutional Constitutional: no chills, no fever(s) - EENT Eyes: no blurry vision, no change in vision Ears: no ear pain, no tinnitus Nose, mouth and throat: no nasal congestion, no sore throat - Cardiovascular Cardiovascular ROS IM: lightheadedness, no chest pain, no dyspnea, no dyspnea on exertion, no edema, no irregular heart rhythm, no syncope - Respiratory Respiratory: no cough, no hemoptysis, no chest congestion, no excessive phlegm production - Gastrointestinal Gastrointestinal: nausea, no abdominal pain, no diarrhea, no hematemesis, no hematochezia, no melena, no vomiting - Genitourinary Genitourinary: no dysuria, no flank pain, no hematuria - Musculoskeletal Musculoskeletal ROS IM: muscle cramps (both R & L calf -- L>R) - Integumentary Integumentary IM: no rash, no jaundice - Neurological Neurological ROS: dizziness, weakness, no focal weakness, no frequent falls, no headache(s) - Psychiatric Psychiatric: no anxiety, no depression - Endocrine Endocrine IM: flushing, polydipsia, polyuria, no polyphagia - Allergic/Immunologic Allergic/Immunologic: no GI upset with certain foods - Constitutional Vitals: Temp Pulse Resp BP Pulse Ox 98.1 F 82 16 97/58 100 02/21/18 20:28 02/22/18 00:30 02/22/18 00:30 02/22/18 00:30 02/22/18 00:30 General appearance: Present: cooperative, A&O X 3, pleasant, answers questions appropriately Exam: looks dry - Head Head exam: Present: atraumatic, normal inspection - Eye Eye exam: Present: EOMI, PERRL. Absent: scleral icterus Pupils: Present: normal accommodation - ENT ENT exam: Present: mucous membranes dry, normal exam, normal oropharynx - Neck Neck exam general surgery: Present: full ROM, supple. Absent: tenderness, nuchal rigidity, thyromegaly - Respiratory Respiratory exam: Present: CTAB. Absent: chest wall tenderness, rales, rhonchi , wheezes - Cardiovascular Cardiovascular exam: Present: RRR, +S1, +S2. Absent: diastolic murmur, systolic murmur - GI/Abdominal GI/Abdominal exam: Present: normal bowel sounds, soft. Absent: guarding, hepatomegaly, mass, rebound, splenomegaly, tenderness - Extremities Exam Extremities exam: Present: calf tenderness (L > R), full ROM, warm, radial pulses palpable and symmetrical. Absent: joint swelling, normal capillary refill (roughly 3 seconds), pedal edema, tenderness - Back Exam Back exam: Absent: CVA tenderness (L), CVA tenderness (R) - Neurological Exam Neurological exam: Present: alert, CN II-XII intact, oriented X3, no focal deficits - Psychiatric Psychiatric exam: Present: normal affect, normal mood - Skin Skin exam: Present: dry, intact, warm Internal Med - H&P Results - Labs CBC & Chem 7: 02/21/18 21:49 02/21/18 21:49 - EKG Data -: EKG Interpreted by Myself - EKG Data Prior EKG available for review: no EKG comments: 02/22/18 01:46 NSR; no acute ST changes; QTc slightly prolonged -- 482 - Assessment and plan (1) Orthostatic hypotension Current Visit: Yes Status: Acute Assessment and plan: 1. Will hydrate with IVF overnight and monitor vitals closely. 2. Will order ACTH stimulation test to be done in the morning to rule out adrenal insufficiency. 3. Continue home meds as appropriate once meds verified. 4. Will trend troponins, EKG's, and order ECHO. 5. Consult cardiology per patient request given her complicated cardiac history , cardiomyopathy, and orthostatic hypotension. (2) Bilateral calf pain Current Visit: Yes Status: Acute Assessment and plan: 1. Lovenox 1 mg/kg given one time tonight until BLE Dopplers could be performed. 2. BLE Dopplers ordered to rule out DVT. 3. Further anticoagulation to be ordered after BLE Dopplers if indicated. (3) CAD (coronary artery disease) Current Visit: Yes Status: Chronic Assessment and plan: 1. Continue ASA, Plavix. 2. Resume other home meds once verified. 3. Cycle troponins and EKG as noted above. Qualifiers: Coronary Disease-Associated Artery/Lesion type: [place] artery [place] vs. transplanted heart: [place] heart Associated angina: without angina Qualified Code(s): I25.10 - Atherosclerotic heart disease of [place] coronary artery without angina pectoris (4) Diabetes Current Visit: Yes Status: Chronic Assessment and plan: 1. Hold oral diabetic meds. 2. Will use SSI and monitor glucose. 3. Add home basal insulin once meds verified. Qualifiers: Diabetes mellitus type: type 2 Diabetes mellitus termite renewal inspector insulin use: with termite renewal inspector use Diabetes mellitus complication status: with neurologic complications Diabetes mellitus complication detail: with polyneuropathy Qualified Code(s): E11.42 - Type 2 diabetes mellitus with diabetic polyneuropathy; Z79.4 - termite treater helper (current) use of insulin; Z79.4 - termite treater helper ( current) use of insulin; Z79.4 - termite treater helper (current) use of insulin; Z79.4 - [facility] (current) use of insulin (5) DVT prophylaxis Current Visit: Yes Status: Acute Assessment and plan: 1. One time Lovenox dose as above. 2. Further anti-coagulation to be determined after Dopplers of BLE performed and resulted.
[2018-02-22] MEDS: 0.9 % Sodium Chloride 1,000 ML IVC SCH ×2 (02:01→08:45)
[2018-02-22] MEDS ORDERED: Cosyntropin 250 MCG/2 ML VIAL IVP ONE (07:01)
[2018-02-22] MEDS: Ranolazine 500 MG TAB.ER.12H PO SCH ×2 (08:07→22:29)
[2018-02-22] MEDS: Insulin LISPRO 300 UNITS/3 ML VIAL SQ SCH ×3 (08:07→17:01)
[2018-02-22] MEDS: Aspirin 81 MG TAB.CHEW PO SCH (08:07)
[2018-02-22 08:59] LABS: Basophils % 0.5 %; Eosinophils # 0.1 K/mcL (0.0-0.6); Eosinophils % 1.2 %; Hematocrit 40.6 % (35.3-44.9); Hemoglobin 13.8 g/dL (11.5-15.4); Immature Granulocytes % 0.5 % (0-4); Lymphocytes % 32.1 %; Mean Corpuscular Hemoglobin 29.6 pg (28.0-33.3); Mean Corpuscular Volume 87.1 fL (83.0-100.0); Mean Platelet Volume 9.6 fL (9.4-12.4); Monocytes # 0.5 K/mcL (0.0-1.3); Monocytes % 8.6 %; Neutrophils # 3.5 K/mcL (1.6-8.9); Platelet Count 204 K/mcL (140-400); Red Blood Count 4.66 M/mcL (3.82-4.97); Red Cell Distribution Width 12.9 % (11.5-14.5); Segmented Neutrophils % 57.1 %
[2018-02-22 09:05] LABS: INR 1.2; Prothrombin Time 13.8 Seconds (9.4-12.1)
[2018-02-22 09:08] LABS: Activated Partial Thrombo Time 43.8 Seconds (26.0-36.0)
[2018-02-22 09:22] LABS: Alanine Aminotransferase 8 Units/L (7-52); Albumin 3.4 g/dL (3.5-5.7); Albumin/Globulin Ratio 1.2 (1.1-2.2); Alkaline Phosphatase 97 Units/L (34-104); Aspartate Amino Transferase 10 Units/L (13-39); BUN/Creatinine Ratio 22 (6-26); Bilirubin,Total 0.7 mg/dL (0.3-1.0); Blood Urea Nitrogen 16 mg/dL (6-20); Calcium 8.7 mg/dL (8.6-10.3); Carbon Dioxide 24 mEq/L (23-29); Chloride 107 mEq/L (98-107); Chol/HDL Ratio 2.5 (0-4.9); Cholesterol 77 mg/dL (< 200); Globulin 2.9 g/dL (2.4-3.5); Glucose 307 mg/dL (70-105); HDL Cholesterol 31 mg/dL (40-59); LDL Cholesterol,Calculated 16 mg/dL (0-99); Magnesium 1.4 mg/dL (1.6-2.6); Osmolality,Calculated 285 (280-300); Potassium 3.8 mEq/L (3.5-5.1); Sodium 131 mEq/L (136-145); Total Protein 6.3 g/dL (6.4-8.9); Triglycerides 152 mg/dL (< 150); Troponin I < 0.03 ng/mL (< 0.04); eGFR For Non-African Americans > 60 (> 60)
--- NOTE | 2018-02-22 09:45 | Cardiology Consult Note ---
Addendum entered and electronically signed by Ac Hernández CNP 02/22/18 13:20 : Discussed POC with Dr. Hyatt. We will keep NPO after midnight and consider tilt table test in am for further evaluation of symptoms. Original Note: <Ac Hernández - Last Filed: 02/22/18 09:57> Date of Encounter: 02/22/18 Time of Encounter: 09:30 Assessment and Plan (1) Orthostatic hypotension Current Visit: Yes Status: Chronic Presents with presyncopal symptoms. Positive orthostatic hypotension. Known history of this since April 2017. On florinef in past and changed to midodrine due to continued symptoms. Continue midodrine. Continue liberal fluid intake and some salt intake. IV fluids and compression stockings as you are doing. Slow position changes. R/o other causes of orthostatic hypotension such as adrenal in-sufficiency or autonomic neuropathy. Cortisol test pending. (2) Systolic CHF Current Visit: No Status: Chronic H/o ICMP, EF 40% on TTE 04/2017. Currently euvolemic. Re-peat TTE pending. Unable to tolerate GDMT aith bb and aceI due to orthostatic hypotension. Qualifiers: Qualified Code(s): I50.22 - Chronic systolic (congestive) heart failure (3) CAD (coronary artery disease) Current Visit: No Status: Chronic H/o VT and multiple PCI 04/2017. She underwent 4 LHC at that time and received PCI to the LAD, 1st dx artery, and RCA. C/o intermittent chest pain usually with pre-syncopal symptoms. Consider stress test during stay or out-pt. Chest discomfort may be related to low b/p. Troponin negative x3. EKG shows SR with no change from prior EKG. Qualifiers: Coronary Disease-Associated Artery/Lesion type: [place] artery [place] vs. transplanted heart: [place] heart Associated angina: without angina Qualified Code(s): I25.10 - Atherosclerotic heart disease of [place] coronary artery without angina pectoris (4) Pericardial effusion Current Visit: No Status: Chronic H/o small pericardial effusion. Re-peat TTE pending. Discussion w patient/family: The assessment and plan as outlined above was discussed with the patient and/or family members who expressed understanding and agreement. All questions were answered. Thank you for involving us in the care of your patient. Please call with any questions. History of Present Illness Consult date: 02/22/18 Requesting physician: Rizwan Byrne Consult reason: orthostatic hypotension Chief complaint: dizziness, lightheadedness, chest pain, SOB, LLE leg pain History of present illness: Ms. Bob is a 52 year old female with past medical history significant for CAD s/p VT 04/2017 with multiple PCI, ICMP, orthostatic hypotension, DM, and recently diagnosed stage I melanoma. She presented by EMS from her work due to hypotension and pre-syncopal symptoms. States that she developed orthostatic hypotension after her VT and is having a hard time functioning at home and at work. She was previously on florinef and it stopped working. She was switched to midodrine and it did help some. On Monday her symptoms increased despite liberal fluid intake and compression stockings. Yesterday when she developed symptoms her b/p was taken and found to be 68 systolic and EMS was called. She reports having SOB and mid-sternal chest discomfort with her pre-syncopal episodes. They often occur with position change and movement. Denies significant exertional chest pain. Her chest pain is not what she experienced with her prior VT. Prior cardiac testing: [facility] 04/2017 x4 with PCI to LAD, 1st dx, and RCA. TTE 04/2017: EF 40% with segmental dysfunction. Small infolateral pericardial effusion. Past Med Surg Social Fam HX - Past Medical History Medical history: arthritis, cancer (melanoma), cardiomyopathy, coronary artery disease, diabetes, hyperlipidemia, hypertension, myocardial infarction, other Additional medical history: orthostatic hypotension, melanoma Psychiatric history: anxiety, depression - Past Surgical History Surgical History: , cholecystectomy, other Additional surgical history: heart cath on 04-08-2017 with 1-stent to LAD - Social History Smoking Status: Former smoker Smokeless Tobacco Status: No Alcohol use: none Drug use: none - Family History Mother Living Status: Hx Family Cardiac Disorders: Yes (bypass, CAD, [place]) Hx Family Respiratory Disorders: Yes (COPD) Hx Family Cancer: Yes (Breast) Hx Family GI Disorders: No Hx Family Endocrine Disorder: No Hx Family Neuromuscular Disorders: No Hx Family Neurologic Disorders: No Hx Family HEENT Disorders: No Hx Family Autoimmune Disorders: No Father Living Status: Still Living Medications and Allergies BuPROPion XL (24 HR) [Wellbutrin Xl] 150 mg PO QAM 04/20/17 [History] Metformin HCl [Metformin HCl ER] 500 mg PO BID 04/20/17 [History] Nitroglycerin [Nitrostat] 0.4 mg SL Q5M PRN 04/20/17 [History] Rosuvastatin [Crestor] 40 mg PO HS 04/20/17 [History] Aspirin 81 mg PO DAILY tab.chew 04/22/17 [Rx] Ranolazine [Ranexa] 1,000 mg PO BID 30 Days #60 tab.er.12h 04/28/17 [Rx] Clopidogrel [Plavix] 75 mg PO DAILY 07/09/17 [History] Ranitidine HCl [Zantac 75] 75 mg PO DAILY PRN 07/10/17 [History] Cholecalciferol (D-3) [Vitamin D] 2,000 unit PO DAILY 08/11/17 [History] Insulin Glargine [Lantus] 40 unit SQ BID 08/11/17 [History] Liraglutide [Victoza 2-Casa] 1.8 mg SQ DAILY 08/11/17 [History] Magnesium Oxide [Mag-Ox] 400 mg PO DAILY #30 tablet 08/13/17 [Rx] Midodrine [ProAmatine] 5 mg PO 0800,1200,1700 30 Days #90 tablet 08/13/17 [Rx] 3 Allergy/AdvReac Type Severity Reaction Status Date / Time No Known Allergies Allergy Verified 02/22/18 08:53 All Systems Review: The remainder of the systems were reviewed and are negative Physical Examination Vital Signs, Last 4 Hours Temp Pulse Resp BP Pulse Ox 02/22/18 06:54 98.4 F 75 16 129/83 98 General: Conversant, No Apparent Distress HEENT: Atraumatic, Normocephaly, Mucus Membranes Moist Neck: No JVD, Normal carotid pulses Cardiac: Reg Rate and Rhythm, Normal S1 and S2, No Murmur Lungs: Normal Breath Sounds, No Wheeze, Rales, Rhonchi Neuro: Alert and responsive, No focal deficits noted Abdomen: Soft, Non-Tender Skin: No rashes noted on visualized skin Musculoskeletal: No Chest Wall Tenderness Extremities: No Clubbing, No Cyanosis, No Edema, Normal Pulses, Other (LLE bigger than right) Results 02/22/18 08:44 02/22/18 08:44 Lab Results 02/22/18 02/22/18 02/22/18 01:59 08:44 08:44 WBC 6.1 Hgb 13.8 Hct 40.6 Plt Count 204 INR 1.2 APTT 43.8 H Sodium Potassium Chloride Carbon Dioxide BUN Creatinine Glucose Calcium Magnesium Total Bilirubin AST ALT Alkaline Phosphatase Troponin I < 0.03 02/22/18 08:44 WBC Hgb Hct Plt Count INR APTT Sodium 131 L Potassium 3.8 Chloride 107 Carbon Dioxide 24 BUN 16 Creatinine 0.73 Glucose 307 H Calcium 8.7 Magnesium 1.4 L Total Bilirubin 0.7 AST 10 L ALT 8 Alkaline Phosphatase 97 Troponin I < 0.03 - Imaging and Cardiology Echo: report reviewed Cardiac cath: report reviewed - EKG Interpretation EKG results cardiology: personally reviewed Consult Discharge Plan - Plan Referrals: Coby Elena MD [Primary Care Provider] - <[email or web address] - Last Filed: 02/22/18 17:39> Date of Encounter: 02/22/18 - Attending Attestation I examined this patient and my medical decision-making was reviewed with the SIX SIGMA BLACK BELT ENGINEER. I agree with the documented findings, disposition and treatment plan as described. 52F presenting for pre-syncopal symptoms. Seen by outpatient Cardiology being treated for orthostatic hypotension. Known ischemic cardiomyopathy. Symptoms on presentation described as "walking to the right, neck pain, chest pain, palpitations, nausea and hiccups". Blood pressure noted to by 68 systolic per report. Patient states that she cannot get out of bed without being symptomatic. Previously on Florinef and now midodrine doing ok on this medication until recently. Vital signs stable NAD at bedside, alert and conversant No remarkable exam findings Labs troponin negative ECG no change from prior. Impression/Plan: 1. Orthostatic hyoptension: Patient describes a constellation of associated symptoms. She doesn't feel like she can even get out of bed without being symptomatic. I've recommended patient undergo a tilt table test and have Neurology evaluate her. 2. Ischemic Cardiomyopathy: LVEF 40%. Have been unable to use guideline directed HF therapy due to symptoms of orthostasis. Relatively euvolemic on exam. Echo pending. 3. CAD: Troponin negative, no acute ECG findings. Suspect patient's chest discomfort may be demand ischemia in setting of hypotension. Assessment and Plan Discussion w patient/family: The assessment and plan as outlined above was discussed with the patient and/or family members who expressed understanding and agreement. All questions were answered. Thank you for involving us in the care of your patient. Please call with any questions. History of Present Illness History of present illness: Ms. Bob is a 52 year old female All Systems Review: The remainder of the systems were reviewed and are negative Physical Examination Vital Signs, Last 4 Hours Temp Pulse Resp BP Pulse Ox 02/22/18 16:27 98.2 F 75 16 133/86 96 Results 02/22/18 08:44 02/22/18 08:44 Lab Results 02/22/18 02/22/18 02/22/18 01:59 08:44 08:44 WBC 6.1 Hgb 13.8 Hct 40.6 Plt Count 204 INR 1.2 APTT 43.8 H Sodium Potassium Chloride Carbon Dioxide BUN Creatinine Glucose Calcium Magnesium Total Bilirubin AST ALT Alkaline Phosphatase Troponin I < 0.03 02/22/18 08:44 WBC Hgb Hct Plt Count INR APTT Sodium 131 L Potassium 3.8 Chloride 107 Carbon Dioxide 24 BUN 16 Creatinine 0.73 Glucose 307 H Calcium 8.7 Magnesium 1.4 L Total Bilirubin 0.7 AST 10 L ALT 8 Alkaline Phosphatase 97 Troponin I < 0.03
[2018-02-22] MEDS ORDERED: Nitroglycerin 0.4 MG TAB.SUBL SL PRN (10:14)
[2018-02-22] MEDS ORDERED: Famotidine 20 MG TABLET PO PRN (10:14)
--- NOTE | 2018-02-22 10:25 | Internal Med Progress Note ---
Hospitalist Progress Note - Encounter Date of Encounter: 02/22/18 Time of Encounter: 10:22 - Subjective Interval History: Patient seen and examined at bedside, continued to report symptoms of weakness, fatigue, dizziness which are exacerbated with position change. She reports that she has been having episodes of orthostatic hypotension since April 2017. During these episodes she is complaining of shortness of breath and midsternal chest discomfort. She denies any loss of consciousness. Plan of care discussed with the patient who verbalized understanding and denies any further questions. - Exam Vitals: Temp Pulse Resp BP Pulse Ox 98.4 F 75 16 129/83 98 02/22/18 06:54 02/22/18 06:54 02/22/18 06:54 02/22/18 06:54 02/22/18 06:54 Exam: PHYSICAL EXAMINATION: GENERAL: The patient is a well-developed, well-nourished female in no apparent distress. She is alert and oriented x3. HEENT: Head is normocephalic and atraumatic. Extraocular muscles are intact. Pupils are equal, round, and reactive to light and accommodation. NECK: Supple. No carotid bruits. No lymphadenopathy or thyromegaly. LUNGS: Clear to auscultation. HEART: Regular rate and rhythm, S1, S2 without murmur rubs or gallops. ABDOMEN: Soft, nontender, and nondistended. Positive bowel sounds. No hepatosplenomegaly was noted. EXTREMITIES: Without any cyanosis, clubbing, rash, lesions or edema. NEUROLOGIC: Without facial droop or slurred speech PSYCHIATRIC: Anxious, denies suicidal or homicidal ideations. SKIN: No ulceration or induration present. Healing wound to left lateral thigh with scar tissue and granulation status post melanoma removal - Assessment and Plan (1) Orthostatic hypotension Current Visit: Yes Status: Chronic Assessment and Plan: Presents with presyncopal symptoms, denies any loss of consciousness This has been occurring since April 2017 Continues to be Positive orthostatic hypotension On Florinef in the past, however recently changed to mid adrenal due to persistent symptoms Continue IV fluid for rehydration Assessment other causes of orthostatic hypotension--cortisol pending Echo pending Cardiology following in consultation--recommendations to continue Midrin at current dose for now--continue with compression stockings [place] precautions--change positions slowly (2) Diabetes Current Visit: Yes Status: Chronic Assessment and Plan: Continue medium sliding scale insulin Add basal insulin coverage Monitor blood glucose and adjust as necessary (3) CAD (coronary artery disease) Current Visit: No Status: Chronic Assessment and Plan: Per history PA with multiple PCI 04/18--PCI to the LAD, 1st dx artery, and RCA Follows with [facility] Complains of intermittent chest pain as well as presyncopal symptoms and shortness of breath which worsened with exertion and position change Known history of postural hypotension--orthostatic vitals positive for postural hypotension during this stay Serial cardiac enzymes negative 3, EKG shows sinus rhythm with no change from prior EKG per my review guest relation officer in consultation-appreciate recommendations. Consider stress test during this stay as patient's hemodynamic status improves (4) Bilateral calf pain Current Visit: Yes Status: Acute Assessment and Plan: Bilateral calf pain, left greater than right Venous Dopplers pending One-time dose of therapeutic Lovenox given (5) DVT prophylaxis Current Visit: Yes Status: Acute Assessment and Plan: Patient with complaints of left calf tenderness--received therapeutic Lovenox 1 Add additional DVT prophylaxis when results of venous Dopplers return - Time Spent with Patient Total time spent is greater than 50% in coordination of care (as documented) at patient's floor/unit and/or counseling patient: 25 - 35 minutes Plan of Care Discussed with: patient Internal Medicine: Result - Labs CBC & Chem 7: 02/22/18 08:44 02/22/18 08:44 Labs: Short CBC 02/22/18 Range/Units 08:44 WBC 6.1 (4.3-11.1) K/mcL Hgb 13.8 (11.5-15.4) g/dL Hct 40.6 (35.3-44.9) % Plt Count 204 (140-400) K/mcL Neutrophils # 3.5 (1.6-8.9) K/mcL BMP 02/22/18 08:44 Sodium 131 L Potassium 3.8 Chloride 107 Carbon Dioxide 24 BUN 16 Creatinine 0.73 Glucose 307 H Calcium 8.7 Cardiac Enzymes 02/22/18 02/22/18 Range/Units 01:59 08:44 Troponin I < 0.03 < 0.03 (< 0.04) ng/mL Liver Function 02/22/18 Range/Units 08:44 Total Bilirubin 0.7 (0.3-1.0) mg/dL AST 10 L (13-39) Units/L ALT 8 (7-52) Units/L Alkaline Phosphatase 97 (34-104) Units/L Albumin 3.4 L (3.5-5.7) g/dL - ABG Interpretation ABG results: PT/INR, D-dimer PT 13.8 Seconds (9.4-12.1) H 02/22/18 08:44 Consult Discharge Plan - Plan Referrals: Coby Elena MD [Primary Care Provider] - (2) Diabetes Qualifiers: Diabetes mellitus type: type 2 Diabetes mellitus [facility] insulin use: with termite treater helper use Diabetes mellitus complication status: with neurologic complications Diabetes mellitus complication detail: with polyneuropathy Qualified Code(s): E11.42 - Type 2 diabetes mellitus with diabetic polyneuropathy; Z79.4 - extermination supervisor (current) use of insulin; Z79.4 - extermination supervisor ( current) use of insulin; Z79.4 - extermination supervisor (current) use of insulin; Z79.4 - detention (current) use of insulin (3) CAD (coronary artery disease) Qualifiers: Coronary Disease-Associated Artery/Lesion type: [place] artery [place] vs. transplanted heart: [place] heart Associated angina: without angina Qualified Code(s): I25.10 - Atherosclerotic heart disease of [place] coronary artery without angina pectoris
[2018-02-22] MEDS: Magnesium Oxide 400 MG TABLET PO SCH (11:58)
[2018-02-22] MEDS: Cholecalciferol (D-3) 1,000 UNIT TABLET PO SCH (11:58)
[2018-02-22] MEDS: BuPROPion XL (24 HR) 150 MG TABLET PO SCH (11:58)
--- NOTE | 2018-02-22 14:20 | Neurology - Consult Note ---
<Jose Goddard T - Last Filed: 02/22/18 13:57> Date of Encounter: 02/22/18 Time of Encounter: 13:35 History of Present Illness Chief complaint: Orthostatic hypotension HPI: Ms. Bob is a 52 year old female with a pmh significant for uncontrolled DM complicated with neuropathy, HLD, anxiety, CAD with multiple IN s/p 4 stent's in Apr 2017 and neurology consulted for presyncopal episodes. She states all of her symptoms began after her IN's this past Apr. She will get blurry vision, dizziness, lightheadedness, SOB, midsternal chest discomfort, and neck pain ~c4 that only occurs when going from sitting to standing. It will last the entire time she is standing up and goes away when sitting back down within 1 min. She has fallen 2-3x but denies any QUIROGA, flushed skin, hot/cold intolerance, syncope, loss of peripheral vision, diplopia, feelings of heart racing or palpitations. Additionally, she says since her IN's in Apr she experiences cool, clammy skin, occasional resting feelings of "heart fluttering", increased N/V, new onset anxiety, photophobia, and a uncontrollable hiccup/belching after episodes. She has constipation/diarrhea but this is not new symptoms. She has been taken off all antihypertensives since first experiencing these episodes and initially started on florinef without relief, switched to midodrine 3-4 months ago which initially resolved her symptoms for last couple months but since Monday it has not helped. 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 In the ED she was given IV fluids and still had positive orthostasis. She was admitted and received additional IV fluids but still experiencing symptoms when standing. Her HR since arrival has ranged from 75-104 and glucose was 493 last night and 307 today. She admitted she does not control it at home and 300's is her normal. Past Med Surg Social Fam HX - Past Medical History Medical history: arthritis, cancer (melanoma), cardiomyopathy, coronary artery disease, diabetes, hyperlipidemia, hypertension, myocardial infarction, other Additional medical history: orthostatic hypotension, melanoma Psychiatric history: anxiety, depression - Past Surgical History Surgical History: , cholecystectomy, other Additional surgical history: heart cath on 04-08-2017 with 1-stent to LAD - Social History Smoking Status: Former smoker Smokeless Tobacco Status: No Alcohol use: none Drug use: none - Family History Mother Living Status: Hx Family Cardiac Disorders: Yes (bypass, CAD, IN) Hx Family Respiratory Disorders: Yes (COPD) Hx Family Cancer: Yes (Breast) Hx Family GI Disorders: No Hx Family Endocrine Disorder: No Hx Family Neuromuscular Disorders: No Hx Family Neurologic Disorders: No Hx Family HEENT Disorders: No Hx Family Autoimmune Disorders: No Father Living Status: Still Living Medications and Allergies BuPROPion XL (24 HR) [Wellbutrin Xl] 150 mg PO QAM 04/20/17 [History] Metformin HCl [Metformin HCl ER] 500 mg PO BID 04/20/17 [History] Nitroglycerin [Nitrostat] 0.4 mg SL Q5M PRN 04/20/17 [History] Rosuvastatin [Crestor] 40 mg PO HS 04/20/17 [History] Aspirin 81 mg PO DAILY tab.chew 04/22/17 [Rx] Ranolazine [Ranexa] 1,000 mg PO BID 30 Days #60 tab.er.12h 04/28/17 [Rx] Clopidogrel [Plavix] 75 mg PO DAILY 07/09/17 [History] Ranitidine HCl [Zantac 75] 75 mg PO DAILY PRN 07/10/17 [History] Cholecalciferol (D-3) [Vitamin D] 2,000 unit PO DAILY 08/11/17 [History] Insulin Glargine [Lantus] 40 unit SQ BID 08/11/17 [History] Liraglutide [Victoza 2-Casa] 1.8 mg SQ DAILY 08/11/17 [History] Magnesium Oxide [Mag-Ox] 400 mg PO DAILY #30 tablet 08/13/17 [Rx] Midodrine [ProAmatine] 5 mg PO 0800,1200,1700 30 Days #90 tablet 08/13/17 [Rx] 3 Allergy/AdvReac Type Severity Reaction Status Date / Time No Known Allergies Allergy Verified 02/22/18 08:53 All Systems: The remainder of the systems were reviewed and are negative Physical Examination - Vital Signs Vital Signs: Initial Vital Signs Temp Pulse Resp BP Pulse Ox 98.1 F 97 16 108/72 99 02/21/18 20:28 08/22/18 20:28 02/21/18 20:28 02/21/18 20:28 02/21/18 20:28 - Constitutional General appearance: comfortable - Neurologic Sensorimotor examination: intact Detailed motor examination: full strength in all major muscle groups Detailed sensory examination: temperature (Some decreased temp sensation in stocking pattern improving midcalf bilaterally ), vibration (elicited more of pain response bilateral feet ) Mental Status Examination: awake, alert, oriented to person, oriented to place, oriented to time, follows commands appropriately, answers questions appropriately, no aphasia Cranial nerve examination: PERRL, EOMI, visual simms intact, sensory to face intact, mastication intact, no facial asymmetry is present, no dysarthria, hearing is intact symmetrically, soft palate elevates bilaterally upon phonation , flexes SCM and trapezius muscles symmetrically with full power, tongue protrudes midline, no atrophy or facial fasiculations present Cerebellar examination: no dysmetria Results - Laboratory Findings CBC and BMP: 02/22/18 08:44 02/22/18 08:44 Abnormal lab findings: Abnormal lab results PT 13.8 Seconds (9.4-12.1) H 02/22/18 08:44 APTT 43.8 Seconds (26.0-36.0) H 02/22/18 08:44 VBG pH 7.43 pH Units (7.32-7.42) H 02/21/18 23:09 VBG pCO2 38 mmHg (41-51) L 02/21/18 23:09 VBG pO2 61 mmHg (25-50) H 02/21/18 23:09 Sodium 131 mEq/L (136-145) L 02/22/18 08:44 Glucose 307 mg/dL (70-105) H 02/22/18 08:44 POC Glucose 270 mg/dL (70-99) H 02/22/18 08:06 Magnesium 1.4 mg/dL (1.6-2.6) L 02/22/18 08:44 AST 10 Units/L (13-39) L 02/22/18 08:44 Serum Total Protein 6.3 g/dL (6.4-8.9) L 02/22/18 08:44 Albumin 3.4 g/dL (3.5-5.7) L 02/22/18 08:44 Triglycerides 152 mg/dL (< 150) H 02/22/18 08:44 HDL Cholesterol 31 mg/dL (40-59) L 02/22/18 08:44 Ur Specific [place] > 1.030 (1.010-1.025) H 02/21/18 21:37 Urine Protein 30 mg/dL (Neg-Trace) H 02/21/18 21:37 Urine Glucose (UA) >=1000 mg/dL (Normal) H 02/21/18 21:37 Urine Urobilinogen 4.0 mg/dL (Normal) H 02/21/18 21:37 Urine Microscopic WBC 15-30 per hpf (0-3) H 02/21/18 21:37 Ur Squamous Epith Cells Many per lpf (None-Few) H 02/21/18 21:37 Consult Discharge Plan - Plan Referrals: Coby Elena MD [Primary Care Provider] - <Miguel Toribio - Last Filed: 02/22/18 17:24> Date of Encounter: 02/22/18 Time of Encounter: 17:10 Assessment and Plan (1) Orthostatic hypotension Current Visit: No Status: Acute Patient clearly has orthostatic hypotension. I am not certain however that this is due to dysautonomia. Patient lacks other autonomic instability with regard to other organs such as the bladder, eyes, anal sphincter and cardiac function. Her heart rate increases appropriately when she becomes hypotensive. I agree with doing a tilt table test. If this seems to be a vasodepressive component than perhaps SSRIs might help. History of Present Illness HPI: Chart was reviewed, patient was seen and examined independently. Case is discussed with Dr. Goddard. Ms. Bob is a 52 year old female who is seen for neurologic consultation secondary to syncope and to rule out dysautonomia. Patient does not have widespread dysautonomia however. She has no bladder or bowel incontinence, no pupillary abnormalities. She does however have significant intolerance to changes in position. She has no parkinsonian features. All Systems: The remainder of the systems were reviewed and are negative Review of Systems: The balance of the systems review was all negative. Physical Examination - Vital Signs Vital Signs: Initial Vital Signs Temp Pulse Resp BP Pulse Ox 98.1 F 97 16 108/72 99 02/21/18 20:28 02/21/18 20:28 02/21/18 20:28 02/21/18 20:28 02/21/18 20:28 - Neurologic Detailed sensory examination: position sense (Proprioception is largely intact of the small joints distally.) Reflex and gait examination: other (Deep tendon reflexes are absent throughout. No long tract signs are present.) Results - Laboratory Findings CBC and BMP: 02/22/18 08:44 02/22/18 08:44 Abnormal lab findings: Abnormal lab results PT 13.8 Seconds (9.4-12.1) H 02/22/18 08:44 APTT 43.8 Seconds (26.0-36.0) H 02/22/18 08:44 VBG pH 7.43 pH Units (7.32-7.42) H 02/21/18 23:09 VBG pCO2 38 mmHg (41-51) L 02/21/18 23:09 VBG pO2 61 mmHg (25-50) H 02/21/18 23:09 Sodium 131 mEq/L (136-145) L 02/22/18 08:44 Glucose 307 mg/dL (70-105) H 02/22/18 08:44 POC Glucose 303 mg/dL (70-99) H 02/22/18 16:26 Magnesium 1.4 mg/dL (1.6-2.6) L 02/22/18 08:44 AST 10 Units/L (13-39) L 02/22/18 08:44 Serum Total Protein 6.3 g/dL (6.4-8.9) L 02/22/18 08:44 Albumin 3.4 g/dL (3.5-5.7) L 02/22/18 08:44 Triglycerides 152 mg/dL (< 150) H 02/22/18 08:44 HDL Cholesterol 31 mg/dL (40-59) L 02/22/18 08:44 Ur Specific [place] > 1.030 (1.010-1.025) H 02/21/18 21:37 Urine Protein 30 mg/dL (Neg-Trace) H 02/21/18 21:37 Urine Glucose (UA) >=1000 mg/dL (Normal) H 02/21/18 21:37 Urine Urobilinogen 4.0 mg/dL (Normal) H 02/21/18 21:37 Urine Microscopic WBC 15-30 per hpf (0-3) H 02/21/18 21:37 Ur Squamous Epith Cells Many per lpf (None-Few) H 02/21/18 21:37
[2018-02-22] MEDS: *HR* Enoxaparin 100 MG/ML SYRINGE SQ SCH (17:45)
[2018-02-22] MEDS ORDERED: Perflutren Lipid Microsphere 1.3 ML in 0.9 % Sodium Chloride 8.7 ML IVP ONE (19:47)
[2018-02-22] MEDS ORDERED: Insulin LISPRO 300 UNITS/3 ML VIAL SQ SCH (21:00)
[2018-02-22] MEDS: Insulin DETEMIR 100 UNIT/ML X5UNITS SQ SCH (22:29)
[2018-02-23] MEDS: 0.9 % Sodium Chloride 1,000 ML IVC SCH ×4 (03:31→15:18)
[2018-02-23] MEDS: *HR* Enoxaparin 100 MG/ML SYRINGE SQ SCH (05:39)
[2018-02-23 05:46] LABS: BUN/Creatinine Ratio 16 (6-26); Blood Urea Nitrogen 12 mg/dL (6-20); Calcium 8.4 mg/dL (8.6-10.3); Carbon Dioxide 26 mEq/L (23-29); Chloride 107 mEq/L (98-107); Glucose 248 mg/dL (70-105); Osmolality,Calculated 296 (280-300); Potassium 3.8 mEq/L (3.5-5.1); Sodium 139 mEq/L (136-145); eGFR For Non-African Americans > 60 (> 60)
[2018-02-23] MEDS: Insulin LISPRO 300 UNITS/3 ML VIAL SQ SCH ×3 (07:57→11:25)
[2018-02-23] MEDS: Magnesium Oxide 400 MG TABLET PO SCH (07:58)
[2018-02-23] MEDS: Cholecalciferol (D-3) 1,000 UNIT TABLET PO SCH (07:58)
[2018-02-23] MEDS: Ranolazine 500 MG TAB.ER.12H PO SCH ×2 (07:58→09:16)
[2018-02-23] MEDS: BuPROPion XL (24 HR) 150 MG TABLET PO SCH ×2 (07:58→09:16)
[2018-02-23] MEDS: Aspirin 81 MG TAB.CHEW PO SCH ×2 (07:58→09:15)
[2018-02-23] MEDS: Insulin DETEMIR 100 UNIT/ML X5UNITS SQ SCH (09:15)
--- NOTE | 2018-02-23 09:17 | Neurology Progress Note ---
<Jose Goddard T - Last Filed: 02/23/18 10:48> Date of Encounter: 02/23/18 Time of Encounter: 09:00 Assessment and Plan (1) Orthostatic hypotension Current Visit: No Status: Acute She continues to have symptoms of orthostasis. She feels somewhat better today. Still on midodrine. Adrenal labs insignificant. She had tilt table this morning and awaiting results. Her BP has been stable overnight when laying. No change on neuro exam. Do not think it is a primary nervous system origin. She has some LE sensory deficits but not as severe as expected in a diabetic autonomic neuropathy. Additional symptoms all seem attributable to rapid drop in BP not from dysautonomia. Cardiology following also. Will review tilt table when available. Subjective Principal diagnosis: orthostatic hypotension Interval history: She says she is still having orthostasis symptoms today but not as severe as yesterday. She had tilt table this morning and said she was having symptoms during. She continues to have no symptoms when laying down or sitting. No new complaints today. Objective - Constitutional Vitals: Temp Pulse Resp BP Pulse Ox 98.0 F 79 20 122/75 97 02/23/18 06:50 02/23/18 06:50 02/23/18 06:50 02/23/18 06:50 02/23/18 06:50 General appearance: Present: cooperative, no acute distress, answers questions appropriately - Neurological Exam Sensorimotor examination: Present: intact Motor Examination: Present: full strength in all major muscle groups Sensation intact: Present: intact Mental Status Examination: Present: awake, alert, oriented to person, oriented to place, oriented to time, follows commands appropriately, answers questions appropriately, no aphasia Cranial nerve examination: Present: PERRL, EOMI, visual simms intact, sensory to face intact, mastication intact, no facial asymmetry is present, no dysarthria, hearing is intact symmetrically, soft palate elevates bilaterally upon phonation, flexes SCM and trapezius muscles symmetrically with full power, tongue protrudes midline, no atrophy or facial fasiculations present Cerebellar examination: Present: no dysmetria Results - Laboratory Findings CBC and BMP: 02/22/18 08:44 02/23/18 04:16 Abnormal lab findings: Abnormal lab results PT 13.8 Seconds (9.4-12.1) H 02/22/18 08:44 APTT 43.8 Seconds (26.0-36.0) H 02/22/18 08:44 VBG pH 7.43 pH Units (7.32-7.42) H 02/21/18 23:09 VBG pCO2 38 mmHg (41-51) L 02/21/18 23:09 VBG pO2 61 mmHg (25-50) H 02/21/18 23:09 Glucose 248 mg/dL (70-105) H 02/23/18 04:16 POC Glucose 317 mg/dL (70-99) H 02/22/18 20:20 Calcium 8.4 mg/dL (8.6-10.3) L 02/23/18 04:16 Magnesium 1.4 mg/dL (1.6-2.6) L 02/22/18 08:44 AST 10 Units/L (13-39) L 02/22/18 08:44 Serum Total Protein 6.3 g/dL (6.4-8.9) L 02/22/18 08:44 Albumin 3.4 g/dL (3.5-5.7) L 02/22/18 08:44 Triglycerides 152 mg/dL (< 150) H 02/22/18 08:44 HDL Cholesterol 31 mg/dL (40-59) L 02/22/18 08:44 Ur Specific [place] > 1.030 (1.010-1.025) H 02/21/18 21:37 Urine Protein 30 mg/dL (Neg-Trace) H 02/21/18 21:37 Urine Glucose (UA) >=1000 mg/dL (Normal) H 02/21/18 21:37 Urine Urobilinogen 4.0 mg/dL (Normal) H 02/21/18 21:37 Urine Microscopic WBC 15-30 per hpf (0-3) H 02/21/18 21:37 Ur Squamous Epith Cells Many per lpf (None-Few) H 02/21/18 21:37 Consult Discharge Plan - Plan Instructions: Diabetes Mellitus Type 2 in Adults (DC) Referrals: Coby Elena MD [Primary Care Provider] - 03/01/18 9:40 am Prescriptions: Midodrine [ProAmatine] 10 mg PO 0800,1200,1700 30 Days #180 tablet <Miguel Toribio - Last Filed: 02/23/18 14:41> Date of Encounter: 02/23/18 Time of Encounter: 14:39 Assessment and Plan (1) Orthostatic hypotension Current Visit: No Status: Acute I agree with Dr. Goddard's assessment as stated above. I did see her today and examined independently. Her neurologic examination remains normal. Not convinced that she has a primary dysautonomia. I will reevaluate her at your request. Subjective Interval history: As above. The chart was reviewed, patient was seen and examined independently. I agree with Dr. Goddard's assessment as above. Patient today feels somewhat better than yesterday. However she did become symptomatic during the tilt table test. Objective - Constitutional Vitals: Temp Pulse Resp BP Pulse Ox 97.7 F 82 20 132/83 96 02/23/18 11:30 02/23/18 11:30 02/23/18 11:30 02/23/18 11:30 02/23/18 11:30 Results - Laboratory Findings CBC and BMP: 02/22/18 08:44 02/23/18 04:16 Abnormal lab findings: Abnormal lab results PT 13.8 Seconds (9.4-12.1) H 02/22/18 08:44 APTT 43.8 Seconds (26.0-36.0) H 02/22/18 08:44 VBG pH 7.43 pH Units (7.32-7.42) H 02/21/18 23:09 VBG pCO2 38 mmHg (41-51) L 02/21/18 23:09 VBG pO2 61 mmHg (25-50) H 02/21/18 23:09 Glucose 248 mg/dL (70-105) H 02/23/18 04:16 POC Glucose 241 mg/dL (70-99) H 02/23/18 11:24 Calcium 8.4 mg/dL (8.6-10.3) L 02/23/18 04:16 Magnesium 1.4 mg/dL (1.6-2.6) L 02/22/18 08:44 AST 10 Units/L (13-39) L 02/22/18 08:44 Serum Total Protein 6.3 g/dL (6.4-8.9) L 02/22/18 08:44 Albumin 3.4 g/dL (3.5-5.7) L 02/22/18 08:44 Triglycerides 152 mg/dL (< 150) H 02/22/18 08:44 HDL Cholesterol 31 mg/dL (40-59) L 02/22/18 08:44 Ur Specific [place] > 1.030 (1.010-1.025) H 02/21/18 21:37 Urine Protein 30 mg/dL (Neg-Trace) H 02/21/18 21:37 Urine Glucose (UA) >=1000 mg/dL (Normal) H 02/21/18 21:37 Urine Urobilinogen 4.0 mg/dL (Normal) H 02/21/18 21:37 Urine Microscopic WBC 15-30 per hpf (0-3) H 02/21/18 21:37 Ur Squamous Epith Cells Many per lpf (None-Few) H 02/21/18 21:37
[2018-02-23 11:49] VITALS: BP 122/75
--- NOTE | 2018-02-23 12:51 | Cardiology Progress Note ---
Date of Encounter: 02/23/18 Time of Encounter: 12:47 Assessment and Plan (1) Orthostatic hypotension Current Visit: Yes Status: Chronic Presents with presyncopal symptoms. Positive orthostatic vitals. Known history of othostatic hypotension since April 2017. On florinef in past and changed to midodrine due to continued symptoms. Repeat TTE shows EF 40-45%, mild MR, no pericardial effusion. Tilt table positive for orthostatic hypotension but not as severe as on admission. Cortisol test was negative. Neurology evaluated and does not feel it is an autonomic nueralgia. Appreciate consult. Continue liberal fluid intake and some salt intake. IV fluids and compression stockings as you are doing. Slow position changes. Discussed with Dr. Hyatt. We will increase midodrine to 10 mg TID during daytime hours. Patient agrees with plan. Out-pt f/u. Please call with questions. Cardiology will coordinate out-pt f/u. (2) Systolic CHF Current Visit: No Status: Chronic H/o ICMP, EF 40% on TTE 04/2017. Currently euvolemic. Re-peat TTE pending. Unable to tolerate GDMT aith bb and aceI due to orthostatic hypotension. Qualifiers: Qualified Code(s): I50.22 - Chronic systolic (congestive) heart failure (3) CAD (coronary artery disease) Current Visit: No Status: Chronic H/o [place] and multiple PCI 04/2017. She underwent 4 LHC at that time and received PCI to the LAD, 1st dx artery, and RCA. C/o intermittent chest pain usually with pre-syncopal symptoms. Consider stress test out-pt if symptoms continue. Chest discomfort may be related to low b/p. Troponin negative x3. EKG shows SR with no change from prior EKG. Qualifiers: Coronary Disease-Associated Artery/Lesion type: [place] artery [place] vs. transplanted heart: [place] heart Associated angina: without angina Qualified Code(s): I25.10 - Atherosclerotic heart disease of [place] coronary artery without angina pectoris (4) Pericardial effusion Current Visit: No Status: Chronic H/o small pericardial effusion. Re-peat TTE pending. Discussion w patient/family: The assessment and plan as outlined above was discussed with the patient and/or family members who expressed understanding and agreement. All questions were answered. Thank you for involving us in the care of your patient. Please call with any questions. Subjective Principal diagnosis: orthostatic hypotension Interval history: Ms. Bob underwent tilt table test this morning with c/o clammy feeling during test. Reports symptoms have improved sine admission. Objective Vital Signs, Last 4 Hours Temp Pulse Resp BP Pulse Ox 02/23/18 11:30 97.7 F 82 20 132/83 96 General: Conversant, No Apparent Distress HEENT: Atraumatic, Normocephaly, Mucus Membranes Moist Neck: No JVD, Normal carotid pulses Cardiac: Reg Rate and Rhythm, Normal S1 and S2, No Murmur Lungs: Normal Breath Sounds, No Wheeze, Rales, Rhonchi Neuro: Alert and responsive, No focal deficits noted Abdomen: Soft, Non-Tender Skin: No rashes noted on visualized skin Musculoskeletal: No Chest Wall Tenderness Extremities: No Clubbing, No Cyanosis, No Edema, Normal Pulses Results 02/22/18 08:44 02/23/18 04:16 Lab Results 02/23/18 04:16 Sodium 139 Potassium 3.8 Chloride 107 Carbon Dioxide 26 BUN 12 Creatinine 0.73 Glucose 248 H Calcium 8.4 L - Imaging and Cardiology Echo: report reviewed - EKG Interpretation EKG results cardiology: personally reviewed Consult Discharge Plan - Plan Referrals: Coby Elena MD [Primary Care Provider] -
--- NOTE | 2018-02-23 14:06 | Discharge Summary ---
- NOTES TO OUTPATIENT PROVIDER Notes to Outpatient Provider: History of orthostatic hypotension, near syncope prompting admission. Positive tilt table test. Midodrine dose increased per cardiology. Please follow-up and assess patient's status following midodrine dose increased. Orders not resulted at time of discharge: Pending orders 02/22/18 06:00 ECG 12 lead ECG [ECG] AM 0600 02/24/18 04:00 Basic Metabolic Panel AM 0400 02/25/18 04:00 Basic Metabolic Panel AM 0400 Date of Encounter: 02/23/18 Time of Encounter: 14:03 - Discharge Diagnosis (1) Orthostatic hypotension Priority: Primary Status: Chronic (2) Diabetes Priority: Secondary Status: Chronic Qualifiers: Diabetes mellitus type: type 2 Diabetes mellitus [facility] insulin use: with [facility] use Diabetes mellitus complication status: with neurologic complications Diabetes mellitus complication detail: with polyneuropathy Qualified Code(s): E11.42 - Type 2 diabetes mellitus with diabetic polyneuropathy; 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 transplanted heart: [place] heart Associated angina: without angina Qualified Code(s): I25.10 - Atherosclerotic heart disease of [place] coronary artery without angina pectoris (4) Bilateral calf pain Priority: Secondary Status: Acute (5) DVT prophylaxis Priority: Secondary Status: Acute Hospital course: Ms. Bob is a 52 year old female who presented with symptoms of presyncope. No known history of orthostatic hypotension. During admission had positive tilt table testing which shows that her orthostasis has actually improved since admission. Her midodrine dose was increased from 5 mg to 10 mg daily. She is to have outpatient follow-up with cardiology. Cardiology to schedule. Discharge discussed with: patient, family, nurse, personal consultant - Time Spent with Patient Total time spent providing and/or coordinating discharge services: Less than 30 minutes - Discharge Medications Prescriptions: Midodrine [ProAmatine] 10 mg PO 0800,1200,1700 30 Days #180 tablet Home Medications: BuPROPion XL (24 HR) [Wellbutrin Xl] 150 mg PO QAM 04/20/17 [History] Metformin HCl [Metformin HCl ER] 500 mg PO BID 04/20/17 [History] Nitroglycerin [Nitrostat] 0.4 mg SL Q5M PRN 04/20/17 [History] Rosuvastatin [Crestor] 40 mg PO HS 04/20/17 [History] Aspirin 81 mg PO DAILY tab.chew 04/22/17 [Rx] Ranolazine [Ranexa] 1,000 mg PO BID 30 Days #60 tab.er.12h 04/28/17 [Rx] Clopidogrel [Plavix] 75 mg PO DAILY 07/09/17 [History] Ranitidine HCl [Zantac 75] 75 mg PO DAILY PRN 07/10/17 [History] Cholecalciferol (D-3) [Vitamin D] 2,000 unit PO DAILY 08/11/17 [History] Insulin Glargine [Lantus] 40 unit SQ BID 08/11/17 [History] Liraglutide [Victoza 2-Casa] 1.8 mg SQ DAILY 08/11/17 [History] Magnesium Oxide [Mag-Ox] 400 mg PO DAILY #30 tablet 08/13/17 [Rx] Midodrine [ProAmatine] 10 mg PO 0800,1200,1700 30 Days #180 tablet 02/23/18 [Rx] Allergies/Adverse Reactions: 3 Allergy/AdvReac Type Severity Reaction Status Date / Time No Known Allergies Allergy Verified 02/22/18 08:53 Date of admission: 02/22/18 00:32 Primary care physician: Coby Elena MD Consults: 02/22/18 01:26 Consult to Physician [CONS] Routine Consulting Provider: Jake Talavera Reason for Consult: near syncope; orthostatic hypotension; recent IN Call Completed: No 02/22/18 12:35 Consult to Neurology [CONS] Routine Consulting Provider: Neurology [facility] Reason for Consult: near syncope, r/o autonomic dysfunction Call Completed: Yes Discharging clinician: Jeremy Ocasio Anticipated date of discharge: 02/23/18 - Constitutional Vitals: Temp Pulse Resp BP Pulse Ox 97.7 F 82 20 132/83 96 02/23/18 11:30 02/23/18 11:30 08/24/18 11:30 02/23/18 11:30 02/23/18 11:30 General appearance: Present: cooperative, A&O X 3, pleasant, answers questions appropriately Exam: PHYSICAL EXAMINATION: GENERAL: The patient is a well-developed, well-nourished female in no apparent distress. She is alert and oriented x3. HEENT: Head is normocephalic and atraumatic. Extraocular muscles are intact. Pupils are equal, round, and reactive to light and accommodation. NECK: Supple. No carotid bruits. No lymphadenopathy or thyromegaly. LUNGS: Clear to auscultation. HEART: RRR, S1, S2 without murmur rubs or gallops. ABDOMEN: Soft, nontender, and nondistended. Positive bowel sounds. No hepatosplenomegaly was noted. EXTREMITIES: Without any cyanosis, clubbing, rash, lesions or edema. NEUROLOGIC: Without facial droop or slurred speech PSYCHIATRIC: Anxious, denies suicidal or homicidal ideations. SKIN: No ulceration or induration present. Healing wound to left lateral thigh with scar tissue and granulation status post melanoma removal - Patient Status Disposition: Home, Self-Care Condition: Good Functional capacity at discharge: independent ambulation Overall status at discharge: patient is progressing back to baseline - Discharge Instructions Instructions: Diabetes Mellitus Type 2 in Adults (DC) Follow Up With: Coby Elena MD [Primary Care Provider] - - Diet and Activity Activity: increase activity as tolerated, resume usual activities as tolerated Diet: advance to your usual diet
== END 2018-02-23 16:14 | disposition home or self-care (01) ==
LOC: EMEROOARM 20:23 → 3BNU 20:23
PROVIDERS: ADMIT Internal Medicine; ATTEND Internal Medicine

== ENCOUNTER 2018-11-27 16:51 | Inpatient (IN) ==
[2018-11-27] MEDS ORDERED: cefTRIAXone 1,000 MG in Water for inj. (sterile) 20 ML 10 ML IVP ONE ×2 (17:02→23:10)
--- NOTE | 2018-11-27 17:16 | Emergency Department Note ---
Disposition Clinical Impression: Hyperglycemia, Dehydration, Pyelonephritis Urinary tract infection Qualifiers: Urinary tract infection type: acute cystitis Hematuria presence: with hematuria Qualified Code(s): N30.01 - Acute cystitis with hematuria Disposition: Admitted As Inpatient Condition: Fair Referrals: Coby Elena MD [Primary Care Provider] - Forms: ED Satisfaction Letter Time of Disposition: 20:05 General Adult HPI - General Chief complaint: ED Urogenital-Female Stated complaint: "UTI", nausea Time Seen by Provider: 11/27/18 16:56 Source: patient Mode of arrival: ambulatory Limitations: no limitations Nursing Notes Reviewed: Yes Vital Signs Reviewed: Yes - History of Present Illness HPI Narrative: 53-year-old female with significant past medical history of multiple stent placements in the past last one being 2 years ago currently on aspirin presenting to the emergency department chief complaint of urinary symptoms and vomiting. According to the patient the last 7 days she has had urinary symptoms including frequency and dysuria. She did not see a physician because she does not have insurance. She tried [id number] Azo but symptoms progressed. For the past 2 days she has had nausea and vomiting multiple times a day. She also started to have lower back pain mostly on the left side. She states that she also has some intermittent chest pain that she thinks is associated with the vomiting. Denies any shortness of breath. Pain Scale: 7 - Related Data Home Medications Medication Instructions Recorded Confirmed Nitroglycerin [Nitrostat] 0.4 mg SL Q5M PRN 04/20/17 05/08/18 Rosuvastatin [Crestor] 40 mg PO HS 04/20/17 05/08/18 Clopidogrel [Plavix] 75 mg PO DAILY 07/09/17 05/08/18 Ranitidine HCl [Zantac 75] 75 mg PO DAILY PRN 07/10/17 05/08/18 Cholecalciferol (D-3) [Vitamin D] 2,000 unit PO DAILY 08/11/17 05/08/18 Fludrocortisone Acetate [Florinef] 0.5 mg PO DAILY 05/08/18 05/08/18 Semaglutide [Ozempic] 0.5 mg SQ QWEEK 05/08/18 05/08/18 Sodium Chloride [Sodium Chloride 1 gm PO BID 05/08/18 05/08/18 Tab] Subcutaneous Insulin Pump [T:Slim] 1 each SQ AD 05/08/18 05/08/18 Previous Rx's Medication Instructions Recorded Aspirin 81 mg PO DAILY tab.chew 04/22/17 Magnesium Oxide [Mag-Ox] 400 mg PO DAILY #30 tablet 08/13/17 Midodrine [ProAmatine] 10 mg PO 0800,1200,1700 30 Days 02/23/18 #180 tablet Isosorbide MONOnitrate (24 HR) 30 mg PO DAILY #30 tab.er.24h 05/08/18 [Imdur] Allergies Allergy/AdvReac Type Severity Reaction Status Date / Time No Known Allergies Allergy Verified 11/27/18 16:54 All systems ED: reviewed and negative except as stated. Constitutional: Reports: fever Eyes: Reports: as per HPI ENT ED: Reports: as per HPI Cardiovascular: Reports: chest pain Respiratory: Denies: dyspnea Gastrointestinal: Reports: nausea, vomiting Genitourinary: Reports: dysuria, frequency Musculoskeletal: Reports: as per HPI Integumentary: Reports: as per HPI Neurological: Reports: as per HPI Psychiatric: Reports: as per HPI Endocrine: Reports: as per HPI Hematological/Lymphatic: Reports: as per HPI Allergic/Immunologic: Reports: as per HPI Past Medical History - Past Medical History Attestation: Yes The following information was validated with the patient. Medical history: Reports: arthritis, cancer, cardiomyopathy, coronary artery disease, diabetes, hyperlipidemia, hypertension, myocardial infarction, other Surgical history: Reports: , cholecystectomy, other Psychiatric history: Reports: anxiety, depression DIRECTOR HEALTH history: Reports: no DIRECTOR HEALTH history - Social History Smoking Status: Current every day smoker Smokeless Tobacco Status: No Alcohol use: Reports: none Drug use: Reports: none Physical Exam - General Limitations: no limitations General appearance: alert, in no apparent distress - Head Head exam: atraumatic, normocephalic, normal inspection - Eye Eye exam: Absent: scleral icterus - ENT ENT exam: mucous membranes dry - Neck Neck exam: Present: full ROM - Chest Chest inspection: Present: symmetric chest wall rise - Respiratory Respiratory exam: Present: normal lung sounds bilaterally. Absent: respiratory distress, wheezes - Cardiovascular Cardiovascular exam: Present: normal rhythm, tachycardia, normal heart sounds - Abdominal Exam Abdominal exam: Present: soft, tenderness. Absent: distention, guarding, rebound Abdominal tenderness: Present: suprapubic, mild - Extremities Exam Extremities exam: Present: full ROM - Back Exam Back exam: Present: CVA tenderness (L). Absent: CVA tenderness (R) - Neurological Exam Neurological exam: Present: alert, oriented X3 - Psychiatric Psychiatric exam: Present: normal affect, normal mood - Skin Skin exam: Present: warm Course Course Narrative: 53-year-old female presenting to the emergency room if her urinary symptoms and vomiting. In the room she is alert and oriented 3. She is mildly tachycardic in the low 100s and febrile 100.4. Patient has some suprapubic abdominal pain but otherwise physical exam shows some dry mucous membranes and tachycardia. At this time concern for sepsis due to UTI. We will obtain basic laboratory analysis, blood cultures provide the patient with 2 L of fluid and ceftriaxone. Disposition most likely admission but pending results. Patient agrees this plan. Vital Signs Temperature 100.4 F H 11/27/18 16:55 Pulse Rate 111 11/27/18 16:55 Respiratory Rate 18 11/27/18 16:55 Blood Pressure 113/64 11/27/18 16:55 O2 Sat by Pulse Oximetry 97 11/27/18 16:55 Temperature 100.4 F H 11/27/18 17:03 Pulse Rate 94 11/27/18 17:45 Respiratory Rate 19 11/27/18 17:45 Blood Pressure 139/69 11/27/18 17:45 O2 Sat by Pulse Oximetry 98 11/27/18 17:45 Oxygen Delivery Oxygen Delivery Room Air Medical Decision Making - Lab Data Result diagrams: 11/27/18 17:34 11/27/18 17:34 Lab Results 11/27/18 11/27/18 11/27/18 Range/Units 17:34 17:34 17:34 WBC 7.6 (4.3-11.1) K/mcL RBC 4.49 (3.82-4.97) M/mcL Hgb 13.1 (11.5-15.4) g/dL Hct 38.5 (35.3-44.9) % MCV 85.7 (83.0-100.0) fL MCH 29.2 (28.0-33.3) pg MCHC 34.0 (31.6-35.5) g/dL RDW 12.2 (11.5-14.5) % Plt Count 218 (140-400) K/mcL MPV 10.0 (9.4-12.4) fL Immature Gran % 0.8 (0-4) % Seg Neutrophils % 86.5 % Lymphocytes % 6.4 % Monocytes % 6.2 % Eosinophils % 0.0 % Basophils % 0.1 % Neutrophils # 6.6 (1.6-8.9) K/mcL Lymphocytes # 0.5 L (0.6-4.6) K/mcL Monocytes # 0.5 (0.0-1.3) K/mcL Eosinophils # 0.0 (0.0-0.6) K/mcL Basophils # 0.0 (0.0-0.2) K/mcL VBG pH (7.32-7.42) pH Units VBG pCO2 (41-51) mmHg VBG pO2 (25-50) mmHg VBG HCO3 (21-27) mEq/L Sodium 130 L (136-145) mEq/L Potassium 3.8 (3.5-5.1) mEq/L Chloride 94 L (98-107) mEq/L Carbon Dioxide 23 (23-29) mEq/L BUN 19 (6-20) mg/dL Creatinine 0.87 (0.60-1.20) mg/dL Est GFR ( Amer) > 60 (> 60) Est GFR (Non-Af Amer) > 60 (> 60) BUN/Creatinine Ratio 22 (6-26) Glucose 414 H (70-105) mg/dL Calculated Osmolality 290 (280-300) Lactic Acid 2.0 (0.5-2.2) mmol/L Calcium 8.8 (8.6-10.3) mg/dL Magnesium 1.5 L (1.6-2.6) mg/dL Total Bilirubin 1.1 H (0.3-1.0) mg/dL Direct Bilirubin 0.4 H (0.0-0.2) mg/dL Indirect Bilirubin 0.7 (0.0-1.2) mg/dL AST 10 L (13-39) Units/L ALT 9 (7-52) Units/L Alkaline Phosphatase 134 H (34-104) Units/L Troponin I 0.03 (< 0.04) ng/mL Serum Total Protein 6.9 (6.4-8.9) g/dL Albumin 3.4 L (3.5-5.7) g/dL Globulin 3.5 (2.4-3.5) g/dL Albumin/Globulin Ratio 1.0 L (1.1-2.2) Beta-Hydroxybutyric Acd (0.02-0.27) mmol/L Urine Color (Yellow) Urine Clarity (Clear) Urine pH (5.0-8.0) pH Units Ur Specific [place] (1.010-1.025) Urine Protein (Neg-Trace) mg/dL Urine Glucose (UA) (Normal) mg/dL Urine Ketones (Negative) mg/dL Urine Blood (Negative) Urine Nitrite (Negative) Urine Bilirubin (Negative) Urine Urobilinogen (Normal) mg/dL Ur Leukocyte Esterase (Negative) Urine Microscopic RBC (0-3) per hpf Urine Microscopic WBC (0-3) per hpf Ur Squamous Epith Cells (None-Few) per lpf Urine Bacteria (None-Few) per hpf Hyaline Casts (None-Few) per lpf Ur Culture Indicated? (NO) 11/27/18 11/27/18 11/27/18 Range/Units 17:34 17:54 18:30 WBC (4.3-11.1) K/mcL RBC (3.82-4.97) M/mcL Hgb (11.5-15.4) g/dL Hct (35.3-44.9) % MCV (83.0-100.0) fL MCH (28.0-33.3) pg MCHC (31.6-35.5) g/dL RDW (11.5-14.5) % Plt Count (140-400) K/mcL MPV (9.4-12.4) fL Immature Gran % (0-4) % Seg Neutrophils % % Lymphocytes % % Monocytes % % Eosinophils % % Basophils % % Neutrophils # (1.6-8.9) K/mcL Lymphocytes # (0.6-4.6) K/mcL Monocytes # (0.0-1.3) K/mcL Eosinophils # (0.0-0.6) K/mcL Basophils # (0.0-0.2) K/mcL VBG pH 7.45 H (7.32-7.42) pH Units VBG pCO2 33 L (41-51) mmHg VBG pO2 33 (25-50) mmHg VBG HCO3 22 (21-27) mEq/L Sodium (136-145) mEq/L Potassium (3.5-5.1) mEq/L Chloride (98-107) mEq/L Carbon Dioxide (23-29) mEq/L BUN (6-20) mg/dL Creatinine (0.60-1.20) mg/dL Est GFR ( Amer) (> 60) Est GFR (Non-Af Amer) (> 60) BUN/Creatinine Ratio (6-26) Glucose (70-105) mg/dL Calculated Osmolality (280-300) Lactic Acid (0.5-2.2) mmol/L Calcium (8.6-10.3) mg/dL Magnesium (1.6-2.6) mg/dL Total Bilirubin (0.3-1.0) mg/dL Direct Bilirubin (0.0-0.2) mg/dL Indirect Bilirubin (0.0-1.2) mg/dL AST (13-39) Units/L ALT (7-52) Units/L Alkaline Phosphatase (34-104) Units/L Troponin I (< 0.04) ng/mL Serum Total Protein (6.4-8.9) g/dL Albumin (3.5-5.7) g/dL Globulin (2.4-3.5) g/dL Albumin/Globulin Ratio (1.1-2.2) Beta-Hydroxybutyric Acd > 2.00 H (0.02-0.27) mmol/L Urine Color [place] A (Yellow) Urine Clarity Clear (Clear) Urine pH 6.0 (5.0-8.0) pH Units Ur Specific [place] 1.026 H (1.010-1.025) Urine Protein 100 H (Neg-Trace) mg/dL Urine Glucose (UA) >=1000 H (Normal) mg/dL Urine Ketones 80 H (Negative) mg/dL Urine Blood Trace H (Negative) Urine Nitrite Positive A (Negative) Urine Bilirubin Negative (Negative) Urine Urobilinogen 2.0 H (Normal) mg/dL Ur Leukocyte Esterase Small H (Negative) Urine Microscopic RBC 0-3 (0-3) per hpf Urine Microscopic WBC 50-100 H (0-3) per hpf Ur Squamous Epith Cells Many H (None-Few) per lpf Urine Bacteria Few (None-Few) per hpf Hyaline Casts None Seen (None-Few) per lpf Ur Culture Indicated? YES A (NO) - EKG Data EKG #1 EKG attestation: Yes I reviewed and interpreted this EKG. EKG results narrative: Sinus tachycardia. 100 beats for minute. AK interval 150, QRS 85, QTC 474. No sign of acute ST segment elevation or ischemia.
[2018-11-27] MEDS: 0.9 % Sodium Chloride 1,000 ML IVC SCH ×3 (17:39→23:06)
[2018-11-27 17:52] LABS: Basophils % 0.1 %; Hematocrit 38.5 % (35.3-44.9); Hemoglobin 13.1 g/dL (11.5-15.4); Immature Granulocytes % 0.8 % (0-4); Lymphocytes # 0.5 K/mcL (0.6-4.6); Lymphocytes % 6.4 %; Mean Corpuscular Hemoglobin 29.2 pg (28.0-33.3); Mean Corpuscular Volume 85.7 fL (83.0-100.0); Monocytes # 0.5 K/mcL (0.0-1.3); Monocytes % 6.2 %; Neutrophils # 6.6 K/mcL (1.6-8.9); Platelet Count 218 K/mcL (140-400); Red Blood Count 4.49 M/mcL (3.82-4.97); Red Cell Distribution Width 12.2 % (11.5-14.5); Segmented Neutrophils % 86.5 %
[2018-11-27 17:58] LABS: VBG HCO3 22 mEq/L (21-27); VBG PCO2 33 mmHg (41-51); VBG PH 7.45 pH Units (7.32-7.42); VBG PO2 33 mmHg (25-50)
[2018-11-27 18:13] LABS: Alanine Aminotransferase 9 Units/L (7-52); Albumin 3.4 g/dL (3.5-5.7); Alkaline Phosphatase 134 Units/L (34-104); Aspartate Amino Transferase 10 Units/L (13-39); BUN/Creatinine Ratio 22 (6-26); Bilirubin,Direct 0.4 mg/dL (0.0-0.2); Bilirubin,Indirect 0.7 mg/dL (0.0-1.2); Bilirubin,Total 1.1 mg/dL (0.3-1.0); Blood Urea Nitrogen 19 mg/dL (6-20); Calcium 8.8 mg/dL (8.6-10.3); Carbon Dioxide 23 mEq/L (23-29); Chloride 94 mEq/L (98-107); Globulin 3.5 g/dL (2.4-3.5); Glucose 414 mg/dL (70-105); Magnesium 1.5 mg/dL (1.6-2.6); Osmolality,Calculated 290 (280-300); Potassium 3.8 mEq/L (3.5-5.1); Sodium 130 mEq/L (136-145); Total Protein 6.9 g/dL (6.4-8.9); Troponin I 0.03 ng/mL (< 0.04); eGFR For Non-African Americans > 60 (> 60)
[2018-11-27] MEDS ORDERED: Ondansetron 4 MG/2 ML VIAL IVP ONE (18:42)
--- NOTE | 2018-11-27 18:42 | Emergency Department Note ---
Disposition Clinical Impression: Urinary tract infection, Hyperglycemia, Dehydration Disposition: Admitted As Inpatient Condition: Fair Referrals: Coby Elena MD [Primary Care Provider] - Forms: ED Satisfaction Letter Time of Disposition: 19:08 General Adult HPI - General Chief complaint: ED Urogenital-Female Stated complaint: "UTI", nausea Time Seen by Provider: 11/27/18 16:56 Source: patient Mode of arrival: ambulatory Limitations: no limitations - History of Present Illness Pain Scale: 8 - Related Data Home Medications Medication Instructions Recorded Confirmed Nitroglycerin [Nitrostat] 0.4 mg SL Q5M PRN 04/20/17 05/08/18 Rosuvastatin [Crestor] 40 mg PO HS 04/20/17 05/08/18 Clopidogrel [Plavix] 75 mg PO DAILY 07/09/17 05/08/18 Ranitidine HCl [Zantac 75] 75 mg PO DAILY PRN 07/10/17 05/08/18 Cholecalciferol (D-3) [Vitamin D] 2,000 unit PO DAILY 08/11/17 05/08/18 Fludrocortisone Acetate [Florinef] 0.5 mg PO DAILY 05/08/18 05/08/18 Semaglutide [Ozempic] 0.5 mg SQ QWEEK 05/08/18 05/08/18 Sodium Chloride [Sodium Chloride 1 gm PO BID 05/08/18 05/08/18 Tab] Subcutaneous Insulin Pump [T:Slim] 1 each SQ AD 05/08/18 05/08/18 Previous Rx's Medication Instructions Recorded Aspirin 81 mg PO DAILY tab.chew 04/22/17 Magnesium Oxide [Mag-Ox] 400 mg PO DAILY #30 tablet 08/13/17 Midodrine [ProAmatine] 10 mg PO 0800,1200,1700 30 Days 02/23/18 #180 tablet Isosorbide MONOnitrate (24 HR) 30 mg PO DAILY #30 tab.er.24h 05/08/18 [Imdur] Allergies Allergy/AdvReac Type Severity Reaction Status Date / Time No Known Allergies Allergy Verified 11/27/18 16:54 Constitutional: Reports: fever Eyes: Reports: as per HPI ENT ED: Reports: as per HPI Cardiovascular: Reports: chest pain Respiratory: Denies: dyspnea Gastrointestinal: Reports: nausea, vomiting Genitourinary: Reports: dysuria, frequency Musculoskeletal: Reports: as per HPI Integumentary: Reports: as per HPI Neurological: Reports: as per HPI Psychiatric: Reports: as per HPI Endocrine: Reports: as per HPI Hematological/Lymphatic: Reports: as per HPI Allergic/Immunologic: Reports: as per HPI Past Medical History - Past Medical History Medical history: Reports: arthritis, cancer, cardiomyopathy, coronary artery disease, diabetes, hyperlipidemia, hypertension, myocardial infarction, other Surgical history: Reports: , cholecystectomy, other Psychiatric history: Reports: anxiety, depression 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 history: Reports: no POLYMER 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 history - Social History Smoking Status: Current every day smoker Smokeless Tobacco Status: No Alcohol use: Reports: none Drug use: Reports: none Physical Exam - General Limitations: no limitations General appearance: alert, in no apparent distress Course Vital Signs Temperature 100.4 F H 11/27/18 16:55 Pulse Rate 111 11/27/18 16:55 Respiratory Rate 18 11/27/18 16:55 Blood Pressure 113/64 11/27/18 16:55 O2 Sat by Pulse Oximetry 97 11/27/18 16:55 Temperature 100.4 F H 11/27/18 17:03 Pulse Rate 94 11/27/18 17:45 Respiratory Rate 19 11/27/18 17:45 Blood Pressure 139/69 11/27/18 17:45 O2 Sat by Pulse Oximetry 98 11/27/18 17:45 Oxygen Delivery Oxygen Delivery Room Air Medical Decision Making - Lab Data Result diagrams: 11/27/18 17:34 11/27/18 17:34 Lab Results 11/27/18 11/27/18 11/27/18 Range/Units 17:34 17:34 17:34 WBC 7.6 (4.3-11.1) K/mcL RBC 4.49 (3.82-4.97) M/mcL Hgb 13.1 (11.5-15.4) g/dL Hct 38.5 (35.3-44.9) % MCV 85.7 (83.0-100.0) fL MCH 29.2 (28.0-33.3) pg MCHC 34.0 (31.6-35.5) g/dL RDW 12.2 (11.5-14.5) % Plt Count 218 (140-400) K/mcL MPV 10.0 (9.4-12.4) fL Immature Gran % 0.8 (0-4) % Seg Neutrophils % 86.5 % Lymphocytes % 6.4 % Monocytes % 6.2 % Eosinophils % 0.0 % Basophils % 0.1 % Neutrophils # 6.6 (1.6-8.9) K/mcL Lymphocytes # 0.5 L (0.6-4.6) K/mcL Monocytes # 0.5 (0.0-1.3) K/mcL Eosinophils # 0.0 (0.0-0.6) K/mcL Basophils # 0.0 (0.0-0.2) K/mcL VBG pH (7.32-7.42) pH Units VBG pCO2 (41-51) mmHg VBG pO2 (25-50) mmHg VBG HCO3 (21-27) mEq/L Sodium 130 L (136-145) mEq/L Potassium 3.8 (3.5-5.1) mEq/L Chloride 94 L (98-107) mEq/L Carbon Dioxide 23 (23-29) mEq/L BUN 19 (6-20) mg/dL Creatinine 0.87 (0.60-1.20) mg/dL Est GFR ( Amer) > 60 (> 60) Est GFR (Non-Af Amer) > 60 (> 60) BUN/Creatinine Ratio 22 (6-26) Glucose 414 H (70-105) mg/dL Calculated Osmolality 290 (280-300) Lactic Acid 2.0 (0.5-2.2) mmol/L Calcium 8.8 (8.6-10.3) mg/dL Magnesium 1.5 L (1.6-2.6) mg/dL Total Bilirubin 1.1 H (0.3-1.0) mg/dL Direct Bilirubin 0.4 H (0.0-0.2) mg/dL Indirect Bilirubin 0.7 (0.0-1.2) mg/dL AST 10 L (13-39) Units/L ALT 9 (7-52) Units/L Alkaline Phosphatase 134 H (34-104) Units/L Troponin I 0.03 (< 0.04) ng/mL Serum Total Protein 6.9 (6.4-8.9) g/dL Albumin 3.4 L (3.5-5.7) g/dL Globulin 3.5 (2.4-3.5) g/dL Albumin/Globulin Ratio 1.0 L (1.1-2.2) Beta-Hydroxybutyric Acd (0.02-0.27) mmol/L Urine Color (Yellow) Urine Clarity (Clear) Urine pH (5.0-8.0) pH Units Ur Specific [place] (1.010-1.025) Urine Protein (Neg-Trace) mg/dL Urine Glucose (UA) (Normal) mg/dL Urine Ketones (Negative) mg/dL Urine Blood (Negative) Urine Nitrite (Negative) Urine Bilirubin (Negative) Urine Urobilinogen (Normal) mg/dL Ur Leukocyte Esterase (Negative) Urine Microscopic RBC (0-3) per hpf Urine Microscopic WBC (0-3) per hpf Ur Squamous Epith Cells (None-Few) per lpf Urine Bacteria (None-Few) per hpf Hyaline Casts (None-Few) per lpf Ur Culture Indicated? (NO) 11/27/18 11/27/18 11/27/18 Range/Units 17:34 17:54 18:30 WBC (4.3-11.1) K/mcL RBC (3.82-4.97) M/mcL Hgb (11.5-15.4) g/dL Hct (35.3-44.9) % MCV (83.0-100.0) fL MCH (28.0-33.3) pg MCHC (31.6-35.5) g/dL RDW (11.5-14.5) % Plt Count (140-400) K/mcL MPV (9.4-12.4) fL Immature Gran % (0-4) % Seg Neutrophils % % Lymphocytes % % Monocytes % % Eosinophils % % Basophils % % Neutrophils # (1.6-8.9) K/mcL Lymphocytes # (0.6-4.6) K/mcL Monocytes # (0.0-1.3) K/mcL Eosinophils # (0.0-0.6) K/mcL Basophils # (0.0-0.2) K/mcL VBG pH 7.45 H (7.32-7.42) pH Units VBG pCO2 33 L (41-51) mmHg VBG pO2 33 (25-50) mmHg VBG HCO3 22 (21-27) mEq/L Sodium (136-145) mEq/L Potassium (3.5-5.1) mEq/L Chloride (98-107) mEq/L Carbon Dioxide (23-29) mEq/L BUN (6-20) mg/dL Creatinine (0.60-1.20) mg/dL Est GFR ( Amer) (> 60) Est GFR (Non-Af Amer) (> 60) BUN/Creatinine Ratio (6-26) Glucose (70-105) mg/dL Calculated Osmolality (280-300) Lactic Acid (0.5-2.2) mmol/L Calcium (8.6-10.3) mg/dL Magnesium (1.6-2.6) mg/dL Total Bilirubin (0.3-1.0) mg/dL Direct Bilirubin (0.0-0.2) mg/dL Indirect Bilirubin (0.0-1.2) mg/dL AST (13-39) Units/L ALT (7-52) Units/L Alkaline Phosphatase (34-104) Units/L Troponin I (< 0.04) ng/mL Serum Total Protein (6.4-8.9) g/dL Albumin (3.5-5.7) g/dL Globulin (2.4-3.5) g/dL Albumin/Globulin Ratio (1.1-2.2) Beta-Hydroxybutyric Acd > 2.00 H (0.02-0.27) mmol/L Urine Color [place] A (Yellow) Urine Clarity Clear (Clear) Urine pH 6.0 (5.0-8.0) pH Units Ur Specific [place] 1.026 H (1.010-1.025) Urine Protein 100 H (Neg-Trace) mg/dL Urine Glucose (UA) >=1000 H (Normal) mg/dL Urine Ketones 80 H (Negative) mg/dL Urine Blood Trace H (Negative) Urine Nitrite Positive A (Negative) Urine Bilirubin Negative (Negative) Urine Urobilinogen 2.0 H (Normal) mg/dL Ur Leukocyte Esterase Small H (Negative) Urine Microscopic RBC 0-3 (0-3) per hpf Urine Microscopic WBC 50-100 H (0-3) per hpf Ur Squamous Epith Cells Many H (None-Few) per lpf Urine Bacteria Few (None-Few) per hpf Hyaline Casts None Seen (None-Few) per lpf Ur Culture Indicated? YES A (NO) Attestation Statement - Attestation Attestation: I have seen this patient with the resident physician, I have personally evaluated this patient. I had reviewed the chart and document dictation by the resident physician and aM in agreement with the information documented by the resident physician. Please see documentation by the resident physician for complete chart including past medical history, family medical history, review of systems, current history and physical and laboratory and imaging studies. I was present for all procedures, provided direct supervision for all procedures, was present for the entirety of all procedures and provided direct guidance during the procedures. Please see documentation by the resident physician for any procedures performed. I have reviewed all interpretations of EKGs, and reviewed all EKGs performed on patient's as well. I have also reviewed reports of imaging as provided by radiology. Patient presents emergency Department with chief complaint of urinary urgency frequency and C and painful urination which has been present for the last 1 week but worsening. She tried taking [id number] medications, and try to avoid coming to the hospital because she does not have insurance but she states that she continues to worsen. She states that when this first started she was seen at a health clinic, and started back on her insulin which she had not been taking for a while and she thought maybe that it was her blood sugar was elevated but states that she has worsened she has not exactly what her blood sugar has been. The patient states over the last 48 hours she developed increa sing nausea and vomiting with some mild left-sided flank pain which she states feels like when she had a prior urinary tract infection and pyelonephritis. She states that she has now had fevers has the chills and just feels terrible. Upon presentation, patient has evidence for systemic inflammatory response syndrome criteria/sepsis criteria with fever tachycardia and tachypnea but without hypoxia, without hypotension. She had IVs established, she was given 2 L bolus of IV fluids, she was started on IV Rocephin for presumed UTI and pyelonephritis. Sepsis laboratory studies were ordered. CBC basic metabolic profile within acceptable limits apart from isolated hyperglycemia, without evidence of DKA, with a blood gas was within acceptable limits, she did however have greater than 2 ketones, consistent with her clinical evidence of dehydration. Lactic acid was within acceptable limits. We will continue with aggressive hydration for hyperglycemia, without evidence of DKA at this time but with evidence of ketosis and dehydration, ua consistent with UTI positive nitrite positive esterase 50 on her white blood cells. Positive glucose and ketones. No blood. Nothing to suggest kidney stone. Patient as above was started on IV Rocephin she was admitted to the hospital for further management of hyperglycemia dehydration, UTI, with findings consistent with pyelonephritis.
[2018-11-27 18:48] LABS: Bilirubin,Urine Negative (Negative); Blood,Urine Trace (Negative); Clarity,Urine Clear (Clear); Color,Urine Orange (Yellow); Glucose,Urine (UA) >=1000 mg/dL (Normal); Ketones,Urine 80 mg/dL (Negative); Leukocyte Esterase,Urine Small (Negative); Nitrite,Urine Positive (Negative); Protein,Urine 100 mg/dL (Neg-Trace); Specific Gravity,Urine 1.026 (1.010-1.025)
[2018-11-27 18:50] LABS: Bacteria,Urine Few per hpf (None-Few); RBC,Urine 0-3 per hpf (0-3); Squamous Epithelial Cell,Urine Many per lpf (None-Few); WBC,Urine 50-100 per hpf (0-3)
[2018-11-27 18:51] LABS: Hyaline Casts,Urine None Seen per lpf (None-Few)
[2018-11-27] MEDS ORDERED: 0.9 % Sodium Chloride 1,000 ML IVC ONE (19:47)
[2018-11-27] MEDS ORDERED: *HR* Promethazine 25 MG/ML VIAL IVP ONE (19:54)
[2018-11-27] MEDS ORDERED: Naloxone 0.4 MG/ML INJ IVP PRN (20:54)
[2018-11-27] MEDS ORDERED: D5% in Water 1,000 ML IVC PRN (20:57)
[2018-11-27] MEDS ORDERED: Dextrose Gel 15 GM/37.5 ML TUBE PO PRN ×2 (20:57)
[2018-11-27] MEDS ORDERED: *HR* Dextrose 50 % in Water (Syg) 50 ML SYRINGE IVP PRN (20:57)
[2018-11-27] MEDS ORDERED: Insulin LISPRO 300 UNITS/3 ML VIAL SQ SCH (21:00)
[2018-11-27 21:59] LABS: Estimated Average Glucose 303 mg/dl; Hemoglobin A1C 12.2 %
--- NOTE | 2018-11-27 21:59 | Internal Med History&Physical ---
<Ann Jones E - Last Filed: 11/28/18 04:47> Date of Encounter: 11/28/18 Time of Encounter: 21:30 Internal Medicine - H&P: HPI Chief complaint: UTI, vomiting Admitted From: Home Plans for Post Hospital Care: Home History of present illness: Ms. Bob is a 53 year old female with history arthritis, melanoma, cardiomyopathy, CAD, diabetes, hyperlipidemia, hypertension, [place], anxiety/depression. Patient stated that approximately one week ago she started having frequency urgency and dysuria, she tried some [id number] Azo but this did not improve her symptoms. She started to get nauseous and has been vomiting and having diarrhea for approximately 2 days. She states that she has not been able to keep anything down the last 2 days medications. She denies any shortness of breath, but does state that she has a headache, chest pain with vomiting, some abdominal pain in her lower abdomen as well as left-sided back pain. Labs on admission show white blood cell count 7.6, hemoglobin of 13.1, VBG pH of 7.45, sodium of 1:30, chloride of 94, glucose of 414, mag 1.5, bili of 1.1, direct bili 0.4, AST of 10, ALP of 9, alkaline phosphatase of 134, albumin of 3.4 Urinalysis showed orange, clear urine, pH of 6.0, specific gravity 1.026, 100 protein, greater than 1000 glucose, 80 ketones, trace blood, positive nitrite, 2.0 urobilinogen, small leukocyte esterase, 50-100 microscopic white blood cell, many squamous epithelial cells, few bacteria., Contraindicated Social history: Patient is current smoker, occasionally drinks alcohol, no illicit drugs Family history: Motherheart diseaseheart disease and diabetes Past Med Surg Social Fam HX - Past Medical History Medical history: arthritis, cancer, cardiomyopathy, coronary artery disease, diabetes, hyperlipidemia, hypertension, myocardial infarction, other Additional medical history: orthostatic hypotension, melanoma Psychiatric history: anxiety, depression - Past Surgical History Surgical History: , cholecystectomy, other Additional surgical history: heart cath on 04-08-2017 with 1-stent to LAD - Social History Smoking Status: Current every day smoker Smokeless Tobacco Status: No Alcohol use: none Drug use: none - Family History Mother Living Status: Hx Family Cardiac Disorders: Yes (bypass, CAD, [place]) Hx Family Respiratory Disorders: Yes (COPD) Hx Family Cancer: Yes (Breast) Hx Family GI Disorders: No Hx Family Endocrine Disorder: No Hx Family Neuromuscular Disorders: No Hx Family Neurologic Disorders: No Hx Family HEENT Disorders: No Hx Family Autoimmune Disorders: No Father Living Status: Still Living Internal Medicine - H&P: Meds Nitroglycerin [Nitrostat] 0.4 mg SL Q5M PRN 04/20/17 [History] Rosuvastatin [Crestor] 40 mg PO HS 04/20/17 [History] Aspirin 81 mg PO DAILY tab.chew 04/22/17 [Rx] Clopidogrel [Plavix] 75 mg PO DAILY 07/09/17 [History] Ranitidine HCl [Zantac 75] 75 mg PO DAILY PRN 07/10/17 [History] Cholecalciferol (D-3) [Vitamin D] 2,000 unit PO DAILY 08/11/17 [History] Magnesium Oxide [Mag-Ox] 400 mg PO DAILY #30 tablet 08/13/17 [Rx] Midodrine [ProAmatine] 10 mg PO 0800,1200,1700 30 Days #180 tablet 02/23/18 [Rx] Fludrocortisone Acetate [Florinef] 0.5 mg PO DAILY 05/08/18 [History] Isosorbide MONOnitrate (24 HR) [Imdur] 30 mg PO DAILY #30 tab.er.24h 05/08/18 [Rx] Semaglutide [Ozempic] 0.5 mg SQ QWEEK 05/08/18 [History] Sodium Chloride [Sodium Chloride Tab] 1 gm PO BID 05/08/18 [History] Subcutaneous Insulin Pump [T:Slim] 1 each SQ AD 05/08/18 [History] Allergy/AdvReac Type Severity Reaction Status Date / Time No Known Allergies Allergy Verified 11/27/18 16:54 All Systems PM: A 10-system review of systems was performed and is negative for pertinent findings except as documented above in the HPI. - Constitutional Constitutional: anorexia, chills, fatigue, fever(s), no weakness - EENT Eyes: no change in vision Ears: no decreased hearing Nose, mouth and throat: dry mouth, no nasal congestion, no sinus pressure, no sore throat - Cardiovascular Cardiovascular ROS IM: chest pain (when she vomits), no irregular heart rhythm, no lightheadedness, no palpitations, no syncope - Respiratory Respiratory: no cough, no dyspnea, no wheezing, no chest congestion - Gastrointestinal Gastrointestinal: abdominal pain (lower abdomen and pelvis), diarrhea (for two days), nausea, vomiting - Genitourinary Genitourinary: pelvic pain, urinary frequency, urinary hesitancy, urinary urgency - Musculoskeletal Musculoskeletal ROS IM: back pain (left lower back), no myalgias - Integumentary Integumentary IM: no new lesions, no pruritus, no rash - Constitutional Vitals: Temp Pulse Resp BP Pulse Ox 100.4 F H 94 20 175/95 98 11/27/18 17:03 11/27/18 17:45 11/27/18 21:01 11/27/18 21:01 11/27/18 17:45 Exam: General: AAO 3, mild distress, answers questions appropriately Head: normocephalic, atraumatic Mouth: Mucous remains dry Neck: Trachea midline, no lymphadenopathy Eyes: NICOLE, no icterus Cardio: RRR, no mumurs, rubs, or gallops Respiratory: CTAB, no wheezing, rhonchi, rales Abd: normal bowel sounds,CVA tenderness left, pelvic and lower abdominal tenderness Extremties: no peda edema, pulses equal bilaterally, warm Skin: Sweaty, warm Internal Med - H&P Results - Labs CBC & Chem 7: 11/27/18 17:34 11/27/18 17:34 Labs: Short CBC 11/27/18 Range/Units 17:34 WBC 7.6 (4.3-11.1) K/mcL Hgb 13.1 (11.5-15.4) g/dL Hct 38.5 (35.3-44.9) % Plt Count 218 (140-400) K/mcL Neutrophils # 6.6 (1.6-8.9) K/mcL BMP 11/27/18 17:34 Sodium 130 L Potassium 3.8 Chloride 94 L Carbon Dioxide 23 BUN 19 Creatinine 0.87 Glucose 414 H Calcium 8.8 Cardiac Enzymes 11/27/18 Range/Units 17:34 Troponin I 0.03 (< 0.04) ng/mL Liver Function 11/27/18 Range/Units 17:34 Total Bilirubin 1.1 H (0.3-1.0) mg/dL Direct Bilirubin 0.4 H (0.0-0.2) mg/dL AST 10 L (13-39) Units/L ALT 9 (7-52) Units/L Alkaline Phosphatase 134 H (34-104) Units/L Albumin 3.4 L (3.5-5.7) g/dL Urine 11/27/18 Range/Units 18:30 Urine Color [place] A (Yellow) Urine Clarity Clear (Clear) Urine pH 6.0 (5.0-8.0) pH Units Ur Specific [place] 1.026 H (1.010-1.025) Urine Protein 100 H (Neg-Trace) mg/dL Urine Glucose (UA) >=1000 H (Normal) mg/dL - ABG Interpretation ABG results: 11/27/18 17:54 VBG pH 7.45 H VBG pCO2 33 L VBG pO2 33 VBG HCO3 22 - Impressions ITS Impressions Chest X-Ray 11/27/18 17:02 IMPRESSION: Cardiomegaly and low lung volumes. No acute cardiopulmonary process. D/ / 11/27/2018 17:29:58 Wes Motley MD / [email or web address] Interpreting Provider: Wes Motley MD - Assessment and Plan (1) Sepsis Current Visit: Yes Status: Acute Assessment and plan: Patient temp 100.4 on presentation, tachycardic at bpm, source of infection Pyleonephritis PAtient given 2 L fluid in ED Started on ceftriaxone Blood cultures obtained Urinary culture obtained Continue to monitor clinical picture and address as necessary Qualifiers: Sepsis type: sepsis due to unspecified organism Qualified Code(s): A41.9 - Sepsis, unspecified organism (2) Pyelonephritis Current Visit: Yes Status: Acute Assessment and plan: Patient has previous history of Pyelonephritis UTI symptoms including dysuria, frequency, urgency for 1 week Patient tried OTC Azo treatment whic did not help Patient now nauseous and vomiting for the last 2 days. Given one dose of ceftrixone in the ED Continue Ceftriaxone (3) CAD (coronary artery disease) Current Visit: No Status: Chronic Assessment and plan: Patient currently on aspirin, Plavix, rosuvastatin Continue patient's home medications Qualifiers: Coronary Disease-Associated Artery/Lesion type: [place] artery [place] vs. transplanted heart: [place] heart Associated angina: without angina Qualified Code(s): I25.10 - Atherosclerotic heart disease of [place] coronary artery without angina pectoris (4) Nausea Current Visit: No Status: Chronic Assessment and plan: When necessary Phenergan Avoid Zofran due to increased QTc interval (5) Chest pain Current Visit: No Status: Acute Assessment and plan: Secondary to nausea and vomiting is noncontinuous Patient's troponin 0.03 has been elevated in the past EKG showed sinus tachycardia, 100 bpm, AK interval 150, QRS of 85, QTC of 474. No sign of acute ST elevation or ischemia Continue to monitor Qualifiers: Chest pain type: unspecified Qualified Code(s): R07.9 - Chest pain, unspecified (6) Hyperglycemia Current Visit: Yes Status: Acute Assessment and plan: Patient is a known insulin dependent diabetic Started on low-dose sliding scale insulin 10 units basal insulin twice a day Continue to monitor with Accu-Cheks Adjust sliding scale as needed (7) Dehydration Current Visit: Yes Status: Acute Assessment and plan: 2L bolus given maintenance fluids running at 125ml/hr with 20 units K Continue to monitor patients I's and O's Continue to monitor patients clinical picture (8) DVT prophylaxis Current Visit: No Status: Acute Assessment and plan: heparin subcutaneous - Time Spent With Patient Total time spent is greater than 50% in coordination of care (as documented) at patient's floor/unit and/or counseling patient: <Rizwan Byrne - Last Filed: 11/28/18 07:09> Date of Encounter: 11/27/18 Time of Encounter: 23:00 - Constitutional Constitutional: chills, fever(s) - EENT Nose, mouth and throat: dry mouth, no sinus pressure, no sore throat - Cardiovascular Cardiovascular ROS IM: no chest pain, no dyspnea - Gastrointestinal Gastrointestinal: nausea, vomiting, no hematemesis, no hematochezia, no melena - Genitourinary Genitourinary: dysuria, flank pain, urinary hesitancy, urinary urgency, no hematuria - Integumentary Integumentary IM: no rash, no jaundice - Neurological Neurological ROS: no dizziness, no focal weakness, no frequent falls, no he adache(s) - Psychiatric Psychiatric: no anxiety - Allergic/Immunologic Allergic/Immunologic: GI upset with certain foods - Constitutional Vitals: Temp Pulse Resp BP Pulse Ox 99.4 F 100 15 165/94 98 11/28/18 03:05 11/28/18 03:05 11/28/18 03:05 11/28/18 03:05 11/28/18 03:05 General appearance: Present: cooperative, mild distress, A&O X 3, answers questions appropriately Exam: looks dry, acutely ill, non-toxic - Head Head exam: Present: normal inspection - Eye Eye exam: Present: EOMI, PERRL. Absent: scleral icterus Pupils: Present: normal accommodation - ENT ENT exam: Present: mucous membranes dry, normal oropharynx - Neck Neck exam general surgery: Present: full ROM, supple, trachea midline. Absent: tenderness, nuchal rigidity, thyromegaly - Respiratory Respiratory exam: Present: CTAB. Absent: chest wall tenderness, rales, rhonchi, wheezes - Cardiovascular Cardiovascular exam: Present: distant heart sounds, RRR, +S1, +S2. Absent: diastolic murmur, systolic murmur - GI/Abdominal GI/Abdominal exam: Present: soft, tenderness (mild diffuse). Absent: guarding, rebound - Extremities Exam Extremities exam: Present: full ROM, normal capillary refill, warm, radial pulses palpable and symmetrical. Absent: calf tenderness, pedal edema, tenderness - Back Exam Back exam: Present: CVA tenderness (L), normal inspection. Absent: CVA tenderness (R) - Neurological Exam Neurological exam: Present: alert, CN II-XII intact, oriented X3, strengths equal and symetr throughout - Skin Skin exam: Present: dry, intact, warm Internal Med - H&P Results - Labs CBC & Chem 7: 11/27/18 17:34 11/27/18 17:34 Labs: Short CBC 11/27/18 Range/Units 17:34 WBC 7.6 (4.3-11.1) K/mcL Hgb 13.1 (11.5-15.4) g/dL Hct 38.5 (35.3-44.9) % Plt Count 218 (140-400) K/mcL Neutrophils # 6.6 (1.6-8.9) K/mcL BMP 11/27/18 17:34 Sodium 130 L Potassium 3.8 Chloride 94 L Carbon Dioxide 23 BUN 19 Creatinine 0.87 Glucose 414 H Calcium 8.8 Cardiac Enzymes 11/27/18 Range/Units 17:34 Troponin I 0.03 (< 0.04) ng/mL Liver Function 11/27/18 Range/Units 17:34 Total Bilirubin 1.1 H (0.3-1.0) mg/dL Direct Bilirubin 0.4 H (0.0-0.2) mg/dL AST 10 L (13-39) Units/L ALT 9 (7-52) Units/L Alkaline Phosphatase 134 H (34-104) Units/L Albumin 3.4 L (3.5-5.7) g/dL Urine 11/27/18 Range/Units 18:30 Urine Color [place] A (Yellow) Urine Clarity Clear (Clear) Urine pH 6.0 (5.0-8.0) pH Units Ur Specific [place] 1.026 H (1.010-1.025) Urine Protein 100 H (Neg-Trace) mg/dL Urine Glucose (UA) >=1000 H (Normal) mg/dL - ABG Interpretation ABG results: 11/27/18 17:54 VBG pH 7.45 H VBG pCO2 33 L VBG pO2 33 VBG HCO3 22 - Impressions ITS Impressions Chest X-Ray 11/27/18 17:02 IMPRESSION: Cardiomegaly and low lung volumes. No acute cardiopulmonary process. D/ / 11/27/2018 17:29:58 Wes Motley MD / vic Interpreting Provider: Wes Motley MD - Time Spent With Patient Total time spent is greater than 50% in coordination of care (as documented) at patient's floor/unit and/or counseling patient: - Attending Attestation I discussed the patient [place], past medical history, review of systems, lab data, and exam findings with Dr. Jones. I then saw and examined patient independently as well. She appears dry, ill-appearing, but nontoxic. History and exam are consistent with pyelonephritis. Unfortunately, she has been no ncompliant with her insulin and diabetes control at home. We will hydrate her, continue subcutaneous insulin, and monitor closely. Meanwhile, we will keep her on IV antibiotics and follow her blood and urine cultures. Should she fail to improve and/or worsen, she may need imaging of her kidneys to rule out perinephric abscess formation. At this time, however, she appears to be hemodynamically stable despite the fact she is dehydrated and has clinical evidence of Pyelonephritis. Other than my comments above and documented exam findings, I agree with Dr. Jones's assessment and plan.
[2018-11-27] MEDS ORDERED: Acetaminophen IV 1,000 MG/100 ML INFUS..BTL IVPB PRN (22:29)
[2018-11-27] MEDS ORDERED: CefTRIAXone 1,000 MG VIAL IM ONE (22:29)
[2018-11-27] MEDS ORDERED: Potassium Chloride 20 MEQ, Lidocaine 1% 2 ML in D5% in Water 250 ML IVPB ONE (22:40)
[2018-11-28] MEDS ORDERED: Famotidine 20 MG TABLET PO PRN (01:38)
[2018-11-28] MEDS: *HR* Promethazine 25 MG/ML VIAL IVP PRN ×3 (03:08→18:21)
[2018-11-28] MEDS: 0.9 % Sodium Chloride 1,000 ML IVC SCH ×3 (05:39→23:15)
[2018-11-28] MEDS: *HR* Heparin 5,000 UNIT/ML VIAL SQ SCH ×3 (05:39→21:23)
[2018-11-28] MEDS ORDERED: Insulin LISPRO 300 UNITS/3 ML VIAL SQ SCH ×2 (07:30→08:13)
[2018-11-28] MEDS ORDERED: cefTRIAXone 1,000 MG in Water for inj. (sterile) 20 ML 10 ML IVP SCH (09:00)
[2018-11-28] MEDS ORDERED: CEFTRIAXONE IVP SCH (09:00)
[2018-11-28] MEDS ORDERED: WATER FOR INJ IVP SCH (09:00)
[2018-11-28] MEDS: Aspirin 81 MG TAB.CHEW PO SCH (09:05)
[2018-11-28] MEDS: Cholecalciferol (D-3) 1,000 UNIT TABLET PO SCH (09:05)
[2018-11-28] MEDS: Insulin LISPRO 300 UNITS/3 ML VIAL SQ SCH ×4 (09:05→23:16)
[2018-11-28] MEDS: Isosorbide MONOnitrate (24 HR) 30 MG TAB.ER.24H PO SCH (09:06)
[2018-11-28] MEDS: Magnesium Oxide 400 MG TABLET PO SCH (09:06)
[2018-11-28 09:11] LABS: Acinetobacter baumannii by PCR Not Detected (Not Detect); Candida albicans by PCR Not Detected (Not Detect); Candida glabrata by PCR Not Detected (Not Detect); Candida krusei by PCR Not Detected (Not Detect); Candida parapsilosis by PCR Not Detected (Not Detect); Candida tropicalis by PCR Not Detected (Not Detect); Enterobacter cloacae Cmplx PCR Not Detected (Not Detect); Enterobacteriaceae by PCR DETECTED (Not Detect); Enterococcus by PCR Not Detected (Not Detect); Escherichia coli by PCR DETECTED (Not Detect); Klebsiella oxytoca by PCR Not Detected (Not Detect); Klebsiella pneumoniae by PCR Not Detected (Not Detect); Proteus by PCR Not Detected (Not Detect); Pseudomonas aeruginosa by PCR Not Detected (Not Detect); Serratia marcescens by PCR Not Detected (Not Detect); Staphylococcus aureus by PCR Not Detected (Not Detect); Staphylococcus by PCR Not Detected (Not Detect); Streptococcus agalactiae(B)PCR Not Detected (Not Detect); Streptococcus by PCR Not Detected (Not Detect); Streptococcus pneumoniae PCR Not Detected (Not Detect); Streptococcus pyogenes (A) PCR Not Detected (Not Detect); blaKPC Carbapenem-Resist Gene Not Detected (Not Detect)
[2018-11-28] MEDS: cefTRIAXone 2,000 MG in Water for inj. (sterile) 20 ML 20 ML IVP SCH (09:20)
--- NOTE | 2018-11-28 09:30 | Electrocardiograph Report ---
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
[2018-11-28 09:31] LABS: Basophils % 0.3 %; Hemoglobin 11.6 g/dL (11.5-15.4); Immature Granulocytes % 0.5 % (0-4); Lymphocytes # 1.1 K/mcL (0.6-4.6); Lymphocytes % 14.7 %; Mean Corpuscular HGB Conc 32.2 g/dL (31.6-35.5); Mean Corpuscular Hemoglobin 28.4 pg (28.0-33.3); Mean Platelet Volume 10.4 fL (9.4-12.4); Monocytes # 0.8 K/mcL (0.0-1.3); Monocytes % 10.9 %; Neutrophils # 5.6 K/mcL (1.6-8.9); Platelet Count 176 K/mcL (140-400); Red Blood Count 4.09 M/mcL (3.82-4.97); Red Cell Distribution Width 12.3 % (11.5-14.5); Segmented Neutrophils % 73.6 %
--- NOTE | 2018-11-28 14:02 | Internal Med Progress Note ---
Hospitalist Progress Note - Encounter Date of Encounter: 11/28/18 Time of Encounter: 09:55 - Subjective Interval History: Patient is awake and alert. She complains of nausea. She is also had persistent diarrhea. Reports left-sided flank pain. She has had fever overnight with MAXIMUM TEMPERATURE of 100.7. - Exam Vitals: Temp Pulse Resp BP Pulse Ox 98.5 F 85 16 102/63 96 11/28/18 11:04 11/28/18 11:04 11/28/18 11:04 11/28/18 11:04 11/28/18 11:04 Exam: General: Patient is alert, mild distress, oriented x 3 ENT: Mucous membranes moist Respiratory: Good respiratory effort. Normal breath sounds. No wheezing or crackles. Cardiovascular: Regular rate and rhythm. s1 and s2 normal No clicks, rubs, gallops, or murmurs. No pedal edema Abdomen: Abdomen is soft, nontender. Bowel sounds are present, left CVA tenderness present Musculoskeletal: Spontaneously moving all extremities Skin: warm, dry, intact. Neuro: Alert oriented x 3 normal cranial nerves, no focal deficits - Assessment and Plan (1) Sepsis Current Visit: Yes Status: Acute Assessment and Plan: Sepsis due to Escherichia coli. Await culture and sensitivity results. 2 sets of blood cultures growing gram-negative rods-identified as Escherichia coli per serology. We will repeat blood cultures tomorrow. Continue ceftriaxone. (2) Pyelonephritis Current Visit: Yes Status: Acute Assessment and Plan: Continue treatment with ceftriaxone. (3) Gastroenteritis Current Visit: Yes Status: Acute Assessment and Plan: Patient having nausea vomiting and diarrhea. We will check stool for GI panel. (4) Hypertension Current Visit: Yes Status: Chronic Assessment and Plan: No prior diagnosis of hypertension. Patient has intermittently elevated blood pressure but has previously been diagnosed with hypertension and is on midodrine and Florinef. Monitor blood pressure for now. (5) Diabetes Current Visit: Yes Status: Chronic Assessment and Plan: A1c is 12%. Uncontrolled. Continues to sliding scale coverage. Patient does not have insurance coverage. Will place her on insulin 70/30 once she is able to eat. Diabetic diet when able to eat. DVT Prophylaxis: Continue subcutaneous heparin - Time Spent with Patient Total time spent is greater than 50% in coordination of care (as documented) at patient's floor/unit and/or counseling patient: Internal Medicine: Result - Labs CBC & Chem 7: 11/28/18 08:46 11/27/18 17:34 Labs: Short CBC 11/27/18 11/28/18 Range/Units 17:34 08:46 WBC 7.6 7.6 (4.3-11.1) K/mcL Hgb 13.1 11.6 D (11.5-15.4) g/dL Hct 38.5 36.0 (35.3-44.9) % Plt Count 218 176 (140-400) K/mcL Neutrophils # 6.6 5.6 (1.6-8.9) K/mcL BMP 11/27/18 17:34 Sodium 130 L Potassium 3.8 Chloride 94 L Carbon Dioxide 23 BUN 19 Creatinine 0.87 Glucose 414 H Calcium 8.8 Cardiac Enzymes 11/27/18 Range/Units 17:34 Troponin I 0.03 (< 0.04) ng/mL Liver Function 11/27/18 Range/Units 17:34 Total Bilirubin 1.1 H (0.3-1.0) mg/dL Direct Bilirubin 0.4 H (0.0-0.2) mg/dL AST 10 L (13-39) Units/L ALT 9 (7-52) Units/L Alkaline Phosphatase 134 H (34-104) Units/L Albumin 3.4 L (3.5-5.7) g/dL Urine 11/27/18 Range/Units 18:30 Urine Color [place] A (Yellow) Urine Clarity Clear (Clear) Urine pH 6.0 (5.0-8.0) pH Units Ur Specific [place] 1.026 H (1.010-1.025) Urine Protein 100 H (Neg-Trace) mg/dL Urine Glucose (UA) >=1000 H (Normal) mg/dL - Impressions Impressions Chest X-Ray 11/27/18 17:02 IMPRESSION: Cardiomegaly and low lung volumes. No acute cardiopulmonary process. D/ / 11/27/2018 17:29:58 Wes Motley MD / vic Interpreting Provider: Wes Motley MD Consult Discharge Plan - Plan Referrals: Coby Elena MD [Primary Care Provider] - (1) Sepsis Qualifiers: Sepsis type: Escherichia coli Qualified Code(s): A41.51 - Sepsis due to Es cherichia coli [E. 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
[2018-11-28] MEDS ORDERED: Acetaminophen 325 MG TABLET PO PRN (15:10)
[2018-11-28 16:01] LABS: Adenovirus F 40/41 PCR Not detected (Not detect); Astrovirus PCR Not detected (Not detect); C.difficile Toxin A/B Gene PCR Not detected (Not detect); Campylobacter by PCR Not detected (Not detect); Cryptosporidium by PCR Not detected (Not detect); Cyclospora cayetanensis PCR Not detected (Not detect); E. coli O157 by PCR Not detected (Not detect); Entamoeba histolytica PCR Not detected (Not detect); Enteroaggregative E.coli(EAEC) Not detected (Not detect); Enteropathogenic E.coli(EPEC) Not detected (Not detect); Enterotoxigenic E.coli (ETEC) Not detected (Not detect); Giardia lamblia PCR Not detected (Not detect); Norovirus GI/GII PCR Not detected (Not detect); Plesiomonas shigelloides PCR Not detected (Not detect); Rotavirus A PCR Not detected (Not detect); Salmonella PCR Not detected (Not detect); Sapovirus PCR Not detected (Not detect); Shig/EnteroinvasiveE coli EIEC Not detected (Not detect); Shigalike tox-prod E coli STEC Not detected (Not detect); Vibrio PCR Not detected (Not detect); Vibrio cholerae PCR Not detected (Not detect); Yersinia enterocolitica PCR Not detected (Not detect)
[2018-11-28] MEDS: Loperamide 1 MG/5 ML UDC PO PRN (18:20)
[2018-11-29] MEDS: *HR* Promethazine 25 MG/ML VIAL IVP PRN ×3 (03:52→19:53)
[2018-11-29 04:06] LABS: Basophils % 0.3 %; Eosinophils % 0.6 %; Hematocrit 31.8 % (35.3-44.9); Hemoglobin 10.6 g/dL (11.5-15.4); Immature Granulocytes % 0.6 % (0-4); Lymphocytes # 1.4 K/mcL (0.6-4.6); Lymphocytes % 19.2 %; Mean Corpuscular HGB Conc 33.3 g/dL (31.6-35.5); Mean Corpuscular Hemoglobin 28.8 pg (28.0-33.3); Mean Corpuscular Volume 86.4 fL (83.0-100.0); Mean Platelet Volume 10.1 fL (9.4-12.4); Monocytes # 0.6 K/mcL (0.0-1.3); Monocytes % 8.1 %; Neutrophils # 5.2 K/mcL (1.6-8.9); Platelet Count 205 K/mcL (140-400); Red Blood Count 3.68 M/mcL (3.82-4.97); Red Cell Distribution Width 12.2 % (11.5-14.5); Segmented Neutrophils % 71.2 %
[2018-11-29 04:23] LABS: BUN/Creatinine Ratio 26 (6-26); Blood Urea Nitrogen 17 mg/dL (6-20); Carbon Dioxide 21 mEq/L (23-29); Chloride 106 mEq/L (98-107); Glucose 204 mg/dL (70-105); Osmolality,Calculated 291 (280-300); Potassium 3.1 mEq/L (3.5-5.1); Sodium 137 mEq/L (136-145); eGFR For Non-African Americans > 60 (> 60)
[2018-11-29] MEDS: *HR* Heparin 5,000 UNIT/ML VIAL SQ SCH ×3 (05:48→22:34)
[2018-11-29] MEDS: Insulin LISPRO 300 UNITS/3 ML VIAL SQ SCH ×2 (05:48→16:37)
[2018-11-29] MEDS: 0.9 % Sodium Chloride 1,000 ML IVC SCH (08:23)
[2018-11-29] MEDS: Loperamide 1 MG/5 ML UDC PO PRN (08:23)
[2018-11-29] MEDS: Cholecalciferol (D-3) 1,000 UNIT TABLET PO SCH (08:24)
[2018-11-29] MEDS: cefTRIAXone 2,000 MG in Water for inj. (sterile) 20 ML 20 ML IVP SCH (08:24)
[2018-11-29] MEDS: Aspirin 81 MG TAB.CHEW PO SCH (08:24)
[2018-11-29] MEDS: Magnesium Oxide 400 MG TABLET PO SCH (08:24)
[2018-11-29] MEDS: Isosorbide MONOnitrate (24 HR) 30 MG TAB.ER.24H PO SCH (08:24)
[2018-11-29] MEDS ORDERED: Insulin LISPRO 300 UNITS/3 ML VIAL SQ SCH ×2 (12:00→21:00)
[2018-11-29] MEDS ORDERED: Insulin DETEMIR 100 UNIT/ML X5UNITS SQ SCH (12:45)
--- NOTE | 2018-11-29 12:50 | Internal Med Progress Note ---
Hospitalist Progress Note - Encounter Date of Encounter: 11/29/18 Time of Encounter: 10:45 - Subjective Interval History: Patient feels somewhat better today. Nausea and diarrhea are improving. No fevers or chills reported overnight. Still has some flank pain. - Exam Vitals: Temp Pulse Resp BP Pulse Ox 98.1 F 78 14 128/67 96 11/29/18 10:45 11/29/18 10:45 11/29/18 10:45 11/29/18 10:45 11/29/18 10:45 Exam: General: Patient is alert, mild distress, oriented x 3 ENT: Mucous membranes moist Respiratory: Good respiratory effort. Normal breath sounds. No wheezing or crackles. Cardiovascular: Regular rate and rhythm. s1 and s2 normal No clicks, rubs, gallops, or murmurs. No pedal edema Abdomen: Abdomen is soft, nontender. Mild left CVA tenderness Bowel sounds are present Musculoskeletal: Spontaneously moving all extremities Skin: warm, dry, intact. Neuro: Alert oriented x 3 normal cranial nerves, no focal deficits - Assessment and Plan (1) Sepsis Current Visit: Yes Status: Acute (2) Pyelonephritis Current Visit: Yes Status: Acute (3) Gastroenteritis Current Visit: Yes Status: Acute (4) Hypertension Current Visit: Yes Status: Chronic (5) Diabetes Current Visit: Yes Status: Chronic DVT Prophylaxis: Continue subcutaneous heparin - Summary of Assessment and Plan Summary of Assessment and Plan: Sepsis due to Escherichia coli: Sensitivities pending. Continue Rocephin. Most likely due to acute pyelonephritis. Acute pyelonephritis Gastroenteritis: Improving. Stool GI panel was negative. Continue symptomatic treatment. Clear liquid diet today as nausea and vomiting have improved. We will decrease IV fluids. Hypertension: Blood pressure has improved overall. She does have a history of hypertension and is on Midorine and Florinef Diabetes mellitus type 2: Patient will be on clear liquid diet. We will place her on insulin 70/30 in addition to sliding scale coverage - Time Spent with Patient Total time spent is greater than 50% in coordination of care (as documented) at patient's floor/unit and/or counseling patient: Internal Medicine: Result - Labs CBC & Chem 7: 11/29/18 03:48 11/29/18 03:48 Labs: Short CBC 11/29/18 Range/Units 03:48 WBC 7.3 (4.3-11.1) K/mcL Hgb 10.6 L (11.5-15.4) g/dL Hct 31.8 L (35.3-44.9) % Plt Count 205 (140-400) K/mcL Neutrophils # 5.2 (1.6-8.9) K/mcL [facility] 11/29/18 03:48 Sodium 137 Potassium 3.1 L Chloride 106 Carbon Dioxide 21 L BUN 17 Creatinine 0.65 Glucose 204 H Calcium 8.0 L Consult Discharge Plan - Plan Referrals: Coby Elena MD [Primary Care Provider] - (1) Sepsis Qualifiers: Sepsis type: Escherichia coli Qualified Code(s): A41.51 - Sepsis due to Escherichia coli [E. 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
[2018-11-29] MEDS: Insulin NPH/REG 70/30 100 UNIT/ML (x5UNIT) SQ SCH ×2 (13:57→16:36)
[2018-11-30] MEDS: 0.9 % Sodium Chloride 1,000 ML IVC SCH ×2 (04:53→10:50)
[2018-11-30] MEDS: Loperamide 1 MG/5 ML UDC PO PRN ×2 (06:44→20:49)
[2018-11-30] MEDS: *HR* Heparin 5,000 UNIT/ML VIAL SQ SCH ×3 (06:56→20:50)
[2018-11-30] MEDS: Insulin NPH/REG 70/30 100 UNIT/ML (x5UNIT) SQ SCH ×2 (08:14→16:44)
[2018-11-30] MEDS: *HR* Promethazine 25 MG/ML VIAL IVP PRN (08:14)
[2018-11-30] MEDS: Insulin LISPRO 300 UNITS/3 ML VIAL SQ SCH ×3 (08:15→16:44)
[2018-11-30] MEDS: Cholecalciferol (D-3) 1,000 UNIT TABLET PO SCH (10:44)
[2018-11-30] MEDS: Isosorbide MONOnitrate (24 HR) 30 MG TAB.ER.24H PO SCH (10:45)
[2018-11-30] MEDS: Magnesium Oxide 400 MG TABLET PO SCH (10:45)
[2018-11-30] MEDS: Aspirin 81 MG TAB.CHEW PO SCH (10:45)
[2018-11-30] MEDS: cefTRIAXone 2,000 MG in Water for inj. (sterile) 20 ML 20 ML IVP SCH (10:47)
[2018-11-30] MEDS: Metoclopramide 10 MG/10 ML UD.LIQ PO SCH ×3 (14:50→20:49)
--- NOTE | 2018-11-30 15:15 | Internal Med Progress Note ---
Hospitalist Progress Note - Encounter Date of Encounter: 11/30/18 Time of Encounter: 15:10 - Subjective Interval History: Patient continues to have episodes of nausea. She does report past history of similar complaints during which time she was suggested upper GI endoscopy which she ended up not getting as she was on Plavix. Her flank pain and abdominal discomfort have all subsided. She did have one episode of diarrhea this morning. - Exam Vitals: Temp Pulse Resp BP Pulse Ox 98.1 F 78 17 155/76 94 11/30/18 14:05 11/30/18 14:05 11/30/18 14:05 11/30/18 14:05 11/30/18 14:05 Exam: General: Patient is alert, mild distress, oriented x 3 Respiratory: Good respiratory effort. Normal breath sounds. No wheezing or crackles. Cardiovascular: Regular rate and rhythm. s1 and s2 normal No clicks, rubs, gallops, or murmurs. No pedal edema Abdomen: Abdomen is soft, nontender. Bowel sounds are present Musculoskeletal: Spontaneously moving all extremities Skin: warm, dry, intact. Neuro: Alert oriented x 3 normal cranial nerves, no focal deficits - Assessment and Plan (1) Sepsis Current Visit: Yes Status: Acute (2) Pyelonephritis Current Visit: Yes Status: Acute (3) Gastroenteritis Current Visit: Yes Status: Acute (4) Hypertension Current Visit: Yes Status: Chronic (5) Diabetes Current Visit: Yes Status: Chronic DVT Prophylaxis: Subcutaneous heparin - Summary of Assessment and Plan Summary of Assessment and Plan: Sepsis due to Escherichia coli: Pansensitive Escherichia coli. Repeat cultures are so far negative. If cultures remain negative tomorrow possible discharge on oral antibiotics. Acute pyelonephritis: Management as above Gastroenteritis: Patient did have episode of diarrhea this morning. However her stool panel was negative. Continue Imodium as needed. Intractable nausea: Patient may have underlying diabetic gastroparesis. Will place her on Reglan. Advance diet as tolerated. Hypertension: Stable. Continue Midodrine and Florinef. Diabetes mellitus type 2: Advance diet as tolerated. We will increase insulin 70/30 dosage to 15 units twice a day. Moderate risk for complications. - Time Spent with Patient Total time spent is greater than 50% in coordination of care (as documented) at patient's floor/unit and/or counseling patient: Internal Medicine: Result - Labs CBC & Chem 7: 11/29/18 03:48 05/30/19 03:48 Consult Discharge Plan - Plan Referrals: Coby Elena MD [Primary Care Provider] - (1) Sepsis Qualifiers: Sepsis type: Escherichia coli Qualified Code(s): A41.51 - Sepsis due to Escherichia coli [E. coli] (4) Hypertension Qualifiers: Hypertension type: essential hypertension Qualified Code(s): I10 - Essential (primary) hypertension (5) Diabetes Qualifiers: Diabetes mellitus type: type 2 Diabetes mellitus innovation analyst insulin use: with nursing home use Diabetes mellitus complication status: with neurologic complications Diabetes mellitus complication detail: with polyneuropathy Qualified Code(s): E11.42 - Type 2 diabetes mellitus with diabetic polyneuropathy; Z79.4 - [facility] (current) use of insulin; Z79.4 - supervisor seaming (current) use of insulin; Z79.4 - supervisor seaming (current) use of insulin; Z79.4 - supervisor seaming (current) use of insulin
[2018-12-01] MEDS: *HR* Promethazine 25 MG/ML VIAL IVP PRN (03:24)
[2018-12-01] MEDS: *HR* Heparin 5,000 UNIT/ML VIAL SQ SCH (05:08)
[2018-12-01 07:43] LABS: BUN/Creatinine Ratio 14 (6-26); Blood Urea Nitrogen 8 mg/dL (6-20); Carbon Dioxide 25 mEq/L (23-29); Chloride 106 mEq/L (98-107); Glucose 192 mg/dL (70-105); Osmolality,Calculated 288 (280-300); Potassium 2.9 mEq/L (3.5-5.1); Sodium 137 mEq/L (136-145); eGFR For Non-African Americans > 60 (> 60)
[2018-12-01] MEDS: Isosorbide MONOnitrate (24 HR) 30 MG TAB.ER.24H PO SCH (08:32)
[2018-12-01] MEDS: Metoclopramide 10 MG/10 ML UD.LIQ PO SCH ×2 (08:34→12:15)
[2018-12-01] MEDS: Insulin NPH/REG 70/30 100 UNIT/ML (x5UNIT) SQ SCH (08:35)
[2018-12-01] MEDS: Magnesium Oxide 400 MG TABLET PO SCH (08:35)
[2018-12-01] MEDS: Cholecalciferol (D-3) 1,000 UNIT TABLET PO SCH (08:35)
[2018-12-01] MEDS: Aspirin 81 MG TAB.CHEW PO SCH (08:35)
[2018-12-01] MEDS: Insulin LISPRO 300 UNITS/3 ML VIAL SQ SCH ×2 (08:36→12:15)
[2018-12-01] MEDS: cefTRIAXone 2,000 MG in Water for inj. (sterile) 20 ML 20 ML IVP SCH (08:36)
[2018-12-01 11:21] VITALS: BP 123/78
--- NOTE | 2018-12-01 12:39 | Discharge Summary ---
- NOTES TO OUTPATIENT PROVIDER Notes to Outpatient Provider: Patient was hospitalized with acute gastroenteritis and sepsis from acute pyelonephritis. Treated with IV antibiotics. Blood cultures initially positive for Escherichia coli. Repeat cultures have been negative. Patient is doing much better and will be discharged today. Orders not resulted at time of discharge: Pending orders 11/29/18 03:48 Culture,Blood [BC] AM 0400 Date of Encounter: 12/01/18 Time of Encounter: 12:32 - Discharge Diagnosis (1) Sepsis Priority: Primary Status: Acute Qualifiers: Sepsis type: Escherichia coli Qualified Code(s): A41.51 - Sepsis due to Escherichia coli [E. coli] (2) Pyelonephritis Priority: Secondary Status: Acute (3) Gastroenteritis Priority: Secondary Status: Acute (4) Hypertension Priority: Secondary Status: Chronic Qualifiers: Hypertension type: essential hypertension Qualified Code(s): I10 - Essential (primary) hypertension (5) Diabetes Priority: Secondary Status: Chronic Qualifiers: Diabetes mellitus type: type 2 Diabetes mellitus intermediate accountant insulin use: with intermediate accountant use Diabetes mellitus complication status: with neurologic complications Diabetes mellitus complication detail: with polyneuropathy Qualified Code(s): E11.42 - Type 2 diabetes mellitus with diabetic polyneuropathy; Z79.4 - terminal gauger supervisor (current) use of insulin; Z79.4 - terminal gauger supervisor (current) use of insulin; Z79.4 - halfway (current) use of insulin; Z79.4 - terminal gauger supervisor (current) use of insulin Hospital course: Ms. Bob is a 53 year old female patient with a history of coronary artery disease, diabetes was hospitalized here with gastroenteritis symptoms of nausea vomiting and diarrhea along with left flank pain. She was diagnosed with sepsis related to acute pyelonephritis. Treated with IV antibiotics. Initial set of b lood cultures were positive for Escherichia coli which is pansensitive. Repeat blood cultures have been negative. Patient has recovered well from her sepsis. She does have chronic uncontrolled diabetes and may have diabetic gastroparesis. This is being treated with Reglan and patient has responded well to this. Patient was prescribed insulin pump as outpatient but has not been able to get this. As such I am placing her on insulin 70/30 at 25 units twice daily for her diabetes. She will follow up with her PCP for further management. Patient is being discharged with ciprofloxacin to complete a 14 day treatment course. Discharge discussed with: patient, social work - Time Spent with Patient Total time spent providing and/or coordinating discharge services: Time spent: Greater than 30 minutes (35 min) - Discharge Medications Prescriptions: New Insulin NPH/REG 70/30 (HUMAN) [Humulin 70/30 Vial] 25 unit SQ BIDAC #1 vial Ciprofloxacin [Cipro] 500 mg PO BID #20 tablet Lactobacillus Acidophilus [Acidophilus] 1 each PO BID #20 capsule Metoclopramide [Reglan] 5 mg PO QIDAC #60 tablet Continued Rosuvastatin [Crestor] 40 mg PO HS Nitroglycerin [Nitrostat] 0.4 mg SL AD PRN PRN Reason: Chest Pain Clopidogrel [Plavix] 75 mg PO DAILY Ranitidine HCl [Zantac 75] 75 mg PO DAILY PRN PRN Reason: Dyspepsia Cholecalciferol (D-3) [Vitamin D] 5,000 unit PO DAILY Magnesium Oxide [Mag-Ox] 400 mg PO DAILY #30 tablet Sodium Chloride [Sodium Chloride Tab] 1 gm PO BID Fludrocortisone Acetate [Florinef] 0.5 mg PO DAILY Aspirin [Adult Aspirin Regimen] 81 mg PO DAILY DULoxetine [Cymbalta] 30 mg PO QAM Insulin Glargine,Hum.rec.anlog [Lantus Solostar] 35 unit SQ BID Isosorbide MONOnitrate (24 HR) [Imdur] 30 mg PO DAILY PRN PRN Reason: Chest Pain Midodrine HCl 10 mg PO TID Discontinued Subcutaneous Insulin Pump [T:Slim] 1 each SQ AD Home Medications: Nitroglycerin [Nitrostat] 0.4 mg SL AD PRN 04/20/17 [History] Rosuvastatin [Crestor] 40 mg PO HS 04/20/17 [History] Clopidogrel [Plavix] 75 mg PO DAILY 07/09/17 [History] Ranitidine HCl [Zantac 75] 75 mg PO DAILY PRN 07/10/17 [History] Cholecalciferol (D-3) [Vitamin D] 5,000 unit PO DAILY 08/11/17 [History] Magnesium Oxide [Mag-Ox] 400 mg PO DAILY #30 tablet 08/13/17 [Rx] Fludrocortisone Acetate [Florinef] 0.5 mg PO DAILY 05/08/18 [History] Sodium Chloride [Sodium Chloride Tab] 1 gm PO BID 05/08/18 [History] Aspirin [Adult Aspirin Regimen] 81 mg PO DAILY 11/29/18 [History] DULoxetine [Cymbalta] 30 mg PO QAM 11/29/18 [History] Insulin Glargine,Hum.rec.anlog [Lantus Solostar] 35 unit SQ BID 11/29/18 [History] Isosorbide MONOnitrate (24 HR) [Imdur] 30 mg PO DAILY PRN 11/29/18 [History] Midodrine HCl 10 mg PO TID 11/29/18 [History] Ciprofloxacin [Cipro] 500 mg PO BID #20 tablet 12/01/18 [Rx] Insulin NPH/REG 70/30 (HUMAN) [Humulin 70/30 Vial] 25 unit SQ BIDAC #1 vial 12/01/18 [Rx] Lactobacillus Acidophilus [Acidophilus] 1 each PO BID #20 capsule 12/01/18 [Rx] Metoclopramide [Reglan] 5 mg PO QIDAC #60 tablet 12/01/18 [Rx] Allergies/Adverse Reactions: Allergy/AdvReac Type Severity Reaction Status Date / Time No Known Allergies Allergy Verified 11/29/18 10:35 Date of admission: 11/28/18 13:58 Primary care physician: Coby Elena MD Consults: 11/27/18 20:57 Consult to Diabetes Education [CONS] Routine Comment: Reason for Consult: uncontroleld DM wiht recent start of Insulin management Discharging clinician: Debora Ordonez Anticipated date of discharge: 12/01/18 - Constitutional Vitals: Temp Pulse Resp BP Pulse Ox 98.2 F 77 14 123/78 95 12/01/18 11:15 12/01/18 11:15 12/01/18 11:15 12/01/18 11:15 12/01/18 11:15 General appearance: Present: cooperative, mild distress, A&O X 3, answers questions appropriately Exam: General: Patient is alert, no acute distress, oriented x 3 Respiratory: Good respiratory effort. Normal breath sounds. No wheezing or crackles. Cardiovascular: Regular rate and rhythm. s1 and s2 normal No clicks, rubs, gallops, or murmurs. No pedal edema Abdomen: Abdomen is soft, nontender. Bowel sounds are present Musculoskeletal: Spontaneously moving all extremities Skin: warm, dry, intact. Neuro: Alert oriented x 3 normal cranial nerves, no focal deficits - Patient Status Disposition: Home, Self-Care Condition: Good Functional capacity at discharge: independent ambulation Overall status at discharge: patient is progressing back to baseline - Discharge Instructions Instructions: Gastroenteritis (DC), Urinary Tract Infection in Women (DC) Follow Up With: Coby Elena MD [Primary Care Provider] - (in 1-2 weeks) - Diet and Activity Activity: increase activity as tolerated Diet: diabetic diet, low fat, low cholesterol, low salt diet
== END 2018-12-01 16:10 | disposition home or self-care (01) | DRG 872 ==
LOC: 3ANU 16:51 → EMEROOARM 16:51 → SUATTDRO 20:39 → 3ANU 21:59
PROVIDERS: ADMIT Pediatrics; ATTEND Internal Medicine

== ENCOUNTER 2020-05-19 20:12 | Observation (INO) ==
[2020-05-19 21:08] LABS: Basophils # 0.1 K/mcL (0.0-0.2); Basophils % 0.8 %; Eosinophils # 0.2 K/mcL (0.0-0.6); Eosinophils % 3.1 %; Hematocrit 42.3 % (35.3-44.9); Hemoglobin 13.3 g/dL (11.5-15.4); Immature Granulocytes % 0.3 % (0-4); Lymphocytes # 1.9 K/mcL (0.6-4.6); Lymphocytes % 29.4 %; Mean Corpuscular HGB Conc 31.4 g/dL (31.6-35.5); Mean Corpuscular Hemoglobin 28.5 pg (28.0-33.3); Mean Corpuscular Volume 90.8 fL (83.0-100.0); Mean Platelet Volume 9.7 fL (9.4-12.4); Monocytes # 0.4 K/mcL (0.0-1.3); Monocytes % 5.9 %; Neutrophils # 3.9 K/mcL (1.6-8.9); Platelet Count 275 K/mcL (140-400); Red Blood Count 4.66 M/mcL (3.82-4.97); Red Cell Distribution Width 14.3 % (11.5-14.5); Segmented Neutrophils % 60.5 %; White Blood Count 6.5 K/mcL (4.3-11.1)
[2020-05-19 21:16] LABS: Prothrombin Time 11.5 Seconds (9.4-12.1)
[2020-05-19 21:18] LABS: Activated Partial Thrombo Time 35.5 Seconds (26.0-36.0)
[2020-05-19 21:26] LABS: BUN/Creatinine Ratio 16 (6-26); Blood Urea Nitrogen 18 mg/dL (6-20); Calcium 9.1 mg/dL (8.6-10.3); Carbon Dioxide 26 mEq/L (23-29); Chloride 104 mEq/L (98-107); Glucose 232 mg/dL (70-105); Osmolality,Calculated 295 (280-300); Potassium 4.3 mEq/L (3.5-5.1); Sodium 138 mEq/L (136-145); eGFR For African Americans > 60 (> 60); eGFR For Non-African Americans 50 (> 60)
[2020-05-19 21:27] LABS: Troponin I < 0.03 ng/mL (< 0.04)
[2020-05-20] MEDS ORDERED: D5% in Water 1,000 ML IVC PRN (00:06)
[2020-05-20] MEDS ORDERED: *HR* Dextrose 50 % in Water (Vial) 50 ML VIAL IVP PRN (00:06)
[2020-05-20] MEDS ORDERED: Dextrose Gel 15 GM/37.5 ML TUBE PO PRN ×2 (00:06)
[2020-05-20] MEDS ORDERED: Nitroglycerin 0.4 MG TAB.SUBL SL PRN (00:08)
[2020-05-20] MEDS ORDERED: Acetaminophen 325 MG TABLET PO PRN (00:18)
[2020-05-20] MEDS ORDERED: Ondansetron 4 MG/2 ML VIAL IVP PRN (00:18)
[2020-05-20] MEDS ORDERED: Naloxone 0.4 MG/ML INJ IVP PRN (00:18)
[2020-05-20] MEDS ORDERED: Morphine Sulfate 2 MG/ML SYRINGE IVP ONE (00:28)
[2020-05-20 04:12] LABS: Hematocrit 39.4 % (35.3-44.9); Hemoglobin 12.8 g/dL (11.5-15.4); Mean Corpuscular HGB Conc 32.5 g/dL (31.6-35.5); Mean Corpuscular Hemoglobin 29.3 pg (28.0-33.3); Mean Corpuscular Volume 90.2 fL (83.0-100.0); Mean Platelet Volume 9.5 fL (9.4-12.4); Platelet Count 274 K/mcL (140-400); Red Blood Count 4.37 M/mcL (3.82-4.97); Red Cell Distribution Width 14.1 % (11.5-14.5)
[2020-05-20 04:32] LABS: BUN/Creatinine Ratio 18 (6-26); Blood Urea Nitrogen 19 mg/dL (6-20); Calcium 8.9 mg/dL (8.6-10.3); Carbon Dioxide 25 mEq/L (23-29); Chloride 104 mEq/L (98-107); Chol/HDL Ratio 2.4 (0-4.9); Cholesterol 83 mg/dL (< 200); Glucose 234 mg/dL (70-105); HDL Cholesterol 35 mg/dL (40-59); LDL Cholesterol,Calculated 25 mg/dL (< 100); Magnesium 1.9 mg/dL (1.6-2.6); Osmolality,Calculated 292 (280-300); Phosphorous 3.6 mg/dL (2.7-4.5); Potassium 3.7 mEq/L (3.5-5.1); Sodium 136 mEq/L (136-145); Triglycerides 113 mg/dL (< 150); eGFR For African Americans > 60 (> 60); eGFR For Non-African Americans 54 (> 60)
[2020-05-20 04:34] LABS: Troponin I < 0.03 ng/mL (< 0.04)
[2020-05-20] MEDS ORDERED: Regadenoson 0.4 MG/5 ML SYRINGE IVP ONE (06:06)
[2020-05-20] MEDS: Insulin LISPRO 300 UNITS/3 ML VIAL SQ SCH ×3 (06:07→17:37)
[2020-05-20] MEDS: *HR* Heparin 5,000 UNIT/ML VIAL SQ SCH ×3 (06:07→21:47)
[2020-05-20] MEDS: Aspirin Enteric Coated 81 MG Tablet PO SCH (07:51)
[2020-05-20 09:24] LABS: Estimated Average Glucose 252 mg/dl
[2020-05-20] MEDS ORDERED: Perflutren Lipid Microsphere 1.3 ML in 0.9 % Sodium Chloride 8.7 ML IVP PRN (12:48)
[2020-05-20] MEDS: *HR* OxyCODONE Immed Rel 5 MG TABLET PO PRN (17:29)
[2020-05-20] MEDS ORDERED: Insulin LISPRO 300 UNITS/3 ML VIAL SQ SCH (23:45)
[2020-05-21] MEDS: *HR* OxyCODONE Immed Rel 5 MG TABLET PO PRN ×2 (01:01→10:09)
[2020-05-21] MEDS: *HR* Heparin 5,000 UNIT/ML VIAL SQ SCH (05:43)
[2020-05-21 06:36] LABS: Hematocrit 40.1 % (35.3-44.9); Hemoglobin 12.6 g/dL (11.5-15.4); Mean Corpuscular HGB Conc 31.4 g/dL (31.6-35.5); Mean Corpuscular Hemoglobin 28.1 pg (28.0-33.3); Mean Corpuscular Volume 89.3 fL (83.0-100.0); Mean Platelet Volume 9.7 fL (9.4-12.4); Platelet Count 275 K/mcL (140-400); Red Blood Count 4.49 M/mcL (3.82-4.97); Red Cell Distribution Width 14.1 % (11.5-14.5); White Blood Count 6.7 K/mcL (4.3-11.1)
[2020-05-21 07:08] LABS: BUN/Creatinine Ratio 20 (6-26); Blood Urea Nitrogen 20 mg/dL (6-20); Carbon Dioxide 24 mEq/L (23-29); Chloride 103 mEq/L (98-107); Glucose 287 mg/dL (70-105); Osmolality,Calculated 295 (280-300); Potassium 3.8 mEq/L (3.5-5.1); Sodium 136 mEq/L (136-145); eGFR For African Americans > 60 (> 60); eGFR For Non-African Americans 59 (> 60)
[2020-05-21] MEDS ORDERED: Insulin LISPRO 300 UNITS/3 ML VIAL SQ SCH (07:30)
[2020-05-21] MEDS: Aspirin Enteric Coated 81 MG Tablet PO SCH (08:05)
[2020-05-21] MEDS: Insulin LISPRO 300 UNITS/3 ML VIAL SQ SCH ×2 (08:07→11:26)
[2020-05-21 10:20] VITALS: BP 105/69
[2020-05-22 18:43] LABS: APTT (LE Anticoag) 44 sec (32-48); Diluted Russell Viper Venom 29 sec (33-44); PT (LE-Anticoag) 12.9 sec (12.0-15.5)
== END 2020-05-21 13:58 | disposition home or self-care (01) ==
LOC: EMEROOARM 20:12 → 3BNU 20:12
PROVIDERS: ADMIT Internal Medicine; ATTEND Internal Medicine

== ENCOUNTER 2020-12-03 17:40 | Observation (INO) ==
[2020-12-03] MEDS ORDERED: 0.9 % Sodium Chloride 500 ML IVC ONE (18:51)
[2020-12-03 19:02] LABS: Basophils % 0.4 %; Eosinophils # 0.1 K/mcL (0.0-0.6); Eosinophils % 1.2 %; Hematocrit 36.7 % (35.3-44.9); Hemoglobin 12.1 g/dL (11.5-15.4); Immature Granulocytes % 0.5 % (0-4); Lymphocytes # 1.9 K/mcL (0.6-4.6); Lymphocytes % 23.3 %; Mean Corpuscular Hemoglobin 29.1 pg (28.0-33.3); Mean Corpuscular Volume 88.2 fL (83.0-100.0); Mean Platelet Volume 9.3 fL (9.4-12.4); Monocytes # 0.4 K/mcL (0.0-1.3); Neutrophils # 5.7 K/mcL (1.6-8.9); Platelet Count 359 K/mcL (140-400); Red Blood Count 4.16 M/mcL (3.82-4.97); Red Cell Distribution Width 14.5 % (11.5-14.5); Segmented Neutrophils % 69.6 %; White Blood Count 8.2 K/mcL (4.3-11.1)
[2020-12-03 19:24] LABS: BUN/Creatinine Ratio 19 (6-26); Blood Urea Nitrogen 37 mg/dL (6-20); Calcium 9.9 mg/dL (8.6-10.3); Carbon Dioxide 23 mEq/L (23-29); Chloride 105 mEq/L (98-107); Glucose 201 mg/dL (70-105); Osmolality,Calculated 300 (280-300); Potassium 3.4 mEq/L (3.5-5.1); Sodium 138 mEq/L (136-145); Troponin I < 0.03 ng/mL (< 0.04); eGFR For African Americans 32 (> 60); eGFR For Non-African Americans 27 (> 60)
[2020-12-03] MEDS ORDERED: Melatonin 3 MG TABLET PO PRN (21:41)
[2020-12-03] MEDS ORDERED: Naloxone 0.4 MG/ML INJ IVP PRN (21:41)
[2020-12-03] MEDS ORDERED: Ondansetron 4 MG/2 ML VIAL IVP PRN (21:41)
[2020-12-03] MEDS ORDERED: D5% in Water 1,000 ML IVC PRN (21:42)
[2020-12-03] MEDS ORDERED: *HR* Dextrose 50 % in Water (Vial) 50 ML VIAL IVP PRN (21:42)
[2020-12-03] MEDS ORDERED: Dextrose Gel 15 GM/37.5 ML TUBE PO PRN ×2 (21:42)
[2020-12-03] MEDS ORDERED: 0.9 % Sodium Chloride 1,000 ML IVC SCH (21:45)
[2020-12-03] MEDS: Insulin LISPRO 300 UNITS/3 ML VIAL SUBQ SCH (22:36)
[2020-12-04] MEDS ORDERED: Perflutren Lipid Microsphere 1.3 ML in 0.9 % Sodium Chloride 8.7 ML IVP PRN (00:36)
[2020-12-04] MEDS ORDERED: Potassium Chloride Elixir 20 MEQ/15 ML UDC PO ONE (00:38)
[2020-12-04] MEDS: Insulin LISPRO 300 UNITS/3 ML VIAL SUBQ SCH ×5 (04:13→20:46)
[2020-12-04 04:27] LABS: Prothrombin Time 11.2 Seconds (9.4-12.1)
[2020-12-04 04:30] LABS: Activated Partial Thrombo Time 34.7 Seconds (26.0-36.0)
[2020-12-04 04:59] LABS: Hematocrit 34.2 % (35.3-44.9); Hemoglobin 10.8 g/dL (11.5-15.4); Mean Corpuscular HGB Conc 31.6 g/dL (31.6-35.5); Mean Corpuscular Hemoglobin 28.2 pg (28.0-33.3); Mean Corpuscular Volume 89.3 fL (83.0-100.0); Mean Platelet Volume 9.3 fL (9.4-12.4); Platelet Count 294 K/mcL (140-400); Red Blood Count 3.83 M/mcL (3.82-4.97); Red Cell Distribution Width 14.5 % (11.5-14.5); White Blood Count 8.2 K/mcL (4.3-11.1)
[2020-12-04 05:09] LABS: Bacteria,Urine Many per hpf (None-Few); Bilirubin,Urine Negative (Negative); Blood,Urine Large (Negative); Clarity,Urine Turbid (Clear); Color,Urine Yellow (Yellow); Glucose,Urine (UA) Normal (Normal); Ketones,Urine Negative (Negative); Leukocyte Esterase,Urine Moderate (Negative); Mucus,Urine Few per lpf (None-Few); Nitrite,Urine Positive (Negative); Protein,Urine 200 mg/dL (Neg-Trace); Squamous Epithelial Cell,Urine Few per hpf (None-Few); Urobilinogen,Urine Normal (Normal); WBC,Urine 30-50 per hpf (0-3)
[2020-12-04 05:19] LABS: Chol/HDL Ratio 2.4 (0-4.9); Potassium 3.6 mEq/L (3.5-5.1)
[2020-12-04 05:31] LABS: Thyroid Stimulating Hormone 3.801 mcIU/mL (0.340-5.600)
[2020-12-04] MEDS: Aspirin Enteric Coated 81 MG Tablet PO SCH (09:11)
[2020-12-04 12:47] LABS: Estimated Average Glucose 220 mg/dl; Hemoglobin A1C 9.3 %
[2020-12-04] MEDS: cefTRIAXone 1,000 MG in Water for inj. (sterile) 10 ML IVP SCH (21:04)
[2020-12-05 05:54] LABS: Calcium 8.9 mg/dL (8.6-10.3); Potassium 3.8 mEq/L (3.5-5.1)
[2020-12-05 06:07] LABS: Thyroid Stimulating Hormone 2.932 mcIU/mL (0.340-5.600)
[2020-12-05 06:18] LABS: Folate 4.8 ng/mL (3.0-16.0)
[2020-12-05] MEDS: Aspirin Enteric Coated 81 MG Tablet PO SCH (08:36)
[2020-12-05] MEDS: cefTRIAXone 1,000 MG in Water for inj. (sterile) 10 ML IVP SCH (08:36)
[2020-12-05] MEDS: Insulin LISPRO 300 UNITS/3 ML VIAL SUBQ SCH (08:37)
[2020-12-05] MEDS ORDERED: Isosorbide MONOnitrate (24 HR) 30 MG TAB.ER.24H PO SCH (09:00)
[2020-12-05 09:18] VITALS: BP 114/74
== END 2020-12-05 12:35 | disposition home or self-care (01) ==
LOC: 2ANU 17:40 → EMEROOARM 17:40 → SUATTDRO 21:33 → 2ANU 22:15
PROVIDERS: ADMIT Internal Medicine; ATTEND Family Medicine

== ENCOUNTER 2022-03-03 10:30 | Observation (INO) ==
[2022-03-03 11:30] LABS: BUN/Creatinine Ratio 18 (6-26); Blood Urea Nitrogen 22 mg/dL (6-20); Calcium 9.5 mg/dL (8.6-10.3); Carbon Dioxide 25 mEq/L (23-29); Chloride 105 mEq/L (98-107); Glucose 151 mg/dL (70-105); Osmolality,Calculated 294 (280-300); Potassium 3.7 mEq/L (3.5-5.1); Sodium 139 mEq/L (136-145); Troponin I < 0.03 ng/mL (< 0.04)
[2022-03-03 12:07] LABS: Basophils # 0.1 K/mcL (0.0-0.2); Basophils % 0.7 %; Eosinophils # 0.3 K/mcL (0.0-0.6); Eosinophils % 4.1 %; Hematocrit 37.5 % (35.3-44.9); Hemoglobin 11.9 g/dL (11.5-15.4); Immature Granulocytes % 0.3 % (0-4); Lymphocytes # 1.7 K/mcL (0.6-4.6); Lymphocytes % 25.1 %; Mean Corpuscular HGB Conc 31.7 g/dL (31.6-35.5); Mean Corpuscular Volume 88.2 fL (83.0-100.0); Monocytes # 0.5 K/mcL (0.0-1.3); Monocytes % 7.1 %; Neutrophils # 4.3 K/mcL (1.6-8.9); Platelet Count 352 K/mcL (140-400); Red Blood Count 4.25 M/mcL (3.82-4.97); Red Cell Distribution Width 14.9 % (11.5-14.5); Segmented Neutrophils % 62.7 %; White Blood Count 6.8 K/mcL (4.3-11.1)
[2022-03-03] MEDS ORDERED: Aspirin 81 MG TAB.CHEW PO ONE (13:31)
[2022-03-03] MEDS: Nitroglycerin 0.4 MG TAB.SUBL SL PRN ×4 (14:15→17:10)
[2022-03-03 14:44] LABS: Influenza A PCR Negative (Negative); Influenza B PCR Negative (Negative); Resp. Syncytial Virus PCR Negative (Negative)
[2022-03-03 14:54] LABS: SARS-CoV-2 by PCR (In House) Negative (Negative)
[2022-03-03] MEDS ORDERED: Ondansetron 4 MG/2 ML VIAL IVP PRN (14:54)
[2022-03-03] MEDS ORDERED: D5% in Water 1,000 ML IVC PRN (15:51)
[2022-03-03] MEDS ORDERED: *HR* Dextrose 50 % in Water (Syg) 50 ML SYRINGE IVP PRN (15:51)
[2022-03-03] MEDS ORDERED: Dextrose Gel 15 GM/37.5 ML TUBE PO PRN ×2 (15:51)
[2022-03-03] MEDS: Insulin LISPRO 300 UNITS/3 ML VIAL SUBQ SCH (16:48)
[2022-03-03] MEDS ORDERED: Morphine Sulfate 2 MG/ML SYRINGE IVP ONE (19:33)
[2022-03-03] MEDS ORDERED: Insulin LISPRO 300 UNITS/3 ML VIAL SUBQ SCH (21:00)
[2022-03-04 03:01] LABS: Basophils % 0.7 %; Eosinophils # 0.2 K/mcL (0.0-0.6); Eosinophils % 3.3 %; Hematocrit 33.2 % (35.3-44.9); Hemoglobin 10.5 g/dL (11.5-15.4); Immature Granulocytes % 0.3 % (0-4); Lymphocytes # 2.1 K/mcL (0.6-4.6); Lymphocytes % 34.1 %; Mean Corpuscular HGB Conc 31.6 g/dL (31.6-35.5); Mean Corpuscular Hemoglobin 27.8 pg (28.0-33.3); Mean Corpuscular Volume 87.8 fL (83.0-100.0); Mean Platelet Volume 9.8 fL (9.4-12.4); Monocytes # 0.4 K/mcL (0.0-1.3); Neutrophils # 3.3 K/mcL (1.6-8.9); Platelet Count 281 K/mcL (140-400); Red Blood Count 3.78 M/mcL (3.82-4.97); Red Cell Distribution Width 14.8 % (11.5-14.5); Segmented Neutrophils % 54.6 %
[2022-03-04 03:25] LABS: Albumin 3.8 g/dL (3.5-5.7); Albumin/Globulin Ratio 1.4 (1.1-2.2); Bilirubin,Total 0.4 mg/dL (0.3-1.0); Calcium 8.8 mg/dL (8.6-10.3); Chol/HDL Ratio 3.5 (0-4.9); Globulin 2.7 g/dL (2.4-3.5); Magnesium 1.8 mg/dL (1.6-2.6); Potassium 4.1 mEq/L (3.5-5.1); Total Protein 6.5 g/dL (6.4-8.9)
[2022-03-04 03:49] LABS: Estimated Average Glucose 189 mg/dl; Hemoglobin A1C 8.2 %
[2022-03-04] MEDS: Insulin LISPRO 300 UNITS/3 ML VIAL SUBQ SCH ×2 (08:20→12:51)
[2022-03-04] MEDS ORDERED: Aspirin 81 MG TAB.CHEW PO SCH (09:00)
[2022-03-04] MEDS ORDERED: Metoprolol XL (24 HR) Succ 25 MG TAB.ER.24H PO SCH (09:00)
[2022-03-04] MEDS ORDERED: Cholecalciferol (D-3) 1,000 UNIT (25MCG) TABLET PO SCH (09:00)
[2022-03-04] MEDS ORDERED: Regadenoson 0.4 MG/5 ML SYRINGE IVP ONE (10:27)
[2022-03-04 12:40] VITALS: TEMP 97.8
[2022-03-04 14:17] VITALS: BP 147/84; PULSE 83; O2SAT 100
[2022-03-04] MEDS ORDERED: Ranolazine 500 MG TAB.ER.12H PO SCH (21:00)
== END 2022-03-04 15:23 | disposition home or self-care (01) ==
LOC: EMEROOARM 10:30 → 3BNU 10:30 → SUATTDRO 14:22 → 3BNU 14:26
PROVIDERS: ADMIT Hospitalist; ATTEND Hospitalist